=== PATIENT | male | born 1955 | race Two or more races ===

== ENCOUNTER → 2017-12-18 | Outpatient (CLI) | payer OTHER ==
[2017-12-18 10:04] LABS: ALT 60 U/L (21-72); AST 43 U/L (17-59); Cholesterol 146 mg/dL (<200); HDL Cholesterol 72 mg/dL (40-60); LDL Cholesterol,Calculated 56 mg/dL (0-99); Triglycerides 88 mg/dL (<150)
== END | disposition home or self-care (01) ==
LOC: LABWHC1 09:17
PROVIDERS: ATTEND Internal Medicine Cardiovascular Disease
DX: E78.2 Mixed hyperlipidemia (principal)
CPT/HCPCS: 36415; 80061; 84450; 84460

== ENCOUNTER 2019-03-31 15:01 | Inpatient (IN) | payer OTHER ==
[2019-03-31] MEDS ORDERED: SODIUM CHLORIDE 0.9% 500 ML 500 ML IV STA (15:29)
[2019-03-31 16:02] LABS: Basophils # (A) 0.1 k/uL (0-0.2); Basophils % (A) 1 %; Eosinophils # (A) 0.4 k/uL (0-0.7); Eosinophils % (A) 7 %; HCT 44.5 % (39.0-53.0); HGB 14.8 gm/dL (13.0-17.5); Lymphocytes # (A) 1.4 k/uL (1.0-4.8); Lymphocytes % (A) 26 %; MCH 29.1 pg (25.0-35.0); MCHC 33.2 g/dL (31.0-37.0); MCV 87.6 fL (80.0-100.0); Mean Platelet Volume 8.7; Monocytes # (A) 0.6 k/uL (0-1.0); Monocytes % (A) 11 %; Neutrophils # (A) 2.8 k/uL (1.3-7.7); Neutrophils % (A) 51 %; Platelet Count 153 k/uL (150-450); RBC 5.08 m/uL (4.30-5.90); RDW 13.7 % (11.5-15.5); WBC 5.4 k/uL (3.8-10.6)
[2019-03-31 16:09] LABS: ALT 319 U/L (21-72); AST 257 U/L (17-59); African American GFR (CKD) >90 (>60 ml/min/1.73 sqM); Albumin 4.4 g/dL (3.5-5.0); Alkaline Phosphatase 444 U/L (38-126); Anion Gap 12 mmol/L; Blood Urea Nitrogen 10 mg/dL (9-20); Calcium 9.4 mg/dL (8.4-10.2); Carbon Dioxide 22 mmol/L (22-30); Chloride 104 mmol/L (98-107); Glucose 148 mg/dL (74-99); Non-African American GFR(CKD) >90 (>60 ml/min/1.73 sqM); Sodium 138 mmol/L (137-145); Total Bilirubin 6.1 mg/dL (0.2-1.3); Total Protein 7.9 g/dL (6.3-8.2)
[2019-03-31] MEDS ORDERED: PANTOPRAZOLE 40 MG/10 ML VIAL IVP STA (16:49)
[2019-03-31 17:06] LABS: INR 1.3 (<1.2); Partial Thromboplastin Time 31.5 sec (22.0-30.0); Prothrombin Time 13.4 sec (9.0-12.0)
[2019-03-31 17:07] LABS: Appearance,Urine Clear (Clear); Bilirubin,Urine 2+ (Negative); Blood,Urine Negative (Negative); Color,Urine Dark Yellow; Glucose,Urine (UA) Negative (Negative); Ketones,Urine Negative (Negative); Leukocyte Esterase,Urine Negative (Negative); Nitrite,Urine Negative (Negative); PH, Urine 5.5 (5.0-8.0); Protein,Urine Negative (Negative); Specific Gravity,Urine 1.012 (1.001-1.035); Urobilinogen,Urine <2.0 mg/dL (<2.0)
--- NOTE | 2019-03-31 17:10 | ED ---
General Adult HPI - General Chief complaint: Recheck/Abnormal Lab/Rx Stated complaint: White Stool Time Seen by Provider: 03/31/19 15:14 Source: patient, family, RN notes reviewed, old records reviewed Mode of arrival: ambulatory Limitations: no limitations - History of Present Illness Initial comments: 63-year-old male patient with past history of alcohol abuse presents to ED for chief complaint of pale stool, abnormal labs. Patient reports that for ap proximately 2 weeks she has had pale white stool. Patient with his primary care provider yesterday when they verito labs. He was called by his primary care provider today to present to the emergency department. Denies any pain at this time. Denies any other complaints. Systemic: Pt denies fatigue, fever/chills, rash. Pt denies weakness, night sweats, weight loss. Neuro: Pt denies headache, visual disturbances, syncope or pre-syncope. HEENT: Pt denies ocular discharge or irritation, otalgia, rhinorrhea, pharyngitis or notable lymphadenopathy. Cardiopulmonary: Pt denies chest pain, SOB, heart palpitations, dyspnea on exertion. Abdominal/GI: Pt denies abdominal pain, n/v/d. : Pt denies dysuria, burning w/ urination, frequency/urgency. Denies new onset urinary or bowel incontinence. MSK: Pt denies myalgia, loss of strength or function in extremities. Neuro: Pt denies new onset weakness, paresthesias. - Related Data Allergies Allergy/AdvReac Type Severity Reaction Status Date / Time No Known Allergies Allergy Verified 03/31/19 15:10 Review of Systems ROS Statement: Those systems with pertinent positive or pertinent negative responses have been documented in the HPI. ROS Other: All systems not noted in ROS Statement are negative. Past Medical History Past Medical History: Coronary Artery Disease (CAD) History of Any Multi-Drug Resistant Organisms: None Reported Past Surgical History: Heart Catheterization With Stent Past Psychological History: No Psychological Hx Reported Smoking Status: Former smoker Past Alcohol Use History: Daily Past Drug Use History: None Reported General Exam - General Exam Comments Initial Comments: Constitutional: NAD, AOX3, Pt has pleasant affect. HEENT: NC/AT, trachea midline, neck supple, no lymphadenopathy. Posterior pharynx non erythematous, without exudates. External ears appear normal, without discharge. Mucous membranes moist. Eyes PERRLA, EOM intact. Jaundice noted.. No pallor noted. Cardiopulmonary: RRR, no murmurs, rubs or gallops, no JVD noted. Lungs CTAB in anterior and posterior hylton. No peripheral edema. Abdominal exam: Abdomen soft and mildly-distended. Abdomen non-tender to palpation in all 4 quadrants. Bowel sounds active in LLQ. No hepatosplenomegaly. No ecchymosis Neuro: CN II-XII grossly intact. No nuchal rigidity. No raccon eyes, no oliver sign, no hemotympanum. No cervical spinal tenderness. MSK: No posterior calf tenderness bilaterally, homans sign negative bilaterally. Posterior tibialis and radial pulse +2 bilaterally. Sensation intact in upper and lower extremities. Full active ROM in upper and lower extremities, 5/5 stregnth. Limitations: no limitations Course Vital Signs 03/31/19 03/31/19 03/31/19 15:08 15:50 16:00 Temperature 98.5 F Pulse Rate 75 71 70 Respiratory 20 18 18 Rate Blood Pressure 117/81 133/79 133/79 O2 Sat by Pulse 99 98 97 Oximetry 03/31/19 03/31/19 16:30 17:00 Temperature Pulse Rate 70 69 Respiratory 18 16 Rate Blood Pressure 153/80 125/88 O2 Sat by Pulse 98 99 Oximetry Medical Decision Making - Medical Decision Making 63-year-old male patient with past history of alcohol abuse presents to ED for chief complaint of pale stool, abnormal labs. Patient reports that for approximately 2 weeks she has had pale white stool. Patient with his primary care provider yesterday when they verito labs. He was called by his primary care provider today to present to the emergency department. Denies any pain at this time. Denies any other complaints. Patient vital signs stable, afebrile. Physical exam displayed: Jaundice. Abdomen soft and mildly-distended. Abdomen non-tender to palpation in all 4 quadrants. Bowel sounds active in LLQ. No hepatosplenomegaly. No ecchymosis. CBC, CMP unremarkable. Cognition studies mildly elevated. Transaminitis noted. Bilirubin 6.1. Lipase 613. +2 bilirubin urine. Occult blood positive. CT and pelvis displays pancreatic head mass with mild to moderate biliary and pancreatic ductal dilation. Neoplasm suspected. Patient will be admitted for further evaluation. Patient administered Protonix. EKG nonischemic. Case discussed with Dr. Swan. - Lab Data Result diagrams: 03/31/19 15:52 03/31/19 15:52 Lab Results 03/31/19 03/31/19 03/31/19 Range/Units 15:40 15:52 15:52 WBC 5.4 (3.8-10.6) k/uL RBC 5.08 (4.30-5.90) m/uL Hgb 14.8 (13.0-17.5) gm/dL Hct 44.5 (39.0-53.0) % MCV 87.6 (80.0-100.0) fL MCH 29.1 (25.0-35.0) pg MCHC 33.2 (31.0-37.0) g/dL RDW 13.7 (11.5-15.5) % Plt Count 153 (150-450) k/uL Neutrophils % 51 % Lymphocytes % 26 % Monocytes % 11 % Eosinophils % 7 % Basophils % 1 % Neutrophils # 2.8 (1.3-7.7) k/uL Lymphocytes # 1.4 (1.0-4.8) k/uL Monocytes # 0.6 (0-1.0) k/uL Eosinophils # 0.4 (0-0.7) k/uL Basophils # 0.1 (0-0.2) k/uL PT 13.4 H (9.0-12.0) sec INR 1.3 H (<1.2) APTT 31.5 H (22.0-30.0) sec Sodium 138 (137-145) mmol/L Potassium 4.0 (3.5-5.1) mmol/L Chloride 104 (98-107) mmol/L Carbon Dioxide 22 (22-30) mmol/L Anion Gap 12 mmol/L BUN 10 (9-20) mg/dL Creatinine 0.67 (0.66-1.25) mg/dL Est GFR (CKD-EPI)AfAm >90 (>60 ml/min/1.73 sqM) Est GFR (CKD-EPI)NonAf >90 (>60 ml/min/1.73 sqM) Glucose 148 H (74-99) mg/dL Plasma Lactic Acid Jhonny (0.7-2.0) mmol/L Calcium 9.4 (8.4-10.2) mg/dL Total Bilirubin 6.1 H (0.2-1.3) mg/dL AST 257 H (17-59) U/L ALT 319 H (21-72) U/L Alkaline Phosphatase 444 H (38-126) U/L Total Protein 7.9 (6.3-8.2) g/dL Albumin 4.4 (3.5-5.0) g/dL Lipase 613 H (23-300) U/L Urine Color Urine Appearance (Clear) Urine pH (5.0-8.0) Ur Specific Deford (1.001-1.035) Urine Protein (Negative) Urine Glucose (UA) (Negative) Urine Ketones (Negative) Urine Blood (Negative) Urine Nitrite (Negative) Urine Bilirubin (Negative) Urine Urobilinogen (<2.0) mg/dL Ur Leukocyte Esterase (Negative) Stool Occult Blood (Negative) 03/31/19 03/31/19 03/31/19 Range/Units 15:52 15:52 16:51 WBC (3.8-10.6) k/uL RBC (4.30-5.90) m/uL Hgb (13.0-17.5) gm/dL Hct (39.0-53.0) % MCV (80.0-100.0) fL MCH (25.0-35.0) pg MCHC (31.0-37.0) g/dL RDW (11.5-15.5) % Plt Count (150-450) k/uL Neutrophils % % Lymphocytes % % Monocytes % % Eosinophils % % Basophils % % Neutrophils # (1.3-7.7) k/uL Lymphocytes # (1.0-4.8) k/uL Monocytes # (0-1.0) k/uL Eosinophils # (0-0.7) k/uL Basophils # (0-0.2) k/uL PT (9.0-12.0) sec INR (<1.2) APTT (22.0-30.0) sec Sodium (137-145) mmol/L Potassium (3.5-5.1) mmol/L Chloride (98-107) mmol/L Carbon Dioxide (22-30) mmol/L Anion Gap mmol/L BUN (9-20) mg/dL Creatinine (0.66-1.25) mg/dL Est GFR (CKD-EPI)AfAm (>60 ml/min/1.73 sqM) Est GFR (CKD-EPI)NonAf (>60 ml/min/1.73 sqM) Glucose (74-99) mg/dL Plasma Lactic Acid Jhonny 1.1 (0.7-2.0) mmol/L Calcium (8.4-10.2) mg/dL Total Bilirubin (0.2-1.3) mg/dL AST (17-59) U/L ALT (21-72) U/L Alkaline Phosphatase (38-126) U/L Total Protein (6.3-8.2) g/dL Albumin (3.5-5.0) g/dL Lipase (23-300) U/L Urine Color Dark Yellow Urine Appearance Clear (Clear) Urine pH 5.5 (5.0-8.0) Ur Specific Deford 1.012 (1.001-1.035) Urine Protein Negative (Negative) Urine Glucose (UA) Negative (Negative) Urine Ketones Negative (Negative) Urine Blood Negative (Negative) Urine Nitrite Negative (Negative) Urine Bilirubin 2+ H (Negative) Urine Urobilinogen <2.0 (<2.0) mg/dL Ur Leukocyte Esterase Negative (Negative) Stool Occult Blood Positive (Negative) - EKG Data -: EKG Interpreted by Me EKG Comments: Ventricular rate 72, WY interval 162, QRS 92, QT/QTc 48/446. NSR, normal EKG, no concern for acute ischemia. Disposition Clinical Impression: Pancreatic mass, GI bleed Disposition: ADMITTED IP TO THIS [facility] Condition: Serious Is patient prescribed a controlled substance at d/c from ED?: No Referrals: Evens Hayes MD [Primary Care Provider] - 1-2 days
--- NOTE | 2019-03-31 17:30 | CT ---
EXAMINATION TYPE: CT abdomen pelvis w con DATE OF EXAM: 03/31/2019 COMPARISON: None. HISTORY: Discolored stool and jaundice. Elevated liver enzymes. CT DLP: 1240.5 mGycm, Automated Exposure Control for Dose Reduction was Utilized. CONTRAST: CT scan of the abdomen and pelvis is performed without oral but with with IV Contrast, patient inject ed with 100 mL of Isovue 300. FINDINGS: LUNG BASES: Partial visualization of right coronary stent. LIVER/GB: Liver somewhat small in size and single 6 mm calcification axial image 21. Gallbladder has distended margins. No CT dense intraluminal gallstones or surrounding inflammatory change. No abnorma l gallbladder wall thickening. Mild extra hepatic biliary dilatation up to 10 mm towards luis hepati s with gradual tapering towards duodenal ampulla. Mild central intrahepatic biliary dilatation. PANCREAS: Visualization pancreatic duct which is dilated towards the head up to 7 mm. There is abrupt cut off at this level of both distal common bile duct and pancreatic duct due to poorly defined hete rogeneous possible solid and cystic mass coronal image 53 and axial image 34 where it measures roughl y 4.6 cm transversely by 1.9 cm craniocaudal dimension. There is indistinct fat plane from adjacent d uodenum. SPLEEN: Few scattered calcifications throughout the spleen. Liver and spleen findings consistent with product of old granulomatous disease. ADRENALS: No significant abnormality is seen. KIDNEYS: No significant abnormality is seen. BOWEL: Redundancy of sigmoid colon. No suspicious small or large bowel dilatation. Normal-appearing a ppendix from posterior aspect of cecum. Stomach poorly distended and thus suboptimally evaluated. PROSTATE/SEMINAL VESICLES: No gross abnormality seen. LYMPH NODES: No greater than 1cm abdominal or pelvic lymph nodes are appreciated. OSSEOUS STRUCTURES: No significant abnormality is seen. OTHER: No significant additional abnormality is seen. IMPRESSION: Heterogeneous pancreatic head mass causing double duct sign with mild to moderate biliary and pancreatic ductal dilatation. Neoplasm (likely of pancreatic origin) is suspected. Endoscopic ul trasound for sampling can BE performed to confirm.
[2019-03-31] MEDS ORDERED: NALOXONE 0.4 MG/ML 1 ML VIAL IV PRN (18:04)
[2019-03-31 18:48] LABS: Hepatitis A Antibody IgM NEGATIVE
[2019-03-31] MEDS: SODIUM CHLORIDE 0.9% 1,000 ML IV SCH (23:10)
[2019-03-31] MEDS: HEPARIN SODIUM,PORCINE 5,000 UNIT/ML 1 ML VIAL SQ SCH (23:11)
[2019-04-01 08:38] LABS: Basophils % (A) 1 %; Eosinophils # (A) 0.3 k/uL (0-0.7); Eosinophils % (A) 5 %; HCT 41.8 % (39.0-53.0); HGB 14.4 gm/dL (13.0-17.5); Lymphocytes # (A) 1.2 k/uL (1.0-4.8); Lymphocytes % (A) 20 %; MCH 30.3 pg (25.0-35.0); MCHC 34.3 g/dL (31.0-37.0); MCV 88.4 fL (80.0-100.0); Mean Platelet Volume 8.1; Monocytes # (A) 0.5 k/uL (0-1.0); Monocytes % (A) 9 %; Neutrophils # (A) 3.7 k/uL (1.3-7.7); Neutrophils % (A) 63 %; Platelet Count 150 k/uL (150-450); RBC 4.74 m/uL (4.30-5.90); RDW 13.9 % (11.5-15.5); WBC 5.8 k/uL (3.8-10.6)
[2019-04-01 08:49] LABS: ALT 313 U/L (21-72); AST 280 U/L (17-59); African American GFR (CKD) >90 (>60 ml/min/1.73 sqM); Alkaline Phosphatase 407 U/L (38-126); Anion Gap 13 mmol/L; Blood Urea Nitrogen 10 mg/dL (9-20); Calcium 9.1 mg/dL (8.4-10.2); Carbon Dioxide 23 mmol/L (22-30); Chloride 105 mmol/L (98-107); Glucose 112 mg/dL (74-99); Non-African American GFR(CKD) >90 (>60 ml/min/1.73 sqM); Potassium 3.8 mmol/L (3.5-5.1); Sodium 141 mmol/L (137-145); Total Bilirubin 6.8 mg/dL (0.2-1.3); Total Protein 7.4 g/dL (6.3-8.2)
[2019-04-01] MEDS: SERTRALINE 100 MG TAB PO SCH (08:52)
[2019-04-01] MEDS: METOPROLOL SUCCINATE (ER) 50 MG TAB.ER.24H PO SCH (08:52)
[2019-04-01] MEDS: LISINOPRIL 10 MG TAB PO SCH (08:52)
[2019-04-01] MEDS: FAMOTIDINE 20 MG TAB PO SCH (08:52)
[2019-04-01] MEDS: HEPARIN SODIUM,PORCINE 5,000 UNIT/ML 1 ML VIAL SQ SCH ×2 (08:57→16:34)
--- NOTE | 2019-04-01 14:00 | P.HPIM ---
History of Present Illness H&P Date: 03/31/19 Chief Complaint: Pancreatic cancer, Obstructive jaundice, history of CAD with PCI 63-year-old male one of Dr. higuera's patient with past medical history of CAD, hypertension, hyperlipidemia and depression who apparently has not been feeling well for the last 2 weeks had very light color stool and significant for a testing itching was seen Dr. Andino order lab and blood work found to have significantly elevated liver function tests and bilirubin. Patient was called and sent to the emergency department at [facility] where was seen and evaluated ended up going for further lab and CAT scan of the abdomen and pelvis his CAT scan was consistent with heterogeneous pancreatic head mass causing double duct sign with mild to moderate biliary and pancreatic duct amputation neoplasm likely of pancreatic origin is suspected. His lab shows slightly elevated INR with significantly elevated liver function test with alk phos and lipase total bilirubin was 6.1 no tumor marker were done at the time fecal occult blood was positive. Patient will be hospitalized and consult GI for possible stent of the biliary tree to open up the obstruction and also we'll con sult oncology for further management. Review of Systems CONSTITUTIONAL: Well-developed no acute respiratory distress. Looks more chronically sick and very pale. EYES: No icterus sclerae, no conjunctivitis. EARS, NOSE, MOUTH, THROAT, and FACE: No sore throat, lymphadenopathy, carotid bruits or deformity. RESPIRATORY: No SOB cough or wheezes. CARDIOVASCULAR: No CP, Palpitation, PND, Orthopnea, or angina. GASTROINTESTINAL: Abdominal distention with mild diarrhea and nausea no vomiting positive obstructive jaundice with slight change in bowel habits in color. GENITOURINARY: Negative for Hematuria or UTI, no kidney stones. INTEGUMENT/BREAST: Negative for any muscular injury with mild osteoarthritis.. HEMATOLOGIC/LYMPHATIC: Negative for bleed or purpura. MUSCULOSKELTAL: Negative for Myalgia or arthralgia. NEURLOGICAL: No LOC, Sz or syncope, blurred vision dizziness or abnormality.. BEHAVIORAL/PSYCH: Negative. ENDOCRINE: Negative. Past Medical History Past Medical History: Coronary Artery Disease (CAD) History of Any Multi-Drug Resistant Organisms: None Reported Past Surgical History: Heart Catheterization With Stent Past Psychological History: No Psychological Hx Reported Smoking Status: Former smoker Past Alcohol Use History: Daily Past Drug Use History: None Reported Medications and Allergies Home Medications Medication Instructions Recorded Confirmed Type Atorvastatin [Lipitor] 80 mg PO DAILY 12/04/19 12/04/19 History Lisinopril [Zestril] 10 mg PO DAILY 03/31/19 03/31/19 History Metoprolol Succinate (ER) [Toprol 50 mg PO DAILY 03/31/19 03/31/19 History Xl] Sertraline [Zoloft] 100 mg PO DAILY 03/31/19 03/31/19 History Allergies Allergy/AdvReac Type Severity Reaction Status Date / Time No Known Allergies Allergy Verified 03/31/19 18:45 Physical Exam Vitals: Vital Signs Temp Pulse Pulse Resp BP BP Pulse Ox 03/31/19 19:59 97.5 F L 72 15 150/78 92 L 03/31/19 19:30 74 20 135/86 98 03/31/19 19:00 72 20 136/83 96 03/31/19 18:30 73 20 130/84 03/31/19 18:00 75 24 132/76 03/31/19 17:30 73 20 117/81 97 03/31/19 17:00 69 16 125/88 99 03/31/19 16:30 70 18 153/80 98 03/31/19 16:00 70 18 133/79 97 03/31/19 15:50 71 18 133/79 98 03/31/19 15:08 98.5 F 75 20 117/81 99 Intake and Output 03/31/19 03/31/19 03/31/19 06:59 14:59 22:59 Other: Weight 86.636 kg General Appearance: Alert, cooperative, no distress, appears stated age. Again very pale color with mildly jaundice. Neck HEENT: Supple, no lymphadenopathy, no thyroid enlargement, no carotid bruits. Lungs: Clear to auscultation without crackles or wheezes no rhonchi, no deformity. Chest Wall: Chest wall normal expansion with deep inspiration no tenderness and no deformity was found on exam, no costochondral pain or discomfort. Heart: Regular rate and rhythm, S1, S2 normal, no murmur, rub or gallop. Back: Symmetric, no curvature, ROM normal, no CVA tenderness. Abdomen: Slightly distended with mild right upper quadrant discomfort and mid epigastric discomfort with slight hepatomegaly. Extremities: Extremities normal, atraumatic, no cyanosis or edema. Pulses: 2+ and symmetric. Skin: Skin color, texture, tugor normal, no rashes or lesions. Neurologic: Alert oriented x3 cranial nerves II through XII intact, no motor deficit, no abnormal balance or gait. Results CBC & Chem 7: 03/31/19 15:52 03/31/19 15:52 Labs: Abnormal Lab Results - Last 24 Hours (Table) 03/31/19 03/31/19 03/31/19 Range/Units 15:40 15:52 16:51 PT 13.4 H (9.0-12.0) sec INR 1.3 H (<1.2) APTT 31.5 H (22.0-30.0) sec Glucose 148 H (74-99) mg/dL Total Bilirubin 6.1 H (0.2-1.3) mg/dL AST 257 H (17-59) U/L ALT 319 H (21-72) U/L Alkaline Phosphatase 444 H (38-126) U/L Lipase 613 H (23-300) U/L Urine Bilirubin 2+ H (Negative) Thrombosis Risk Factor Assmnt - DVT/VTE Prophylaxis DVT/VTE Prophylaxis: Pharmacologic Prophylaxis ordered, Mechanical Prophylaxis ordered Assessment and Plan Plan: 1 pancreatic mass: Most likely pancreatic neoplasm, patient be seen hematology oncology and GI might need to go for an ERCP and stent of the common duct and possible biopsy will be highly recommended the point. 2 obstructive biliary tree might need ERCP and stent placement. 3 significant weight loss and jaundice mostly from cancer and mild pancreatitis. 4 CAD post PCI and stent placement has been on roque and beta sarai. 5 hyperlipidemia: Was on statin which will be held for now. 6 hyperglycemia: Accu-Chek with sliding scales coverage and be done for now. 7 depression: Patient will continue on Zoloft 100 mg daily. 8 GI prophylaxis: Patient be on Pepcid 20 mg daily. 9 DVT prophylaxis: Patient be on heparin 5000 units daily his twice a day. CODE STATUS: Full code. Admit patient to inpatient status for or than 2 nights.
--- NOTE | 2019-04-01 16:51 | P.CONS ---
History of Present Illness - Reason for Consult Consult date: 04/01/19 pancreatic mass Requesting physician: James Bond - Chief Complaint acholic stool - History of Present Illness Mr Espino is a very pleasant 63-year-old male patient of PCP Dr. Bond who we've been asked to see because of a mass found on the head of the pancreas. CT abd performed when as presented to the hospital with concerns about having "white stool", going on for a few weeks, this progressed to include left-sided abd pain for the last few days. Patient denies any puritis, fevers, difficulty swallowing, unintentional weight loss, night sweats, indigestion, heartburn, abdominal distention, bloating, change in caliber or consistency of stool, dysuria, hematuria, swelling in the legs, unusual bleeding or bruising. Patient's appetite is decent, he denies any unusual fatigue. States that a year ago he had a colonoscopy, precancerous polyps removed he was to follow-up in one year. He had an EGD along time ago. He has his prostate examined by his primary care annually. No personal history of cancer, family history of cancer, he has had cardiac stenting but, is otherwise in good health. Patient states he smoked for about 44 years, 1-2 packs per day quitting about 2-1/2 years ago. Has COPD but denies any current KRISTINE or changes in breathing. Review of Systems 14 point review of systems is negative except as stated in HPI Past Medical History Past Medical History: Coronary Artery Disease (CAD) Last Myocardial Infarction Date:: 2016 History of Any Multi-Drug Resistant Organisms: None Reported Past Surgical History: Heart Catheterization With Stent Additional Past Surgical History / Comment(s): two stents placed in the RCA in August of 2016 Past Anesthesia/Blood Transfusion Reactions: No Reported Reaction Date of Last Stent Placement:: 2016 Past Psychological History: No Psychological Hx Reported Smoking Status: Former smoker (88 year Hx) Past Alcohol Use History: Daily Past Drug Use History: None Reported - Past Family History Father Family Medical History: Coronary Artery Disease (CAD), CVA/TIA, Myocardial Infarction ([place]) Mother Family Medical History: Coronary Artery Disease (CAD), Diabetes Mellitus, Hypertension Medications and Allergies Home Medications Medication Instructions Recorded Confirmed Type Atorvastatin [Lipitor] 80 mg PO DAILY 03/31/19 03/31/19 History Lisinopril [Zestril] 10 mg PO DAILY 03/31/19 03/31/19 History Metoprolol Succinate (ER) [Toprol 50 mg PO DAILY 03/31/19 03/31/19 History Xl] Sertraline [Zoloft] 100 mg PO DAILY 03/31/19 03/31/19 History Aspirin 325 mg PO DAILY 04/01/19 04/01/19 History Allergies Allergy/AdvReac Type Severity Reaction Status Date / Time No Known Allergies Allergy Verified 03/31/19 18:45 Physical Exam Vitals: Vital Signs Temp Pulse Pulse Resp BP BP Pulse Ox 04/01/19 15:00 97.6 F 67 12 152/80 95 04/01/19 07:00 97.6 F 70 12 131/75 94 L 04/01/19 04:00 14 04/01/19 01:00 97.7 F 72 14 122/74 96 03/31/19 23:15 14 03/31/19 20:00 15 03/31/19 19:59 97.5 F L 72 15 150/78 92 L 03/31/19 19:30 74 20 135/86 98 03/31/19 19:00 72 20 136/83 96 03/31/19 18:30 73 20 130/84 03/31/19 18:00 75 24 132/76 03/31/19 17:30 73 20 117/81 97 03/31/19 17:00 69 16 125/88 99 Intake and Output 04/01/19 04/01/19 04/01/19 06:59 14:59 22:59 Other: Voiding Method Toilet - Constitutional General appearance: cooperative, no acute distress, obese - EENT Eyes: EOMI, scleral icterus (mild) ENT: hearing grossly normal, normal oropharynx - Neck Neck: no lymphadenopathy - Respiratory Respiratory: bilateral: CTA, diminished - Cardiovascular Rhythm: regular Heart sounds: normal: S1, S2 Abnormal Heart Sounds: no systolic murmur, no diastolic murmur, no rub, no S3 Gallop, no S4 Gallop, no click, no other leg Peripheral Edema: bilateral: None - Gastrointestinal General gastrointestinal: no absent bowel sounds, no decreased bowel sounds, no distended, no hepatomegaly, no hyperactive bowel sounds, normal bowel sounds, no organomegaly, no rigid, no scaphoid, soft, no splenomegaly, no tenderness, no umbilical hernia, no ventral hernia - Integumentary Integumentary: normal - Neurologic Neurologic: CNII-XII intact - Musculoskeletal Musculoskeletal: strength equal bilaterally - Psychiatric Psychiatric: A&O x's 3, appropriate affect, intact judgment & insight Results CBC & Chem 7: 04/01/19 07:47 04/01/19 07:47 Labs: Abnormal Lab Results - Last 24 Hours (Table) 03/31/19 03/31/19 04/01/19 Range/Units 15:40 16:51 07:47 PT 13.4 H (9.0-12.0) sec INR 1.3 H (<1.2) APTT 31.5 H (22.0-30.0) sec Glucose 112 H (74-99) mg/dL Total Bilirubin 6.8 H (0.2-1.3) mg/dL AST 280 H (17-59) U/L ALT 313 H (21-72) U/L Alkaline Phosphatase 407 H (38-126) U/L Urine Bilirubin 2+ H (Negative) CT scan - abdomen: report reviewed CT scan - pelvis: report reviewed Assessment and Plan (1) Pancreatic mass Current Visit: Yes Status: Acute Priority: High Code(s): K86.89 - OTHER SPECIFIED DISEASES OF PANCREAS SNOMED Code(s): 369077101 (2) Hyperbilirubinemia Current Visit: Yes Status: Acute Priority: High Code(s): E80.6 - OTHER DISORDERS OF BILIRUBIN METABOLISM SNOMED Code(s): 35595614 Plan: Case was discussed with Attending Physician. From Oncology standpoint agree with Gastroenterology to perform procedures to treat obstruction and obtain a biopsy. CT of the abdomen and pelvis is showing obstruction at the level of the pancreas, no metastatic disease appreciated. Patient will be referred to tertiary care center for surgical evaluation. Discussed with the patient that he needed relief of the obstruction and a biopsy. He did verbalize understanding and was agreeable to move forward. He denied having any family other than a Cousin to communicate with.
[2019-04-01 18:45] LABS: Hepatitis B Core IgM Non-Reactive (Non-Reactive); Hepatitis B Surface Antigen Non-Reactive (Non-Reactive); Hepatitis C IgG Antibody Non-Reactive (Non-Reactive)
[2019-04-01] MEDS: SODIUM CHLORIDE 0.9% 1,000 ML IV SCH ×2 (20:50→21:34)
--- NOTE | 2019-04-01 23:04 | CONS ---
CONSULTATION DATE OF DICTATION: 04/01/2019 REASON FOR CONSULTATION: Obstructive jaundice and pancreatic mass. HISTORY OF PRESENT ILLNESS: The patient is a 63-year-old pleasant white male who was admitted to the hospital yesterday when he presented with intermittent episodes of left upper quadrant abdominal pain for the last 2 weeks' duration. About 2 weeks ago he noted pale-colored stools and his family also noted that he had some yellowish discoloration of his skin. He went to see Dr. Hayes and he had some labs done. He was noted to have jaundice with elevated LFTs and was advised to go to the emergency room. In the ER, he had a CT of the abdomen and pelvis done that showed a heterogeneous pancreatic head mass with a double duct sign causing mild to moderate biliary ductal dilation as well as pancreatic ductal dilation suspicious for pancreatic neoplasm. Hence we are consulted in regard to this issue. His bilirubin was 6.1, ALT and AST in the range of 200s. The patient never had these problems in the past. No history of weight loss. No nausea, vomiting. No rectal bleeding or melena. PAST MEDICAL HISTORY: Past medical history is significant for coronary artery disease, hypertension, hyperlipidemia and anxiety, depression. MEDICATIONS AT HOME: 1. Zoloft. 2. Lipitor. 3. Zestril. 4. Toprol. ALLERGIES: NONE. SOCIAL HISTORY: Former smoker. Alcohol consumption daily. REVIEW OF SYSTEMS: CARDIOPULMONARY: No chest pain or shortness of breath. GENITOURINARY: No dysuria or hematuria. MUSCULOSKELETAL: Unremarkable. SKIN: Unremarkable. ENDOCRINE: Unremarkable. PSYCHIATRIC: Unremarkable. NEUROLOGY: Unremarkable. ENT/VISION: Unremarkable. CONSTITUTIONAL: No recent weight loss. No fever, chills, night sweats. PHYSICAL EXAMINATION: He appears comfortable. No apparent distress. VITAL SIGNS: Stable. Blood pressure is 152/80, pulse rate 67, temperature 97.6. HEENT examination unremarkable. Conjunctivae pink. Sclerae deeply icteric. Oral cavity no lesions. NECK: No JVD or lymph node enlargement. CHEST: Clear to auscultation. HEART: Regular rate and rhythm. ABDOMEN: Soft. It was non-tender, non-distended. Liver and spleen are palpable. Bowel sounds are positive. No organomegaly. EXTREMITIES: No pedal edema. SKIN: No rashes. Yellowish discoloration noted. NEUROLOGIC: Alert and oriented x3. No focal deficits. LABS: WBC 5.4, hemoglobin 14.8. Platelets are normal. Basic metabolic panel showed a bilirubin of 6.1, AST 257, ALT 319, alkaline phosphatase 444. Lipase is 3613. Today bilirubin is 6.8. Stool occult blood was positive. Hemoglobin 14.4, WBC 5.8, and platelets are 150. IMPRESSION: 1. Obstructive jaundice secondary to pancreatic head mass causing extra- and intrahepatic biliary ductal dilation as well as pancreatic duct dilation, all suspicious for pancreatic neoplasm. 2. History of coronary artery disease. 3. Hypertension. 4. Hyperlipidemia. RECOMMENDATIONS: I had a lengthy discussion with the patient as well as family at the bedside. At this time we recommend endoscopic ultrasound of the pancreas for tissue diagnosis as well as ERCP for biliary drainage. Recommended transfer to [facility], where all these procedures can be performed. The patient and family are agreeable with this plan. Will notify Dr. Bond about the recommendations. Thank you for this consultation. MMODL / IJN: [id number] /
[2019-04-02] MEDS: HEPARIN SODIUM,PORCINE 5,000 UNIT/ML 1 ML VIAL SQ SCH ×2 (01:04→08:45)
[2019-04-02] MEDS: SODIUM CHLORIDE 0.9% 1,000 ML IV SCH (04:42)
[2019-04-02 07:46] VITALS: BP 154/74; PULSE 74; RESP 16; TEMP 98.1
[2019-04-02] MEDS: SERTRALINE 100 MG TAB PO SCH (08:45)
[2019-04-02] MEDS: FAMOTIDINE 20 MG TAB PO SCH (08:45)
[2019-04-02] MEDS: LISINOPRIL 10 MG TAB PO SCH (08:45)
[2019-04-02] MEDS: METOPROLOL SUCCINATE (ER) 50 MG TAB.ER.24H PO SCH (08:45)
--- NOTE | 2019-04-02 15:06 | P.DS ---
Providers Date of admission: 03/31/19 18:21 Attending physician: James Bond Consults: 03/31/19 18:04 Consult Physician Stat Consulting Provider: Carl Brock Consult Reason/Comments: pancreatic mass, gi bleed Do you want consulting provider notified?: Yes, Notify in am Consult Physician Stat Consulting Provider: Hvaen Lamb Consult Reason/Comments: pancreatic mass, GI bleed Do you want consulting provider notified?: Yes, Notify in am Primary care physician: [facility] Course: Principal diagnosis: Pancreatic cancer, Obstructive jaundice, history of CAD with PCI 63-year-old male one of Dr. higuera's patient with past medical history of CAD, hypertension, hyperlipidemia and depression who apparently has not been feeling well for the last 2 weeks had very light color stool and significant for a testing itching was seen Dr. Andino order lab and blood work found to have significantly elevated liver function tests and bilirubin. Patient was called and sent to the emergency department at [facility] where was seen and evaluated ended up going for further lab and CAT scan of the abdomen and pelvis his CAT scan was consistent with heterogeneous pancreatic head mass causing double duct sign with mild to moderate biliary and pancreatic duct amputation neoplasm likely of pancreatic origin is suspected. His lab shows slightly elevated INR with significantly elevated liver function test with alk phos and lipase total bilirubin was 6.1 no tumor marker were done at the time fecal occult blood was positive. Patient will be hospitalized and consult GI for possible stent of the biliary tree to open up the obstruction and also we'll consult oncology for further management. Review of Systems CONSTITUTIONAL: Well-developed no acute respiratory distress. Looks more chronically sick and very pale. EYES: No icterus sclerae, no conjunctivitis. EARS, NOSE, MOUTH, THROAT, and FACE: No sore throat, lymphadenopathy, carotid bruits or deformity. RESPIRATORY: No SOB cough or wheezes. CARDIOVASCULAR: No CP, Palpitation, PND, Orthopnea, or angina. GASTROINTESTINAL: Abdominal distention with mild diarrhea and nausea no vomiting positive obstructive jaundice with slight change in bowel habits in color. GENITOURINARY: Negative for Hematuria or UTI, no kidney stones. INTEGUMENT/BREAST: Negative for any muscular injury with mild osteoarthritis.. HEMATOLOGIC/LYMPHATIC: Negative for bleed or purpura. MUSCULOSKELTAL: Negative for Myalgia or arthralgia. NEURLOGICAL: No LOC, Sz or syncope, blurred vision dizziness or abnormality.. BEHAVIORAL/PSYCH: Negative. ENDOCRINE: Negative. Physical Exam General Appearance: Alert, cooperative, no distress, appears stated age. Again very pale color with mildly jaundice. Neck HEENT: Supple, no lymphadenopathy, no thyroid enlargement, no carotid bruits. Lungs: Clear to auscultation without crackles or wheezes no rhonchi, no deformity. Chest Wall: Chest wall normal expansion with deep inspiration no tenderness and no deformity was found on exam, no costochondral pain or discomfort. Heart: Regular rate and rhythm, S1, S2 normal, no murmur, rub or gallop. Back: Symmetric, no curvature, ROM normal, no CVA tenderness. Abdomen: Slightly distended with mild right upper quadrant discomfort and mid epigastric discomfort with slight hepatomegaly. Extremities: Extremities normal, atraumatic, no cyanosis or edema. Pulses: 2+ and symmetric. Skin: Skin color, texture, tugor normal, no rashes or lesions. Neurologic: Alert oriented x3 cranial nerves II through XII intact, no motor deficit, no abnormal balance or gait. Assessment and Plan Plan: 1 pancreatic mass: Most likely pancreatic neoplasm, patient be seen hematology oncology and GI might need to go for an ERCP and stent of the common duct and possible biopsy will be highly recommended the point. 2 obstructive biliary tree might need ERCP and stent placement. 3 significant weight loss and jaundice mostly from cancer and mild pancreatitis. 4 CAD post PCI and stent placement has been on roque and beta sarai. 5 hyperlipidemia: Was on statin which will be held for now. 6 hyperglycemia: Accu-Chek with sliding scales coverage and be done for now. 7 depression: Patient will continue on Zoloft 100 mg daily. Patient be transferred to [facility] to be seen by gastroenterology for possible ERCP and stent placement in the common duct via ERCP with ultrasound probe also might require to have a biopsy and possibly refer for colorectal surgery service for potential [facility] if patient is a candidate. Transfer to [facility] report was giving awaiting for bed to become available. Patient Condition at Discharge: Serious Plan - Discharge Summary Discharge Rx Participant: No New Discharge Prescriptions: No Action Metoprolol Succinate (ER) [Toprol Xl] 50 mg PO DAILY Sertraline [Zoloft] 100 mg PO DAILY Lisinopril [Zestril] 10 mg PO DAILY Atorvastatin [Lipitor] 80 mg PO DAILY Aspirin 325 mg PO DAILY Discharge Medication List Atorvastatin [Lipitor] 80 mg PO DAILY 03/31/19 [History] Lisinopril [Zestril] 10 mg PO DAILY 03/31/19 [History] Metoprolol Succinate (ER) [Toprol Xl] 50 mg PO DAILY 03/31/19 [History] Sertraline [Zoloft] 100 mg PO DAILY 03/31/19 [History] Aspirin 325 mg PO DAILY 04/01/19 [History] Follow up Appointment(s)/Referral(s): Evens Hayes MD [Primary Care Provider] - 1-2 days Discharge Disposition: TRANSFER TO SHORT TERM HOSP
== END 2019-04-02 14:23 | disposition short-term general hospital (02) | DRG 435 ==
LOC: EC 15:01 → 4SSUR 18:21
PROVIDERS: ADMIT Internal Medicine Geriatric Medicine; ATTEND Internal Medicine Geriatric Medicine
DX: C25.9 Malignant neoplasm of pancreas, unspecified (principal); K83.1 Obstruction of bile duct; K85.90 Acute pancreatitis without necrosis or infection, unspecified; K92.2 Gastrointestinal hemorrhage, unspecified; E78.5 Hyperlipidemia, unspecified; F32.9 Major depressive disorder, single episode, unspecified; I10 Essential (primary) hypertension; I25.10 Atherosclerotic heart disease of native coronary artery without angina pectoris; I25.2 Old myocardial infarction; J44.9 Chronic obstructive pulmonary disease, unspecified; R79.1 Abnormal coagulation profile; F10.10 Alcohol abuse, uncomplicated; F41.9 Anxiety disorder, unspecified; R73.9 Hyperglycemia, unspecified; R63.4 Abnormal weight loss; E66.9 Obesity, unspecified; Z68.29 Body mass index [BMI] 29.0-29.9, adult; Z79.82 Long term (current) use of aspirin; Z79.899 Other long term (current) drug therapy; Z87.891 Personal history of nicotine dependence; Z95.5 Presence of coronary angioplasty implant and graft; Z82.49 Family history of ischemic heart disease and other diseases of the circulatory system; Z83.3 Family history of diabetes mellitus; Z82.3 Family history of stroke
CPT/HCPCS: 36415; 74177; 80053; 80074; 81003; 82272; 83605; 83690; 85025; 85610; 85730; 93005; 96361; 96374; 99285

== ENCOUNTER 2019-10-05 16:05 | Inpatient (IN) | payer OTHER ==
[2019-10-05] MEDS ORDERED: MORPHINE SULFATE 4 MG/ML SYRINGE IV STA (17:05)
[2019-10-05] MEDS ORDERED: SODIUM CHLORIDE 0.9% 1,000 ML IV STA (17:05)
[2019-10-05] MEDS ORDERED: ONDANSETRON 4 MG/2 ML VIAL IVP STA (17:05)
[2019-10-05 17:24] LABS: Basophils # (A) 0.1 k/uL (0-0.2); Basophils % (A) 1 %; Eosinophils # (A) 0.4 k/uL (0-0.7); Eosinophils % (A) 8 %; HCT 35.6 % (39.0-53.0); Lymphocytes # (A) 1.2 k/uL (1.0-4.8); Lymphocytes % (A) 28 %; MCHC 33.8 g/dL (31.0-37.0); MCV 91.9 fL (80.0-100.0); Mean Platelet Volume 8.4; Monocytes # (A) 0.6 k/uL (0-1.0); Monocytes % (A) 13 %; Neutrophils % (A) 46 %; Platelet Count 489 k/uL (150-450); Poikilocytosis Slight; RBC 3.88 m/uL (4.30-5.90); RDW 14.7 % (11.5-15.5); WBC 4.4 k/uL (3.8-10.6)
[2019-10-05 17:28] LABS: INR 1.1 (<1.2); Partial Thromboplastin Time 24.2 sec (22.0-30.0); Prothrombin Time 11.1 sec (9.0-12.0)
[2019-10-05 17:29] LABS: ALT 57 U/L (4-49); AST 26 U/L (17-59); African American GFR (CKD) >90 (>60 ml/min/1.73 sqM); Albumin 3.6 g/dL (3.5-5.0); Alkaline Phosphatase 197 U/L (38-126); Anion Gap 11 mmol/L; Blood Urea Nitrogen 10 mg/dL (9-20); Calcium 8.8 mg/dL (8.4-10.2); Carbon Dioxide 23 mmol/L (22-30); Chloride 89 mmol/L (98-107); Magnesium 1.7 mg/dL (1.6-2.3); Non-African American GFR(CKD) >90 (>60 ml/min/1.73 sqM); Potassium 3.8 mmol/L (3.5-5.1); Sodium 123 mmol/L (137-145); Total Bilirubin 0.6 mg/dL (0.2-1.3); Total Protein 6.2 g/dL (6.3-8.2)
--- NOTE | 2019-10-05 17:38 | ED ---
General Adult HPI <MarioDavid - Last Filed: 10/05/19 18:51> - General Source: patient Mode of arrival: ambulatory Limitations: no limitations <Miryam Sidhu - Last Filed: 10/05/19 19:24> - General Chief complaint: Chest Pain Stated complaint: left abd pain Time Seen by Provider: 10/05/19 16:55 - History of Present Illness Initial comments: 64-year-old male patient with recent diagnosis of pancreatic cancer presents to the emergency department today for evaluation of left-sided abdominal pain occasionally radiating into his chest. Patient states the pain started at 2-3 days ago and has been worsening. States it is now constant and severe. Patient did have his last chemotherapy treatment 2 weeks ago. States he has had intermittent nausea and vomiting. He is reporting occasional diarrhea believes this is related to the chemotherapy. Denies any fever or chills. Denies any previous abdominal surgery. Patient denies any recent rash, cough, shortness of breath, numbness, tingling, dizziness, weakness, hematuria, dysuria, urinary urgency, urinary frequency, headache, visual changes, or any other complaints. (Miryam Sidhu) - Related Data Home Medications Medication Instructions Recorded Confirmed Atorvastatin [Lipitor] 80 mg PO DAILY 03/31/19 03/31/19 Lisinopril [Zestril] 10 mg PO DAILY 03/31/19 03/31/19 Metoprolol Succinate (ER) [Toprol 50 mg PO DAILY 03/31/19 03/31/19 Xl] Sertraline [Zoloft] 100 mg PO DAILY 03/31/19 03/31/19 Aspirin 325 mg PO DAILY 04/01/19 04/01/19 Allergies Allergy/AdvReac Type Severity Reaction Status Date / Time No Known Allergies Allergy Verified 10/05/19 16:39 Review of Systems ROS Other: All systems not noted in ROS Statement are negative. <David Martin - Last Filed: 10/05/19 18:51> ROS Other: All systems not noted in ROS Statement are negative. <Miryam Sidhu - Last Filed: 10/05/19 19:24> ROS Statement: Those systems with pertinent positive or pertinent negative responses have been documented in the HPI. Past Medical History Past Medical History: Coronary Artery Disease (CAD) Additional Past Medical History / Comment(s): pancreatic cancer, Last Myocardial Infarction Date:: 2016 History of Any Multi-Drug Resistant Organisms: None Reported Past Surgical History: Heart Catheterization With Stent Additional Past Surgical History / Comment(s): two stents placed in the RCA in August of 2016, Past Anesthesia/Blood Transfusion Reactions: No Reported Reaction Date of Last Stent Placement:: 2016 Past Psychological History: No Psychological Hx Reported Smoking Status: Former smoker Past Alcohol Use History: Daily Past Drug Use History: None Reported - Past Family History Father Family Medical History: Coronary Artery Disease (CAD), CVA/TIA, Myocardial Infarction ([place]) Mother Family Medical History: Coronary Artery Disease (CAD), Diabetes Mellitus, Hypertension <Miryam Sidhu - Last Filed: 10/05/19 19:24> General Exam Limitations: no limitations General appearance: alert, in no apparent distress, other (Physical well- developed, well-nourished adult male patient in no acute distress. Vital signs upon presentation are temperature 98.1F, pulse 102, respirations 16, blood pressure 85/58, pulse ox 96% on room air) Respiratory exam: Present: normal lung sounds bilaterally. Absent: respiratory distress, wheezes, rales, rhonchi, stridor Cardiovascular Exam: Present: regular rate, normal rhythm, normal heart sounds. Absent: systolic murmur, diastolic murmur, rubs, gallop, clicks GI/Abdominal exam: Present: soft, tenderness (Left sided abdominal tenderness), normal bowel sounds. Absent: distended, guarding, rebound, rigid Neurological exam: Present: alert, oriented X3, CN II-XII intact Psychiatric exam: Present: normal affect, normal mood Skin exam: Present: warm, dry, intact, normal color. Absent: rash <Miryam Sidhu - Last Filed: 10/05/19 19:24> Course <David Martin - Last Filed: 10/05/19 18:51> Vital Signs 10/05/19 10/05/19 10/05/19 16:33 17:09 17:20 Temperature 98.1 F Pulse Rate 102 H 87 81 Respiratory 16 18 16 Rate Blood Pressure 85/58 111/68 118/71 O2 Sat by Pulse 96 94 L 95 Oximetry 10/05/19 10/05/19 18:00 18:30 Temperature Pulse Rate 84 81 Respiratory 18 16 Rate Blood Pressure 125/67 121/81 O2 Sat by Pulse 95 95 Oximetry - Reevaluation(s) Reevaluation #1: 10/05/19 18:51 RUN LEAD supervision: Patient did present the hospital today with flank pain abdominal pain. He does have a history of pancreatic cancer. He was found have a m arkedly elevated pancreatic enzymes. 10/05/19 18:52 This in addition to the elevated glucose. Patient be admitted case was discussed with Dr. Bond. (David Martin) EKG Findings - EKG Comments: EKG Findings:: EKG obtained at 1658 shows normal sinus rhythm with a ventricular rate of 88, DE interval 154, QRS duration 84, QT 362, QTc 438. No evidence of ST elevation or depression. <Miryam Sidhu - Last Filed: 10/05/19 19:24> Medical Decision Making - Lab Data Result diagrams: 10/05/19 17:04 10/05/19 17:04 <David Martin - Last Filed: 10/05/19 18:51> - Lab Data Result diagrams: 10/05/19 17:04 10/05/19 17:04 <Miryam Sidhu - Last Filed: 10/05/19 19:24> - Lab Data Lab Results 10/05/19 10/05/19 10/05/19 Range/Units 17:04 17:04 17:04 WBC 4.4 (3.8-10.6) k/uL RBC 3.88 L (4.30-5.90) m/uL Hgb 12.0 L (13.0-17.5) gm/dL Hct 35.6 L (39.0-53.0) % MCV 91.9 (80.0-100.0) fL MCH 31.0 (25.0-35.0) pg MCHC 33.8 (31.0-37.0) g/dL RDW 14.7 (11.5-15.5) % Plt Count 489 H (150-450) k/uL Neutrophils % 46 % Lymphocytes % 28 % Monocytes % 13 % Eosinophils % 8 % Basophils % 1 % Neutrophils # 2.0 (1.3-7.7) k/uL Lymphocytes # 1.2 (1.0-4.8) k/uL Monocytes # 0.6 (0-1.0) k/uL Eosinophils # 0.4 (0-0.7) k/uL Basophils # 0.1 (0-0.2) k/uL Poikilocytosis Slight PT 11.1 (9.0-12.0) sec INR 1.1 (<1.2) APTT 24.2 (22.0-30.0) sec Sodium 123 L (137-145) mmol/L Potassium 3.8 (3.5-5.1) mmol/L Chloride 89 L (98-107) mmol/L Carbon Dioxide 23 (22-30) mmol/L Anion Gap 11 mmol/L BUN 10 (9-20) mg/dL Creatinine 0.49 L (0.66-1.25) mg/dL Est GFR (CKD-EPI)AfAm >90 (>60 ml/min/1.73 sqM) Est GFR (CKD-EPI)NonAf >90 (>60 ml/min/1.73 sqM) Glucose 802 H* (74-99) mg/dL POC Glucose (mg/dL) (75-99) mg/dL POC Glu Package Liner ID Calcium 8.8 (8.4-10.2) mg/dL Magnesium 1.7 (1.6-2.3) mg/dL Total Bilirubin 0.6 (0.2-1.3) mg/dL AST 26 (17-59) U/L ALT 57 H (4-49) U/L Alkaline Phosphatase 197 H (38-126) U/L Troponin I (0.000-0.034) ng/mL Total Protein 6.2 L (6.3-8.2) g/dL Albumin 3.6 (3.5-5.0) g/dL Lipase 2941 H (23-300) U/L Urine Color Urine Appearance (Clear) Urine pH (5.0-8.0) Ur Specific [place] (1.001-1.035) Urine Protein (Negative) Urine Glucose (UA) (Negative) Urine Ketones (Negative) Urine Blood (Negative) Urine Nitrite (Negative) Urine Bilirubin (Negative) Urine Urobilinogen (<2.0) mg/dL Ur Leukocyte Esterase (Negative) Acetone, Qual (Negative) 10/05/19 10/05/19 10/05/19 Range/Units 17:04 17:04 17:45 WBC (3.8-10.6) k/uL RBC (4.30-5.90) m/uL Hgb (13.0-17.5) gm/dL Hct (39.0-53.0) % MCV (80.0-100.0) fL MCH (25.0-35.0) pg MCHC (31.0-37.0) g/dL RDW (11.5-15.5) % Plt Count (150-450) k/uL Neutrophils % % Lymphocytes % % Monocytes % % Eosinophils % % Basophils % % Neutrophils # (1.3-7.7) k/uL Lymphocytes # (1.0-4.8) k/uL Monocytes # (0-1.0) k/uL Eosinophils # (0-0.7) k/uL Basophils # (0-0.2) k/uL Poikilocytosis PT (9.0-12.0) sec INR (<1.2) APTT (22.0-30.0) sec Sodium (137-145) mmol/L Potassium (3.5-5.1) mmol/L Chloride (98-107) mmol/L Carbon Dioxide (22-30) mmol/L Anion Gap mmol/L BUN (9-20) mg/dL Creatinine (0.66-1.25) mg/dL Est GFR (CKD-EPI)AfAm (>60 ml/min/1.73 sqM) Est GFR (CKD-EPI)NonAf (>60 ml/min/1.73 sqM) Glucose (74-99) mg/dL POC Glucose (mg/dL) >600 H (75-99) mg/dL POC Glu Package Liner ID Emily Morel Calcium (8.4-10.2) mg/dL Magnesium (1.6-2.3) mg/dL Total Bilirubin (0.2-1.3) mg/dL AST (17-59) U/L ALT (4-49) U/L Alkaline Phosphatase (38-126) U/L Troponin I <0.012 (0.000-0.034) ng/mL Total Protein (6.3-8.2) g/dL Albumin (3.5-5.0) g/dL Lipase (23-300) U/L Urine Color Urine Appearance (Clear) Urine pH (5.0-8.0) Ur Specific [place] (1.001-1.035) Urine Protein (Negative) Urine Glucose (UA) (Negative) Urine Ketones (Negative) Urine Blood (Negative) Urine Nitrite (Negative) Urine Bilirubin (Negative) Urine Urobilinogen (<2.0) mg/dL Ur Leukocyte Esterase (Negative) Acetone, Qual Negative (Negative) 10/05/19 Range/Units 18:47 WBC (3.8-10.6) k/uL RBC (4.30-5.90) m/uL Hgb (13.0-17.5) gm/dL Hct (39.0-53.0) % MCV (80.0-100.0) fL MCH (25.0-35.0) pg MCHC (31.0-37.0) g/dL RDW (11.5-15.5) % Plt Count (150-450) k/uL Neutrophils % % Lymphocytes % % Monocytes % % Eosinophils % % Basophils % % Neutrophils # (1.3-7.7) k/uL Lymphocytes # (1.0-4.8) k/uL Monocytes # (0-1.0) k/uL Eosinophils # (0-0.7) k/uL Basophils # (0-0.2) k/uL Poikilocytosis PT (9.0-12.0) sec INR (<1.2) APTT (22.0-30.0) sec Sodium (137-145) mmol/L Potassium (3.5-5.1) mmol/L Chloride (98-107) mmol/L Carbon Dioxide (22-30) mmol/L Anion Gap mmol/L BUN (9-20) mg/dL Creatinine (0.66-1.25) mg/dL Est GFR (CKD-EPI)AfAm (>60 ml/min/1.73 sqM) Est GFR (CKD-EPI)NonAf (>60 ml/min/1.73 sqM) Glucose (74-99) mg/dL POC Glucose (mg/dL) (75-99) mg/dL POC Glu Package Liner ID Calcium (8.4-10.2) mg/dL Magnesium (1.6-2.3) mg/dL Total Bilirubin (0.2-1.3) mg/dL AST (17-59) U/L ALT (4-49) U/L Alkaline Phosphatase (38-126) U/L Troponin I (0.000-0.034) ng/mL Total Protein (6.3-8.2) g/dL Albumin (3.5-5.0) g/dL Lipase (23-300) U/L Urine Color Colorless Urine Appearance Clear (Clear) Urine pH 6.0 (5.0-8.0) Ur Specific [place] 1.032 (1.001-1.035) Urine Protein Negative (Negative) Urine Glucose (UA) 4+ H (Negative) Urine Ketones Trace H (Negative) Urine Blood Negative (Negative) Urine Nitrite Negative (Negative) Urine Bilirubin Negative (Negative) Urine Urobilinogen <2.0 (<2.0) mg/dL Ur Leukocyte Esterase Negative (Negative) Acetone, Qual (Negative) Disposition <David Martin - Last Filed: 10/05/19 18:51> Decision to Admit Reason: Admit from [facility] Decision Date: 10/05/19 Decision Time: 19:24 <Miryam Sidhu - Last Filed: 10/05/19 19:24> Clinical Impression: Abdominal pain, Hyperglycemia Disposition: ADMITTED IP TO THIS [facility] Condition: Serious Referrals: Evens Hayes MD [Primary Care Provider] - 1-2 days
[2019-10-05 17:41] LABS: Glucose 802 mg/dL (74-99)
[2019-10-05 17:47] LABS: Glucose,Whole Blood >600 mg/dL (75-99)
[2019-10-05] MEDS ORDERED: INSULIN REGULAR 100 UNIT in SODIUM CHLORIDE 0.9% 100 ML IV SCH ×2 (18:00→18:58)
[2019-10-05] MEDS ORDERED: SODIUM CHLORIDE 0.9% 500 ML 500 ML IV ONE (18:01)
--- NOTE | 2019-10-05 18:10 | XR ---
EXAMINATION TYPE: XR chest 2V DATE OF EXAM: 10/05/2019 COMPARISON: NONE HISTORY: Pancreatic cancer Left side abdominal pain TECHNIQUE: 2 views FINDINGS: Heart and mediastinum are normal. The lungs are clear of infiltrate. There is no pleural ef fusion. There are no hilar masses. There is right side central venous catheter with the tip probably in the jugular vein. IMPRESSION: Right central venous catheter appears malpositioned in the right jugular vein. No active cardiopulmonary disease.
--- NOTE | 2019-10-05 18:44 | CT ---
EXAMINATION TYPE: CT abdomen pelvis w con DATE OF EXAM: 10/05/2019 COMPARISON: 03/31/2019 HISTORY: abdominal pain. hx of pancreatic ca. CT DLP: 867.5 mGycm Automated exposure control for dose reduction was used. CONTRAST: Performed with IV Contrast, patient injected with 100 mL of Isovue 300. Images obtained from the diaphragm to the floor the pelvis with IV contrast. Lung bases are clear of consolidation. There is minimal pleural thickening right posterior lung base. There is no pleural effusion. Heart size is normal. There is no pericardial effusion. There is stent in the common bile duct. There is air in the anterior biliary tree. There is 5 mm calc ified granuloma in the right lobe of the liver. The bile ducts are not dilated. There is small calcif ied splenic granulomata. There is mild enlargement of the pancreatic duct. There is some cystic enlar gement of the pancreatic head that measures 3.6 cm. The stomach is intact. There is no adrenal mass. Kidneys show satisfactory contrast opacification. There is no hydronephrosi s. Ureters are not dilated. There is no retroperitoneal adenopathy. Bladder distends smoothly. There is no inguinal hernia. There is no mesenteric edema. There is no ascites or free air. There is no sign of a bowel obstructio n. Appendix is not seen. There is no sign of thickened appendix. There is normal contrast opacification of the portal venous system. Lumbar spine is intact. Bony pelvis appears intact. IMPRESSION: Biliary stent in good position. No dilated bile ducts. The pancreatic duct is dilated measuring 8 mm. Irregular enlargement of the pancreatic head consistent with tumor that appears very slightly increa sed compared to old CT scan.
[2019-10-05 19:05] LABS: Appearance,Urine Clear (Clear); Bilirubin,Urine Negative (Negative); Blood,Urine Negative (Negative); Color,Urine Colorless; Glucose,Urine (UA) 4+ (Negative); Ketones,Urine Trace (Negative); Leukocyte Esterase,Urine Negative (Negative); Nitrite,Urine Negative (Negative); Protein,Urine Negative (Negative); Specific Gravity,Urine 1.032 (1.001-1.035); Urobilinogen,Urine <2.0 mg/dL (<2.0)
[2019-10-05] MEDS ORDERED: ONDANSETRON 4 MG/2 ML VIAL IVP PRN (19:19)
[2019-10-05] MEDS ORDERED: NALOXONE 0.4 MG/ML 1 ML VIAL IV PRN (19:19)
[2019-10-05 20:06] LABS: Glucose,Whole Blood 579 mg/dL (75-99)
[2019-10-05] MEDS: SODIUM CHLORIDE 0.9% 1,000 ML IV SCH (20:39)
[2019-10-05 21:17] LABS: Glucose,Whole Blood 466 mg/dL (75-99)
[2019-10-05 22:49] LABS: Glucose,Whole Blood 310 mg/dL (75-99)
--- NOTE | 2019-10-05 23:25 | P.HPIM ---
History of Present Illness H&P Date: 10/05/19 Chief Complaint: Abdominal pain, severe acute nonketotic hyperglycemia, acute pancreatitis, 64-year-old male one of Dr. Sheridan's patient who was diagnosed with pancreatic cancer in 03/31/2019 with obstructive jaundice at the time who ended up going for common duct stent patient ended up seen at [facility] was sent for chemotherapy which patient currently is doing and prepare for going for possible Whipple surgery if he still a good candidate in the next few months. [place] patient presented to the emergency department at [facility] with left upper quadrant pain and discomfort with slight shortness of breath found to have severe nonketotic hyperglycemia with blood sugar of 800 was started on insulin drip, also found to have significant pancreatitis with lipase in the 3000 level. Patient was started on IV hydration pain management and IV antibiotics and IV insulin will be admitted to the hospital will be seen oncology at this point stabilize his blood sugar before going home. Review of Systems CONSTITUTIONAL: Well-developed no acute respiratory distress. EYES: No icterus sclerae, no conjunctivitis. EARS, NOSE, MOUTH, THROAT, and FACE: No sore throat, lymphadenopathy, carotid bruits or deformity. RESPIRATORY: Positive shortness of breath cough wheezes. CARDIOVASCULAR: Mild chest pain with slight PND orthopnea palpitation. GASTROINTESTINAL: Positive abdominal pain and discomfort in the midepigastric and left upper quadrant. GENITOURINARY: Negative for Hematuria or UTI, no kidney stones. INTEGUMENT/BREAST: Negative for any muscular injury with mild osteoarthritis.. HEMATOLOGIC/LYMPHATIC: Negative for bleed or purpura. MUSCULOSKELTAL: Negative for Myalgia or arthralgia. NEURLOGICAL: No LOC, Sz or syncope, blurred vision dizziness or abnormality.. BEHAVIORAL/PSYCH: Negative. ENDOCRINE: Negative. Past Medical History Past Medical History: Coronary Artery Disease (CAD) Additional Past Medical History / Comment(s): pancreatic cancer, Last Myocardial Infarction Date:: 2016 History of Any Multi-Drug Resistant Organisms: None Reported Past Surgical History: Heart Catheterization With Stent Additional Past Surgical History / Comment(s): two stents placed in the RCA in August of 2016, Past Anesthesia/Blood Transfusion Reactions: No Reported Reaction Date of Last Stent Placement:: 2016 Past Psychological History: No Psychological Hx Reported Smoking Status: Former smoker Past Alcohol Use History: Daily Past Drug Use History: None Reported - Past Family History Father Family Medical History: Coronary Artery Disease (CAD), CVA/TIA, Myocardial Infarction (CO) Mother Family Medical History: Coronary Artery Disease (CAD), Diabetes Mellitus, Hypertension Medications and Allergies Home Medications Medication Instructions Recorded Confirmed Type Atorvastatin [Lipitor] 80 mg PO DAILY 03/31/19 10/05/19 History Sertraline [Zoloft] 100 mg PO DAILY 03/31/19 10/05/19 History Aspirin 325 mg PO DAILY 04/01/19 10/05/19 History Lisinopril [Prinivil] 5 mg PO DAILY 10/05/19 10/05/19 History Metoprolol Succinate (ER) [Toprol 25 mg PO DAILY 10/05/19 10/05/19 History XL] Pantoprazole [Protonix] 40 mg PO DAILY 10/05/19 10/05/19 History Allergies Allergy/AdvReac Type Severity Reaction Status Date / Time No Known Allergies Allergy Verified 10/05/19 16:39 Physical Exam Vitals: Vital Signs Temp Pulse Resp BP Pulse Ox 10/05/19 21:54 96.2 F L 81 17 120/77 96 10/05/19 18:30 81 16 121/81 95 10/05/19 18:00 84 18 125/67 95 10/05/19 17:20 81 16 118/71 95 10/05/19 17:09 87 18 111/68 94 L 10/05/19 16:33 98.1 F 102 H 16 85/58 96 Intake and Output 10/05/19 10/05/19 10/05/19 06:59 14:59 22:59 Other: Weight 73.482 kg General Appearance: Alert, cooperative, no distress, appears stated age. Neck HEENT: Supple, no lymphadenopathy, no thyroid enlargement, no carotid bruits. Lungs: Decreased breath sounds with auscultation without crackles or wheezes no rhonchi, no deformity. Chest Wall: Chest wall normal expansion with deep inspiration no tenderness and no deformity was found on exam, no costochondral pain or discomfort. Heart: Regular rate and rhythm, S1, S2 normal, positive S3 positive JVD. Back: Symmetric, no curvature, ROM normal, no CVA tenderness. Abdomen: Significant discomfort and tenderness in the midepigastric and left upper quadrant area no rebound or rigidity no masses. Extremities: Extremities normal, atraumatic, no cyanosis or edema. Pulses: 2+ and symmetric. Skin: Skin color, texture, tugor normal, no rashes or lesions. Neurologic: Alert oriented x3 cranial nerves II through XII intact, no motor deficit, no abnormal balance or gait. Results CBC & Chem 7: 10/05/19 17:04 10/05/19 17:04 Labs: Abnormal Lab Results - Last 24 Hours (Table) 10/05/19 10/05/19 10/05/19 Range/Units 17:04 17:04 17:45 RBC 3.88 L (4.30-5.90) m/uL Hgb 12.0 L (13.0-17.5) gm/dL Hct 35.6 L (39.0-53.0) % Plt Count 489 H (150-450) k/uL Sodium 123 L (137-145) mmol/L Chloride 89 L (98-107) mmol/L Creatinine 0.49 L (0.66-1.25) mg/dL Glucose 802 H* (74-99) mg/dL POC Glucose (mg/dL) >600 H (75-99) mg/dL ALT 57 H (4-49) U/L Alkaline Phosphatase 197 H (38-126) U/L Total Protein 6.2 L (6.3-8.2) g/dL Lipase 2941 H (23-300) U/L Urine Glucose (UA) (Negative) Urine Ketones (Negative) 10/05/19 10/05/19 10/05/19 Range/Units 18:47 20:04 21:16 RBC (4.30-5.90) m/uL Hgb (13.0-17.5) gm/dL Hct (39.0-53.0) % Plt Count (150-450) k/uL Sodium (137-145) mmol/L Chloride (98-107) mmol/L Creatinine (0.66-1.25) mg/dL Glucose (74-99) mg/dL POC Glucose (mg/dL) 579 H 466 H (75-99) mg/dL ALT (4-49) U/L Alkaline Phosphatase (38-126) U/L Total Protein (6.3-8.2) g/dL Lipase (23-300) U/L Urine Glucose (UA) 4+ H (Negative) Urine Ketones Trace H (Negative) Thrombosis Risk Factor Assmnt - DVT/VTE Prophylaxis DVT/VTE Prophylaxis: Pharmacologic Prophylaxis ordered, Mechanical Prophylaxis ordered Assessment and Plan Assessment: 1 abdominal pain: Not a clear etiology most likely from his pancreatic cancer and the pressure from the tumor on the growth. Patient will be admitted to the hospital continue hydration and continue pain management will consult gastroenterology and oncology. 2 recent history of diagnosis of large pancreatic cancer post common duct cyst stent placement patient apparently doing chemotherapy and prepare for going back for reevaluation and see if she can benefit from Whipple. 3 severe nonketotic hyperglycemia: With blood sugar running in the 800 continue patient on insulin drip for now will convert to short and long-acting insulin on the long run. 4 CAD post PCI and stent placement, remain on beta sarai. 5 hyperlipidemia: Patient is off statin at this point. 6 depression: Patient to continue Zoloft. 7 acute pancreatitis: With significantly elevated lipase we will repeat lipase and amylase after hydration lipase might still be elevated because of pancreatic tumor might not go back to its baseline. 8 GI prophylaxis: Patient be on pantoprazole. 9 DVT prophylaxis: Patient will be on heparin 5000 units subcutaneous twice a day. CODE STATUS: Full code. Admit patient to inpatient service for more than 2 nights.
[2019-10-06 00:52] LABS: Glucose,Whole Blood 227 mg/dL (75-99)
[2019-10-06] MEDS: MORPHINE SULFATE 4 MG/ML SYRINGE IV PRN ×2 (00:53→06:47)
[2019-10-06 01:33] LABS: Glucose,Whole Blood 211 mg/dL (75-99)
[2019-10-06 03:17] LABS: Glucose,Whole Blood 77 mg/dL (75-99)
[2019-10-06 04:16] LABS: Glucose,Whole Blood 99 mg/dL (75-99)
[2019-10-06 06:49] LABS: ALT 48 U/L (4-49); AST 23 U/L (17-59); African American GFR (CKD) >90 (>60 ml/min/1.73 sqM); Albumin 2.8 g/dL (3.5-5.0); Alkaline Phosphatase 124 U/L (38-126); Amylase 177 U/L (30-110); Anion Gap 8 mmol/L; Blood Urea Nitrogen 8 mg/dL (9-20); Calcium 8.2 mg/dL (8.4-10.2); Carbon Dioxide 24 mmol/L (22-30); Chloride 103 mmol/L (98-107); Glucose 131 mg/dL (74-99); Magnesium 1.8 mg/dL (1.6-2.3); Non-African American GFR(CKD) >90 (>60 ml/min/1.73 sqM); Potassium 3.1 mmol/L (3.5-5.1); Sodium 135 mmol/L (137-145); Total Bilirubin 0.3 mg/dL (0.2-1.3); Total Protein 5.4 g/dL (6.3-8.2)
[2019-10-06 06:50] LABS: Glucose,Whole Blood 178 mg/dL (75-99)
[2019-10-06 06:59] LABS: Basophils % (A) 1 %; Eosinophils # (A) 0.3 k/uL (0-0.7); Eosinophils % (A) 7 %; HCT 30.7 % (39.0-53.0); HGB 10.5 gm/dL (13.0-17.5); Lymphocytes # (A) 1.2 k/uL (1.0-4.8); Lymphocytes % (A) 30 %; MCH 30.7 pg (25.0-35.0); MCHC 34.4 g/dL (31.0-37.0); MCV 89.4 fL (80.0-100.0); Mean Platelet Volume 8.9; Monocytes # (A) 0.6 k/uL (0-1.0); Monocytes % (A) 15 %; Neutrophils # (A) 1.8 k/uL (1.3-7.7); Neutrophils % (A) 46 %; Platelet Count 380 k/uL (150-450); Poikilocytosis Slight; RBC 3.43 m/uL (4.30-5.90); RDW 14.9 % (11.5-15.5); WBC 3.8 k/uL (3.8-10.6)
[2019-10-06] MEDS ORDERED: INSULIN ASPART (NovoLOG) 100 UNIT/ML VIAL SQ SCH (07:30)
[2019-10-06 08:50] LABS: Glucose,Whole Blood 181 mg/dL (75-99)
[2019-10-06] MEDS: FAMOTIDINE 20 MG TAB PO SCH (09:07)
[2019-10-06] MEDS: PANTOPRAZOLE 40 MG TABLET PO SCH (09:07)
[2019-10-06] MEDS: METOPROLOL SUCCINATE (ER) 25 MG TAB.ER.24H PO SCH (09:07)
[2019-10-06] MEDS: LISINOPRIL 5 MG TAB PO SCH (09:07)
[2019-10-06] MEDS: SERTRALINE 100 MG TAB PO SCH (09:07)
[2019-10-06] MEDS: ATORVASTATIN 80 MG TAB PO SCH (09:07)
[2019-10-06] MEDS: HEPARIN SODIUM,PORCINE 5,000 UNIT/ML 1 ML VIAL SQ SCH ×2 (09:08→20:33)
[2019-10-06] MEDS: INSULIN ASPART (NovoLOG) 100 UNIT/ML VIAL SQ SCH ×6 (09:08→20:33)
[2019-10-06] MEDS: POTASSIUM CHLORIDE ER 20 MEQ TAB.ER PO SCH ×2 (09:08→11:56)
[2019-10-06] MEDS: SODIUM CHLORIDE 0.9% 1,000 ML IV SCH ×2 (09:09→12:58)
[2019-10-06 12:02] LABS: Glucose,Whole Blood 346 mg/dL (75-99)
--- NOTE | 2019-10-06 12:41 | P.PN ---
Subjective Progress Note Date: 10/06/19 64-year-old male one of Dr. Sheridan's patient who was diagnosed with pancreatic cancer in 03/31/2019 with obstructive jaundice at the time who ended up going for common duct stent patient ended up seen at [facility] was sent for chemotherapy which patient currently is doing and prepare for going for possible Whipple surgery if he still a good candidate in the next few months. [place] patient presented to the emergency department at [facility] with left upper quadrant pain and discomfort with slight shortness of breath found to have severe nonketotic hyperglycemia with blood sugar of 800 was started on insulin drip, also found to have significant pancreatitis with lipase in the 3000 level. Patient was started on IV hydration pain management and IV antibiotics and IV insulin will be admitted to the hospital will be seen oncology at this point stabilize his blood sugar before going home. 10/05: Patient's blood sugars are improved running in the high 100s. Patient will be transitioned to Levemir 15 units daily and scheduled NovoLog 5 units 3 times daily and NovoLog scale every 4 hours for now. Consult is in place with Dr. Brock as patient has known pancreatic cancer and was to see start chemotherapy today. Potassium is 3.1 and will be replaced. Hemoglobin is 10.5. BUN 18 creatinine 0.36. Sodium is 135. A repeat amylase 177 and lipase 1445 which is improved from yesterday. Repeat lab work will be ordered for tomorrow. Patient is continued on IV fluids and also started on a consistent carb diet. Review of Systems CONSTITUTIONAL: Well-developed no acute respiratory distress. Denies fevers, denies chills EYES: No icterus sclerae, no conjunctivitis. EARS, NOSE, MOUTH, THROAT, and FACE: No sore throat, lymphadenopathy, carotid bruits or deformity. RESPIRATORY: Positive shortness of breath cough wheezes. CARDIOVASCULAR: Mild chest pain with slight PND orthopnea palpitation. GASTROINTESTINAL: Positive abdominal pain and discomfort in the midepigastric and left upper quadrant. GENITOURINARY: Negative for Hematuria or UTI, no kidney stones. INTEGUMENT/BREAST: Negative for any muscular injury with mild osteoarthritis.. HEMATOLOGIC/LYMPHATIC: Negative for bleed or purpura. MUSCULOSKELTAL: Negative for Myalgia or arthralgia. NEURLOGICAL: No LOC, Sz or syncope, blurred vision dizziness or abnormality.. BEHAVIORAL/PSYCH: Negative. ENDOCRINE: Reports abnormal blood sugars. Physical examination General Appearance: Alert, cooperative, no distress, appears stated age. Neck HEENT: Supple, no lymphadenopathy, no thyroid enlargement, no carotid bruits. Lungs: Decreased breath sounds with auscultation without crackles or wheezes no rhonchi, no deformity. Chest Wall: Chest wall normal expansion with deep inspiration no tenderness and no deformity was found on exam, no costochondral pain or discomfort. Heart: Regular rate and rhythm, S1, S2 normal, positive S3 positive JVD. Back: Symmetric, no curvature, ROM normal, no CVA tenderness. Abdomen: tenderness in the midepigastric and left upper quadrant area no rebound or rigidity no masses. Extremities: Extremities normal, atraumatic, no cyanosis or edema. Pulses: 2+ and symmetric. Skin: Skin color, texture, tugor normal, no rashes or lesions. Neurologic: Alert oriented x3 cranial nerves II through XII intact, no motor deficit, no abnormal balance or gait. Assessment and plan 1 abdominal pain secondary to pancreatic cancer and the pressure from the tumor on the growth, pancreatitis secondary to pancreatic cancer. Continue hydration and decrease IV fluids to 75 mL per hour and continue pain management will consult oncology. Patient started on a consistent carb diet. 2 recent history of diagnosis of large pancreatic cancer post common duct cyst stent placement. Patient is scheduled for chemotherapy to start today. Consult with Dr. Brock. Patient is to scheduled for follow-up with [facility] for possible Whipple procedure. 3 severe nonketotic hyperglycemia. Insulin drip will be discontinued. Patient will be started on long-acting insulin 15 units daily and NovoLog 5 units sched uled 3 times daily along with NovoLog scale every 4 hours for now. 4 CAD post PCI and stent placement, remain on beta sarai. 5 hyperlipidemia: Patient is off statin at this point. 6 recurrent depression: Patient to continue Zoloft. 7 acute pancreatitis. Recheck lipase in the morning. 8 GI prophylaxis: Patient be on pantoprazole. 9 DVT prophylaxis: Patient will be on heparin 5000 units subcutaneous twice a day. CODE STATUS: Full code COVID-19 testing in process. Discharge plan: Home Impression and plan of care have been directed as dictated by the signing physician. Ramila Zapien nurse practitioner acting as scribe for signing physician. Objective - Vital Signs Vital signs: Vital Signs Temp 96.5 F L 10/06/19 06:55 Pulse 72 10/06/19 06:55 Resp 16 10/06/19 06:55 BP 103/62 10/06/19 06:55 Pulse Ox 96 10/06/19 06:55 Intake & Output 10/05/19 10/06/19 10/06/19 18:59 06:59 18:59 Weight 73.482 kg - Labs CBC & Chem 7: 10/06/19 06:07 10/06/19 06:03 Labs: Abnormal Lab Results - Last 24 Hours (Table) 10/05/19 10/05/19 10/05/19 Range/Units 17:04 17:04 17:45 RBC 3.88 L (4.30-5.90) m/uL Hgb 12.0 L (13.0-17.5) gm/dL Hct 35.6 L (39.0-53.0) % Plt Count 489 H (150-450) k/uL Sodium 123 L (137-145) mmol/L Potassium (3.5-5.1) mmol/L Chloride 89 L (98-107) mmol/L BUN (9-20) mg/dL Creatinine 0.49 L (0.66-1.25) mg/dL Glucose 802 H* (74-99) mg/dL POC Glucose (mg/dL) >600 H (75-99) mg/dL Calcium (8.4-10.2) mg/dL ALT 57 H (4-49) U/L Alkaline Phosphatase 197 H (38-126) U/L Total Protein 6.2 L (6.3-8.2) g/dL Albumin (3.5-5.0) g/dL Amylase (30-110) U/L Lipase 2941 H (23-300) U/L Urine Glucose (UA) (Negative) Urine Ketones (Negative) 10/05/19 10/05/19 10/05/19 Range/Units 18:47 20:04 21:16 RBC (4.30-5.90) m/uL Hgb (13.0-17.5) gm/dL Hct (39.0-53.0) % Plt Count (150-450) k/uL Sodium (137-145) mmol/L Potassium (3.5-5.1) mmol/L Chloride (98-107) mmol/L BUN (9-20) mg/dL Creatinine (0.66-1.25) mg/dL Glucose (74-99) mg/dL POC Glucose (mg/dL) 579 H 466 H (75-99) mg/dL Calcium (8.4-10.2) mg/dL ALT (4-49) U/L Alkaline Phosphatase (38-126) U/L Total Protein (6.3-8.2) g/dL Albumin (3.5-5.0) g/dL Amylase (30-110) U/L Lipase (23-300) U/L Urine Glucose (UA) 4+ H (Negative) Urine Ketones Trace H (Negative) 10/05/19 10/06/19 10/06/19 Range/Units 22:47 00:39 01:30 RBC (4.30-5.90) m/uL Hgb (13.0-17.5) gm/dL Hct (39.0-53.0) % Plt Count (150-450) k/uL Sodium (137-145) mmol/L Potassium (3.5-5.1) mmol/L Chloride (98-107) mmol/L BUN (9-20) mg/dL Creatinine (0.66-1.25) mg/dL Glucose (74-99) mg/dL POC Glucose (mg/dL) 310 H 227 H 211 H (75-99) mg/dL Calcium (8.4-10.2) mg/dL ALT (4-49) U/L Alkaline Phosphatase (38-126) U/L Total Protein (6.3-8.2) g/dL Albumin (3.5-5.0) g/dL Amylase (30-110) U/L Lipase (23-300) U/L Urine Glucose (UA) (Negative) Urine Ketones (Negative) 10/06/19 10/06/19 10/06/19 Range/Units 06:03 06:07 06:49 RBC 3.43 L (4.30-5.90) m/uL Hgb 10.5 L (13.0-17.5) gm/dL Hct 30.7 L (39.0-53.0) % Plt Count (150-450) k/uL Sodium 135 L (137-145) mmol/L Potassium 3.1 L (3.5-5.1) mmol/L Chloride (98-107) mmol/L BUN 8 L (9-20) mg/dL Creatinine 0.36 L (0.66-1.25) mg/dL Glucose 131 H (74-99) mg/dL POC Glucose (mg/dL) 178 H (75-99) mg/dL Calcium 8.2 L (8.4-10.2) mg/dL ALT (4-49) U/L Alkaline Phosphatase (38-126) U/L Total Protein 5.4 L (6.3-8.2) g/dL Albumin 2.8 L (3.5-5.0) g/dL Amylase 177 H (30-110) U/L Lipase 1445 H (23-300) U/L Urine Glucose (UA) (Negative) Urine Ketones (Negative)
[2019-10-06 15:40] VITALS: BMI 25.3
[2019-10-06] MEDS ORDERED: ACETAMINOPHEN TAB 500 MG TAB PO PRN (16:07)
--- NOTE | 2019-10-06 18:14 | P.CONS ---
History of Present Illness - Reason for Consult Consult date: 10/06/19 abdominal pain and hyperglycemia, pancreatic cancer on chemotherapy - History of Present Illness Mr Espino is a pleasant white male, initially seen in consult at [facility] on 04/01/19. The patient had presented to the hospital with complains of white stool ongoing for about a few weeks. Over the past few days he had also developed left-sided abdominal pain. On admission labs revealed evidence of biliary obstruction with high liver enzymes and total bilirubin of 6.8. He had a CT of the abdomen and pelvis which showed palpitation of the pancreatic duct with cut off of the pancreatic duct and distal common bile duct at the level of the pancreatic head. There appeared to be a poorly defined het erogenous solid and cystic mass roughly measuring 4.6 cm x 1.9 cm. There is no evidence of metastatic disease. The patient was seen by GI and had an attempted ERCP that was unsuccessful. He was therefore referred [facility] hospital where he had ERCP as well as endoscopic ultrasound of the pancreas. He was able to have stenting on 04/05/19. CT of the chest abdomen and pelvis was repeated on 04/07/19, showing a 1.8 cm mass in the pancreatic head, with no evidence of abutment or encasement of major arteries and veins. No evidence of extra pancreatic extension, vascular involvement or metastatic disease was seen. EUS 04/05/19 reported a 2.4 x 1.9 cm mass staged as T2 N0. FNA was positive for adenocarcinoma. The patient's case was reviewed in the multidisciplinary tumor board, it is felt that some of the lymph nodes in the luis hepatis were somewhat prominent and therefore potentially suspicious. Therefore neoadjuvant chemotherapy was recommended and the patient was referred back here for the same. He was started on mFOLFIRINOX on 05/26/19 and is s/p 6 cycles, completing those on 08/05/19. The patient was referred back to [facility] for evaluation of surgery. Due to the coronavirus epidemic, it was felt that at this time should continue systemic chemotherapy and delay his surgery for later. On presentation of his case at the [facility] it was felt that there may be some progression. Therefore it was recommended that he be changed over to Gemzar and Abraxane. he started treatment on 09/07/19 and is status post 1 cycle The patient was supposed to proceed to cycle #2 today. However over the past 3-4 days she started having increased pain in the mid and left upper abdomen. Associated symptoms included nausea and decreased appetite. In retrospect he feels that he was also drinking more fluid than usual and having increased urinary frequency. He came to the emergency room where he was found to have blood glucose in the 800 range. Amylase and lipase were both elevated with lipase 1445. He was therefore admitted for the management. CT of the abdomen and pelvis did not show any new pathology. Consult was placed for further evaluation and recommendations Review of Systems Constitutional: Reports fatigue, Reports poor appetite Eyes: denies blurred vision, denies pain Ears: deny: decreased hearing, ear discharge, earache, tinnitus Ears, nose, mouth and throat: Denies headache, Denies sore throat Cardiovascular: Denies chest pain, Denies shortness of breath Respiratory: Denies cough Gastrointestinal: Reports abdominal pain, Reports nausea, Reports vomiting Genitourinary: Reports as per HPI Musculoskeletal: Reports muscle weakness Integumentary: Denies pruritus, Denies rash Neurological: Reports weakness, Denies numbness Psychiatric: Denies anxiety, Denies depression Endocrine: Reports high blood sugars Hematologic/Lymphatic: Reports as per HPI Past Medical History Past Medical History: Coronary Artery Disease (CAD), Cancer, COPD, CVA/TIA, GERD/Reflux, GI Bleed, Hyperlipidemia, Hypertension, Myocardial Infarction (HI), Pneumonia Additional Past Medical History / Comment(s): 03/2019 diagnosed with pancreatic cancer/last chemo 2 weeks ago, HI-age undetermined, CVA with R sided facial roslyn op, lower GI bleed, elevated blood sugar but pt states it has not been determined if he is diabetic. Last Myocardial Infarction Date:: unkn History of Any Multi-Drug Resistant Organisms: None Reported Past Surgical History: Heart Catheterization With Stent Additional Past Surgical History / Comment(s): two stents placed in the RCA in August of 2016, ERCP with stent to CBD, colonoscopy with benign polypectomies. Past Anesthesia/Blood Transfusion Reactions: No Reported Reaction Date of Last Stent Placement:: 2016 Smoking Status: Former smoker - Past Family History Father Family Medical History: Coronary Artery Disease (CAD), CVA/TIA, Myocardial Infarction (HI) Mother Family Medical History: Coronary Artery Disease (CAD), Diabetes Mellitus, Hypertension Medications and Allergies Home Medications Medication Instructions Recorded Confirmed Type Atorvastatin [Lipitor] 80 mg PO DAILY 03/31/19 10/05/19 History Sertraline [Zoloft] 100 mg PO DAILY 03/31/19 10/05/19 History Aspirin 325 mg PO DAILY 04/01/19 10/05/19 History Lisinopril [Prinivil] 5 mg PO DAILY 10/05/19 10/05/19 History Metoprolol Succinate (ER) [Toprol 25 mg PO DAILY 10/05/19 10/05/19 History XL] Pantoprazole [Protonix] 40 mg PO DAILY 10/05/19 10/05/19 History Allergies Allergy/AdvReac Type Severity Reaction Status Date / Time No Known Allergies Allergy Verified 10/05/19 16:39 Physical Exam Vitals: Vital Signs Temp Pulse Pulse Resp BP BP BP 10/06/19 11:27 98.6 F 81 16 106/69 10/06/19 09:02 97.6 F 86 16 93/66 10/06/19 06:55 96.5 F L 72 16 103/62 10/05/19 21:54 96.2 F L 81 17 120/77 10/05/19 18:30 81 16 121/81 10/05/19 18:00 84 18 125/67 10/05/19 17:20 81 16 118/71 10/05/19 17:09 87 18 111/68 10/05/19 16:33 98.1 F 102 H 16 85/58 Pulse Ox 10/06/19 11:27 94 L 10/06/19 09:02 94 L 10/06/19 06:55 96 10/05/19 21:54 96 10/05/19 18:30 95 10/05/19 18:00 95 10/05/19 17:20 95 10/05/19 17:09 94 L 10/05/19 16:33 96 Intake and Output 10/05/19 10/06/19 10/06/19 22:59 06:59 14:59 Intake Total 1180 Output Total 1400 Balance -220 Intake: IV 20 Invasive Line 1 20 Oral 1160 Output: Urine 1400 Other: Weight 73.482 kg 73.482 kg - Constitutional General appearance: no acute distress - EENT Eyes: EOMI, PERRLA ENT: hearing grossly normal, normal oropharynx - Neck Neck: no lymphadenopathy Thyroid: bilateral: normal size - Respiratory Respiratory: bilateral: CTA - Cardiovascular Rhythm: regular Heart sounds: normal: S1, S2 - Gastrointestinal General gastrointestinal: normal bowel sounds, soft - Integumentary Integumentary: normal - Neurologic Neurologic: CNII-XII intact - Musculoskeletal Musculoskeletal: generalized weakness, strength equal bilaterally - Psychiatric Psychiatric: A&O x's 3, appropriate affect Results CBC & Chem 7: 10/06/19 06:07 10/06/19 06:03 Labs: Abnormal Lab Results - Last 24 Hours (Table) 10/05/19 10/05/19 10/05/19 Range/Units 17:04 17:04 17:45 RBC 3.88 L (4.30-5.90) m/uL Hgb 12.0 L (13.0-17.5) gm/dL Hct 35.6 L (39.0-53.0) % Plt Count 489 H (150-450) k/uL Sodium 123 L (137-145) mmol/L Potassium (3.5-5.1) mmol/L Chloride 89 L (98-107) mmol/L BUN (9-20) mg/dL Creatinine 0.49 L (0.66-1.25) mg/dL Glucose 802 H* (74-99) mg/dL POC Glucose (mg/dL) >600 H (75-99) mg/dL Calcium (8.4-10.2) mg/dL ALT 57 H (4-49) U/L Alkaline Phosphatase 197 H (38-126) U/L Total Protein 6.2 L (6.3-8.2) g/dL Albumin (3.5-5.0) g/dL Amylase (30-110) U/L Lipase 2941 H (23-300) U/L Urine Glucose (UA) (Negative) Urine Ketones (Negative) 10/05/19 10/05/19 10/05/19 Range/Units 18:47 20:04 21:16 RBC (4.30-5.90) m/uL Hgb (13.0-17.5) gm/dL Hct (39.0-53.0) % Plt Count (150-450) k/uL Sodium (137-145) mmol/L Potassium (3.5-5.1) mmol/L Chloride (98-107) mmol/L BUN (9-20) mg/dL Creatinine (0.66-1.25) mg/dL Glucose (74-99) mg/dL POC Glucose (mg/dL) 579 H 466 H (75-99) mg/dL Calcium (8.4-10.2) mg/dL ALT (4-49) U/L Alkaline Phosphatase (38-126) U/L Total Protein (6.3-8.2) g/dL Albumin (3.5-5.0) g/dL Amylase (30-110) U/L Lipase (23-300) U/L Urine Glucose (UA) 4+ H (Negative) Urine Ketones Trace H (Negative) 10/05/19 10/06/19 10/06/19 Range/Units 22:47 00:39 01:30 RBC (4.30-5.90) m/uL Hgb (13.0-17.5) gm/dL Hct (39.0-53.0) % Plt Count (150-450) k/uL Sodium (137-145) mmol/L Potassium (3.5-5.1) mmol/L Chloride (98-107) mmol/L BUN (9-20) mg/dL Creatinine (0.66-1.25) mg/dL Glucose (74-99) mg/dL POC Glucose (mg/dL) 310 H 227 H 211 H (75-99) mg/dL Calcium (8.4-10.2) mg/dL ALT (4-49) U/L Alkaline Phosphatase (38-126) U/L Total Protein (6.3-8.2) g/dL Albumin (3.5-5.0) g/dL Amylase (30-110) U/L Lipase (23-300) U/L Urine Glucose (UA) (Negative) Urine Ketones (Negative) 10/06/19 10/06/19 10/06/19 Range/Units 06:03 06:07 06:49 RBC 3.43 L (4.30-5.90) m/uL Hgb 10.5 L (13.0-17.5) gm/dL Hct 30.7 L (39.0-53.0) % Plt Count (150-450) k/uL Sodium 135 L (137-145) mmol/L Potassium 3.1 L (3.5-5.1) mmol/L Chloride (98-107) mmol/L BUN 8 L (9-20) mg/dL Creatinine 0.36 L (0.66-1.25) mg/dL Glucose 131 H (74-99) mg/dL POC Glucose (mg/dL) 178 H (75-99) mg/dL Calcium 8.2 L (8.4-10.2) mg/dL ALT (4-49) U/L Alkaline Phosphatase (38-126) U/L Total Protein 5.4 L (6.3-8.2) g/dL Albumin 2.8 L (3.5-5.0) g/dL Amylase 177 H (30-110) U/L Lipase 1445 H (23-300) U/L Urine Glucose (UA) (Negative) Urine Ketones (Negative) 10/06/19 10/06/19 Range/Units 08:48 11:58 RBC (4.30-5.90) m/uL Hgb (13.0-17.5) gm/dL Hct (39.0-53.0) % Plt Count (150-450) k/uL Sodium (137-145) mmol/L Potassium (3.5-5.1) mmol/L Chloride (98-107) mmol/L BUN (9-20) mg/dL Creatinine (0.66-1.25) mg/dL Glucose (74-99) mg/dL POC Glucose (mg/dL) 181 H 346 H (75-99) mg/dL Calcium (8.4-10.2) mg/dL ALT (4-49) U/L Alkaline Phosphatase (38-126) U/L Total Protein (6.3-8.2) g/dL Albumin (3.5-5.0) g/dL Amylase (30-110) U/L Lipase (23-300) U/L Urine Glucose (UA) (Negative) Urine Ketones (Negative) Assessment and Plan (1) Abdominal pain Narrative/Plan: This is most likely due to acute pancreatitis. This is unlikely to be related directly to the patient's known pancreatic cancer. Tumor size was noted to be slightly larger, but this was compared to the previous CT scan done in 04/15. The slight increase had already been noted at more recent CT scan done at [facility] in 09/14. The patient had been having no increase in pain and has since been started on a different chemotherapy. CT scan does not show any evidence of new obstruction at this time. Liver enzymes are fairly normal. The stent appears to be in good position. Therefore the patient will be treated symptomatically for pancreatitis with diet changes, hydration and pain medication Defer to admitting service for the same Current Visit: Yes Status: Acute Code(s): R10.9 - UNSPECIFIED ABDOMINAL PAIN SNOMED Code(s): 85831751 (2) Pancreatitis Narrative/Plan: As above Current Visit: Yes Status: Acute Code(s): K85.90 - ACUTE PANCREATITIS WITHOUT NECROSIS OR INFECTION, UNSP SNOMED Code(s): 30508125 (3) Hyperglycemia Narrative/Plan: This is of new onset. The patient had no prior history of diabetes. This coul d possibly be transient, due to acute pancreatitis, or a more persistent phenomenon related to pancreatic atrophy from cancer and cancer treatment. Defer to the admitting service for further management. Blood glucose level is improved with ongoing treatment. Patient will likely need endocrinology follow-up Current Visit: Yes Status: Acute Code(s): R73.9 - HYPERGLYCEMIA, UNSPECIFIED SNOMED Code(s): 90906181 (4) Cancer of pancreas Narrative/Plan: Diagnostic and therapeutic circumstances as noted above. Patient's treatment will be on hold until acute condition results. This will be resumed post discharge. Counts are currently in a safe range. Continue to monitor Current Visit: Yes Status: Acute Code(s): C25.9 - MALIGNANT NEOPLASM OF PANCREAS, UNSPECIFIED SNOMED Code(s): 521655918
[2019-10-06 19:37] LABS: Glucose,Whole Blood 230 mg/dL (75-99)
[2019-10-06 20:09] LABS: Glucose,Whole Blood 172 mg/dL (75-99)
[2019-10-07] MEDS ORDERED: INSULIN ASPART (NovoLOG) 100 UNIT/ML VIAL SQ ONE (00:48)
[2019-10-07] MEDS ORDERED: MORPHINE SULFATE 4 MG/ML SYRINGE ONE (00:48)
[2019-10-07 03:45] LABS: Glucose,Whole Blood 276 mg/dL (75-99)
[2019-10-07 04:11] LABS: Glucose,Whole Blood 173 mg/dL (75-99)
[2019-10-07] MEDS: SODIUM CHLORIDE 0.9% 1,000 ML IV SCH (04:37)
[2019-10-07] MEDS: INSULIN ASPART (NovoLOG) 100 UNIT/ML VIAL SQ SCH ×6 (04:38→12:21)
[2019-10-07] MEDS: PANTOPRAZOLE 40 MG TABLET PO SCH (06:41)
[2019-10-07 06:43] LABS: HCT 29.8 % (39.0-53.0); HGB 10.1 gm/dL (13.0-17.5); Hypochromasia Slight; MCH 30.8 pg (25.0-35.0); MCHC 33.9 g/dL (31.0-37.0); MCV 90.8 fL (80.0-100.0); Mean Platelet Volume 8.2; Platelet Count 423 k/uL (150-450); Poikilocytosis Slight; RBC 3.28 m/uL (4.30-5.90); RDW 14.8 % (11.5-15.5); WBC 3.3 k/uL (3.8-10.6)
[2019-10-07 06:51] LABS: ALT 38 U/L (4-49); AST 26 U/L (17-59); African American GFR (CKD) >90 (>60 ml/min/1.73 sqM); Albumin 2.6 g/dL (3.5-5.0); Alkaline Phosphatase 118 U/L (38-126); Anion Gap 2 mmol/L; Blood Urea Nitrogen 4 mg/dL (9-20); Carbon Dioxide 25 mmol/L (22-30); Chloride 107 mmol/L (98-107); Glucose 126 mg/dL (74-99); Non-African American GFR(CKD) >90 (>60 ml/min/1.73 sqM); Potassium 3.4 mmol/L (3.5-5.1); Sodium 134 mmol/L (137-145); Total Bilirubin 0.2 mg/dL (0.2-1.3); Total Protein 5.1 g/dL (6.3-8.2)
[2019-10-07 06:55] LABS: Glucose,Whole Blood 134 mg/dL (75-99)
[2019-10-07] MEDS ORDERED: INSULIN DETEMIR (LEVEMIR) 100 UNIT/ML SYR SQ SCH (07:00)
[2019-10-07 07:18] LABS: Band Neutrophils % 3 %; Eosinophils # (M) 0.33 k/uL (0-0.7); Lymphocytes # (M) 1.49 k/uL (1.0-4.8); Metamyelocytes # (M) 0.07 k/uL (0); Metamyelocytes % 2 %; Monocytes # (M) 0.63 k/uL (0-1.0); Neutrophils % (M) 21 %; Nucleated Red Blood Cells 0 /100 WBC (0-0); Total Cells Counted 200
[2019-10-07] MEDS ORDERED: POTASSIUM CHLORIDE ER 20 MEQ TAB.ER PO STA (07:57)
[2019-10-07 08:29] VITALS: RESP 20; TEMP 97.7
[2019-10-07] MEDS: HEPARIN SODIUM,PORCINE 5,000 UNIT/ML 1 ML VIAL SQ SCH (08:49)
[2019-10-07] MEDS: SERTRALINE 100 MG TAB PO SCH (08:49)
[2019-10-07] MEDS: FAMOTIDINE 20 MG TAB PO SCH (08:50)
[2019-10-07] MEDS: METOPROLOL SUCCINATE (ER) 25 MG TAB.ER.24H PO SCH (08:50)
[2019-10-07] MEDS: ATORVASTATIN 80 MG TAB PO SCH (08:50)
--- NOTE | 2019-10-07 09:54 | P.DS ---
Providers Date of admission: 10/05/19 18:50 Expected date of discharge: 10/07/19 Attending physician: James Bond Consults: 10/06/19 08:19 Consult Physician Routine Consulting Provider: Carl Brock Consult Reason/Comments: pancreatic ca, due to start chemo today Do you want consulting provider notified?: Yes Primary care physician: [facility] Course: 64-year-old male one of Dr. Sheridan's patient who was diagnosed with pancreatic cancer in 03/31/2019 with obstructive jaundice at the time who ended up going for common duct stent patient ended up seen at [facility] was sent for chemotherapy which patient currently is doing and prepare for going for possible Whipple surgery if he still a good candidate in the next few months. [place] patient presented to the emergency department at [facility] with left upper quadrant pain and discomfort with slight shortness of breath found to have severe nonketotic hyperglycemia with blood sugar of 800 was started on insulin drip, also found to have significant pancreatitis with lipase in the 3000 level. Patient was started on IV hydration pain management and IV antibiotics and IV insulin will be admitted to the hospital will be seen oncology at this point stabilize his blood sugar before going home. 10/05: Patient's blood sugars are improved running in the high 100s. Patient will be transitioned to Levemir 15 units daily and scheduled NovoLog 5 units 3 times daily and NovoLog scale every 4 hours for now. Consult is in place with Dr. Brock as patient has known pancreatic cancer and was to see start chemotherapy today. Potassium is 3.1 and will be replaced. Hemoglobin is 10.5. BUN 18 creatinine 0.36. Sodium is 135. A repeat amylase 177 and lipase 1445 which is improved from yesterday. Repeat lab work will be ordered for tomorrow. Patient is continued on IV fluids and also started on a consistent carb diet. 10/06: Patient has been seen by Dr. Brock and cancer treatment is currently on hold until acute condition resolves. Repeat blood work reveals WBC 3.3, hemoglobin 10.1, platelet count 423. Sodium 134, potassium 3.4 and will be replaced, chloride 107, CO2 25, BUN 4 and creatinine 0.35. Lipase 1144. Blood sugars have been running between 126 and 276. Patient has met with the cosmetology educator, glucometer will be ordered by family preservation caseworker. Insulins have been sent to his pharmacy. Patient is requesting pain medication and Winona prescription will be sent to his pharmacy. Patient will be discharged home today in stable condition. Review of Systems CONSTITUTIONAL: Well-developed no acute respiratory distress. Denies fevers, denies chills EYES: No icterus sclerae, no conjunctivitis. EARS, NOSE, MOUTH, THROAT, and FACE: No sore throat, lymphadenopathy, carotid bruits or deformity. RESPIRATORY: Positive shortness of breath cough wheezes. CARDIOVASCULAR: Mild chest pain with slight PND orthopnea palpitation. GASTROINTESTINAL: Mild discomfort in the midepigastric and left upper quadrant. GENITOURINARY: Negative for Hematuria or UTI, no kidney stones. INTEGUMENT/BREAST: Negative for any muscular injury with mild osteoarthritis. HEMATOLOGIC/LYMPHATIC: Negative for bleed or purpura. MUSCULOSKELTAL: Negative for Myalgia or arthralgia. NEURLOGICAL: No LOC, Sz or syncope, blurred vision dizziness or abnormality. BEHAVIORAL/PSYCH: Negative. ENDOCRINE: Reports abnormal blood sugars-improving. Physical examination General Appearance: Alert, cooperative, no distress, appears stated age. Neck HEENT: Supple, no lymphadenopathy, no thyroid enlargement, no carotid bruits. Lungs: Decreased breath sounds with auscultation without crackles or wheezes no rhonchi, no deformity. Chest Wall: Chest wall normal expansion with deep inspiration no tenderness and no deformity was found on exam, no costochondral pain or discomfort. Heart: Regular rate and rhythm, S1, S2 normal, positive S3 positive JVD. Back: Symmetric, no curvature, ROM normal, no CVA tenderness. Abdomen: Mild tenderness in the midepigastric and left upper quadrant area no rebound or rigidity no masses. Extremities: Extremities normal, atraumatic, no cyanosis or edema. Pulses: 2+ and symmetric. Skin: Skin color, texture, tugor normal, no rashes or lesions. Neurologic: Alert oriented x3 cranial nerves II through XII intact, no motor de ficit, no abnormal balance or gait. Assessment and plan 1 abdominal pain secondary to pancreatic cancer and the pressure from the tumor on the growth, pancreatitis secondary to pancreatic cancer. 2 recent history of diagnosis of large pancreatic cancer post common duct cyst stent placement. 3 severe nonketotic hyperglycemia. 4 CAD post PCI and stent placement. 5 hyperlipidemia. 6 recurrent depression. 7 acute pancreatitis. 8 New diagnosis of diabetes mellitus type 2, insulin requiring secondary to pancreatic cancer. 9 COVID-19 not present. Discharge plan: Home Impression and plan of care have been directed as dictated by the signing physician. Ramila Zapien nurse practitioner acting as scribe for signing physician. Patient Condition at Discharge: Good Plan - Discharge Summary Discharge Rx Participant: No New Discharge Prescriptions: New HYDROcodone/APAP 7.5-325MG [[place] 7.5-325] 1 tab PO Q4H PRN 3 Days #18 tab PRN Reason: Pain Insulin Lispro [Admelog Solostar] 7 units SQ AC-TID #3 pen Insulin Glargine,Hum.rec.anlog [Basaglar Kwikpen U-100] 15 unit SQ DAILY #3 pen Continue Sertraline [Zoloft] 100 mg PO DAILY Atorvastatin [Lipitor] 80 mg PO DAILY Aspirin 325 mg PO DAILY Pantoprazole [Protonix] 40 mg PO DAILY Metoprolol Succinate (ER) [Toprol XL] 25 mg PO DAILY Lisinopril [Prinivil] 5 mg PO DAILY Discharge Medication List Atorvastatin [Lipitor] 80 mg PO DAILY 03/31/19 [History] Sertraline [Zoloft] 100 mg PO DAILY 03/31/19 [History] Aspirin 325 mg PO DAILY 04/01/19 [History] Lisinopril [Prinivil] 5 mg PO DAILY 10/05/19 [History] Metoprolol Succinate (ER) [Toprol XL] 25 mg PO DAILY 10/05/19 [History] Pantoprazole [Protonix] 40 mg PO DAILY 10/05/19 [History] HYDROcodone/APAP 7.5-325MG [[place] 7.5-325] 1 tab PO Q4H PRN 3 Days #18 tab 10/07/19 [Rx] Insulin Glargine,Hum.rec.anlog [Basaglar Kwikpen U-100] 15 unit SQ DAILY #3 pen 10/07/19 [Rx] Insulin Lispro [Admelog Solostar] 7 units SQ AC-TID #3 pen 10/07/19 [Rx] Follow up Appointment(s)/Referral(s): Carl Brock MD [STAFF PHYSICIAN] - 1 Week Evens Hayes MD [Primary Care Provider] - 1 Week Patient Instructions/Handouts: Pancreatic Cancer (DC) Discharge Disposition: HOME SELF-CARE
[2019-10-07 11:37] LABS: Glucose,Whole Blood 159 mg/dL (75-99)
[2019-10-07] MEDS: LISINOPRIL 5 MG TAB PO SCH (12:21)
--- NOTE | 2019-10-07 14:11 | P.PN ---
Subjective Progress Note Date: 10/07/19 Principal diagnosis: pancreatitis In f/u today pt is tolerating a regular diet, mild stomach discomfort, no fever, vomiting. Objective - Vital Signs Vital signs: Vital Signs Temp 97.7 F 10/07/19 08:00 Pulse 86 10/07/19 08:00 Resp 20 10/07/19 08:00 BP 126/75 10/07/19 08:00 Pulse Ox 95 10/07/19 08:00 Intake & Output 10/06/19 10/07/19 10/07/19 18:59 06:59 18:59 Intake Total 5005 025 9837 Output Total 1400 Balance 432 102 7068 Weight 73.482 kg 75.9 kg Intake: IV 20 Invasive Line 1 20 Oral 1991 364 1210 Output: Urine 1400 Other: Voiding Method Toilet Toilet Urinal Urinal # Voids 2 - Constitutional General appearance: Present: average body habitus, cooperative, no acute distress - EENT Eyes: Present: anicteric sclerae, EOMI ENT: Present: hearing grossly normal - Respiratory Respiratory: bilateral: CTA - Cardiovascular Heart sounds: normal: S1, S2 - Peripheral edema leg Peripheral Edema: bilateral: None - Gastrointestinal General gastrointestinal: Present: normal bowel sounds, soft, tenderness (mild epigastric). Absent: absent bowel sounds, decreased bowel sounds, distended, hepatomegaly, hyperactive bowel sounds, organomegaly, rigid, scaphoid, splenomegaly, umbilical hernia, ventral hernia - Neurologic Neurologic: Present: CNII-XII intact - Musculoskeletal Musculoskeletal: Present: strength equal bilaterally - Psychiatric Psychiatric: Present: A&O x's 3, appropriate affect, intact judgment & insight - Labs CBC & Chem 7: 10/07/19 05:33 10/07/19 05:33 Labs: Abnormal Lab Results - Last 24 Hours (Table) 10/06/19 10/06/19 10/07/19 Range/Units 16:28 20:01 00:00 WBC (3.8-10.6) k/uL RBC (4.30-5.90) m/uL Hgb (13.0-17.5) gm/dL Hct (39.0-53.0) % Neutrophils # (Manual) (1.3-7.7) k/uL Metamyelocytes # (Man) (0) k/uL Sodium (137-145) mmol/L Potassium (3.5-5.1) mmol/L BUN (9-20) mg/dL Creatinine (0.66-1.25) mg/dL Glucose (74-99) mg/dL POC Glucose (mg/dL) 230 H 172 H 276 H (75-99) mg/dL Calcium (8.4-10.2) mg/dL Total Protein (6.3-8.2) g/dL Albumin (3.5-5.0) g/dL Lipase (23-300) U/L 10/07/19 10/07/19 10/07/19 Range/Units 04:10 05:33 05:33 WBC 3.3 L (3.8-10.6) k/uL RBC 3.28 L (4.30-5.90) m/uL Hgb 10.1 L (13.0-17.5) gm/dL Hct 29.8 L (39.0-53.0) % Neutrophils # (Manual) 0.70 L (1.3-7.7) k/uL Metamyelocytes # (Man) 0.07 H (0) k/uL Sodium 134 L (137-145) mmol/L Potassium 3.4 L (3.5-5.1) mmol/L BUN 4 L (9-20) mg/dL Creatinine 0.35 L (0.66-1.25) mg/dL Glucose 126 H (74-99) mg/dL POC Glucose (mg/dL) 173 H (75-99) mg/dL Calcium 8.0 L (8.4-10.2) mg/dL Total Protein 5.1 L (6.3-8.2) g/dL Albumin 2.6 L (3.5-5.0) g/dL Lipase 1144 H (23-300) U/L 10/07/19 10/07/19 Range/Units 06:54 11:24 WBC (3.8-10.6) k/uL RBC (4.30-5.90) m/uL Hgb (13.0-17.5) gm/dL Hct (39.0-53.0) % Neutrophils # (Manual) (1.3-7.7) k/uL Metamyelocytes # (Man) (0) k/uL Sodium (137-145) mmol/L Potassium (3.5-5.1) mmol/L BUN (9-20) mg/dL Creatinine (0.66-1.25) mg/dL Glucose (74-99) mg/dL POC Glucose (mg/dL) 134 H 159 H (75-99) mg/dL Calcium (8.4-10.2) mg/dL Total Protein (6.3-8.2) g/dL Albumin (3.5-5.0) g/dL Lipase (23-300) U/L Assessment and Plan (1) Pancreatitis Narrative/Plan: Pancreatic enzymes decreasing, pt tolerating diet, pain much better. Current Visit: Yes Status: Acute Priority: High Code(s): K85.90 - ACUTE PANCREATITIS WITHOUT NECROSIS OR INFECTION, UNSP SNOMED Code(s): 57878916 (2) Cancer of pancreas Narrative/Plan: Going to delay next cycle of treatment. Appt date and time communicated to RN who will let pt know. Current Visit: No Status: Chronic Priority: Medium Code(s): C25.9 - MALIGNANT NEOPLASM OF PANCREAS, UNSPECIFIED SNOMED Code(s): 265185957
[2019-10-07 14:27] VITALS: BP 143/75; PULSE 85
== END 2019-10-07 14:36 | disposition home or self-care (01) | DRG 439 ==
LOC: EC 16:05 → 3SCARD 18:50
PROVIDERS: ADMIT Internal Medicine Geriatric Medicine; ATTEND Internal Medicine Geriatric Medicine
DX: K85.90 Acute pancreatitis without necrosis or infection, unspecified (principal); C25.0 Malignant neoplasm of head of pancreas; F33.9 Major depressive disorder, recurrent, unspecified; K52.1 Toxic gastroenteritis and colitis; I25.2 Old myocardial infarction; E11.65 Type 2 diabetes mellitus with hyperglycemia; E78.5 Hyperlipidemia, unspecified; I10 Essential (primary) hypertension; I25.10 Atherosclerotic heart disease of native coronary artery without angina pectoris; J44.9 Chronic obstructive pulmonary disease, unspecified; T45.1X5A Adverse effect of antineoplastic and immunosuppressive drugs, initial encounter; Z79.82 Long term (current) use of aspirin; Z79.899 Other long term (current) drug therapy; Z82.49 Family history of ischemic heart disease and other diseases of the circulatory system; Z83.3 Family history of diabetes mellitus; I69.392 Facial weakness following cerebral infarction; Z87.891 Personal history of nicotine dependence; Z95.5 Presence of coronary angioplasty implant and graft; Z87.01 Personal history of pneumonia (recurrent); Z86.010 Personal history of colon polyps; Z11.59 Encounter for screening for other viral diseases
CPT/HCPCS: 36415; 71046; 74177; 80053; 81003; 82009; 82150; 83690; 83735; 84132; 84484; 85025; 85610; 85730; 93005; 96361; 96372; 96374; 96375; 96376; 99285

== ENCOUNTER 2019-12-06 14:48 | Inpatient (IN) | payer OTHER ==
[2019-12-06] MEDS ORDERED: SODIUM CHLORIDE 0.9% 1,000 ML IV STA ×2 (15:49→16:36)
--- NOTE | 2019-12-06 15:53 | ED ---
General Adult HPI - General Chief complaint: Weakness Stated complaint: weakness Time Seen by Provider: 12/06/19 14:50 Source: EMS Mode of arrival: EMS - History of Present Illness Initial comments: Dictation was produced using [employer] dictation software. please excuse any gr ammatical, word or spelling errors. This patient was cared for during a federal and state declared state of emergency secondary to Covid 19 Chief Complaint: 64-year-old male with past medical history prostatic cancer undergoing active chemotherapy presents with worsening weakness or loss of weeks. History of Present Illness: 64-year-old male has multiple comorbidities. Patient states over the last several weeks she's been having increasing weakness. Patient states that he lives alone at home. Over the last couple weeks patient has had multiple falls. He states that he did strike his head on several occasions. He has no pain complaints at this time. He had chemotherapy last week. Patient states that he's been having diarrhea that is nonbilious not bloody. He does feel nauseated however no vomiting. States he has significant difficulty standing because his weakness is so severe. The ROS documented in this emergency department record has been reviewed and confirmed by me. Those systems with pertinent positive or negative responses have been documented in the HPI. All other systems are other negative and/or noncontributory. PHYSICAL EXAM: General Impression: Alert and oriented x3, not in acute distress HEENT: Abrasion to the left frontal forehead, extra-ocular movements intact, pupils equal and reactive to light bilaterally, dry mucous membranes Cardiovascular: Heart regular rate and rhythm Chest: Able to complete full sentences, no retractions, no tachypnea, bilateral breath sounds Abdomen: abdomen soft, non-tender, non-distended, no organomegaly Musculoskeletal: Pulses present and equal in all extremities, no peripheral edema Motor: no focal deficits noted Neurological: CN II-XII grossly intact, no focal motor or sensory deficits noted Skin: Intact with no visualized rashes Psych: Normal affect and mood ED course: 64-year-old male with past medical history pancreatic cancer presents today with generalized weakness and multiple falls over the last several days. Vital signs upon arrival shows 92% on room air, blood pressure 9755, rest of vital signs within acceptable limits. EKG shows prolonged QT. Patient's medications were reviewed. Patient is a beta sarai and is insulin-dependent diabetic. Laboratory evaluation obtained showing white count 22.2, hemoglobin of 8.2, coag panel unremarkable. Metabolic panel shows potassium 2.8. Lactic acidosis of 4.9. Phosphorus level I.8. Rest of metabolic panel is unremarkable. Urin alysis shows 40 white blood cells. Computed tomography scan of the brain is nonacute per chest x-ray shows reticular nodular prominence concerning for interstitial edema versus atypical acute infectious process. Consider patient has elevated white count and lactic acidosis, hypotension upon initial evaluation there is concern for sepsis. Patient given fluids per sepsis protocol. Patient with antibiotics. Pending blood cultures and urine cultures. Patient reevaluated after intravenous fluids with improvement of blood pressure. EKG interpretation: Ventricular rate 87, normal sinus rhythm,. Interval 136, QRS 84, QTC 531. No [place] prolongation, no QTC prolongation, no ST or T-wave changes noted. Overall, this EKG is unremarkable - Related Data Home Medications Medication Instructions Recorded Confirmed Atorvastatin [Lipitor] 80 mg PO DAILY 03/31/19 10/05/19 Sertraline [Zoloft] 100 mg PO DAILY 03/31/19 10/05/19 Aspirin 325 mg PO DAILY 04/01/19 10/05/19 Metoprolol Succinate (ER) [Toprol 25 mg PO DAILY 10/05/19 10/05/19 XL] Pantoprazole [Protonix] 40 mg PO DAILY 10/05/19 10/05/19 lisinopriL [Prinivil] 5 mg PO DAILY 10/05/19 10/05/19 Previous Rx's Medication Instructions Recorded HYDROcodone/APAP 7.5-325MG [[place] 1 tab PO Q4H PRN 3 Days #18 tab 10/07/19 7.5-325] Insulin Glargine,Hum.rec.anlog 15 unit SQ DAILY #3 pen 10/07/19 [Basaglar Kwikpen U-100] Insulin Lispro [Admelog] 7 units SQ AC-TID #1 vial 10/07/19 Allergies Allergy/AdvReac Type Severity Reaction Status Date / Time No Known Allergies Allergy Verified 12/06/19 17:18 Review of Systems ROS Statement: Those systems with pertinent positive or pertinent negative responses have been documented in the HPI. ROS Other: All systems not noted in ROS Statement are negative. Past Medical History Past Medical History: Coronary Artery Disease (CAD), Cancer, COPD, CVA/TIA, GERD/Reflux, GI Bleed, Hyperlipidemia, Hypertension, Myocardial Infarction ([place]), Pneumonia Additional Past Medical History / Comment(s): 03/2019 diagnosed with pancreatic cancer/last chemo 2 weeks ago, [place]-age undetermined, CVA with R sided facial droop, lower GI bleed, elevated blood sugar but pt states it has not been determined if he is diabetic. Last Myocardial Infarction Date:: unkn History of Any Multi-Drug Resistant Organisms: None Reported Past Surgical History: Heart Catheterization With Stent Additional Past Surgical History / Comment(s): two stents placed in the RCA in August of 2016, ERCP with stent to CBD, colonoscopy with benign polypectomies. Past Anesthesia/Blood Transfusion Reactions: No Reported Reaction Date of Last Stent Placement:: 2016 Past Psychological History: Anxiety, Depression Smoking Status: Never smoker Past Alcohol Use History: Daily Past Drug Use History: None Reported - Past Family History Father Family Medical History: Coronary Artery Disease (CAD), CVA/TIA, Myocardial Infarction ([place]) Mother Family Medical History: Coronary Artery Disease (CAD), Diabetes Mellitus, Hypertension Course Vital Signs 12/06/19 12/06/19 12/06/19 14:58 15:38 16:05 Temperature 98.4 F Pulse Rate 90 90 Respiratory 19 18 Rate Blood Pressure 97/55 113/71 O2 Sat by Pulse 92 L 95 96 Oximetry Medical Decision Making - Lab Data Result diagrams: 12/06/19 15:49 12/06/19 15:49 Lab Results 12/06/19 12/06/19 12/06/19 Range/Units 15:49 15:49 15:49 WBC 23.2 H (3.8-10.6) k/uL RBC 2.81 L (4.30-5.90) m/uL Hgb 8.2 L D (13.0-17.5) gm/dL Hct 24.0 L (39.0-53.0) % MCV 85.6 D (80.0-100.0) fL MCH 29.0 (25.0-35.0) pg MCHC 33.9 (31.0-37.0) g/dL RDW 17.3 H (11.5-15.5) % Plt Count 178 D (150-450) k/uL Poikilocytosis Slight Anisocytosis Slight PT 13.9 H (9.0-12.0) sec INR 1.4 H (<1.2) APTT 27.7 (22.0-30.0) sec Sodium 134 L (137-145) mmol/L Potassium 2.8 L (3.5-5.1) mmol/L Chloride 96 L (98-107) mmol/L Carbon Dioxide 28 (22-30) mmol/L Anion Gap 10 mmol/L BUN 8 L (9-20) mg/dL Creatinine 0.59 L (0.66-1.25) mg/dL Est GFR (CKD-EPI)AfAm >90 (>60 ml/min/1.73 sqM) Est GFR (CKD-EPI)NonAf >90 (>60 ml/min/1.73 sqM) Glucose 202 H (74-99) mg/dL Plasma Lactic Acid Jhonny (0.7-2.0) mmol/L Calcium 8.0 L (8.4-10.2) mg/dL Ionized Calcium Belinda 4.6 (4.5-5.3) mg/dL Phosphorus 1.8 L (2.5-4.5) mg/dL Magnesium 1.6 (1.6-2.3) mg/dL Total Bilirubin 0.8 (0.2-1.3) mg/dL AST 39 (17-59) U/L ALT 28 (4-49) U/L Alkaline Phosphatase 207 H (38-126) U/L Troponin I (0.000-0.034) ng/mL Total Protein 5.1 L (6.3-8.2) g/dL Albumin 2.7 L (3.5-5.0) g/dL Lipase 200 (23-300) U/L Urine Color Urine Appearance (Clear) Urine pH (5.0-8.0) Ur Specific [place] (1.001-1.035) Urine Protein (Negative) Urine Glucose (UA) (Negative) Urine Ketones (Negative) Urine Blood (Negative) Urine Nitrite (Negative) Urine Bilirubin (Negative) Urine Urobilinogen (<2.0) mg/dL Ur Leukocyte Esterase (Negative) Urine RBC (0-5) /hpf Urine WBC (0-5) /hpf Ur Squamous Epith Cells (0-4) /hpf Urine Bacteria (None) /hpf Hyaline Casts (0-2) /lpf Urine Mucus (None) /hpf 08/10/20 08/10/20 08/10/20 Range/Units 15:49 15:49 16:01 WBC (3.8-10.6) k/uL RBC (4.30-5.90) m/uL Hgb (13.0-17.5) gm/dL Hct (39.0-53.0) % MCV (80.0-100.0) fL MCH (25.0-35.0) pg MCHC (31.0-37.0) g/dL RDW (11.5-15.5) % Plt Count (150-450) k/uL Poikilocytosis Anisocytosis PT (9.0-12.0) sec INR (<1.2) APTT (22.0-30.0) sec Sodium (137-145) mmol/L Potassium (3.5-5.1) mmol/L Chloride (98-107) mmol/L Carbon Dioxide (22-30) mmol/L Anion Gap mmol/L BUN (9-20) mg/dL Creatinine (0.66-1.25) mg/dL Est GFR (CKD-EPI)AfAm (>60 ml/min/1.73 sqM) Est GFR (CKD-EPI)NonAf (>60 ml/min/1.73 sqM) Glucose (74-99) mg/dL Plasma Lactic Acid Jhonny 4.9 H* (0.7-2.0) mmol/L Calcium (8.4-10.2) mg/dL Ionized Calcium Belinda (4.5-5.3) mg/dL Phosphorus (2.5-4.5) mg/dL Magnesium (1.6-2.3) mg/dL Total Bilirubin (0.2-1.3) mg/dL AST (17-59) U/L ALT (4-49) U/L Alkaline Phosphatase (38-126) U/L Troponin I 0.015 (0.000-0.034) ng/mL Total Protein (6.3-8.2) g/dL Albumin (3.5-5.0) g/dL Lipase (23-300) U/L Urine Color Yellow Urine Appearance Clear (Clear) Urine pH 6.0 (5.0-8.0) Ur Specific [place] 1.015 (1.001-1.035) Urine Protein 1+ H (Negative) Urine Glucose (UA) Negative (Negative) Urine Ketones Negative (Negative) Urine Blood Negative (Negative) Urine Nitrite Negative (Negative) Urine Bilirubin Negative (Negative) Urine Urobilinogen <2.0 (<2.0) mg/dL Ur Leukocyte Esterase Negative (Negative) Urine RBC 1 (0-5) /hpf Urine WBC 14 H (0-5) /hpf Ur Squamous Epith Cells <1 (0-4) /hpf Urine Bacteria Rare H (None) /hpf Hyaline Casts 48 H (0-2) /lpf Urine Mucus Moderate H (None) /hpf Critical Care Time Critical Care Time: Yes Total Critical Care Time: 33 Disposition Clinical Impression: Fatigue, Sepsis Disposition: ADMITTED IP TO THIS HOSP Condition: Critical Referrals: Evens Hayes MD [Primary Care Provider] - 1-2 days Decision Time: 17:21
[2019-12-06 16:14] LABS: Ionized Calcium 4.6 mg/dL (4.5-5.3)
[2019-12-06 16:15] LABS: INR 1.4 (<1.2); Partial Thromboplastin Time 27.7 sec (22.0-30.0); Prothrombin Time 13.9 sec (9.0-12.0)
[2019-12-06 16:20] LABS: Anisocytosis Slight; MCHC 33.9 g/dL (31.0-37.0); Mean Platelet Volume 9.6; Poikilocytosis Slight; RBC 2.81 m/uL (4.30-5.90); RDW 17.3 % (11.5-15.5); WBC 23.2 k/uL (3.8-10.6)
[2019-12-06 16:27] LABS: AST 39 U/L (17-59); African American GFR (CKD) >90 (>60 ml/min/1.73 sqM); Albumin 2.7 g/dL (3.5-5.0); Blood Urea Nitrogen 8 mg/dL (9-20); Carbon Dioxide 28 mmol/L (22-30); Magnesium 1.6 mg/dL (1.6-2.3); Non-African American GFR(CKD) >90 (>60 ml/min/1.73 sqM); Phosphorus 1.8 mg/dL (2.5-4.5); Total Bilirubin 0.8 mg/dL (0.2-1.3); Total Protein 5.1 g/dL (6.3-8.2)
[2019-12-06 16:28] LABS: HGB 8.2 gm/dL (13.0-17.5)
[2019-12-06 16:29] LABS: MCV 85.6 fL (80.0-100.0); Platelet Count 178 k/uL (150-450)
[2019-12-06] MEDS ORDERED: PANTOPRAZOLE 40 MG/10 ML VIAL IVP ONE (16:38)
[2019-12-06 16:39] LABS: Appearance,Urine Clear (Clear); Bacteria,Urine Rare /hpf; Bilirubin,Urine Negative (Negative); Blood,Urine Negative (Negative); Color,Urine Yellow; Glucose,Urine (UA) Negative (Negative); Hyaline Casts,Urine 48 /lpf (0-2); Ketones,Urine Negative (Negative); Leukocyte Esterase,Urine Negative (Negative); Mucus,Urine Moderate /hpf; Nitrite,Urine Negative (Negative); Protein,Urine 1+ (Negative); RBC,Urine 1 /hpf (0-5); Specific Gravity,Urine 1.015 (1.001-1.035); Squamous Epithelial Cell,Urine <1 /hpf (0-4); Urobilinogen,Urine <2.0 mg/dL (<2.0); WBC,Urine 14 /hpf (0-5)
[2019-12-06] MEDS ORDERED: PIPERACILLIN-TAZOBACTAM 3.375 GM in SODIUM CHLORIDE 0.9% 100 ML IVPB STA (16:40)
[2019-12-06 16:50] LABS: Alkaline Phosphatase 207 U/L (38-126); Anion Gap 10 mmol/L; Chloride 96 mmol/L (98-107); Glucose 202 mg/dL (74-99); Lipase 200 U/L (23-300); Potassium 2.8 mmol/L (3.5-5.1); Sodium 134 mmol/L (137-145)
--- NOTE | 2019-12-06 16:55 | XR ---
EXAMINATION TYPE: XR chest 2V DATE OF EXAM: 12/06/2019 COMPARISON: Chest x-ray October 05, 2019. HISTORY: Weakness after fall injury. History of pancreatic cancer. TECHNIQUE: Frontal and lateral views of the chest are obtained. FINDINGS: There is stable right subclavian Mediport catheter with catheter tip terminating outside th e field of view extending cranially. Worsening reticulonodular interstitial prominence is present. Th ere is no suspicious new focal air space opacity, pleural effusion, or pneumothorax seen. The cardia c silhouette size is stable and upper limits of normal. The osseous structures are intact. IMPRESSION: Increasing reticulonodular prominence could reflect developing interstitial edema and/or atypical acute infectious process. Lymphangitic carcinomatosis is not excluded. Poorly clinically.
[2019-12-06 16:56] LABS: ALT 28 U/L (4-49)
--- NOTE | 2019-12-06 17:00 | CT ---
EXAMINATION TYPE: CT brain princess freitas DATE OF EXAM: 12/06/2019 COMPARISON: NONE HISTORY: Fall injury with altered mental status and neck pain.. CT DLP: 1410 mGycm. Automated Exposure Control for Dose Reduction was Utilized. TECHNIQUE: CT scan of the head and cervical spine are performed without contrast. FINDINGS: There is no acute intracranial hemorrhage or midline shift identified. Ventricular and franz lcal prominence. Low-attenuation in the deep and periventricular white matter. Old infarcts bilateral basal ganglia with involvement of the left internal capsule also noted. The calvarium is intact. The globes are intact and the visualized sinuses are clear. Cervical spine is visualized in its entirety from C1 through upper thoracic levels and demonstrates s traightened alignment without evidence of acute fracture or dislocation. Prevertebral soft tissue ap pears within normal limits. The C1-C2 articulation is within normal limits on the coronal images. V ertebral body heights are maintained. Disc space heights fairly well preserved. Axial images show mul tilevel uncovertebral facet degenerative changes contribute to multilevel [id number] neural for aminal narrowing. There is partial visualization of right-sided Mediport subclavian catheter terminat ing in the internal jugular vein at roughly C3 level. Background chronic emphysematous change along w ith peripheral reticulonodular opacities could reflect atypical infection and/or scarring, correlate clinically. Lymphangitic spread of carcinomatosis is in differential. IMPRESSION: 1. There is no acute fracture or dislocation evident in the cervical spine. 2. No acute intracranial hemorrhage or midline shift is seen. Mild diffuse cerebral atrophy along wit h mild/moderate chronic small vessel ischemic change and old bilateral infarcts all noted.
[2019-12-06] MEDS ORDERED: NALOXONE 0.4 MG/ML 1 ML VIAL IV PRN (17:21)
[2019-12-06] MEDS ORDERED: ACETAMINOPHEN TAB 325 MG TAB PO PRN (17:21)
[2019-12-06 17:29] LABS: Lymphocytes # (M) 1.16 k/uL (1.0-4.8); Metamyelocytes # (M) 0.46 k/uL (0); Metamyelocytes % 2 %; Monocytes # (M) 1.16 k/uL (0-1.0); Neutrophils # (M) 20.65 k/uL (1.3-7.7); Neutrophils % (M) 89 %; Nucleated Red Blood Cells 0 /100 WBC (0-0); Total Cells Counted 200
[2019-12-06] MEDS ORDERED: CALCIUM GLUCONATE 1 GM in SODIUM CHLORIDE 0.9% 100 ML IVPB ONE (17:30)
[2019-12-06] MEDS: POTASSIUM CHLORIDE 20 MEQ in WATER FOR INJECTION 1 100ML.BAG IVPB SCH ×2 (18:19→21:06)
--- NOTE | 2019-12-06 23:50 | P.HPIM ---
History of Present Illness H&P Date: 12/06/19 Chief Complaint: Weakness with fall and closed head trauma, sepsis, pancreatic cancer, multi 64-year-old was diagnosed with pancreatic cancer back in September [address] maria and has been on chemotherapy. Patient has been getting weaker every day had falling multiple time. Today patient had fall with closed head trauma and injury and had significant confusion with generalized weakness. His white blood cell was over 23,000, patient had significant anemia, lactic acid was significantly elevated. Patient was started on Zosyn, hydration and fluid resuscitation, but kept in bedrest O2 and admit patient to the hospital. Apparently patient has not been doing well since his diagnoses with pink at the cancer despite the chemotherapy patient is getting weaker and much worse day by day. Chest x-ray had? Off atypical acute infectious process with Lymphangitic carcinomatosis is not excluded with? Off fluid overload and infiltrate in the bases. 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 Review of Systems CONSTITUTIONAL: Well-developed no acute respiratory distress. Look older than his age. EYES: No icterus sclerae, no conjunctivitis. EARS, NOSE, MOUTH, THROAT, and FACE: No sore throat, lymphadenopathy, carotid bruits or deformity. Mild for head trauma specially on the left side with mild bruises. RESPIRATORY: Mild shortness of breath wheezes. CARDIOVASCULAR: Positive PND orthopnea and palpitation no angina. GASTROINTESTINAL: Positive nausea abdominal discomfort and distention no vomiting no bleeding. GENITOURINARY: Negative for Hematuria or UTI, no kidney stones. INTEGUMENT/BREAST: Negative for any muscular injury with mild osteoarthritis.. HEMATOLOGIC/LYMPHATIC: Negative for bleed or purpura. MUSCULOSKELTAL: Negative for Myalgia or arthralgia. NEURLOGICAL: No LOC, Sz or syncope, blurred vision dizziness or abnormality.. BEHAVIORAL/PSYCH: Negative. ENDOCRINE: Negative. Past Medical History Past Medical History: Coronary Artery Disease (CAD), Cancer, COPD, CVA/TIA, GERD/Reflux, GI Bleed, Hyperlipidemia, Hypertension, Myocardial Infarction ([place]), Pneumonia Additional Past Medical History / Comment(s): 03/2019 diagnosed with pancreatic cancer/last chemo 2 weeks ago, [place]-age undetermined, CVA with R sided facial dr zena, lower GI bleed, elevated blood sugar but pt states it has not been determined if he is diabetic. Last Myocardial Infarction Date:: unkn History of Any Multi-Drug Resistant Organisms: None Reported Past Surgical History: Heart Catheterization With Stent Additional Past Surgical History / Comment(s): two stents placed in the RCA in August of 2016, ERCP with stent to CBD, colonoscopy with benign polypectomies. Past Anesthesia/Blood Transfusion Reactions: No Reported Reaction Date of Last Stent Placement:: 2016 Past Psychological History: Anxiety, Depression Smoking Status: Never smoker Past Alcohol Use History: Daily Past Drug Use History: None Reported - Past Family History Father Family Medical History: Coronary Artery Disease (CAD), CVA/TIA, Myocardial Infarction ([place]) Mother Family Medical History: Coronary Artery Disease (CAD), Diabetes Mellitus, H ypertension Medications and Allergies Home Medications Medication Instructions Recorded Confirmed Type Atorvastatin [Lipitor] 80 mg PO DAILY 03/31/19 12/06/19 History Sertraline [Zoloft] 100 mg PO DAILY 03/31/19 12/06/19 History Aspirin 325 mg PO DAILY 04/01/19 12/06/19 History Metoprolol Succinate (ER) [Toprol 25 mg PO DAILY 10/05/19 12/06/19 History XL] lisinopriL [Prinivil] 5 mg PO DAILY 10/05/19 12/06/19 History Insulin Glargine,Hum.rec.anlog 15 unit SQ DAILY #3 pen 10/07/19 12/06/19 Rx [Basaglar Kwikpen U-100] Gabapentin [Neurontin] 200 mg PO BID 12/06/19 12/06/19 History HYDROcodone/APAP 5-325MG [[place] 1 tab PO QID PRN 12/06/19 12/06/19 History 5-325] Insulin Lispro [Admelog] See Protocol SQ AC-TID 12/06/19 12/06/19 History Pantoprazole Sodium [Protonix] 20 mg PO DAILY 12/06/19 12/06/19 History Allergies Allergy/AdvReac Type Severity Reaction Status Date / Time No Known Allergies Allergy Verified 12/06/19 17:18 Physical Exam Vitals: Vital Signs Temp Pulse Resp BP Pulse Ox 12/06/19 21:00 96/76 12/06/19 20:30 96 102/66 91 L 12/06/19 18:17 86 18 110/82 95 12/06/19 16:05 90 18 113/71 96 12/06/19 15:38 95 12/06/19 14:58 98.4 F 90 19 97/55 92 L Intake and Output 12/06/19 12/06/19 12/06/19 06:59 14:59 22:59 Other: Weight 69.763 kg General Appearance: Alert, cooperative,, mild distress, mild bruise in the forehead area. Neck HEENT: Supple, no lymphadenopathy, no thyroid enlargement, no carotid b ruits. Slight neck stiffness. Lungs: Decreased breath some bilateral Rhonchi Positive Mild Expected Wheezes. Chest Wall: Decrease expansion with deep inspiration no tenderness and no deformity was found on exam, no costochondral pain or discomfort. Heart: Regular rate and rhythm, S1, S2 normal, no murmur, rub or gallop. Back: Symmetric, no curvature, ROM normal, no CVA tenderness. Abdomen: Soft distended significant discomfort and epigastric area and right upper quadrant area no rebound or rigidity. Extremities: Extremities normal, atraumatic, no cyanosis positive edema. Pulses: 2+ and symmetric. Skin: Skin color, texture, tugor normal, no rashes or lesions. Neurologic: Alert oriented with slight confusion, cranial nerves II through XII intact, no motor deficit, positive normal balance and gait Results CBC & Chem 7: 12/06/19 15:49 12/06/19 15:49 Labs: Abnormal Lab Results - Last 24 Hours (Table) 12/06/19 12/06/19 12/06/19 Range/Units 15:49 15:49 15:49 WBC 23.2 H (3.8-10.6) k/uL RBC 2.81 L (4.30-5.90) m/uL Hgb 8.2 L D (13.0-17.5) gm/dL Hct 24.0 L (39.0-53.0) % RDW 17.3 H (11.5-15.5) % Neutrophils # (Manual) 20.65 H (1.3-7.7) k/uL Monocytes # (Manual) 1.16 H (0-1.0) k/uL Metamyelocytes # (Man) 0.46 H (0) k/uL PT 13.9 H (9.0-12.0) sec INR 1.4 H (<1.2) Sodium 134 L (137-145) mmol/L Potassium 2.8 L (3.5-5.1) mmol/L Chloride 96 L (98-107) mmol/L BUN 8 L (9-20) mg/dL Creatinine 0.59 L (0.66-1.25) mg/dL Glucose 202 H (74-99) mg/dL Plasma Lactic Acid Jhonny (0.7-2.0) mmol/L Calcium 8.0 L (8.4-10.2) mg/dL Phosphorus 1.8 L (2.5-4.5) mg/dL Alkaline Phosphatase 207 H (38-126) U/L Total Protein 5.1 L (6.3-8.2) g/dL Albumin 2.7 L (3.5-5.0) g/dL Urine Protein (Negative) Urine WBC (0-5) /hpf Urine Bacteria (None) /hpf Hyaline Casts (0-2) /lpf Urine Mucus (None) /hpf 12/06/19 12/06/19 12/06/19 Range/Units 15:49 16:01 19:03 WBC (3.8-10.6) k/uL RBC (4.30-5.90) m/uL Hgb (13.0-17.5) gm/dL Hct (39.0-53.0) % RDW (11.5-15.5) % Neutrophils # (Manual) (1.3-7.7) k/uL Monocytes # (Manual) (0-1.0) k/uL Metamyelocytes # (Man) (0) k/uL PT (9.0-12.0) sec INR (<1.2) Sodium (137-145) mmol/L Potassium (3.5-5.1) mmol/L Chloride (98-107) mmol/L BUN (9-20) mg/dL Creatinine (0.66-1.25) mg/dL Glucose (74-99) mg/dL Plasma Lactic Acid Jhonny 4.9 H* 3.0 H* (0.7-2.0) mmol/L Calcium (8.4-10.2) mg/dL Phosphorus (2.5-4.5) mg/dL Alkaline Phosphatase (38-126) U/L Total Protein (6.3-8.2) g/dL Albumin (3.5-5.0) g/dL Urine Protein 1+ H (Negative) Urine WBC 14 H (0-5) /hpf Urine Bacteria Rare H (None) /hpf Hyaline Casts 48 H (0-2) /lpf Urine Mucus Moderate H (None) /hpf 12/06/19 Range/Units 21:32 WBC (3.8-10.6) k/uL RBC (4.30-5.90) m/uL Hgb (13.0-17.5) gm/dL Hct (39.0-53.0) % RDW (11.5-15.5) % Neutrophils # (Manual) (1.3-7.7) k/uL Monocytes # (Manual) (0-1.0) k/uL Metamyelocytes # (Man) (0) k/uL PT (9.0-12.0) sec INR (<1.2) Sodium (137-145) mmol/L Potassium (3.5-5.1) mmol/L Chloride (98-107) mmol/L BUN (9-20) mg/dL Creatinine (0.66-1.25) mg/dL Glucose (74-99) mg/dL Plasma Lactic Acid Jhonny 4.1 H* (0.7-2.0) mmol/L Calcium (8.4-10.2) mg/dL Phosphorus (2.5-4.5) mg/dL Alkaline Phosphatase (38-126) U/L Total Protein (6.3-8.2) g/dL Albumin (3.5-5.0) g/dL Urine Protein (Negative) Urine WBC (0-5) /hpf Urine Bacteria (None) /hpf Hyaline Casts (0-2) /lpf Urine Mucus (None) /hpf Thrombosis Risk Factor Assmnt - DVT/VTE Prophylaxis DVT/VTE Prophylaxis: Mechanical Prophylaxis ordered Assessment and Plan Assessment: 1 sepsis: Not clear etiology so far, most likely the lung, with current white blood cell and x-ray of the lung, patient was started on Zosyn for better gram- negative coverage at this point, cultures pending at this point. 2 multiple fall and trauma: No intracranial hemorrhage at this point CAT scan is be negative no cervical spine injury, we will advance activity with physical therapy gradually. 3 pancreatic cancer: Has been on chemotherapy seen oncology on regular basis continue current management we'll hold off on chemotherapy for now we will c onsult oncology. Significant electrolyte imbalance: With severe hypokalemia: Continue replacement therapy along with correcting hypomagnesemia. 5 nonketotic hyperglycemia: Continue patient on insulin continue Accu-Chek with sliding scales coverage. 6 severe anemia with hemoglobin is down to 8.2, no need for transfusion continue iron and multivitamins. 7 UTI: UA is not very clear this point but it's not negative continue current antibiotics awaiting for urine culture as well. 8 history of coronary disease: Has been stable with no recurrent chest pain or angina continue patient on metoprolol Lipitor and Prinivil. 9 type 2 diabetes: Has been on basically a 15 units subcutaneous daily along with Accu-Chek sliding scale coverage. 10 chronic neuropathy: Has been on gabapentin 200 mg twice a day. 11 hyperlipidemia: Remain on atorvastatin 80 mg daily. 11 chronic pain management: Has been on hydrocodone every 6 hours as needed. 13 chronic depression: On Zoloft 100 mg daily. 14 GI prophylaxis: Patient be on pantoprazole. 15 DVT prophylaxis: Heparin subcutaneous can be use. CODE STATUS: Full code. Admit patient to inpatient status for more than 2 night stay.
[2019-12-07] MEDS: HYDROcodone/APAP 5-325MG 1 EACH TAB PO PRN (03:45)
[2019-12-07 04:48] LABS: Anisocytosis Slight; HCT 21.3 % (39.0-53.0); HGB 7.1 gm/dL (13.0-17.5); MCH 28.6 pg (25.0-35.0); MCHC 33.2 g/dL (31.0-37.0); MCV 86.2 fL (80.0-100.0); Mean Platelet Volume 10.4; Platelet Count 169 k/uL (150-450); Poikilocytosis Slight; RBC 2.47 m/uL (4.30-5.90); RDW 16.8 % (11.5-15.5)
[2019-12-07 05:01] LABS: ALT 21 U/L (4-49); AST 38 U/L (17-59); African American GFR (CKD) >90 (>60 ml/min/1.73 sqM); Albumin 2.2 g/dL (3.5-5.0); Alkaline Phosphatase 164 U/L (38-126); Anion Gap 5 mmol/L; Blood Urea Nitrogen 6 mg/dL (9-20); Calcium 7.4 mg/dL (8.4-10.2); Carbon Dioxide 27 mmol/L (22-30); Chloride 100 mmol/L (98-107); Glucose 153 mg/dL (74-99); Non-African American GFR(CKD) >90 (>60 ml/min/1.73 sqM); Sodium 132 mmol/L (137-145); Total Bilirubin 0.7 mg/dL (0.2-1.3); Total Protein 4.4 g/dL (6.3-8.2)
[2019-12-07 05:14] LABS: Potassium 2.2 mmol/L (3.5-5.1)
[2019-12-07 05:26] LABS: Band Neutrophils % 11 %; Metamyelocytes % 1 %; Neutrophils % (M) 71 %; Nucleated Red Blood Cells 1 /100 WBC (0-0); Total Cells Counted 200
[2019-12-07 05:27] LABS: Lymphocytes # (M) 2.23 k/uL (1.0-4.8); Metamyelocytes # (M) 0.22 k/uL (0); Monocytes # (M) 1.78 k/uL (0-1.0); WBC 22.3 k/uL (3.8-10.6)
[2019-12-07 05:28] LABS: Anisocytosis (M) Present; Poikilocytosis (M) Present; Polychromasia Present
[2019-12-07] MEDS ORDERED: Potassium Replacement Protocol 1 EACH MISC MISCELLANE PRN ×2 (06:00→13:01)
[2019-12-07] MEDS: POTASSIUM CHLORIDE ER 20 MEQ TAB.ER PO SCH ×3 (06:32→09:27)
[2019-12-07] MEDS: PANTOPRAZOLE 40 MG TABLET PO SCH (06:32)
[2019-12-07 06:36] LABS: Glucose,Whole Blood 159 mg/dL (75-99)
[2019-12-07] MEDS ORDERED: INSULIN ASPART (NovoLOG) 100 UNIT/ML VIAL SQ SCH ×2 (07:30)
[2019-12-07] MEDS ORDERED: INSULIN LISPRO (For Pump) 100 UNIT/ML VIAL SQ-PUMP SCH (07:30)
[2019-12-07] MEDS: ATORVASTATIN 80 MG TAB PO SCH (08:36)
[2019-12-07] MEDS: SERTRALINE 100 MG TAB PO SCH (08:37)
[2019-12-07] MEDS: lisinopriL 5 MG TAB PO SCH (08:37)
[2019-12-07] MEDS: METOPROLOL SUCCINATE (ER) 25 MG TAB.ER.24H PO SCH (08:37)
[2019-12-07] MEDS ORDERED: INSULIN DETEMIR (LEVEMIR) 100 UNIT/ML SYR SQ SCH (09:00)
[2019-12-07] MEDS: GABAPENTIN 100 MG CAP PO SCH ×2 (10:31→19:56)
[2019-12-07 11:16] LABS: Magnesium 1.4 mg/dL (1.6-2.3); Phosphorus 1.2 mg/dL (2.5-4.5)
[2019-12-07 12:11] LABS: Glucose,Whole Blood 145 mg/dL (75-99)
[2019-12-07] MEDS: INSULIN ASPART (NovoLOG) 100 UNIT/ML VIAL SQ SCH ×3 (12:15→21:51)
[2019-12-07] MEDS: POTASSIUM CHLORIDE 20 MEQ in WATER FOR INJECTION 1 100ML.BAG IVPB SCH ×4 (13:26→22:06)
[2019-12-07 17:49] LABS: Glucose,Whole Blood 78 mg/dL (75-99)
--- NOTE | 2019-12-07 18:12 | P.CONS ---
History of Present Illness - Reason for Consult Consult date: 12/07/19 Pancreatic Cancer Requesting physician: James Bond - Chief Complaint Fever, SOB - History of Present Illness Mr Espino is a pleasant white male, initially seen in consult at [facility] on 04/01/19. The patient had presented to the hospital with complains of white stool ongoing for about a few weeks. Over the past few days he had also developed left-sided abdominal pain. On admission labs revealed evidence of biliary obstruction with high liver enzymes and total bilirubin of 6.8. He had a CT of the abdomen and pelvis which showed palpitation of the pancreatic duct with cut off of the pancreatic duct and distal common bile duct at the level of the pancreatic head. There appeared to be a poorly defined heterogenous solid and cystic mass roughly measuring 4.6 cm x 1.9 cm. There is no evidence of metastatic disease. The patient was seen by GI and had an attempted ERCP that was unsuccessful. He was therefore referred [facility] hospital where he had ERCP as well as endoscopic ultrasound of the pancreas. He was able to have stenting on 04/05/19. CT of the chest abdomen and pelvis was repeated on 04/07/19, showing a 1.8 cm mass in the pancreatic head, with no evidence of abutment or encasement of major arteries and veins. No evidence of extra pancreatic extension, vascular involvement or metastatic disease was seen. EUS 04/05/19 reported a 2.4 x 1.9 cm mass staged as T2 N0. FNA was positive for adenocarcinoma. The patient's case was reviewed in the multidisciplinary tumor board, it is felt that some of the lymph nodes in the luis hepatis were somewhat prominent and therefore potentially suspicious. Therefore neoadjuvant chemotherapy was recommended and the patient was referred back here for the same. He was started on mFOLFIRINOX on 05/26/19 and is s/p 6 cycles, completing those on 08/05/19. The patient was referred back to [facility] for evaluation of surgery. Due to the coronavirus epidemic, it was felt that at this time should continue systemic chemotherapy and delay his surgery for later. On presentation of his case at the [facility] concern that there may be some progression. Therefore it was recommended that he be changed over to Gemzar and Abraxane. he started treatment on 09/07/19 and is now status post cycle 3, day 15 on 11/30/19 with neulasta following. Prior admission to [facility] after cycle one of chemotherapy with increasing abdominal pain, nausea and vomiting. Labs showed pancreatitis. There did not appear to be any evidence of new obstruction by labs or CAT scan. Patient improved with conservative management and was discharged on 10/07/19. Plan per Dr. Brock was to follow-up with [facility] again after cycle 3 for re-evaluation of surgical resection. Unfortunetly he now presents to ER with complaints of increased SOB, generalized weakness, and multiple falls. CT of Head/Neck performed. As well as imaging of chest which was concerning for atypical infectious process, interstitial pneumonia versus metastatic appearance of lymphatics spread (uncommonly seen with his cancer). Will follow-up with CT of the chest once he is stabilized. Antibiotics were started. His potassium on admission 2.2, after supplementation only increased to 2.3, magnesium, phos, and calcium also low. He admits to diarrhea, nausea and feeling "lousy". Denies bloody stools. He is on room air at baseline and now requiring 4Liters of oxygen to maintain oxygen saturation greater than 90%. Review of chest xray completed, no abdominal imaging yet this admission. Review of Systems A 14 point review of systems assess and completed and all negative except HPI. Past Medical History Past Medical History: Coronary Artery Disease (CAD), Cancer, COPD, CVA/TIA, GERD/Reflux, GI Bleed, Hyperlipidemia, Hypertension, Myocardial Infarction ([place]), Pneumonia Additional Past Medical History / Comment(s): 03/2019 diagnosed with pancreatic cancer/last chemo 2 weeks ago, [place]-age undetermined, CVA with R sided facial droop, lower GI bleed, elevated blood sugar but pt states it has not been determined if he is diabetic. Last Myocardial Infarction Date:: unkn History of Any Multi-Drug Resistant Organisms: None Reported Past Surgical History: Heart Catheterization With Stent Additional Past Surgical History / Comment(s): two stents placed in the RCA in August of 2016, ERCP with stent to CBD, colonoscopy with benign polypectomies. Past Anesthesia/Blood Transfusion Reactions: No Reported Reaction Date of Last Stent Placement:: 2016 Past Psychological History: Anxiety, Depression Smoking Status: Never smoker Past Alcohol Use History: Daily Past Drug Use History: None Reported - Past Family History Father Family Medical History: Coronary Artery Disease (CAD), CVA/TIA, Myocardial Infarction ([place]) Mother Family Medical History: Coronary Artery Disease (CAD), Diabetes Mellitus, Hypertension Medications and Allergies Home Medications Medication Instructions Recorded Confirmed Type Atorvastatin [Lipitor] 80 mg PO DAILY 03/31/19 12/06/19 History Sertraline [Zoloft] 100 mg PO DAILY 03/31/19 12/06/19 History Aspirin 325 mg PO DAILY 04/01/19 12/06/19 History Metoprolol Succinate (ER) [Toprol 25 mg PO DAILY 10/05/19 12/06/19 History XL] lisinopriL [Prinivil] 5 mg PO DAILY 10/05/19 12/06/19 History Insulin Glargine,Hum.rec.anlog 15 unit SQ DAILY #3 pen 10/07/19 12/06/19 Rx [Basaglar Kwikpen U-100] Gabapentin [Neurontin] 200 mg PO BID 12/06/19 12/06/19 History HYDROcodone/APAP 5-325MG [Valier 1 tab PO QID PRN 12/06/19 12/06/19 History 5-325] Insulin Lispro [Admelog] See Protocol SQ AC-TID 12/06/19 12/06/19 History Pantoprazole Sodium [Protonix] 20 mg PO DAILY 12/06/19 12/06/19 History Allergies Allergy/AdvReac Type Severity Reaction Status Date / Time No Known Allergies Allergy Verified 12/06/19 17:18 Physical Exam Vitals: Vital Signs Temp Pulse Pulse Pulse Resp BP BP 12/07/19 08:00 97.3 F L 93 18 109/61 12/07/19 04:00 99.9 F H 93 93 20 96/57 12/07/19 02:44 93 18 110/60 12/07/19 02:00 127/67 12/06/19 23:49 92 18 111/65 12/06/19 21:00 96/76 12/06/19 20:30 96 102/66 12/06/19 18:17 86 18 110/82 12/06/19 16:05 90 18 113/71 12/06/19 15:38 12/06/19 14:58 98.4 F 90 19 97/55 Pulse Ox 12/07/19 08:00 90 L 12/07/19 04:00 92 L 12/07/19 02:44 93 L 12/07/19 02:00 12/06/19 23:49 12/06/19 21:00 12/06/19 20:30 91 L 12/06/19 18:17 95 12/06/19 16:05 96 12/06/19 15:38 95 12/06/19 14:58 92 L Intake and Output 12/06/19 12/07/19 12/07/19 22:59 06:59 14:59 Intake Total 20 Balance 20 Intake: Oral 20 Other: # Voids 0 # Bowel Movements 0 Weight 69.763 kg - Constitutional General appearance: cooperative, mild distress - EENT Eyes: EOMI, poor dentition ENT: hard of hearing, normal oropharynx - Neck Neck: normal ROM - Respiratory Respiratory: bilateral: diminished, wheezing (expiratory) - Cardiovascular Rhythm: regular Heart sounds: normal: S1, S2 leg Peripheral Edema: bilateral: 1+ - Gastrointestinal General gastrointestinal: distended, normal bowel sounds, soft, tenderness - Integumentary Integumentary: pale - Neurologic non-focal - Musculoskeletal Musculoskeletal: generalized weakness - Psychiatric Psychiatric: A&O x's 3, appropriate affect Results CBC & Chem 7: 12/07/19 04:30 12/07/19 12:33 Labs: Abnormal Lab Results - Last 24 Hours (Table) 12/06/19 12/06/19 12/06/19 Range/Units 15:49 15:49 15:49 WBC 23.2 H (3.8-10.6) k/uL RBC 2.81 L (4.30-5.90) m/uL Hgb 8.2 L D (13.0-17.5) gm/dL Hct 24.0 L (39.0-53.0) % RDW 17.3 H (11.5-15.5) % Neutrophils # (Manual) 20.65 H (1.3-7.7) k/uL Monocytes # (Manual) 1.16 H (0-1.0) k/uL Metamyelocytes # (Man) 0.46 H (0) k/uL Nucleated RBCs (0-0) /100 WBC PT 13.9 H (9.0-12.0) sec INR 1.4 H (<1.2) Sodium 134 L (137-145) mmol/L Potassium 2.8 L (3.5-5.1) mmol/L Chloride 96 L (98-107) mmol/L BUN 8 L (9-20) mg/dL Creatinine 0.59 L (0.66-1.25) mg/dL Glucose 202 H (74-99) mg/dL POC Glucose (mg/dL) (75-99) mg/dL Plasma Lactic Acid Jhonny (0.7-2.0) mmol/L Calcium 8.0 L (8.4-10.2) mg/dL Phosphorus 1.8 L (2.5-4.5) mg/dL Alkaline Phosphatase 207 H (38-126) U/L Total Protein 5.1 L (6.3-8.2) g/dL Albumin 2.7 L (3.5-5.0) g/dL Urine Protein (Negative) Urine WBC (0-5) /hpf Urine Bacteria (None) /hpf Hyaline Casts (0-2) /lpf Urine Mucus (None) /hpf 12/06/19 12/06/19 12/06/19 Range/Units 15:49 16:01 19:03 WBC (3.8-10.6) k/uL RBC (4.30-5.90) m/uL Hgb (13.0-17.5) gm/dL Hct (39.0-53.0) % RDW (11.5-15.5) % Neutrophils # (Manual) (1.3-7.7) k/uL Monocytes # (Manual) (0-1.0) k/uL Metamyelocytes # (Man) (0) k/uL Nucleated RBCs (0-0) /100 WBC PT (9.0-12.0) sec INR (<1.2) Sodium (137-145) mmol/L Potassium (3.5-5.1) mmol/L Chloride (98-107) mmol/L BUN (9-20) mg/dL Creatinine (0.66-1.25) mg/dL Glucose (74-99) mg/dL POC Glucose (mg/dL) (75-99) mg/dL Plasma Lactic Acid Jhonny 4.9 H* 3.0 H* (0.7-2.0) mmol/L Calcium (8.4-10.2) mg/dL Phosphorus (2.5-4.5) mg/dL Alkaline Phosphatase (38-126) U/L Total Protein (6.3-8.2) g/dL Albumin (3.5-5.0) g/dL Urine Protein 1+ H (Negative) Urine WBC 14 H (0-5) /hpf Urine Bacteria Rare H (None) /hpf Hyaline Casts 48 H (0-2) /lpf Urine Mucus Moderate H (None) /hpf 12/06/19 12/07/19 12/07/19 Range/Units 21:32 02:08 04:30 WBC 22.3 H (3.8-10.6) k/uL RBC 2.47 L (4.30-5.90) m/uL Hgb 7.1 L (13.0-17.5) gm/dL Hct 21.3 L (39.0-53.0) % RDW 16.8 H (11.5-15.5) % Neutrophils # (Manual) 18.20 H (1.3-7.7) k/uL Monocytes # (Manual) 1.78 H (0-1.0) k/uL Metamyelocytes # (Man) 0.22 H (0) k/uL Nucleated RBCs 1 H (0-0) /100 WBC PT (9.0-12.0) sec INR (<1.2) Sodium (137-145) mmol/L Potassium (3.5-5.1) mmol/L Chloride (98-107) mmol/L BUN (9-20) mg/dL Creatinine (0.66-1.25) mg/dL Glucose (74-99) mg/dL POC Glucose (mg/dL) (75-99) mg/dL Plasma Lactic Acid Jhonny 4.1 H* 2.3 H* (0.7-2.0) mmol/L Calcium (8.4-10.2) mg/dL Phosphorus (2.5-4.5) mg/dL Alkaline Phosphatase (38-126) U/L Total Protein (6.3-8.2) g/dL Albumin (3.5-5.0) g/dL Urine Protein (Negative) Urine WBC (0-5) /hpf Urine Bacteria (None) /hpf Hyaline Casts (0-2) /lpf Urine Mucus (None) /hpf 12/07/19 12/07/19 Range/Units 04:30 06:35 WBC (3.8-10.6) k/uL RBC (4.30-5.90) m/uL Hgb (13.0-17.5) gm/dL Hct (39.0-53.0) % RDW (11.5-15.5) % Neutrophils # (Manual) (1.3-7.7) k/uL Monocytes # (Manual) (0-1.0) k/uL Metamyelocytes # (Man) (0) k/uL Nucleated RBCs (0-0) /100 WBC PT (9.0-12.0) sec INR (<1.2) Sodium 132 L (137-145) mmol/L Potassium 2.2 L* (3.5-5.1) mmol/L Chloride (98-107) mmol/L BUN 6 L (9-20) mg/dL Creatinine 0.49 L (0.66-1.25) mg/dL Glucose 153 H (74-99) mg/dL POC Glucose (mg/dL) 159 H (75-99) mg/dL Plasma Lactic Acid Jhonny (0.7-2.0) mmol/L Calcium 7.4 L (8.4-10.2) mg/dL Phosphorus (2.5-4.5) mg/dL Alkaline Phosphatase 164 H (38-126) U/L Total Protein 4.4 L (6.3-8.2) g/dL Albumin 2.2 L (3.5-5.0) g/dL Urine Protein (Negative) Urine WBC (0-5) /hpf Urine Bacteria (None) /hpf Hyaline Casts (0-2) /lpf Urine Mucus (None) /hpf Microbiology - Last 24 Hours (Table) 12/06/19 16:01 Urine Culture - Preliminary Urine,Voided Chest x-ray: report reviewed Assessment and Plan (1) Hypokalemia Current Visit: Yes Status: Acute Code(s): E87.6 - HYPOKALEMIA SNOMED Code(s): 77856986 (2) Cancer of pancreas Current Visit: No Status: Chronic Priority: Medium Code(s): C25.9 - MALIGNANT NEOPLASM OF PANCREAS, UNSPECIFIED SNOMED Code(s): 946966477 Plan: Assessment and Recommendations: 1. Adenocarcinoma of the Pancreas: - Status Post 6 cycles of FOLFIRINOX, question of progression and due to COVID could not undergo surgical evaluation as original date therefore patient was started on Gemsar and Abraxane and is now status post cycle 3, day 15. - Plan is to restage with CT scans and possibly undergo surgical resection HFH - Chest xray ?infectious versus underlying progression of cancer 2. Intractable Diarrhea: - Stool studies - Add questra and PRN lomotil (after obtaining stool studies) - CT abd/Pelvis along with chest restaging and further evaluate for underlying cause of presentation 3. Recurrent Falls Secondary to severe Weakness 4. Severe Hypokalemia: - Secondary to diarrhea and decreased PO intake - Supped x6 and added to IV Fluids - Recheck in am with Mag check 5. Acute Hypoxic Respiratory Failure: - Requiring 4L of oxygen to maintain oxygen saturation greater than 90% - No oxygen at baseline - Chest Xray reveals abnormalities but clear differentiation is not given, therefore CT chest ordered as with hypoxia pulm embolism should also be considered given his hypercoagulable state from underlying malignancy 6. Increased Temp/ leukocytosis/ Weakness: - Infectious Septic Work-up in progress: - Blood Cultures/Urine - On broad spectrum antibiotics - T-Max 100 - Leukocytosis could also be reactive to recent Neulasta growth factor shot but given the combination of patients presentation infectious causes need to be further investigated. - COVID testing - Stool Studies 7. Normocytic Anemia; - Likely secondary to chemotherapy and decreased PO intake - Further anemia work-up ordered 8. Chronic Illness Myopathy: - Evaluation by PT/OT and treatment to increase overall performance once pat ient is more stable Thank you for allowing us to participate in the care of your patient we will f chantelle with you
[2019-12-07 20:51] LABS: Glucose,Whole Blood 84 mg/dL (75-99)
[2019-12-07] MEDS: IOPAMIDOL CONTRAST (ORAL USE) VIAL PO PRN ×2 (22:39→23:58)
--- NOTE | 2019-12-07 23:55 | P.CONS ---
History of Present Illness - Reason for Consult Consult date: 12/07/19 Sepsis Requesting physician: James Bond - Chief Complaint Generalized weakness and multiple falls x days - History of Present Illness Patient is a 64-year-old male with a past medical history significant for pancreatic cancer currently on chemotherapy in this patient has been brought into the ER after apparently the patient complaining of generalized weakness and did have multiple falls recently patient did have a fall the day of presentation hospital hitting his head no loss of consciousness for the symptoms the patient was brought into the ER on arrival to the patient has been afebrile he did have a white count of 23,000 patient did have a chest x-ray showing concern for possible atypical pneumonia versus venous congestion or lymphatic spread, patient had been started on Zosyn with concern for sepsis infection disease was consulted for further management of antibiotic therapy, patient may still be is to be generalized weakness and no energy patient denies having any headache or URI symptoms denies having any chest pain did have occasional cough with minimal sputum denies any nausea no vomiting no abdominal pain has been complaining of diarrhea with multiple loose stool or mucus in the stools and denies having any urinary symptoms, patient has been evaluated by oncology CT of the chest abdomen pelvis has been ordered Review of Systems Positive point has been mentioned in the HPI rest of the systems are negative Past Medical History Past Medical History: Coronary Artery Disease (CAD), Cancer, COPD, CVA/TIA, GERD/Reflux, GI Bleed, Hyperlipidemia, Hypertension, Myocardial Infarction ([place]), Pneumonia Additional Past Medical History / Comment(s): 03/2019 diagnosed with pancreatic cancer/last chemo 2 weeks ago, [place]-age undetermined, CVA with R sided facial droop, lower GI bleed, elevated blood sugar but pt states it has not been determined if he is diabetic. Last Myocardial Infarction Date:: unkn History of Any Multi-Drug Resistant Organisms: None Reported Past Surgical History: Heart Catheterization With Stent Additional Past Surgical History / Comment(s): two stents placed in the RCA in August of 2016, ERCP with stent to CBD, colonoscopy with benign polypectomies. Past Anesthesia/Blood Transfusion Reactions: No Reported Reaction Date of Last Stent Placement:: 2016 Past Psychological History: Anxiety, Depression Smoking Status: Never smoker Past Alcohol Use History: Daily Past Drug Use History: None Reported - Past Family History Father Family Medical History: Coronary Artery Disease (CAD), CVA/TIA, Myocardial Infarction ([place]) Mother Family Medical History: Coronary Artery Disease (CAD), Diabetes Mellitus, Hypertension Medications and Allergies Home Medications Medication Instructions Recorded Confirmed Type Atorvastatin [Lipitor] 80 mg PO DAILY 03/31/19 12/06/19 History Sertraline [Zoloft] 100 mg PO DAILY 03/31/19 12/06/19 History Aspirin 325 mg PO DAILY 04/01/19 12/06/19 History Metoprolol Succinate (ER) [Toprol 25 mg PO DAILY 10/05/19 12/06/19 History XL] lisinopriL [Prinivil] 5 mg PO DAILY 10/05/19 12/06/19 History Insulin Glargine,Hum.rec.anlog 15 unit SQ DAILY #3 pen 10/07/19 12/06/19 Rx [Basaglar Kwikpen U-100] Gabapentin [Neurontin] 200 mg PO BID 12/06/19 12/06/19 History HYDROcodone/APAP 5-325MG [Hope 1 tab PO QID PRN 12/06/19 12/06/19 History 5-325] Insulin Lispro [Admelog] See Protocol SQ AC-TID 12/06/19 12/06/19 History Pantoprazole Sodium [Protonix] 20 mg PO DAILY 12/06/19 12/06/19 History Allergies Allergy/AdvReac Type Severity Reaction Status Date / Time No Known Allergies Allergy Verified 12/06/19 17:18 Physical Exam Vitals: Vital Signs Temp Pulse Pulse Pulse Resp BP BP 12/07/19 11:33 97.6 F 98 18 114/68 12/07/19 08:00 97.3 F L 93 18 109/61 12/07/19 04:00 99.9 F H 93 93 20 96/57 12/07/19 02:44 93 18 110/60 12/07/19 02:00 127/67 12/06/19 23:49 92 18 111/65 12/06/19 21:00 96/76 12/06/19 20:30 96 102/66 12/06/19 18:17 86 18 110/82 12/06/19 16:05 90 18 113/71 12/06/19 15:38 12/06/19 14:58 98.4 F 90 19 97/55 Pulse Ox 12/07/19 11:33 92 L 12/07/19 08:00 90 L 12/07/19 04:00 92 L 12/07/19 02:44 93 L 12/07/19 02:00 12/06/19 23:49 12/06/19 21:00 12/06/19 20:30 91 L 12/06/19 18:17 95 12/06/19 16:05 96 12/06/19 15:38 95 12/06/19 14:58 92 L Intake and Output 12/06/19 12/07/19 12/07/19 22:59 06:59 14:59 Intake Total 20 Balance 20 Intake: Oral 20 Other: # Voids 0 # Bowel Movements 0 Weight 69.763 kg GENERAL DESCRIPTION: Middle-aged male lying in bed, no distress. No tachypnea or accessory muscle of respiration use. HEENT: Shows Pallor , no scleral icterus. Oral mucous membrane is dry. No pharyngeal erythema or thrush NECK: Trachea central, no thyromegaly. LUNGS: Unlabored breathing. Decreased breath sound the base No wheeze or cr ackle. HEART: S1, S2, regular rate and rhythm. No loud murmur ABDOMEN: Soft, no tenderness , guarding or rigidity, no organomegaly EXTREMITIES: No edema of feet. SKIN: No rash, no masses palpable. NEUROLOGICAL: The patient is awake, alert, oriented x3, mood and affect normal. Results CBC & Chem 7: 12/07/19 04:30 12/07/19 12:33 Labs: Abnormal Lab Results - Last 24 Hours (Table) 12/06/19 12/06/19 12/06/19 Range/Units 15:49 15:49 15:49 WBC 23.2 H (3.8-10.6) k/uL RBC 2.81 L (4.30-5.90) m/uL Hgb 8.2 L D (13.0-17.5) gm/dL Hct 24.0 L (39.0-53.0) % RDW 17.3 H (11.5-15.5) % Neutrophils # (Manual) 20.65 H (1.3-7.7) k/uL Monocytes # (Manual) 1.16 H (0-1.0) k/uL Metamyelocytes # (Man) 0.46 H (0) k/uL Nucleated RBCs (0-0) /100 WBC PT 13.9 H (9.0-12.0) sec INR 1.4 H (<1.2) Sodium 134 L (137-145) mmol/L Potassium 2.8 L (3.5-5.1) mmol/L Chloride 96 L (98-107) mmol/L BUN 8 L (9-20) mg/dL Creatinine 0.59 L (0.66-1.25) mg/dL Glucose 202 H (74-99) mg/dL POC Glucose (mg/dL) (75-99) mg/dL Plasma Lactic Acid Jhonny (0.7-2.0) mmol/L Calcium 8.0 L (8.4-10.2) mg/dL Phosphorus 1.8 L (2.5-4.5) mg/dL Magnesium (1.6-2.3) mg/dL Alkaline Phosphatase 207 H (38-126) U/L Total Protein 5.1 L (6.3-8.2) g/dL Albumin 2.7 L (3.5-5.0) g/dL Urine Protein (Negative) Urine WBC (0-5) /hpf Urine Bacteria (None) /hpf Hyaline Casts (0-2) /lpf Urine Mucus (None) /hpf 12/06/19 12/06/19 12/06/19 Range/Units 15:49 16:01 19:03 WBC (3.8-10.6) k/uL RBC (4.30-5.90) m/uL Hgb (13.0-17.5) gm/dL Hct (39.0-53.0) % RDW (11.5-15.5) % Neutrophils # (Manual) (1.3-7.7) k/uL Monocytes # (Manual) (0-1.0) k/uL Metamyelocytes # (Man) (0) k/uL Nucleated RBCs (0-0) /100 WBC PT (9.0-12.0) sec INR (<1.2) Sodium (137-145) mmol/L Potassium (3.5-5.1) mmol/L Chloride (98-107) mmol/L BUN (9-20) mg/dL Creatinine (0.66-1.25) mg/dL Glucose (74-99) mg/dL POC Glucose (mg/dL) (75-99) mg/dL Plasma Lactic Acid Jhonny 4.9 H* 3.0 H* (0.7-2.0) mmol/L Calcium (8.4-10.2) mg/dL Phosphorus (2.5-4.5) mg/dL Magnesium (1.6-2.3) mg/dL Alkaline Phosphatase (38-126) U/L Total Protein (6.3-8.2) g/dL Albumin (3.5-5.0) g/dL Urine Protein 1+ H (Negative) Urine WBC 14 H (0-5) /hpf Urine Bacteria Rare H (None) /hpf Hyaline Casts 48 H (0-2) /lpf Urine Mucus Moderate H (None) /hpf 12/06/19 12/07/19 12/07/19 Range/Units 21:32 02:08 04:30 WBC 22.3 H (3.8-10.6) k/uL RBC 2.47 L (4.30-5.90) m/uL Hgb 7.1 L (13.0-17.5) gm/dL Hct 21.3 L (39.0-53.0) % RDW 16.8 H (11.5-15.5) % Neutrophils # (Manual) 18.20 H (1.3-7.7) k/uL Monocytes # (Manual) 1.78 H (0-1.0) k/uL Metamyelocytes # (Man) 0.22 H (0) k/uL Nucleated RBCs 1 H (0-0) /100 WBC PT (9.0-12.0) sec INR (<1.2) Sodium (137-145) mmol/L Potassium (3.5-5.1) mmol/L Chloride (98-107) mmol/L BUN (9-20) mg/dL Creatinine (0.66-1.25) mg/dL Glucose (74-99) mg/dL POC Glucose (mg/dL) (75-99) mg/dL Plasma Lactic Acid Jhonny 4.1 H* 2.3 H* (0.7-2.0) mmol/L Calcium (8.4-10.2) mg/dL Phosphorus (2.5-4.5) mg/dL Magnesium (1.6-2.3) mg/dL Alkaline Phosphatase (38-126) U/L Total Protein (6.3-8.2) g/dL Albumin (3.5-5.0) g/dL Urine Protein (Negative) Urine WBC (0-5) /hpf Urine Bacteria (None) /hpf Hyaline Casts (0-2) /lpf Urine Mucus (None) /hpf 12/07/19 12/07/19 12/07/19 Range/Units 04:30 04:30 06:35 WBC (3.8-10.6) k/uL RBC (4.30-5.90) m/uL Hgb (13.0-17.5) gm/dL Hct (39.0-53.0) % RDW (11.5-15.5) % Neutrophils # (Manual) (1.3-7.7) k/uL Monocytes # (Manual) (0-1.0) k/uL Metamyelocytes # (Man) (0) k/uL Nucleated RBCs (0-0) /100 WBC PT (9.0-12.0) sec INR (<1.2) Sodium 132 L (137-145) mmol/L Potassium 2.2 L* (3.5-5.1) mmol/L Chloride (98-107) mmol/L BUN 6 L (9-20) mg/dL Creatinine 0.49 L (0.66-1.25) mg/dL Glucose 153 H (74-99) mg/dL POC Glucose (mg/dL) 159 H (75-99) mg/dL Plasma Lactic Acid Jhonny (0.7-2.0) mmol/L Calcium 7.4 L (8.4-10.2) mg/dL Phosphorus 1.2 L (2.5-4.5) mg/dL Magnesium 1.4 L (1.6-2.3) mg/dL Alkaline Phosphatase 164 H (38-126) U/L Total Protein 4.4 L (6.3-8.2) g/dL Albumin 2.2 L (3.5-5.0) g/dL Urine Protein (Negative) Urine WBC (0-5) /hpf Urine Bacteria (None) /hpf Hyaline Casts (0-2) /lpf Urine Mucus (None) /hpf 12/07/19 Range/Units 12:10 WBC (3.8-10.6) k/uL RBC (4.30-5.90) m/uL Hgb (13.0-17.5) gm/dL Hct (39.0-53.0) % RDW (11.5-15.5) % Neutrophils # (Manual) (1.3-7.7) k/uL Monocytes # (Manual) (0-1.0) k/uL Metamyelocytes # (Man) (0) k/uL Nucleated RBCs (0-0) /100 WBC PT (9.0-12.0) sec INR (<1.2) Sodium (137-145) mmol/L Potassium (3.5-5.1) mmol/L Chloride (98-107) mmol/L BUN (9-20) mg/dL Creatinine (0.66-1.25) mg/dL Glucose (74-99) mg/dL POC Glucose (mg/dL) 145 H (75-99) mg/dL Plasma Lactic Acid Jhonny (0.7-2.0) mmol/L Calcium (8.4-10.2) mg/dL Phosphorus (2.5-4.5) mg/dL Magnesium (1.6-2.3) mg/dL Alkaline Phosphatase (38-126) U/L Total Protein (6.3-8.2) g/dL Albumin (3.5-5.0) g/dL Urine Protein (Negative) Urine WBC (0-5) /hpf Urine Bacteria (None) /hpf Hyaline Casts (0-2) /lpf Urine Mucus (None) /hpf Microbiology - Last 24 Hours (Table) 12/06/19 16:01 Urine Culture - Preliminary Urine,Voided Assessment and Plan Assessment: 1-patient presented to hospital with generalized weakness and multiple falls in this patient who did have a low-grade fever on around to the ER of 99.9 patient did have elevated white count 75402. His have abnormality on the chest x-ray with concern for possible pneumonia as currently no other obvious focus of infection abdominal soft on clinical examination evidence of any cellulitis and UA has been negative (1) Sepsis Current Visit: Yes Status: Acute Code(s): A41.9 - SEPSIS, UNSPECIFIED ORGANISM SNOMED Code(s): 99899038 Plan: 1-we will try to obtain sputum for Gram stain and culture 2- await CT of the chest being ordered by oncology 3- Zosyn 3.375 g every 8 hours 4- obtain stool studies We will follow on clinical condition and cultures to further adjust medication if needed Thank you for this consultation will follow this patient with you Time with Patient: Greater than 30
--- NOTE | 2019-12-08 01:28 | CT ---
EXAMINATION TYPE: CT ChestAbdPelvis w con DATE OF EXAM: 12/08/2019 COMPARISON: CT abdomen pelvis 10/05/2019 HISTORY: sepsis CT DLP: 944.8 mGycm Automated exposure control for dose reduction was used. CONTRAST: Performed with IV Contrast, patient injected with 100 mL of Isovue 300. Multiple axial sections were obtained from the thoracic inlet to the floor the pelvis with IV contras t. FINDINGS: There is extensive interstitial infiltrate in both lungs with diffuse honeycomb pattern that is more severe in the upper lobes. There is relative sparing of the left lower lobe. There are small bilatera l pleural effusions. Heart size is normal. There are bronchial lymph nodes on the right side that yenifer sure up to 1 cm. There is no mediastinal adenopathy. Thoracic aorta is atheromatous. There is no miroslava cardial effusion. There is some coronary artery calcification. There is biliary stent noted. There is small amount of air in the biliary tree. Bile ducts are not di lated. There are small calcified splenic granulomata. There is no evidence of splenic mass. The stom ach is intact. There is 4.3 cm low-density mass at the head of the pancreas. There is probably some dilation of the pancreatic duct. There is no adrenal mass. Kidneys show satisfactory contrast opacification. There is no hydronephrosi s. Delayed images show normal renal excretion. There is no retroperitoneal adenopathy. Bladder disten ds smoothly. There is oral contrast throughout the large and small bowel extending down to the rectum . There is no sign of a bowel obstruction. There is no inguinal hernia. There is no mesenteric edema. There is no ascites or free air. There is no bowel obstruction. Appendi x is posterior and appears normal. The thoracic and lumbar spine appear intact. There is no compression fracture. The bony pelvis appear s intact. Hip joints appear normal. The ribs appear intact. Shoulder joints are intact. IMPRESSION: Small pleural effusions appear new compared to old exam. Diffuse honeycomb pattern in the lungs consi stent with significant interstitial lung disease. This could be acute or chronic interstitial lung di sease. Interstitial basilar pulmonary infiltrates are essentially new compared to old exam. There are a few bilateral bronchial lymph nodes probably due to inflammatory disease. Biliary stent in good position. No dilated ducts. Pancreatic mass measures 4.3 cm and appears increas ed 1 cm compared to old exam. Normal appendix. No evidence of bowel obstruction.
[2019-12-08] MEDS: PANTOPRAZOLE 40 MG TABLET PO SCH (06:53)
[2019-12-08 07:33] LABS: Glucose,Whole Blood 131 mg/dL (75-99)
[2019-12-08 08:16] LABS: African American GFR (CKD) >90 (>60 ml/min/1.73 sqM); Anion Gap 5 mmol/L; Blood Urea Nitrogen 4 mg/dL (9-20); Calcium 7.1 mg/dL (8.4-10.2); Carbon Dioxide 28 mmol/L (22-30); Chloride 99 mmol/L (98-107); Glucose 112 mg/dL (74-99); Non-African American GFR(CKD) >90 (>60 ml/min/1.73 sqM); Sodium 132 mmol/L (137-145)
[2019-12-08] MEDS: lisinopriL 5 MG TAB PO SCH (08:16)
[2019-12-08] MEDS: SERTRALINE 100 MG TAB PO SCH (08:16)
[2019-12-08] MEDS: INSULIN DETEMIR (LEVEMIR) 100 UNIT/ML SYR SQ SCH (08:16)
[2019-12-08] MEDS: GABAPENTIN 100 MG CAP PO SCH ×2 (08:16→20:52)
[2019-12-08] MEDS: ATORVASTATIN 80 MG TAB PO SCH (08:16)
[2019-12-08] MEDS: METOPROLOL SUCCINATE (ER) 25 MG TAB.ER.24H PO SCH (08:16)
[2019-12-08] MEDS: HYDROcodone/APAP 5-325MG 1 EACH TAB PO PRN (08:17)
[2019-12-08] MEDS: INSULIN ASPART (NovoLOG) 100 UNIT/ML VIAL SQ SCH ×4 (08:17→20:53)
[2019-12-08 08:53] LABS: Potassium 2.6 mmol/L (3.5-5.1)
[2019-12-08] MEDS: POTASSIUM CHLORIDE ER 20 MEQ TAB.ER PO SCH ×6 (10:04→21:50)
[2019-12-08] MEDS: MAGNESIUM SULFATE-D5W PMX 1 GM in DEXTROSE/WATER 1 100ML.BAG IVPB SCH ×2 (10:04→12:41)
[2019-12-08 12:33] LABS: Glucose,Whole Blood 148 mg/dL (75-99)
--- NOTE | 2019-12-08 12:56 | CDI ---
Documentation Clarification Form Date: 12/08/2019 12:07:00 PM From: Cheryle Segovia RN, CCDS Admit Date: 12/06/2019 05:23:00 PM Patient Name: Tony Espino Visit Number: [id number] Discharge Date: ATTENTION: The Clinical Documentation Specialists (CDI) and [facility] Coding Staff appreciate your assistance in clarifying documentation. Please respond to the clarification below the line at the bottom and electronically sign. The CDI & [facility] Coding staff will review the response and follow-up if needed. Please note: Queries are made part of the Legal Health Record. If you have any questions, please contact the author of this message via ITS. Dr. James Bond Alert oriented with slight confusion was documented in the H/P on 12/06/19. Please provide further specificity of patient confusion if known. History/Risk Factors: Pancreatic cancer on chemotherapy, COPD, CVA with right- sided facial droop, Hypertension, Pneumonia Clinical Indicators: 64-year-old male present to ED with complaint of increase weakness. He has had multiple falls . He states that he did strike his head o several occasions. He has nausea, no vomiting. 12/05 ED neuro check @ 15:50: Oriented x3, felling very weak over the past week. 12/05 Labs:WBC 23.2, HGB 8.2, HCT 24.0, NA+ 134, K+ 2.8, Lactic acid 4.9 12/05 14:58 Vital Signs: 97/55 90 19 98.4 92 % 12/05 Chest x- Ray: Increasing reticulonodular prominence could reflect developing interstitial edema and/or atypical acute infectious process. Lymphangitic carcinomatosis is not excluded CT brain: No acute intracranial hemorrhage or midline shift. Mild diffuse cerebral atrophy along with mild/moderate chronic small vessel ischemic change and old bilateral infarcts all noted. 12/07 CT Chest, abdomen/pelvis: Small pleural effusion new. Diffuse honeycomb pattern in the lungs consistent with significant interstitial lung disease. This could b acute or chronic interstitial lung disease. Interstitial basilar pulmonary infiltrates, new. Pancreatic mass 4.3 cm Treatment: Telemetry Monitoring Neuro check per protocol .9NS 1,000 fluid bolus x1 then 130 lml/hr Potassium Chloride 20 meq IV q 2hrs x3 Zosyn 3.375 mg iv x1 sta 12/06 ID: Presented to hospital with generalized weakness and multiple falls in this patient who did have a low-grade fever on around to the ER of 99.9, patient did have elevated white count [id number]. He has abnormality on the chest x-ray with concern for possible pneumonia. !) Sepsis In your professional opinion, please clarify the etiology of the Altered Mental Status, if known. XX Acute Metabolic Encephalopathy (specify Type and Underlying Medical Illness) Other condition (please specify) Unable to determine (Last Revision: July 2017) MTDD
--- NOTE | 2019-12-08 15:03 | PN ---
PROGRESS NOTE DATE OF SERVICE: 12/08/2019 REASON FOR FOLLOWUP: Sepsis and question of pneumonia. INTERVAL HISTORY: Patient is currently afebrile. The patient is breathing slightly comfortably. The patient did have occasional cough with minimal sputum, no hemoptysis, no chest pain. No nausea, no vomiting. No abdominal pain or diarrhea. PHYSICAL EXAMINATION: Blood pressure 109/57 with a pulse of 93, temperature 97.9. He is 92% on 4 L nasal cannula. General description is a middle-aged male, up in the bed in no distress. RESPIRATORY SYSTEM: Unlabored breathing, decreased breath sounds at the base, no wheeze. HEART: S1, S2. Regular rate and rhythm. ABDOMEN: Soft, no tenderness. LABS: BUN of 4, creatinine 0.45, blood culture has been negative. CT of abdomen and pelvis and chest did show evidence of infiltrates in the lungs which has slightly increased. DIAGNOSTIC IMPRESSION AND PLAN: Patient admitted to the hospital with generalized weakness, no energy, with concern for possible pneumonia with chest CT mostly showing interstitial pattern, possible atypical infection to be ruled out. Will check a urine for Legionella antigen. Antibiotic adjusted to Rocephin and Levaquin and will monitor clinical course closely. Family at the bedside. Their questions were answered. MMODL / IJN: [id number] / BELKIS
--- NOTE | 2019-12-08 15:12 | P.PN ---
Subjective Progress Note Date: 12/07/19 64-year-old was diagnosed with pancreatic cancer back in September [address] maria and has been on chemotherapy. Patient has been getting weaker every day had falling multiple time. Today patient had fall with closed head trauma and injury and had significant confusion with generalized weakness. His white blood cell was over 23,000, patient had significant anemia, lactic acid was significantly elevated. Patient was started on Zosyn, hydration and fluid resuscitation, but kept in bedrest O2 and admit patient to the hospital. Apparently patient has not been doing well since his diagnoses with pink at the cancer despite the chemotherapy patient is getting weaker and much worse day by day. Chest x-ray had? Off atypical acute infectious process with Lymphangitic carcinomatosis is not excluded with? Off fluid overload and infiltrate in the bases. 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 12/06: Patient has been seen by Dr. Holt with recommendations to continue Zosyn, obtain stool studies and sputum for culture. Patient has been seen by oncology and added Questran and Lomotil for diarrhea. CAT scan of the chest was ordered by oncology. Patient has been afebrile, heart rate 101, blood pressure 101/60, pulse ox 92% on 4 L nasal cannula. WBC 22.3, hemoglobin 7.1, platelet count 169. Sodium 132, potassium 2.3 and being replaced, BUN 6 and creatinine 0.49. Coated 19 testing is negative. Blood culture and urine culture in progress. Review of systems CONSTITUTIONAL: Well-developed no acute respiratory distress. Look older than his age. EYES: No icterus sclerae, no conjunctivitis. EARS, NOSE, MOUTH, THROAT, and FACE: No sore throat, lymphadenopathy, carotid bruits or deformity. Mild for head trauma specially on the left side with mild bruises. RESPIRATORY: Mild shortness of breath wheezes. CARDIOVASCULAR: Positive PND orthopnea and palpitation no angina. GASTROINTESTINAL: Positive nausea abdominal discomfort and distention no vomiting no bleeding. GENITOURINARY: Negative for Hematuria or UTI, no kidney stones. INTEGUMENT/BREAST: Negative for any muscular injury with mild osteoarthritis.. HEMATOLOGIC/LYMPHATIC: Negative for bleed or purpura. MUSCULOSKELTAL: Negative for Myalgia or arthralgia. NEURLOGICAL: No LOC, Sz or syncope, blurred vision dizziness or abnormality.. BEHAVIORAL/PSYCH: Negative. ENDOCRINE: Negative. Physical examination General Appearance: Alert, cooperative,, mild distress, mild bruise in the forehead area. Neck HEENT: Supple, no lymphadenopathy, no thyroid enlargement, no carotid bruits. Slight neck stiffness. Lungs: Decreased breath with congestion bilaterally. Chest Wall: Decrease expansion with deep inspiration no tenderness and no deformity was found on exam, no costochondral pain or discomfort. Heart: Regular rate and rhythm, S1, S2 normal, no murmur, rub or gallop. Back: Symmetric, no curvature, ROM normal, no CVA tenderness. Abdomen: Soft distended significant discomfort and epigastric area and right up per quadrant area no rebound or rigidity. Extremities: Extremities normal, atraumatic, no cyanosis positive edema. Pulses: 2+ and symmetric. Skin: Skin color, texture, tugor normal, no rashes or lesions. Neurologic: Alert oriented with slight confusion, cranial nerves II through XII intact, no motor deficit, positive normal balance and gait Assessment and plan 1 sepsis with diarrhea, possible pneumonia. CAT scan of the chest has been ordered by oncology. Continue Zosyn per infectious disease. Cultures are pending. 2 multiple fall and trauma: No intracranial hemorrhage at this point CAT scan is be negative no cervical spine injury, we will advance activity with physical therapy gradually. 3 pancreatic cancer: Has been on chemotherapy seen oncology on regular basis continue current management we'll hold off on chemotherapy for now we will consult oncology. 4 Significant electrolyte imbalance: With severe hypokalemia: Continue replacement therapy along with correcting hypomagnesemia. 5 nonketotic hyperglycemia: Continue patient on insulin continue Accu-Chek with sliding scales coverage. 6 severe anemia with hemoglobin is down to 8.2, no need for transfusion continue iron and multivitamins. 7 UTI: UA is not very clear this point but it's not negative continue current antibiotics awaiting for urine culture as well. 8 history of coronary disease: Has been stable with no recurrent chest pain or angina continue patient on metoprolol Lipitor and Prinivil. 9 type 2 diabetes: Has been on basically a 15 units subcutaneous daily along Accu-Chek sliding scale coverage. 10 chronic neuropathy: Has been on gabapentin 200 mg twice a day. 11 hyperlipidemia: Remain on atorvastatin 80 mg daily. 11 chronic pain management: Has been on hydrocodone every 6 hours as needed. 13 chronic depression: On Zoloft 100 mg daily. 14 GI prophylaxis: Patient be on pantoprazole. 15 DVT prophylaxis: Heparin subcutaneous can be use. CODE STATUS: Full code. Discharge plan: To be determined. Impression and plan of care have been directed as dictated by the signing physician. Ramila Zapien nurse practitioner acting as scribe for signing phys nealan. Objective - Vital Signs Vital signs: Vital Signs Temp 97.3 F L 12/07/19 08:00 Pulse 93 12/07/19 08:00 Resp 18 12/07/19 08:00 BP 109/61 12/07/19 08:00 Pulse Ox 90 L 12/07/19 08:00 Intake & Output 12/06/19 12/07/19 12/07/19 18:59 06:59 18:59 Intake Total 20 Balance 20 Weight 69.763 kg 69.763 kg Intake: Oral 20 Other: # Voids 0 # Bowel Movements 0 - Labs CBC & Chem 7: 12/07/19 04:30 12/08/19 07:24 Labs: Abnormal Lab Results - Last 24 Hours (Table) 12/06/19 12/06/19 12/06/19 Range/Units 15:49 15:49 15:49 WBC 23.2 H (3.8-10.6) k/uL RBC 2.81 L (4.30-5.90) m/uL Hgb 8.2 L D (13.0-17.5) gm/dL Hct 24.0 L (39.0-53.0) % RDW 17.3 H (11.5-15.5) % Neutrophils # (Manual) 20.65 H (1.3-7.7) k/uL Monocytes # (Manual) 1.16 H (0-1.0) k/uL Metamyelocytes # (Man) 0.46 H (0) k/uL Nucleated RBCs (0-0) /100 WBC PT 13.9 H (9.0-12.0) sec INR 1.4 H (<1.2) Sodium 134 L (137-145) mmol/L Potassium 2.8 L (3.5-5.1) mmol/L Chloride 96 L (98-107) mmol/L BUN 8 L (9-20) mg/dL Creatinine 0.59 L (0.66-1.25) mg/dL Glucose 202 H (74-99) mg/dL POC Glucose (mg/dL) (75-99) mg/dL Plasma Lactic Acid Jhonny (0.7-2.0) mmol/L Calcium 8.0 L (8.4-10.2) mg/dL Phosphorus 1.8 L (2.5-4.5) mg/dL Alkaline Phosphatase 207 H (38-126) U/L Total Protein 5.1 L (6.3-8.2) g/dL Albumin 2.7 L (3.5-5.0) g/dL Urine Protein (Negative) Urine WBC (0-5) /hpf Urine Bacteria (None) /hpf Hyaline Casts (0-2) /lpf Urine Mucus (None) /hpf 12/06/19 12/06/19 12/06/19 Range/Units 15:49 16:01 19:03 WBC (3.8-10.6) k/uL RBC (4.30-5.90) m/uL Hgb (13.0-17.5) gm/dL Hct (39.0-53.0) % RDW (11.5-15.5) % Neutrophils # (Manual) (1.3-7.7) k/uL Monocytes # (Manual) (0-1.0) k/uL Metamyelocytes # (Man) (0) k/uL Nucleated RBCs (0-0) /100 WBC PT (9.0-12.0) sec INR (<1.2) Sodium (137-145) mmol/L Potassium (3.5-5.1) mmol/L Chloride (98-107) mmol/L BUN (9-20) mg/dL Creatinine (0.66-1.25) mg/dL Glucose (74-99) mg/dL POC Glucose (mg/dL) (75-99) mg/dL Plasma Lactic Acid Jhonny 4.9 H* 3.0 H* (0.7-2.0) mmol/L Calcium (8.4-10.2) mg/dL Phosphorus (2.5-4.5) mg/dL Alkaline Phosphatase (38-126) U/L Total Protein (6.3-8.2) g/dL Albumin (3.5-5.0) g/dL Urine Protein 1+ H (Negative) Urine WBC 14 H (0-5) /hpf Urine Bacteria Rare H (None) /hpf Hyaline Casts 48 H (0-2) /lpf Urine Mucus Moderate H (None) /hpf 12/06/19 12/07/19 12/07/19 Range/Units 21:32 02:08 04:30 WBC 22.3 H (3.8-10.6) k/uL RBC 2.47 L (4.30-5.90) m/uL Hgb 7.1 L (13.0-17.5) gm/dL Hct 21.3 L (39.0-53.0) % RDW 16.8 H (11.5-15.5) % Neutrophils # (Manual) 18.20 H (1.3-7.7) k/uL Monocytes # (Manual) 1.78 H (0-1.0) k/uL Metamyelocytes # (Man) 0.22 H (0) k/uL Nucleated RBCs 1 H (0-0) /100 WBC PT (9.0-12.0) sec INR (<1.2) Sodium (137-145) mmol/L Potassium (3.5-5.1) mmol/L Chloride (98-107) mmol/L BUN (9-20) mg/dL Creatinine (0.66-1.25) mg/dL Glucose (74-99) mg/dL POC Glucose (mg/dL) (75-99) mg/dL Plasma Lactic Acid Jhonny 4.1 H* 2.3 H* (0.7-2.0) mmol/L Calcium (8.4-10.2) mg/dL Phosphorus (2.5-4.5) mg/dL Alkaline Phosphatase (38-126) U/L Total Protein (6.3-8.2) g/dL Albumin (3.5-5.0) g/dL Urine Protein (Negative) Urine WBC (0-5) /hpf Urine Bacteria (None) /hpf Hyaline Casts (0-2) /lpf Urine Mucus (None) /hpf 12/07/19 12/07/19 Range/Units 04:30 06:35 WBC (3.8-10.6) k/uL RBC (4.30-5.90) m/uL Hgb (13.0-17.5) gm/dL Hct (39.0-53.0) % RDW (11.5-15.5) % Neutrophils # (Manual) (1.3-7.7) k/uL Monocytes # (Manual) (0-1.0) k/uL Metamyelocytes # (Man) (0) k/uL Nucleated RBCs (0-0) /100 WBC PT (9.0-12.0) sec INR (<1.2) Sodium 132 L (137-145) mmol/L Potassium 2.2 L* (3.5-5.1) mmol/L Chloride (98-107) mmol/L BUN 6 L (9-20) mg/dL Creatinine 0.49 L (0.66-1.25) mg/dL Glucose 153 H (74-99) mg/dL POC Glucose (mg/dL) 159 H (75-99) mg/dL Plasma Lactic Acid Jhonny (0.7-2.0) mmol/L Calcium 7.4 L (8.4-10.2) mg/dL Phosphorus (2.5-4.5) mg/dL Alkaline Phosphatase 164 H (38-126) U/L Total Protein 4.4 L (6.3-8.2) g/dL Albumin 2.2 L (3.5-5.0) g/dL Urine Protein (Negative) Urine WBC (0-5) /hpf Urine Bacteria (None) /hpf Hyaline Casts (0-2) /lpf Urine Mucus (None) /hpf Microbiology - Last 24 Hours (Table) 12/06/19 16:01 Urine Culture - Preliminary Urine,Voided
--- NOTE | 2019-12-08 15:19 | P.PN ---
Subjective Progress Note Date: 12/08/19 64-year-old was diagnosed with pancreatic cancer back in September [address] maria and has been on chemotherapy. Patient has been getting weaker every day had falling multiple time. Today patient had fall with closed head trauma and injury and had significant confusion with generalized weakness. His white blood cell was over 23,000, patient had significant anemia, lactic acid was significantly elevated. Patient was started on Zosyn, hydration and fluid resuscitation, but kept in bedrest O2 and admit patient to the hospital. Apparently patient has not been doing well since his diagnoses with pink at the cancer despite the chemotherapy patient is getting weaker and much worse day by day. Chest x-ray had? Off atypical acute infectious process with Lymphangitic carcinomatosis is not excluded with? Off fluid overload and infiltrate in the bases. 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 12/06: Patient has been seen by Dr. Holt with recommendations to continue Zosyn, obtain stool studies and sputum for culture. Patient has been seen by oncology and added Questran and Lomotil for diarrhea. CAT scan of the chest was ordered by oncology. Patient has been afebrile, heart rate 101, blood pressure 101/60, pulse ox 92% on 4 L nasal cannula. WBC 22.3, hemoglobin 7.1, platelet count 169. Sodium 132, potassium 2.3 and being replaced, BUN 6 and creatinine 0.49. Coated 19 testing is negative. Blood culture and urine culture in progress. 12/07: CAT scan of the chest abdomen and pelvis with contrast revealed small pleural effusions appear new. Diffuse honeycomb pattern in the lungs consistent with significant interstitial lung disease. This could be acute or chronic interstitial lung disease. Interstitial basilar pulmonary infiltrates are essentially new. Few bilateral bronchial lymph nodes probably due to inflammatory disease. Biliary stent in good position. No dilated ducts. Pancreatic mass measures 4.3 cm and appears increased 1 cm compared to old exam. No evidence of bowel obstruction. Normal appendix. Urine culture has been finalized with no growth. Blood culture showing no growth at 24 hours. Patient has been afebrile, heart rate 93, blood pressure 109/61, pulse ox 90% on 2 L nasal cannula. Repeat blood work reveals potassium of 2.6, sodium 132. BUN 4 and creatinine 0.54. Repeat magnesium 1.6. Patient will be replaced with 120 mEq of potassium and magnesium 2 g. Repeat blood work this evening and in the morning. Review of systems CONSTITUTIONAL: Well-developed no acute respiratory distress. Denies fever, denies chills.. EYES: No icterus sclerae, no conjunctivitis. EARS, NOSE, MOUTH, THROAT, and FACE: No sore throat, lymphadenopathy, carotid bruits or deformity. Mild for head trauma specially on the left side with mild bruises. RESPIRATORY: Mild shortness of breath wheezes. CARDIOVASCULAR: Positive PND orthopnea and palpitation no angina. GASTROINTESTINAL: Positive nausea abdominal discomfort and distention no vomiting no bleeding. GENITOURINARY: Negative for Hematuria or UTI, no kidney stones. INTEGUMENT/BREAST: Negative for any muscular injury with mild osteoarthritis.. HEMATOLOGIC/LYMPHATIC: Negative for bleed or purpura. MUSCULOSKELTAL: Negative for Myalgia or arthralgia. NEURLOGICAL: No LOC, Sz or syncope, blurred vision dizziness or abnormality.. BEHAVIORAL/PSYCH: Negative. ENDOCRINE: Negative. Physical examination General Appearance: Alert, cooperative,, mild distress, mild bruise in the forehead area. Neck HEENT: Supple, no lymphadenopathy, no thyroid enlargement, no carotid bruits. Slight neck stiffness. Lungs: Decreased breath with congestion bilaterally. Chest Wall: Decrease expansion with deep inspiration no tenderness and no deformity was found on exam, no costochondral pain or discomfort. Heart: Regular rate and rhythm, S1, S2 normal, no murmur, rub or gallop. Back: Symmetric, no curvature, ROM normal, no CVA tenderness. Abdomen: Soft distended significant discomfort and epigastric area and right upper quadrant area no rebound or rigidity. Extremities: Extremities normal, atraumatic, no cyanosis positive edema. Pulses: 2+ and symmetric. Skin: Skin color, texture, tugor normal, no rashes or lesions. Neurologic: Alert oriented with slight confusion, cranial nerves II through XII intact, no motor deficit, positive normal balance and gait Assessment and plan 1 sepsis with diarrhea, possible pneumonia, presenting with metabolic encepha lopathy. CAT scan of the chest has been ordered by oncology. Antibiotics changed to ceftriaxone per Dr. Holt. Cultures are pending. 2 multiple fall and trauma: No intracranial hemorrhage at this point CAT scan is be negative no cervical spine injury, we will advance activity with physical therapy gradually. 3 pancreatic cancer: Has been on chemotherapy seen oncology on regular basis continue current management we'll hold off on chemotherapy for now we will consult oncology. 4 Significant electrolyte imbalance: With severe hypokalemia: Continue replacement therapy along with correcting hypomagnesemia. 5 nonketotic hyperglycemia: Continue patient on insulin continue Accu-Chek with sliding scales coverage. 6 severe anemia with hemoglobin is down to 8.2, no need for transfusion continue iron and multivitamins. 7 UTI: UA is not very clear this point but it's not negative continue current antibiotics awaiting for urine culture as well. 8 history of coronary disease: Has been stable with no recurrent chest pain or angina continue patient on metoprolol Lipitor and Prinivil. 9 type 2 diabetes: Has been on basically a 15 units subcutaneous daily along with Accu-Chek sliding scale coverage. 10 chronic neuropathy: Has been on gabapentin 200 mg twice a day. 11 hyperlipidemia: Remain on atorvastatin 80 mg daily. 11 chronic pain management: Has been on hydrocodone every 6 hours as needed. 13 chronic depression: On Zoloft 100 mg daily. 14 GI prophylaxis: Patient be on pantoprazole. 15 DVT prophylaxis: Heparin subcutaneous can be use. CODE STATUS: Full code. Discharge plan: Subacute rehab at [facility] or [facility]. Impression and plan of care have been directed as dictated by the signing physician. Ramila Zapien nurse practitioner acting as scribe for signing physician. Objective - Vital Signs Vital signs: Vital Signs Temp 97.9 F 12/08/19 08:00 Pulse 93 12/08/19 08:00 Resp 20 12/08/19 08:00 BP 109/57 12/08/19 08:00 Pulse Ox 92 L 12/08/19 08:00 Intake & Output 12/07/19 12/08/19 12/08/19 18:59 06:59 18:59 Intake Total 120 Balance 120 Weight 70.1 kg Intake: Oral 120 Other: Voiding Method Bedside Commode Bedside Commode Diaper # Voids 1 1 # Bowel Movements 1 - Labs CBC & Chem 7: 12/07/19 04:30 12/08/19 07:24 Labs: Abnormal Lab Results - Last 24 Hours (Table) 0812/07/19 12/07/19 Range/Units 04:30 12:10 12:33 Sodium (137-145) mmol/L Potassium 2.3 L* (3.5-5.1) mmol/L BUN (9-20) mg/dL Creatinine (0.66-1.25) mg/dL Glucose (74-99) mg/dL POC Glucose (mg/dL) 145 H (75-99) mg/dL Calcium (8.4-10.2) mg/dL Phosphorus 1.2 L (2.5-4.5) mg/dL Magnesium 1.4 L (1.6-2.3) mg/dL 12/08/19 12/08/19 Range/Units 07:24 07:31 Sodium 132 L (137-145) mmol/L Potassium 2.6 L* (3.5-5.1) mmol/L BUN 4 L (9-20) mg/dL Creatinine 0.45 L (0.66-1.25) mg/dL Glucose 112 H (74-99) mg/dL POC Glucose (mg/dL) 131 H (75-99) mg/dL Calcium 7.1 L (8.4-10.2) mg/dL Phosphorus (2.5-4.5) mg/dL Magnesium (1.6-2.3) mg/dL Microbiology - Last 24 Hours (Table) 12/06/19 16:52 Blood Culture - Preliminary Blood No Growth after 24 hours 12/06/19 16:01 Urine Culture - Final Urine,Voided
[2019-12-08] MEDS: LEVOFLOXACIN 750 MG TAB PO SCH (15:27)
[2019-12-08 17:20] LABS: Glucose,Whole Blood 159 mg/dL (75-99)
--- NOTE | 2019-12-08 20:08 | P.PN ---
Subjective Progress Note Date: 12/08/19 Principal diagnosis: Recurrent Falls Seen and evaluated this am, Review of CT scan did not show any Pulmonary embolism or mediastinal adenopathy, this appears to be consistent with inflammatory possible infectious process. This can sometimes result (rare) adversely from treatment, if infectious etiology ruled out. Monitor for improvement on antibiotics and steroids. Pancreatic mass with possible progression, will need to compare to most recent CT scan which I believe was per formed at [facility], I have contacted our office to pull this report. He states he is still having diarrhea although the stool studies have not yet resulted. I have added questran on. He appears weak still, and we discussed increased activity with PT/OT referral. Objective - Vital Signs Vital signs: Vital Signs Temp 97.1 F L 12/08/19 15:45 Pulse 92 12/08/19 15:45 Resp 16 12/08/19 16:00 BP 110/57 12/08/19 15:45 Pulse Ox 92 L 12/08/19 15:45 Intake & Output 12/07/19 12/08/19 12/08/19 18:59 06:59 18:59 Intake Total 607 Output Total 110 Balance 497 Weight 70.1 kg Intake: Intake, IV Titration 250 Amount Magnesium Sulfate-D5w Pmx 100 1 gm In Dextrose/Water 1 100ml.bag @ 100 mls/hr IVPB Q1H ANNA Rx#: [id number] Magnesium Sulfate-D5w Pmx 100 1 gm In Dextrose/Water 1 100ml.bag @ 100 mls/hr IVPB Q1H ANNA Rx#: [id number] cefTRIAXone 1 gm In 50 Sodium Chloride 0.9% 50 ml @ 100 mls/hr IVPB Q24HR ANNA Rx#:[id number] Oral 357 Output: Urine 110 Other: Voiding Method Bedside Commode Bedside Commode Bedside Commode Diaper Diaper # Voids 1 1 1 # Bowel Movements 1 1 - Exam - Constitutional General appearance: cooperative, mild distress - EENT Eyes: EOMI, poor dentition ENT: hard of hearing, normal oropharynx - Neck Neck: normal ROM - Respiratory Respiratory: bilateral: diminished, wheezing (expiratory) - Cardiovascular Rhythm: regular Heart sounds: normal: S1, S2 leg Peripheral Edema: bilateral: 1+ - Gastrointestinal General gastrointestinal: distended, normal bowel sounds, soft, tenderness - Integumentary Integumentary: pale - Neurologic non-focal - Musculoskeletal Musculoskeletal: generalized weakness - Psychiatric Psychiatric: A&O x's 3, appropriate affect - Labs CBC & Chem 7: 12/07/19 04:30 12/08/19 16:18 Labs: Abnormal Lab Results - Last 24 Hours (Table) 12/08/19 12/08/19 12/08/19 Range/Units 07:24 07:31 12:21 Sodium 132 L (137-145) mmol/L Potassium 2.6 L* (3.5-5.1) mmol/L BUN 4 L (9-20) mg/dL Creatinine 0.45 L (0.66-1.25) mg/dL Glucose 112 H (74-99) mg/dL POC Glucose (mg/dL) 131 H 148 H (75-99) mg/dL Calcium 7.1 L (8.4-10.2) mg/dL 12/08/19 12/08/19 Range/Units 16:18 17:17 Sodium (137-145) mmol/L Potassium 3.0 L (3.5-5.1) mmol/L BUN (9-20) mg/dL Creatinine (0.66-1.25) mg/dL Glucose (74-99) mg/dL POC Glucose (mg/dL) 159 H (75-99) mg/dL Calcium (8.4-10.2) mg/dL Microbiology - Last 24 Hours (Table) 12/06/19 16:52 Blood Culture - Preliminary Blood No Growth after 24 hours 12/06/19 16:01 Urine Culture - Final Urine,Voided Assessment and Plan (1) Hypokalemia Current Visit: Yes Status: Acute Code(s): E87.6 - HYPOKALEMIA SNOMED Code(s): 80995280 (2) Cancer of pancreas Current Visit: No Status: Chronic Priority: Medium Code(s): C25.9 - MALIGNANT NEOPLASM OF PANCREAS, UNSPECIFIED SNOMED Code(s): 792027281 Plan: Assessment and Recommendations: 1. Adenocarcinoma of the Pancreas: - Status Post 6 cycles of FOLFIRINOX, question of progression and due to COVID could not undergo surgical evaluation as original date therefore patient was started on Gemsar and Abraxane and is now status post cycle 3, day 15. - Goal of treatment was to obtain control of cancer, shrink and send for surgical resection. - Chest xray ?infectious versus underlying progression of cancer - Restaging CT scans of Chest abdomen and pelvis were reviewed. Question of further progression in pancreatic mass, will need to compare with most recent CT (I believe was performed through [facility]) to quantify actual changes. Lungs appear to have interstitial and fibrotic changes, consistent with inflammatory process. We will ask Pulmonary to evaluate and if no evidence of infectious colitis after stool studies resulted may benefit from addition of steroids. Will discuss further with pulmonary and Dr. Brock. - Chemotherapy on hold, will re-evaluate after treatment with antibiotics and pulmonary evaluation as concern for inflammatory changes maybe worsened by current chemotherapy (rare adverse event) 2. Intractable Diarrhea: Persistent - Stool studies - Questran added - Daily CMP to monitor liver, lytes, protein, and calcium. 3. Recurrent Falls Secondary to severe Weakness - PT/OT 4. Severe Hypokalemia: - Secondary to diarrhea and decreased PO intake Hypophosphatemia: - Consider supp with K-Phos as well - COntinue to monitor calcium and magnesium - Daily mag, phos recommended 5. Acute Hypoxic Respiratory Failure: Worsening - Requiring 6L(as of 12/07) of oxygen to maintain oxygen saturation greater than 90% - No oxygen at baseline - Chest Xray reveals abnormalities but clear differentiation is not given, therefore CT chest was performed and consistent with inflammatory changes. - Pulmonology consulted to further evaluate, defer the addition of steroids to pulm and after infectious/inflammatory etiology rule out in stool studies 6. Increased Temp/ leukocytosis/ Weakness: Afebrile. - Infectious Septic Work-up in progress:Negative to date - Blood Cultures/Urine - Negative to date - On broad spectrum antibiotics - Leukocytosis could also be reactive to recent Neulasta growth factor shot but given the combination of patients presentation infectious causes need to be further investigated. - COVID testing Negative - Stool Studies Pending 7. Normocytic Anemia; - Likely secondary to chemotherapy and decreased PO intake - Hemoglobin 7.1 on 12/06 and anemia work-up further ordered, orders not present, re-ordered for today - Daily CBC with Diff will be placed. Close monitoring with recent chemotherapy 8. Chronic Illness Myopathy: - Evaluation by PT/OT and treatment to increase overall performance once patient is more stable Physician Attestation: I have completed the full history and physical of this patient and I have developed the complete assessment and plan. Agree with above dictation by NIXON Yoo, dictated as a ascribe.
[2019-12-08] MEDS ORDERED: IPRATROPIUM-ALBUTEROL 3 ML NEB INHALATION PRN (20:38)
[2019-12-08] MEDS ORDERED: FUROSEMIDE 10 MG/ML 4 ML VIAL ONE (20:39)
[2019-12-08] MEDS ORDERED: FUROSEMIDE 10 MG/ML 2 ML VIAL IV STA (20:44)
[2019-12-08 20:54] LABS: Glucose,Whole Blood 120 mg/dL (75-99)
[2019-12-08 20:55] LABS: Anisocytosis Slight; HCT 24.5 % (39.0-53.0); HGB 7.7 gm/dL (13.0-17.5); Hypochromasia Moderate; MCH 28.9 pg (25.0-35.0); MCHC 31.5 g/dL (31.0-37.0); Mean Platelet Volume 12.6; Platelet Count 184 k/uL (150-450); Poikilocytosis Slight; RBC 2.67 m/uL (4.30-5.90); RDW 17.8 % (11.5-15.5); Reticulocyte % 1.4 % (0.5-2.0); WBC 29.3 k/uL (3.8-10.6)
[2019-12-08 20:58] LABS: MCV 91.8 fL (80.0-100.0)
[2019-12-08 21:43] LABS: Band Neutrophils % 10 %; Lymphocytes # (M) 0.59 k/uL (1.0-4.8); Monocytes # (M) 0.88 k/uL (0-1.0); Neutrophils % (M) 85 %; Nucleated Red Blood Cells 0 /100 WBC (0-0); Total Cells Counted 100
[2019-12-08 21:44] LABS: Crenated RBC Present; Poikilocytosis (M) Present; Polychromasia Present; Rouleaux Present
[2019-12-09 06:04] LABS: Glucose,Whole Blood 134 mg/dL (75-99)
[2019-12-09] MEDS: INSULIN DETEMIR (LEVEMIR) 100 UNIT/ML SYR SQ SCH (06:44)
[2019-12-09] MEDS: PANTOPRAZOLE 40 MG TABLET PO SCH (06:44)
[2019-12-09] MEDS: INSULIN ASPART (NovoLOG) 100 UNIT/ML VIAL SQ SCH ×3 (06:44→18:22)
[2019-12-09 06:53] LABS: ALT 33 U/L (4-49); AST 63 U/L (17-59); African American GFR (CKD) >90 (>60 ml/min/1.73 sqM); Albumin 2.1 g/dL (3.5-5.0); Alkaline Phosphatase 170 U/L (38-126); Anion Gap 5 mmol/L; Blood Urea Nitrogen 5 mg/dL (9-20); Carbon Dioxide 26 mmol/L (22-30); Chloride 99 mmol/L (98-107); Glucose 118 mg/dL (74-99); LDH 1397 U/L (313-618); Magnesium 1.9 mg/dL (1.6-2.3); Non-African American GFR(CKD) >90 (>60 ml/min/1.73 sqM); Potassium 3.2 mmol/L (3.5-5.1); Sodium 130 mmol/L (137-145); Total Bilirubin 0.8 mg/dL (0.2-1.3); Total Protein 4.4 g/dL (6.3-8.2)
[2019-12-09] MEDS: lisinopriL 5 MG TAB PO SCH (08:59)
[2019-12-09] MEDS: METOPROLOL SUCCINATE (ER) 25 MG TAB.ER.24H PO SCH (08:59)
[2019-12-09] MEDS: GABAPENTIN 100 MG CAP PO SCH ×2 (08:59→22:06)
[2019-12-09] MEDS: CHOLESTYRAMINE (WITH SUGAR) 4 GM PACKET PO SCH ×2 (08:59→17:58)
[2019-12-09] MEDS: ATORVASTATIN 80 MG TAB PO SCH (08:59)
[2019-12-09] MEDS: SERTRALINE 100 MG TAB PO SCH (08:59)
[2019-12-09] MEDS ORDERED: Potassium Replacement Protocol 1 EACH MISC MISCELLANE PRN (09:14)
[2019-12-09] MEDS: HYDROcodone/APAP 5-325MG 1 EACH TAB PO PRN (09:19)
[2019-12-09] MEDS: POTASSIUM CHLORIDE ER 20 MEQ TAB.ER PO SCH ×2 (09:19→11:21)
[2019-12-09] MEDS: MAGNESIUM SULFATE-D5W PMX 1 GM in DEXTROSE/WATER 1 100ML.BAG IVPB SCH ×2 (11:20→15:10)
[2019-12-09] MEDS: DEXAMETHASONE SOD PHOSPHATE 4 MG/ML 1 ML VIAL IV SCH ×2 (11:21→18:23)
[2019-12-09] MEDS: LEVOFLOXACIN 750 MG TAB PO SCH (11:22)
[2019-12-09 11:55] LABS: Glucose,Whole Blood 133 mg/dL (75-99)
--- NOTE | 2019-12-09 12:54 | CT ---
EXAMINATION TYPE: CT angio chest DATE OF EXAM: 12/09/2019 COMPARISON: CT 12/08/2019 HISTORY: 64-year-old male low pulse ox, difficulty breathing, SOB, PE TECHNIQUE: Contiguous axial scanning of the chest performed with IV Contrast, patient injected with 1 00 mL of Isovue 370. Coronal/sagittal MIP reconstructions performed. CT DLP: 320.1 mGycm Automated exposure control for dose reduction was used. FINDINGS: Heart normal size without pericardial effusion. No flattening of the interventricular septum reflux o f contrast into hepatic veins. Three-vessel coronary artery calcifications are present. Borderline ectasia aortic root at 3.5 cm. 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 Satisfactory opacification of the pulmonary artery system. Mild breathing motion artifacts. There is segmental and subsegmental branch pulmonary embolus to the basilar left lower lobe, axial image 96. A dditional segmental or subsegmental branch emboli to the basilar right lower lobe, axial image 103. Redemonstrated mildly enlarged right hilar and right bronchial lymph nodes measuring up to 1.2 cm. Right anterior chest wall injection port. The catheter tip is looped and heads up into the right inte rnal jugular vein. Diffuse ground glass and septal lines greatest in the upper and midlungs continues. Again, noted to toney cox from 10/05/2019. Small right greater than left pleural effusions persist. Small hiatal hernia. Pneumobilia. Calcified granulomas within the spleen. Suggestion of main pancreat ic duct dilatation. The known pancreatic mass is not included in this exam. Bones: No osseous destructive process. IMPRESSION: 1. EXAM POSITIVE FOR PULMONARY EMBOLI TO A COUPLE SEGMENTAL AND SUBSEGMENTAL BRANCHES OF THE BASILAR RIGHT AND LEFT LOWER LOBES. MILD OVERALL BURDEN. NO CT EVIDENCE FOR RIGHT HEART STRAIN. 2. 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 SOME CONSIDER ATIONS INCLUDE INTERSTITIAL PNEUMONITIS, DRUG REACTION, AND ATYPICAL PNEUMONIAS. FURTHER WORKUP RECOM MENDED. 3. MILDLY ENLARGED RIGHT HILAR AND BRONCHIAL LYMPH NODES LIKELY REACTIVE. TRACE EFFUSIONS PERSIST. 4. RIGHT ANTERIOR CHEST WALL INJECTION PORT CATHETER AGAIN SEEN TO HEAD UP INTO THE RIGHT INTERNAL JU GULAR VEIN. A Red level critical message alert has been initiated for James Bond MD via the [employer] System on 12/09/2019 12:52 PM. This message alert has been sent to James Bond MD via the preferences provided by the clinician for the receipt of Radiology Critical Findings. Message ID [id number].
[2019-12-09] MEDS ORDERED: POTASSIUM CHLORIDE ER 20 MEQ TAB.ER PO STA (14:26)
--- NOTE | 2019-12-09 14:42 | P.CNPUL ---
History of Present Illness Consult date: 12/09/19 Requesting physician: James Bond Reason for consult: dyspnea, other Chief complaint: Weakness, shortness of breath History of present illness: 64-year-old white male patient of Dr. Hayes, with past medical history of pancreatic cancer with obstructive jaundice status post, on bile duct stent pl acement, diagnosed in March 2019, with pathology positive for adenocarcinoma T2 N0 a diagnosis. Patient underwent 6 cycles of Folfirinox, and patient was referred to [facility] for evaluation of Whipple surgery, we'll reduce the coronaries pandemic his surgery was postponed and he was being treated with systemic chemotherapy. Patient was recently hospitalized from 10/05/2019 through 10/07/2019 for abdominal pain secondary to pancreatic cancer and pancreatitis, severe nonketotic hyperglycemia. Patient clinically improved, rehydrated, blood sugars controlled, his lipase and amylase were trending down, patient was discharged home in stable condition. On 12/06/2019 patient came b ack to the emergency department complaints of weakness and shortness of breath. He states he has not been able to walk related to increasing weakness, patient lives alone at home. His had multiple falls at home, he did strike his head on several occasions. He denied any pain complaints at this time, no hemoptysis, some mild cough, nonproductive, patient resumed his chemotherapy and his last treatment was last week. Patient has been having diarrhea without any evidence of bile or blood, he feels nauseated, but he has not been vomiting. His chest x-ray showed increasing reticulonodular prominence with a concern of developing interstitial edema and/or atypical acute infectious process, lymphangitic carcinomatosis was being considered. 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 Patient has been afebrile since admission, the T-max of 101F in the last 24 arabella rs. This yesterday his oxygen requirement has significantly increased, and patient is currently on 15 L per partial rebreather mask with a pulse ox of 92%, currently on antibiotics in the form of Rocephin and Levaquin, ID service is following, he has received some Lasix per primary care service. CT of the chest, abdomen and pelvis were completed yesterday showing extensive interstitial infiltrates in both lungs with diffuse honeycomb pattern there is more severe in the upper lobes, small bilateral pleural effusions no mediastinal adenopathy, biliary stent was noted, in good position, no dilated ducts, pancreatic mass measuring 4.3 cm and appears increased compared to old exam, no evidence of bowel obstruction. ID service is following, medical oncology is following, white count is trending up, and is up to 29.3 on today's labs, hemoglobin 7.7, sodium is 1:30, potassium is 3.2, BUN is 5, creatinine 0.48, LDH is 1397, CA 199 is 66. Patient appears very weak on today's exam, on partial rebreather with a pulse ox of 92-93%, no altered mentation, he is answering questions appropriately, we were asked to see the patient in regards to worsening hypoxic respiratory failure. Review of Systems All systems: negative Constitutional: Denies chills, Denies fever Eyes: denies blurred vision, denies pain Ears, nose, mouth and throat: Denies headache, Denies sore throat Cardiovascular: Denies chest pain, Denies shortness of breath Respiratory: Reports dyspnea, Reports respiratory infections, Denies cough Gastrointestinal: Denies abdominal pain, Denies diarrhea, Denies nausea, Denies vomiting Musculoskeletal: Denies myalgias Integumentary: Denies pruritus, Denies rash Neurological: Denies numbness, Denies weakness Psychiatric: Denies anxiety, Denies depression Endocrine: Denies fatigue, Denies weight change Past Medical History Past Medical History: Coronary Artery Disease (CAD), Cancer, COPD, CVA/TIA, GERD/Reflux, GI Bleed, Hyperlipidemia, Hypertension, Myocardial Infarction ([place]), Pneumonia Additional Past Medical History / Comment(s): 03/2019 diagnosed with pancreatic cancer/last chemo 2 weeks ago, [place]-age undetermined, CVA with R sided facial droop, lower GI bleed, elevated blood sugar but pt states it has not been determined if he is diabetic. Last Myocardial Infarction Date:: unkn History of Any Multi-Drug Resistant Organisms: None Reported Past Surgical History: Heart Catheterization With Stent Additional Past Surgical History / Comment(s): two stents placed in the RCA in August of 2016, ERCP with stent to CBD, colonoscopy with benign polypectomies. Past Anesthesia/Blood Transfusion Reactions: No Reported Reaction Date of Last Stent Placement:: 2017 Past Psychological History: Anxiety, Depression Smoking Status: Never smoker Past Alcohol Use History: Daily Past Drug Use History: None Reported - Past Family History Father Family Medical History: Coronary Artery Disease (CAD), CVA/TIA, Myocardial Infarction ([place]) Mother Family Medical History: Coronary Artery Disease (CAD), Diabetes Mellitus, Hypertension Medications and Allergies Home Medications Medication Instructions Recorded Confirmed Type Atorvastatin [Lipitor] 80 mg PO DAILY 03/31/19 12/06/19 History Sertraline [Zoloft] 100 mg PO DAILY 03/31/19 12/06/19 History Aspirin 325 mg PO DAILY 04/01/19 12/06/19 History Metoprolol Succinate (ER) [Toprol 25 mg PO DAILY 10/05/19 12/06/19 History XL] lisinopriL [Prinivil] 5 mg PO DAILY 10/05/19 12/06/19 History Insulin Glargine,Hum.rec.anlog 15 unit SQ DAILY #3 pen 10/07/19 12/06/19 Rx [Basaglar Kwikpen U-100] Gabapentin [Neurontin] 200 mg PO BID 12/06/19 12/06/19 History HYDROcodone/APAP 5-325MG [[facility] 1 tab PO QID PRN 12/06/19 12/06/19 History 5-325] Insulin Lispro [Admelog] See Protocol SQ AC-TID 12/06/19 12/06/19 History Pantoprazole Sodium [Protonix] 20 mg PO DAILY 12/06/19 12/06/19 History Allergies Allergy/AdvReac Type Severity Reaction Status Date / Time No Known Allergies Allergy Verified 12/06/19 17:18 Physical Exam Vitals: Vital Signs Temp Pulse Pulse Resp BP Pulse Ox 12/09/19 11:28 98 F 82 22 92/49 92 L 12/09/19 08:00 97.7 F 96 24 102/61 93 L 12/09/19 04:00 100 F H 97 24 89/53 96 12/09/19 00:00 100.4 F H 104 H 26 H 98/55 91 L 12/08/19 20:50 106 H 12/08/19 20:49 101.0 F H 100 36 H 102/55 93 L 12/08/19 20:45 24 86 L 12/08/19 20:41 104 H 08/12/20 20:00 100 36 H 12/08/19 16:00 16 12/08/19 15:45 97.1 F L 92 16 110/57 92 L Intake and Output 12/08/19 12/09/19 12/09/19 22:59 06:59 14:59 Intake Total 490 240 Output Total 10 750 Balance 480 -750 240 Intake: Intake, IV Titration 250 Amount Magnesium Sulfate-D5w Pmx 100 1 gm In Dextrose/Water 1 100ml.bag @ 100 mls/hr IVPB Q1H ANNA Rx#: [id number] Magnesium Sulfate-D5w Pmx 100 1 gm In Dextrose/Water 1 100ml.bag @ 100 mls/hr IVPB Q1H ANNA Rx#: [id number] cefTRIAXone 1 gm In 50 Sodium Chloride 0.9% 50 ml @ 100 mls/hr IVPB Q24HR ANNA Rx#:[id number] Oral 240 240 Output: Urine 10 750 Other: Voiding Method Bedside Commode Bedside Commode Bedside Commode Diaper Diaper Diaper Weight 70.2 kg GENERAL EXAM: Alert, very pleasant, 64-year-old white male, appears very weak, chronically ill, on the partial nonrebreather with a pulse ox of 93% comfortable in no apparent distress. HEAD: Normocephalic/atraumatic. EYES: Normal reaction of pupils, equal size. Conjunctiva pink, sclera white. NOSE: Clear with pink turbinates. THROAT: No erythema or exudates. NECK: No masses, no JVD, no thyroid enlargement, no adenopathy. CHEST: No chest wall deformity. Symmetrical expansion. LUNGS: Equal air entry with no crackles, wheeze, rhonchi or dullness. CVS: Regular rate and rhythm, normal S1 and S2, no gallops, no murmurs, no rubs ABDOMEN: Soft, nontender. No hepatosplenomegaly, normal bowel sounds, no guarding or rigidity. EXTREMITIES: No clubbing, no edema, no cyanosis, 2+ pulses and upper and lower extremities. MUSCULOSKELETAL: Muscle strength and tone normal. SPINE: No scoliosis or deformity SKIN: No rashes CENTRAL NERVOUS SYSTEM: Alert and oriented -3. No focal deficits, tone is normal in all 4 extremities. PSYCHIATRIC: Alert and oriented -3. Appropriate affect. Intact judgment and insight. Results - Laboratory Findings CBC and BMP: 12/08/19 07:24 12/09/19 06:21 PT/INR, D-dimer PT 13.9 sec (9.0-12.0) H 12/06/19 15:49 INR 1.4 (<1.2) H 12/06/19 15:49 Abnormal lab findings: Abnormal Labs 12/06/19 12/06/19 12/06/19 15:49 15:49 15:49 WBC 23.2 H RBC 2.81 L Hgb 8.2 L D Hct 24.0 L RDW 17.3 H Neutrophils # (Manual) 20.65 H Lymphocytes # (Manual) Monocytes # (Manual) 1.16 H Metamyelocytes # (Man) 0.46 H Nucleated RBCs PT 13.9 H INR 1.4 H Sodium 134 L Potassium 2.8 L Chloride 96 L BUN 8 L Creatinine 0.59 L Glucose 202 H POC Glucose (mg/dL) Plasma Lactic Acid Jhonny Calcium 8.0 L Phosphorus 1.8 L Magnesium AST Alkaline Phosphatase 207 H Lactate Dehydrogenase Total Protein 5.1 L Albumin 2.7 L CA 19-9 Antigen Urine Protein Urine WBC Urine Bacteria Hyaline Casts Urine Mucus Stool Lactoferrin 12/06/19 12/06/19 12/06/19 15:49 16:01 19:03 WBC RBC Hgb Hct RDW Neutrophils # (Manual) Lymphocytes # (Manual) Monocytes # (Manual) Metamyelocytes # (Man) Nucleated RBCs PT INR Sodium Potassium Chloride BUN Creatinine Glucose POC Glucose (mg/dL) Plasma Lactic Acid Jhonny 4.9 H* 3.0 H* Calcium Phosphorus Magnesium AST Alkaline Phosphatase Lactate Dehydrogenase Total Protein Albumin CA 19-9 Antigen Urine Protein 1+ H Urine WBC 14 H Urine Bacteria Rare H Hyaline Casts 48 H Urine Mucus Moderate H Stool Lactoferrin 12/06/19 12/07/19 12/07/19 21:32 02:08 04:30 WBC 22.3 H RBC 2.47 L Hgb 7.1 L Hct 21.3 L RDW 16.8 H Neutrophils # (Manual) 18.20 H Lymphocytes # (Manual) Monocytes # (Manual) 1.78 H Metamyelocytes # (Man) 0.22 H Nucleated RBCs 1 H PT INR Sodium Potassium Chloride BUN Creatinine Glucose POC Glucose (mg/dL) Plasma Lactic Acid Jhonny 4.1 H* 2.3 H* Calcium Phosphorus Magnesium AST Alkaline Phosphatase Lactate Dehydrogenase Total Protein Albumin CA 19-9 Antigen Urine Protein Urine WBC Urine Bacteria Hyaline Casts Urine Mucus Stool Lactoferrin 12/07/19 12/07/19 12/07/19 04:30 04:30 06:35 WBC RBC Hgb Hct RDW Neutrophils # (Manual) Lymphocytes # (Manual) Monocytes # (Manual) Metamyelocytes # (Man) Nucleated RBCs PT INR Sodium 132 L Potassium 2.2 L* Chloride BUN 6 L Creatinine 0.49 L Glucose 153 H POC Glucose (mg/dL) 159 H Plasma Lactic Acid Jhonny Calcium 7.4 L Phosphorus 1.2 L Magnesium 1.4 L AST Alkaline Phosphatase 164 H Lactate Dehydrogenase Total Protein 4.4 L Albumin 2.2 L CA 19-9 Antigen Urine Protein Urine WBC Urine Bacteria Hyaline Casts Urine Mucus Stool Lactoferrin 12/07/19 12/07/19 12/08/19 12:10 12:33 07:24 WBC RBC Hgb Hct RDW Neutrophils # (Manual) Lymphocytes # (Manual) Monocytes # (Manual) Metamyelocytes # (Man) Nucleated RBCs PT INR Sodium 132 L Potassium 2.3 L* 2.6 L* Chloride BUN 4 L Creatinine 0.45 L Glucose 112 H POC Glucose (mg/dL) 145 H Plasma Lactic Acid Jhonny Calcium 7.1 L Phosphorus Magnesium AST Alkaline Phosphatase Lactate Dehydrogenase Total Protein Albumin CA 19-9 Antigen Urine Protein Urine WBC Urine Bacteria Hyaline Casts Urine Mucus Stool Lactoferrin 12/08/19 12/08/19 12/08/19 07:24 07:31 12:21 WBC 29.3 H RBC 2.67 L Hgb 7.7 L Hct 24.5 L RDW 17.8 H Neutrophils # (Manual) 27.80 H Lymphocytes # (Manual) 0.59 L Monocytes # (Manual) Metamyelocytes # (Man) Nucleated RBCs PT INR Sodium Potassium Chloride BUN Creatinine Glucose POC Glucose (mg/dL) 131 H 148 H Plasma Lactic Acid Jhonny Calcium Phosphorus Magnesium AST Alkaline Phosphatase Lactate Dehydrogenase Total Protein Albumin CA 19-9 Antigen Urine Protein Urine WBC Urine Bacteria Hyaline Casts Urine Mucus Stool Lactoferrin 12/08/19 12/08/19 12/08/19 16:18 17:17 18:09 WBC RBC Hgb Hct RDW Neutrophils # (Manual) Lymphocytes # (Manual) Monocytes # (Manual) Metamyelocytes # (Man) Nucleated RBCs PT INR Sodium Potassium 3.0 L Chloride BUN Creatinine Glucose POC Glucose (mg/dL) 159 H Plasma Lactic Acid Jhonny Calcium Phosphorus Magnesium AST Alkaline Phosphatase Lactate Dehydrogenase Total Protein Albumin CA 19-9 Antigen Urine Protein Urine WBC Urine Bacteria Hyaline Casts Urine Mucus Stool Lactoferrin POSITIVE H 12/08/19 12/09/19 12/09/19 20:53 06:02 06:21 WBC RBC Hgb Hct RDW Neutrophils # (Manual) Lymphocytes # (Manual) Monocytes # (Manual) Metamyelocytes # (Man) Nucleated RBCs PT INR Sodium Potassium Chloride BUN Creatinine Glucose POC Glucose (mg/dL) 120 H 134 H Plasma Lactic Acid Jhonny Calcium Phosphorus Magnesium AST Alkaline Phosphatase Lactate Dehydrogenase Total Protein Albumin CA 19-9 Antigen 66.0 H Urine Protein Urine WBC Urine Bacteria Hyaline Casts Urine Mucus Stool Lactoferrin 12/09/19 12/09/19 06:21 11:54 WBC RBC Hgb Hct RDW Neutrophils # (Manual) Lymphocytes # (Manual) Monocytes # (Manual) Metamyelocytes # (Man) Nucleated RBCs PT INR Sodium 130 L Potassium 3.2 L Chloride BUN 5 L Creatinine 0.48 L Glucose 118 H POC Glucose (mg/dL) 133 H Plasma Lactic Acid Jhonny Calcium 7.0 L Phosphorus 2.0 L Magnesium AST 63 H Alkaline Phosphatase 170 H Lactate Dehydrogenase 1397 H Total Protein 4.4 L Albumin 2.1 L CA 19-9 Antigen Urine Protein Urine WBC Urine Bacteria Hyaline Casts Urine Mucus Stool Lactoferrin - Diagnostic Findings Chest x-ray: report reviewed, image reviewed CT scan - chest: report reviewed, image reviewed Assessment and Plan Plan: Assessment: #1. Acute hypoxic respiratory failure related to possibility of lymphangitic carcinomatosis, chemotherapy-induced pneumonitis, pulmonary infection, and acute pulmonary emboli #2. History of pancreatic cancer, with pathology positive for adenocarcinoma, undergoing systemic chemotherapy, awaiting Whipple at [facility] #3. Recent hospitalization in September 2019 for abdominal pain related to acute pancreatitis, acute abdominal pain related to pancreatitis and severe nonketotic hyperglycemia #4. Generalized weakness, medical debility, multiple falls at home #5. Diabetes mellitus type 2 #6. CAD post-PCI and stents #7. Hyperlipidemia #8. Depression #9. Hypokalemia possibly related to diarrhea #10. Hyponatremia, possibly hypovolemic Plan: Chest x-ray CTA chest reviewed, chest x-ray reviewed. Acute hypoxic respiratory failure is multifactorial and related to possibility of lymphangitic carcinomat osis, chemotherapy-induced pneumonitis, acute pulmonary emboli, and possibility of pulmonary infection is not excluded, continue with IV antibiotics, anticoagulation has been started in the form of Lovenox. We considered bronchoscopy with BAL, however patient is requiring high flow oxygen, and there is a possibility patient may end up on the ventilator support. We'll continue to medically manage the patient with antibiotics, will add Decadron, continue close monitoring, we may consider moving the patient to the intensive care unit if he continues to deteriorate. I performed a history & physical examination of the patient and discussed their management with my nurse practitioner, Ivy Encarnacion. I reviewed the nurse practitioner's note and agree with the documented findings and plan of care. Lung sounds are positive for diminished breath sounds. The findings and the impression was discussed with the patient. I attest to the documentation by the nurse practitioner. Time with Patient: Greater than 30
--- NOTE | 2019-12-09 15:17 | P.PN ---
Subjective Progress Note Date: 12/09/19 64-year-old was diagnosed with pancreatic cancer back in September [address] maria and has been on chemotherapy. Patient has been getting weaker every day had falling multiple time. Today patient had fall with closed head trauma and injury and had significant confusion with generalized weakness. His white blood cell was over 23,000, patient had significant anemia, lactic acid was significantly elevated. Patient was started on Zosyn, hydration and fluid resuscitation, but kept in bedrest O2 and admit patient to the hospital. Apparently patient has not been doing well since his diagnoses with pink at the cancer despite the chemotherapy patient is getting weaker and much worse day by day. Chest x-ray had? Off atypical acute infectious process with Lymphangitic carcinomatosis is not excluded with? Off fluid overload and infiltrate in the bases. 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 12/06: Patient has been seen by Dr. Holt with recommendations to continue Zosyn, obtain stool studies and sputum for culture. Patient has been seen by oncology and added Questran and Lomotil for diarrhea. CAT scan of the chest was ordered by oncology. Patient has been afebrile, heart rate 101, blood pressure 101/60, pulse ox 92% on 4 L nasal cannula. WBC 22.3, hemoglobin 7.1, platelet count 169. Sodium 132, potassium 2.3 and being replaced, BUN 6 and creatinine 0.49. Coated 19 testing is negative. Blood culture and urine culture in progress. 12/07: CAT scan of the chest abdomen and pelvis with contrast revealed small pleural effusions appear new. Diffuse honeycomb pattern in the lungs consistent with significant interstitial lung disease. This could be acute or chronic interstitial lung disease. Interstitial basilar pulmonary infiltrates are essentially new. Few bilateral bronchial lymph nodes probably due to inflammatory disease. Biliary stent in good position. No dilated ducts. Pancreatic mass measures 4.3 cm and appears increased 1 cm compared to old exam. No evidence of bowel obstruction. Normal appendix. Urine culture has been finalized with no growth. Blood culture showing no growth at 24 hours. Patient has been afebrile, heart rate 93, blood pressure 109/61, pulse ox 90% on 2 L nasal cannula. Repeat blood work reveals potassium of 2.6, sodium 132. BUN 4 and creatinine 0.54. Repeat magnesium 1.6. Patient will be replaced with 120 mEq of potassium and magnesium 2 g. Repeat blood work this evening and in the morning. 12/08: This morning, patient is on high flow nasal cannula 13 L continues to have difficulty breathing, temperature max 100.4, heart rate 97, respiratory rate 24. Blood pressure is on the low side 89/53. CT of the chest ordered came back positive for pulmonary embolism and patient started on Lovenox 1 mg/kg twice daily. Repeat potassium last evening was 3.0. This morning, potassium is 3.2 and will be replaced with 80 mEq, magnesium replaced again today. Sodium 130. Blood sugars running between 118-133. Total bilirubin 0.8, AST 63, ALT 33, alkaline phosphatase 170, LDH 1397, CA 199 elevated at 66. Albumin 2.1. Consult with pulmonary medicine for possibility of lymphangitic carcinomatosis, chemotherapy-induced pneumonitis as well as newly found acute pulmonary embolism possible pulmonary infection not excluded. Bronchoscopy will be considered. Review of systems CONSTITUTIONAL: Well-developed no acute respiratory distress. Denies fever, denies chills.. EYES: No icterus sclerae, no conjunctivitis. EARS, NOSE, MOUTH, THROAT, and FACE: No sore throat, lymphadenopathy, carotid bruits or deformity. Mild for head trauma specially on the left side with mild bruises. RESPIRATORY: Mild shortness of breath wheezes. CARDIOVASCULAR: Positive PND orthopnea and palpitation no angina. GASTROINTESTINAL: Positive nausea abdominal discomfort and distention no vomiting no bleeding. GENITOURINARY: Negative for Hematuria or UTI, no kidney stones. INTEGUMENT/BREAST: Negative for any muscular injury with mild osteoarthritis.. HEMATOLOGIC/LYMPHATIC: Negative for bleed or purpura. MUSCULOSKELTAL: Negative for Myalgia or arthralgia. NEURLOGICAL: No LOC, Sz or syncope, blurred vision dizziness or abnormality.. BEHAVIORAL/PSYCH: Negative. ENDOCRINE: Negative. Physical examination General Appearance: Alert, cooperative,, mild distress, mild bruise in the forehead area. Neck HEENT: Supple, no lymphadenopathy, no thyroid enlargement, no carotid bruits. Slight neck stiffness. Lungs: Decreased breath with congestion bilaterally. Chest Wall: Decrease expansion with deep inspiration no tenderness and no deformity was found on exam, no costochondral pain or discomfort. Heart: Regular rate and rhythm, S1, S2 normal, no murmur, rub or gallop. Back: Symmetric, no curvature, ROM normal, no CVA tenderness. Abdomen: Soft distended significant discomfort and epigastric area and right upper quadrant area no rebound or rigidity. Extremities: Extremities normal, atraumatic, no cyanosis positive edema. Pulses: 2+ and symmetric. Skin: Skin color, texture, tugor normal, no rashes or lesions. Neurologic: Alert oriented with slight confusion, cranial nerves II through XII intact, no motor deficit, positive normal balance and gait Assessment and plan 1 sepsis with diarrhea, possible pneumonia, presenting with metabolic encephalopathy. CAT scan of the chest has been ordered by oncology. Antibiotics changed to ceftriaxone per Dr. Holt. Cultures are pending. 2 multiple fall and trauma: No intracranial hemorrhage at this point CAT scan is be negative no cervical spine injury, we will advance activity with physical therapy gradually. 3 acute hypoxic respiratory failure secondary to pulmonary embolism, present on admission, possible lymphangitic carcinomatosis, chemotherapy-induced pneumonitis. Patient started on Lovenox 1 mg/kg twice daily, continue ceftriaxone and Levaquin per Dr. Holt. Pulmonary medicine has added Decadron 4 mg IV every 6 hours. Continue O2 therapy. 4 pancreatic cancer: Has been on chemotherapy seen oncology on regular basis continue current management we'll hold off on chemotherapy for now we will consult oncology. 5 Significant electrolyte imbalance: With severe hypokalemia: Continue replacement therapy along with correcting hypomagnesemia. Continue replacement. 6 nonketotic hyperglycemia: Continue patient on insulin continue Accu-Chek with sliding scales coverage. 7 severe anemia with hemoglobin is down to 8.2, no need for transfusion continue iron and multivitamins. 8 UTI: UA is not very clear this point but it's not negative continue current antibiotics awaiting for urine culture as well. 9 history of coronary disease: Has been stable with no recurrent chest pain or angina continue patient on metoprolol Lipitor and Prinivil. 10 type 2 diabetes: Has been on basically a 15 units subcutaneous daily along with Accu-Chek sliding scale coverage. 11 chronic neuropathy: Has been on gabapentin 200 mg twice a day. 12 hyperlipidemia: Remain on atorvastatin 80 mg daily. 13 chronic pain management: Has been on hydrocodone every 6 hours as needed. 14 chronic depression: On Zoloft 100 mg daily. 15 GI prophylaxis: Patient be on pantoprazole. 16 DVT prophylaxis: Heparin subcutaneous can be use. CODE STATUS: Full code. Discharge plan: Subacute rehab at [facility]. Impression and plan of care have been directed as dictated by the signing physician. Ramila Zapien nurse practitioner acting as scribe for signing physician. Objective - Vital Signs Vital signs: Vital Signs Temp 100 F H 12/09/19 04:00 Pulse 97 12/09/19 04:00 Resp 24 12/09/19 04:00 BP 89/53 12/09/19 04:00 Pulse Ox 96 12/09/19 04:00 Intake & Output 12/08/19 12/09/19 12/09/19 18:59 06:59 18:59 Intake Total 607 240 Output Total 110 750 Balance 497 -510 Weight 70.2 kg Intake: Intake, IV Titration 250 Amount Magnesium Sulfate-D5w Pmx 100 1 gm In Dextrose/Water 1 100ml.bag @ 100 mls/hr IVPB Q1H ANNA Rx#: [id number] Magnesium Sulfate-D5w Pmx 100 1 gm In Dextrose/Water 1 100ml.bag @ 100 mls/hr IVPB Q1H ANNA Rx#: [id number] cefTRIAXone 1 gm In 50 Sodium Chloride 0.9% 50 ml @ 100 mls/hr IVPB Q24HR ANNA Rx#:[id number] Oral 357 240 Output: Urine 110 750 Other: Voiding Method Bedside Commode Bedside Commode Diaper Diaper # Voids 1 # Bowel Movements 1 - Labs CBC & Chem 7: 12/08/19 07:24 12/09/19 06:21 Labs: Abnormal Lab Results - Last 24 Hours (Table) 12/08/19 12/08/19 12/08/19 Range/Units 07:24 12:21 16:18 WBC 29.3 H (3.8-10.6) k/uL RBC 2.67 L (4.30-5.90) m/uL Hgb 7.7 L (13.0-17.5) gm/dL Hct 24.5 L (39.0-53.0) % RDW 17.8 H (11.5-15.5) % Neutrophils # (Manual) 27.80 H (1.3-7.7) k/uL Lymphocytes # (Manual) 0.59 L (1.0-4.8) k/uL Sodium (137-145) mmol/L Potassium 3.0 L (3.5-5.1) mmol/L BUN (9-20) mg/dL Creatinine (0.66-1.25) mg/dL Glucose (74-99) mg/dL POC Glucose (mg/dL) 148 H (75-99) mg/dL Calcium (8.4-10.2) mg/dL Phosphorus (2.5-4.5) mg/dL AST (17-59) U/L Alkaline Phosphatase (38-126) U/L Lactate Dehydrogenase (313-618) U/L Total Protein (6.3-8.2) g/dL Albumin (3.5-5.0) g/dL Stool Lactoferrin (NEGATIVE) 12/08/19 12/08/19 12/08/19 Range/Units 17:17 18:09 20:53 WBC (3.8-10.6) k/uL RBC (4.30-5.90) m/uL Hgb (13.0-17.5) gm/dL Hct (39.0-53.0) % RDW (11.5-15.5) % Neutrophils # (Manual) (1.3-7.7) k/uL Lymphocytes # (Manual) (1.0-4.8) k/uL Sodium (137-145) mmol/L Potassium (3.5-5.1) mmol/L BUN (9-20) mg/dL Creatinine (0.66-1.25) mg/dL Glucose (74-99) mg/dL POC Glucose (mg/dL) 159 H 120 H (75-99) mg/dL Calcium (8.4-10.2) mg/dL Phosphorus (2.5-4.5) mg/dL AST (17-59) U/L Alkaline Phosphatase (38-126) U/L Lactate Dehydrogenase (313-618) U/L Total Protein (6.3-8.2) g/dL Albumin (3.5-5.0) g/dL Stool Lactoferrin POSITIVE H (NEGATIVE) 12/09/19 12/09/19 Range/Units 06:02 06:21 WBC (3.8-10.6) k/uL RBC (4.30-5.90) m/uL Hgb (13.0-17.5) gm/dL Hct (39.0-53.0) % RDW (11.5-15.5) % Neutrophils # (Manual) (1.3-7.7) k/uL Lymphocytes # (Manual) (1.0-4.8) k/uL Sodium 130 L (137-145) mmol/L Potassium 3.2 L (3.5-5.1) mmol/L BUN 5 L (9-20) mg/dL Creatinine 0.48 L (0.66-1.25) mg/dL Glucose 118 H (74-99) mg/dL POC Glucose (mg/dL) 134 H (75-99) mg/dL Calcium 7.0 L (8.4-10.2) mg/dL Phosphorus 2.0 L (2.5-4.5) mg/dL AST 63 H (17-59) U/L Alkaline Phosphatase 170 H (38-126) U/L Lactate Dehydrogenase 1397 H (313-618) U/L Total Protein 4.4 L (6.3-8.2) g/dL Albumin 2.1 L (3.5-5.0) g/dL Stool Lactoferrin (NEGATIVE) Microbiology - Last 24 Hours (Table) 12/08/19 18:09 Stool Culture - Preliminary Stool 12/06/19 16:52 Blood Culture - Preliminary Blood No Growth after 48 hours
[2019-12-09 15:52] LABS: Glucose,Whole Blood 194 mg/dL (75-99)
[2019-12-09] MEDS ORDERED: SODIUM CHLORIDE 0.9% 1,000 ML IV ONE ×2 (16:06→20:04)
[2019-12-09 16:22] LABS: Glucose,Whole Blood 194 mg/dL (75-99)
[2019-12-09] MEDS ORDERED: NOREPINEPHRIN 4 MG-0.9% NS PMX 4 MG/250 ML ML IV ONE (16:34)
[2019-12-09] MEDS ORDERED: HEPARIN SODIUM,PORCINE 5,000 UNIT/ML 1 ML VIAL IV PRN (16:37)
--- NOTE | 2019-12-09 17:07 | XR ---
EXAMINATION TYPE: XR chest 1V portable DATE OF EXAM: 12/09/2019 COMPARISON: 12/06/2019 HISTORY: Check tube placement TECHNIQUE: Single view. FINDINGS: There is moderate diffuse pulmonary interstitial edema. There is nasogastric tube in the stomach. The endotracheal tube is 3.5 cm from the [place]. There is right central venous catheter with the tip in the right jugular vein. Unchanged. IMPRESSION: There is increased pulmonary edema compared to recent exam. Normal heart size.
[2019-12-09 17:32] LABS: ABG Base Excess -2.4 mmol/L; ABG HCO3 24 mmol/L (21-25); ABG Oxygen Saturation 98.8 % (94-97); ABG PCO2 51 mmHg (35-45); ABG PH 7.29 (7.35-7.45); ABG PO2 233 mmHg (83-108); ABG TCO2 26 mmol/L (19-24); Allen Test Performed? Yes
[2019-12-09] MEDS ORDERED: HEPARIN SODIUM,PORCINE 10,000 UNIT/ML 1 ML VIAL IV ONE (17:32)
[2019-12-09 17:40] LABS: % Iron Saturation 6.72 (15.00-50.00); Iron 9 ug/dL (65-175); Total Iron Binding Capacity 134 ug/dL (228-460)
[2019-12-09] MEDS ORDERED: HEPARIN SODIUM,PORCINE 5,000 UNIT/ML 1 ML VIAL IV ONE (17:45)
[2019-12-09] MEDS: HEPARIN SOD,PORK IN 0.45% NACL 25,000 UNIT in 0.45% NACL 1 250ML.BAG IV SCH (17:45)
[2019-12-09 18:05] LABS: INR 1.9 (<1.2); Partial Thromboplastin Time 31.9 sec (22.0-30.0); Prothrombin Time 18.3 sec (9.0-12.0)
[2019-12-09 18:11] LABS: Anisocytosis Slight; HCT 26.1 % (39.0-53.0); HGB 8.3 gm/dL (13.0-17.5); Hypochromasia Slight; MCH 28.9 pg (25.0-35.0); MCHC 31.9 g/dL (31.0-37.0); MCV 90.5 fL (80.0-100.0); Mean Platelet Volume 9.3; Platelet Count 334 k/uL (150-450); Poikilocytosis Slight; RBC 2.89 m/uL (4.30-5.90); RDW 18.5 % (11.5-15.5)
[2019-12-09 18:13] LABS: WBC 73.6 k/uL (3.8-10.6)
[2019-12-09 18:31] LABS: Ferritin 2952.3 ng/mL (22.0-322.0)
[2019-12-09 18:40] LABS: African American GFR (CKD) >90 (>60 ml/min/1.73 sqM); Anion Gap 6 mmol/L; Blood Urea Nitrogen 7 mg/dL (9-20); Calcium 7.3 mg/dL (8.4-10.2); Carbon Dioxide 25 mmol/L (22-30); Chloride 101 mmol/L (98-107); Glucose 188 mg/dL (74-99); Non-African American GFR(CKD) >90 (>60 ml/min/1.73 sqM); Potassium 4.5 mmol/L (3.5-5.1); Sodium 132 mmol/L (137-145)
[2019-12-09 18:53] LABS: Band Neutrophils % 8 %; Lymphocytes # (M) 1.47 k/uL (1.0-4.8); Metamyelocytes # (M) 5.15 k/uL (0); Metamyelocytes % 7 %; Monocytes # (M) 1.47 k/uL (0-1.0); Myelocytes # (M) 1.47 k/uL (0); Myelocytes % 2 %; Neutrophils % (M) 80 %; Nucleated Red Blood Cells 0 /100 WBC (0-0); Total Cells Counted 200
[2019-12-09 18:54] LABS: Anisocytosis (M) Present; Poikilocytosis (M) Present
[2019-12-09 19:56] LABS: Appearance,Urine Clear (Clear); Bilirubin,Urine Negative (Negative); Blood,Urine Negative (Negative); Color,Urine Yellow; Glucose,Urine (UA) Negative (Negative); Ketones,Urine Negative (Negative); Leukocyte Esterase,Urine Negative (Negative); Nitrite,Urine Negative (Negative); Protein,Urine Trace (Negative); Urobilinogen,Urine <2.0 mg/dL (<2.0)
[2019-12-09] MEDS: NOREPINEPHRINE 4 MG in SODIUM CHLORIDE 0.9% 250 ML IV SCH (20:15)
[2019-12-09] MEDS: CHLORHEXIDINE GLUCONATE 15 ML CUP MUCOUS MEM SCH (20:24)
[2019-12-09] MEDS ORDERED: HEPARIN SODIUM,PORCINE 5,000 UNIT/ML 1 ML VIAL SQ SCH (21:00)
[2019-12-09] MEDS ORDERED: ENOXAPARIN 80 MG/0.8 ML SYRINGE SQ SCH (21:00)
[2019-12-09] MEDS: PIPERACILLIN-TAZOBACTAM 3.375 GM in SODIUM CHLORIDE 0.9% 100 ML IVPB SCH (22:06)
[2019-12-09] MEDS ORDERED: VANCOMYCIN IV PER PHARMACY 1 EACH MISC MISCELLANE PRN (22:09)
[2019-12-09] MEDS: VANCOMYCIN 1,250 MG in SODIUM CHLORIDE 0.9% 250 ML IVPB SCH (22:50)
--- NOTE | 2019-12-09 23:13 | P.PN ---
Subjective Progress Note Date: 12/09/19 Principal diagnosis: Recurrent Falls Late entry: Patient seen and examine this am Objective - Vital Signs Vital signs: Vital Signs Temp 98 F 12/09/19 11:28 Pulse 82 12/09/19 11:28 Resp 22 12/09/19 11:28 BP 92/49 12/09/19 11:28 Pulse Ox 92 L 12/09/19 11:28 Intake & Output 12/08/19 12/09/19 12/09/19 18:59 06:59 18:59 Intake Total 607 240 476 Output Total 110 750 Balance 497 -510 476 Weight 70.2 kg Intake: Intake, IV Titration 250 Amount Magnesium Sulfate-D5w Pmx 100 1 gm In Dextrose/Water 1 100ml.bag @ 100 mls/hr IVPB Q1H ANNA Rx#: [id number] Magnesium Sulfate-D5w Pmx 100 1 gm In Dextrose/Water 1 100ml.bag @ 100 mls/hr IVPB Q1H ANNA Rx#: [id number] cefTRIAXone 1 gm In 50 Sodium Chloride 0.9% 50 ml @ 100 mls/hr IVPB Q24HR ANNA Rx#:[id number] Oral 357 240 476 Output: Urine 110 750 Other: Voiding Method Bedside Commode Bedside Commode Bedside Commode Diaper Diaper Diaper # Voids 1 3 # Bowel Movements 1 - Exam - Constitutional General appearance: cooperative, mild-moderate distress - EENT Eyes: EOMI, poor dentition ENT: hard of hearing, normal oropharynx - Neck Neck: normal ROM - Respiratory Increased respiratory effort, Respiratory: bilateral: diminished, wheezing (expiratory) non-rebreather - Cardiovascular Rhythm: regular Heart sounds: normal: S1, S2 leg Peripheral Edema: bilateral: 1+ - Gastrointestinal General gastrointestinal: distended, normal bowel sounds, soft, tenderness - Integumentary Integumentary: pale - Neurologic non-focal - Musculoskeletal Musculoskeletal: generalized weakness - Psychiatric Psychiatric: A&O x's 3, lethargic, appropriate - Labs CBC & Chem 7: 12/09/19 17:35 12/09/19 17:35 Labs: Abnormal Lab Results - Last 24 Hours (Table) 12/08/19 12/08/19 12/08/19 Range/Units 07:24 16:18 17:17 WBC 29.3 H (3.8-10.6) k/uL RBC 2.67 L (4.30-5.90) m/uL Hgb 7.7 L (13.0-17.5) gm/dL Hct 24.5 L (39.0-53.0) % RDW 17.8 H (11.5-15.5) % Neutrophils # (Manual) 27.80 H (1.3-7.7) k/uL Lymphocytes # (Manual) 0.59 L (1.0-4.8) k/uL Sodium (137-145) mmol/L Potassium 3.0 L (3.5-5.1) mmol/L BUN (9-20) mg/dL Creatinine (0.66-1.25) mg/dL Glucose (74-99) mg/dL POC Glucose (mg/dL) 159 H (75-99) mg/dL Calcium (8.4-10.2) mg/dL Phosphorus (2.5-4.5) mg/dL AST (17-59) U/L Alkaline Phosphatase (38-126) U/L Lactate Dehydrogenase (313-618) U/L Total Protein (6.3-8.2) g/dL Albumin (3.5-5.0) g/dL CA 19-9 Antigen (0.0-34.9) U/mL Stool Lactoferrin (NEGATIVE) 12/08/19 12/08/19 12/09/19 Range/Units 18:09 20:53 06:02 WBC (3.8-10.6) k/uL RBC (4.30-5.90) m/uL Hgb (13.0-17.5) gm/dL Hct (39.0-53.0) % RDW (11.5-15.5) % Neutrophils # (Manual) (1.3-7.7) k/uL Lymphocytes # (Manual) (1.0-4.8) k/uL Sodium (137-145) mmol/L Potassium (3.5-5.1) mmol/L BUN (9-20) mg/dL Creatinine (0.66-1.25) mg/dL Glucose (74-99) mg/dL POC Glucose (mg/dL) 120 H 134 H (75-99) mg/dL Calcium (8.4-10.2) mg/dL Phosphorus (2.5-4.5) mg/dL AST (17-59) U/L Alkaline Phosphatase (38-126) U/L Lactate Dehydrogenase (313-618) U/L Total Protein (6.3-8.2) g/dL Albumin (3.5-5.0) g/dL CA 19-9 Antigen (0.0-34.9) U/mL Stool Lactoferrin POSITIVE H (NEGATIVE) 12/09/19 12/09/19 12/09/19 Range/Units 06:21 06:21 11:54 WBC (3.8-10.6) k/uL RBC (4.30-5.90) m/uL Hgb (13.0-17.5) gm/dL Hct (39.0-53.0) % RDW (11.5-15.5) % Neutrophils # (Manual) (1.3-7.7) k/uL Lymphocytes # (Manual) (1.0-4.8) k/uL Sodium 130 L (137-145) mmol/L Potassium 3.2 L (3.5-5.1) mmol/L BUN 5 L (9-20) mg/dL Creatinine 0.48 L (0.66-1.25) mg/dL Glucose 118 H (74-99) mg/dL POC Glucose (mg/dL) 133 H (75-99) mg/dL Calcium 7.0 L (8.4-10.2) mg/dL Phosphorus 2.0 L (2.5-4.5) mg/dL AST 63 H (17-59) U/L Alkaline Phosphatase 170 H (38-126) U/L Lactate Dehydrogenase 1397 H (313-618) U/L Total Protein 4.4 L (6.3-8.2) g/dL Albumin 2.1 L (3.5-5.0) g/dL CA 19-9 Antigen 66.0 H (0.0-34.9) U/mL Stool Lactoferrin (NEGATIVE) 12/09/19 12/09/19 Range/Units 15:50 16:20 WBC (3.8-10.6) k/uL RBC (4.30-5.90) m/uL Hgb (13.0-17.5) gm/dL Hct (39.0-53.0) % RDW (11.5-15.5) % Neutrophils # (Manual) (1.3-7.7) k/uL Lymphocytes # (Manual) (1.0-4.8) k/uL Sodium (137-145) mmol/L Potassium (3.5-5.1) mmol/L BUN (9-20) mg/dL Creatinine (0.66-1.25) mg/dL Glucose (74-99) mg/dL POC Glucose (mg/dL) 194 H 194 H (75-99) mg/dL Calcium (8.4-10.2) mg/dL Phosphorus (2.5-4.5) mg/dL AST (17-59) U/L Alkaline Phosphatase (38-126) U/L Lactate Dehydrogenase (313-618) U/L Total Protein (6.3-8.2) g/dL Albumin (3.5-5.0) g/dL CA 19-9 Antigen (0.0-34.9) U/mL Stool Lactoferrin (NEGATIVE) Microbiology - Last 24 Hours (Table) 12/08/19 18:09 Stool Culture - Preliminary Stool 12/06/19 16:52 Blood Culture - Preliminary Blood No Growth after 48 hours Assessment and Plan (1) Hypokalemia Current Visit: Yes Status: Acute Code(s): E87.6 - HYPOKALEMIA SNOMED Code(s): 92510468 (2) Cancer of pancreas Current Visit: No Status: Chronic Priority: Medium Code(s): C25.9 - MALIGNANT NEOPLASM OF PANCREAS, UNSPECIFIED SNOMED Code(s): 341080688 Plan: Assessment and Recommendations: 1. Adenocarcinoma of the Pancreas: - Status Post 6 cycles of FOLFIRINOX, question of progression and due to COVID could not undergo surgical evaluation as original date therefore patient was started on Gemsar and Abraxane and is now status post cycle 3, day 15. - Goal of treatment was to obtain control of cancer, shrink and send for surgical resection. - Chest xray ?infectious versus underlying progression of cancer - Restaging CT scans of Chest abdomen and pelvis were reviewed. Question of further progression in pancreatic mass, will need to compare with most recent CT (I believe was performed through [facility]) to quantify actual changes. Lungs appear to have interstitial and fibrotic changes, consistent with inflammatory process. We will ask Pulmonary to evaluate and if no evidence of infectious colitis after stool studies resulted may benefit from addition of steroids. Will discuss further with pulmonary and Dr. Brock. - Chemotherapy on hold, will re-evaluate after treatment with antibiotics and pulmonary evaluation as concern for inflammatory changes maybe worsened by current chemotherapy (rare adverse event) 2. Intractable Diarrhea: Persistent - Stool studies - Questran added - Daily CMP to monitor liver, lytes, protein, and calcium. 3. Recurrent Falls Secondary to severe Weakness - PT/OT 4. Severe Hypokalemia: - Secondary to diarrhea and decreased PO intake Hypophosphatemia: - Consider supp with K-Phos as well - COntinue to monitor calcium and magnesium - Daily mag, phos recommended 5. Acute Hypoxic Respiratory Failure: Worsening - Requiring 6L(as of 12/07) of oxygen to maintain oxygen saturation greater than 90% - No oxygen at baseline - Chest Xray reveals abnormalities but clear differentiation is not given, therefore CT chest was performed and consistent with inflammatory changes. - Pulmonology consulted to further evaluate, defer the addition of steroids to pulm and after infectious/inflammatory etiology rule out in stool studies 6. Increased Temp/ leukocytosis/ Weakness: Afebrile. - Infectious Septic Work-up in progress:Negative to date - Blood Cultures/Urine - Negative to date - On broad spectrum antibiotics - Leukocytosis could also be reactive to recent Neulasta growth factor shot but given the combination of patients presentation infectious causes need to be further investigated. - COVID testing Negative - Stool Studies neg c diff, Positive lactoferrin. 7. Normocytic Anemia; - Likely secondary to chemotherapy and decreased PO intake - Daily CBC with Diff will be placed. Close monitoring with recent chemotherapy 8. Chronic Illness Myopathy: - Evaluation by PT/OT and treatment to increase overall performance once patient is more stable Physician Attestation: I have completed the full history and physical of this patient and I have developed the complete assessment and plan. Agree with above dictation by NIXON Yoo, dictated as a ascribe.
--- NOTE | 2019-12-09 23:25 | PN ---
PROGRESS NOTE DATE OF SERVICE: 12/09/2019 REASON FOR FOLLOWUP: Pneumonia. INTERVAL HISTORY: Patient did have overall change in his clinical condition. This patient did have worsening respiratory status requiring subsequent transfer to the ICU and has to be intubated. The patient did spike a fever of 101 degrees Fahrenheit last night. The patient is hemodynamically stable not on pressor support. No significant purulent secretion at the time of admission was noticed or any diarrhea. PHYSICAL EXAMINATION: Blood pressure 112/59 with a pulse of 96, temperature is 97.6. He is 93% on 80% FiO2. General description is a middle-aged male intubated on the vent. RESPIRATORY SYSTEM: Unlabored breathing, decreased breath sounds at the bases. No wheeze. HEART: S1, S2. Regular rate and rhythm. ABDOMEN: Soft, no tenderness. LABS: Hemoglobin 8.3, white count 73.6. BUN of 7, creatinine 0.45. DIAGNOSTIC IMPRESSION AND PLAN: Patient with sepsis with concern for pneumonia. The patient also have a component of pulmonary embolism on a CT angiogram. Antibiotic will be ordered by addition of Zosyn. Sputum cultures will be followed and condition will be monitored closely and adjust antibiotic further with culture report. MMODL / IJN: [id number] /
[2019-12-10] MEDS: CISATRACURIUM 200 MG in SODIUM CHLORIDE 0.9% 180 ML IV SCH (00:36)
[2019-12-10] MEDS: DEXAMETHASONE SOD PHOSPHATE 4 MG/ML 1 ML VIAL IV SCH ×4 (00:49→17:59)
[2019-12-10] MEDS: INSULIN ASPART (NovoLOG) 100 UNIT/ML VIAL SQ SCH ×4 (01:54→17:59)
[2019-12-10 01:55] LABS: Glucose,Whole Blood 243 mg/dL (75-99)
[2019-12-10 04:46] LABS: Anisocytosis Slight; HCT 27.5 % (39.0-53.0); HGB 8.7 gm/dL (13.0-17.5); Hypochromasia Slight; MCH 28.7 pg (25.0-35.0); MCHC 31.6 g/dL (31.0-37.0); MCV 90.6 fL (80.0-100.0); Mean Platelet Volume 9.6; Platelet Count 453 k/uL (150-450); Poikilocytosis Slight; RBC 3.04 m/uL (4.30-5.90); RDW 19.1 % (11.5-15.5)
[2019-12-10] MEDS: PIPERACILLIN-TAZOBACTAM 3.375 GM in SODIUM CHLORIDE 0.9% 100 ML IVPB SCH ×3 (05:02→22:24)
[2019-12-10 05:05] LABS: ALT 35 U/L (4-49); AST 67 U/L (17-59); African American GFR (CKD) >90 (>60 ml/min/1.73 sqM); Albumin 2.5 g/dL (3.5-5.0); Alkaline Phosphatase 217 U/L (38-126); Anion Gap 9 mmol/L; Blood Urea Nitrogen 10 mg/dL (9-20); Calcium 7.6 mg/dL (8.4-10.2); Carbon Dioxide 22 mmol/L (22-30); Chloride 105 mmol/L (98-107); Glucose 239 mg/dL (74-99); Magnesium 2.6 mg/dL (1.6-2.3); Non-African American GFR(CKD) >90 (>60 ml/min/1.73 sqM); Potassium 4.7 mmol/L (3.5-5.1); Sodium 136 mmol/L (137-145); Total Bilirubin 0.8 mg/dL (0.2-1.3); Total Protein 5.1 g/dL (6.3-8.2)
[2019-12-10 05:35] LABS: Band Neutrophils % 2 %; Lymphocytes # (M) 4.08 k/uL (1.0-4.8); Metamyelocytes % 5 %; Myelocytes # (M) 6.12 k/uL (0); Myelocytes % 6 %; Neutrophils % (M) 83 %; Nucleated Red Blood Cells 1 /100 WBC (0-0); Total Cells Counted 200
[2019-12-10 05:36] LABS: RBC Fragments Present
[2019-12-10] MEDS: NOREPINEPHRINE 4 MG in SODIUM CHLORIDE 0.9% 250 ML IV SCH ×3 (05:54→16:02)
[2019-12-10] MEDS: VANCOMYCIN 1,250 MG in SODIUM CHLORIDE 0.9% 250 ML IVPB SCH ×3 (06:07→23:31)
[2019-12-10] MEDS: INSULIN DETEMIR (LEVEMIR) 100 UNIT/ML SYR SQ SCH (06:50)
[2019-12-10 08:11] LABS: ABG Base Excess -4.3 mmol/L; ABG HCO3 23 mmol/L (21-25); ABG Oxygen Saturation 93.2 % (94-97); ABG PCO2 49 mmHg (35-45); ABG PH 7.27 (7.35-7.45); ABG PO2 80 mmHg (83-108); ABG TCO2 24 mmol/L (19-24)
[2019-12-10 08:12] LABS: Allen Test Performed? no
--- NOTE | 2019-12-10 09:02 | XR ---
EXAMINATION TYPE: XR chest 1V portable DATE OF EXAM: 12/10/2019 CLINICAL HISTORY: Tube placement TECHNIQUE: Semiupright portable view of the chest obtained COMPARISON: 12/09/2019 chest radiograph FINDINGS: Endotracheal tube distal tip at the level of the clavicular heads. There is right-sided In fuse-a-Port with catheter coursing in the right internal jugular vein, with nonvisualization of the d istal tip, unchanged as visualized. Enteric tube with nonvisualization of distal tip, however side-po rt just below the level of the GE junction. There is mildly decreased pulmonary edema. Persistent chr onic interstitial lung markings, right greater than left. The cardiomediastinal silhouette is within normal limits for size. Pulmonary vasculature is normal. No pleural effusion or pneumothorax seen. Th e osseous structures are intact. IMPRESSION: Mildly decreased pulmonary edema versus 12/09/2019.
[2019-12-10] MEDS: lisinopriL 5 MG TAB PO SCH (09:43)
[2019-12-10] MEDS: METOPROLOL SUCCINATE (ER) 25 MG TAB.ER.24H PO SCH (09:44)
[2019-12-10] MEDS: CHOLESTYRAMINE (WITH SUGAR) 4 GM PACKET PO SCH ×2 (09:44→18:28)
[2019-12-10] MEDS: GABAPENTIN 100 MG CAP PO SCH ×2 (09:50→21:22)
[2019-12-10] MEDS: PANTOPRAZOLE 40 MG/10 ML VIAL IVP SCH (09:50)
[2019-12-10] MEDS: CHLORHEXIDINE GLUCONATE 15 ML CUP MUCOUS MEM SCH ×2 (09:50→21:20)
[2019-12-10] MEDS: ATORVASTATIN 80 MG TAB PO SCH (09:50)
[2019-12-10] MEDS: SERTRALINE 100 MG TAB PO SCH (11:05)
[2019-12-10 12:14] LABS: Glucose,Whole Blood 218 mg/dL (75-99)
--- NOTE | 2019-12-10 12:22 | P.PN ---
Subjective Progress Note Date: 12/10/19 64-year-old was diagnosed with pancreatic cancer back in September [address] maria and has been on chemotherapy. Patient has been getting weaker every day had falling multiple time. Today patient had fall with closed head trauma and injury and had significant confusion with generalized weakness. His white blood cell was over 23,000, patient had significant anemia, lactic acid was significantly elevated. Patient was started on Zosyn, hydration and fluid resuscitation, but kept in bedrest O2 and admit patient to the hospital. Apparently patient has not been doing well since his diagnoses with pink at the cancer despite the chemotherapy patient is getting weaker and much worse day by day. Chest x-ray had? Off atypical acute infectious process with Lymphangitic carcinomatosis is not excluded with? Off fluid overload and infiltrate in the bases. 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 12/06: Patient has been seen by Dr. Holt with recommendations to continue Zosyn, obtain stool studies and sputum for culture. Patient has been seen by oncology and added Questran and Lomotil for diarrhea. CAT scan of the chest was ordered by oncology. Patient has been afebrile, heart rate 101, blood pressure 101/60, pulse ox 92% on 4 L nasal cannula. WBC 22.3, hemoglobin 7.1, platelet count 169. Sodium 132, potassium 2.3 and being replaced, BUN 6 and creatinine 0.49. Coated 19 testing is negative. Blood culture and urine culture in progress. 12/07: CAT scan of the chest abdomen and pelvis with contrast revealed small pleural effusions appear new. Diffuse honeycomb pattern in the lungs consistent with significant interstitial lung disease. This could be acute or chronic interstitial lung disease. Interstitial basilar pulmonary infiltrates are essentially new. Few bilateral bronchial lymph nodes probably due to inflammatory disease. Biliary stent in good position. No dilated ducts. Pancreatic mass measures 4.3 cm and appears increased 1 cm compared to old exam. No evidence of bowel obstruction. Normal appendix. Urine culture has been finalized with no growth. Blood culture showing no growth at 24 hours. Patient has been afebrile, heart rate 93, blood pressure 109/61, pulse ox 90% on 2 L nasal cannula. Repeat blood work reveals potassium of 2.6, sodium 132. BUN 4 and creatinine 0.54. Repeat magnesium 1.6. Patient will be replaced with 120 mEq of potassium and magnesium 2 g. Repeat blood work this evening and in the morning. 12/08: This morning, patient is on high flow nasal cannula 13 L continues to have difficulty breathing, temperature max 100.4, heart rate 97, respiratory rate 24. Blood pressure is on the low side 89/53. CT of the chest ordered came back positive for pulmonary embolism and patient started on Lovenox 1 mg/kg twice daily. Repeat potassium last evening was 3.0. This morning, potassium is 3.2 and will be replaced with 80 mEq, magnesium replaced again today. Sodium 130. Blood sugars running between 118-133. Total bilirubin 0.8, AST 63, ALT 33, alkaline phosphatase 170, LDH 1397, CA 199 elevated at 66. Albumin 2.1. Consult with pulmonary medicine for possibility of lymphangitic carcinomatosis, chemotherapy-induced pneumonitis as well as newly found acute pulmonary embolism possible pulmonary infection not excluded. Bronchoscopy will be considered. 12/09: Patient continued to do poorly yesterday afternoon and was transferred into the intensive care unit and subsequently intubated and placed on mechanical ventilation, tidal volume 450, FiO2 50, PEEP 8. Patient has been afebrile, heart rate 73, blood pressure 104/52. Patient's temperature has been down to 95.9 and placed on Randall hugger. Pena catheter has been placed with adequate good urine output. He is currently on Nimbex, heparin drip, norepinephrine. He is continued on IV antibiotics with Zosyn and vancomycin. Patient is also on Levaquin. Chest x-ray this morning reveals mildly decreased pulmonary edema. Blood work last evening revealed a rising leukocytosis at 73.6 and this morning at 102. Hemoglobin 8.7, platelet count 453. Sodium 136, potassium 4.7, chloride 105, CO2 22, BUN 10 and creatinine 0.45. Blood sugars running between 133 and 243. Total bilirubin is 0.8, AST 67, ALT 35, alkaline phosphatase 217. Urinalysis clear with nitrate and leukoesterase negative. Sputum culture and stool culture in process. Blood culture no growth at 72 hours. Patient's is at bedside and current condition, plan and prognosis reviewed with her. Patient is currently a full code. Review of systems Unable to be obtained due to intubation Physical examination General Appearance: Alert, cooperative, mild bruise in the forehead area. Patient is seen in the intensive care unit. No acute distress noted. Neck HEENT: Supple, no lymphadenopathy, no thyroid enlargement, no carotid bruits. Oral ET and gastric tube in place. Lungs: Decreased breath with congestion bilaterally. Chest Wall: Decrease expansion with deep inspiration no tenderness and no deformity was found on exam, no costochondral pain or discomfort. Heart: Regular rate and rhythm, S1, S2 normal, no murmur, rub or gallop. Abdomen: Soft. Nontender. Pena catheter in place. Extremities: Extremities normal, atraumatic, no cyanosis positive edema. Pulses: 2+ and symmetric. Skin: Skin color, texture, tugor normal, no rashes or lesions. Neurologic: Patient is intubated on mechanical ventilation and on Nimbex. Assessment and plan 1 sepsis with diarrhea, possible pneumonia, presenting with metabolic encephalopathy. CAT scan of the chest has been ordered by oncology. Consult with Dr. Holt. Patient is on Questran. 2 multiple fall and trauma: No intracranial hemorrhage at this point CAT scan is be negative no cervical spine injury. 3 acute hypoxic respiratory failure secondary to pulmonary embolism, present on admission, possible lymphangitic carcinomatosis, chemotherapy-induced pneumonitis. Patient has required intubation mechanical ventilation. Continue heparin drip, DuoNeb treatments 4 times daily as needed, Decadron 4 mg IV every 6 hours, Levaquin, Zosyn and vancomycin. Consult with pulmonary medicine and infectious disease appreciated. Dr. Hurley is considering bronchoscopy. 4 pancreatic cancer: Has been on chemotherapy seen oncology on regular basis. Oncology consult appreciated. 5 Significant electrolyte imbalance: With severe hypokalemia: Continue replacement therapy along with correcting hypomagnesemia. Continue replacement. 6 nonketotic hyperglycemia. Continue Levemir 15 units daily and NovoLog scale every 6 hours. 7 severe anemia with hemoglobin is down to 8.2, no need for transfusion continue iron and multivitamins. 8 hypothermia and severe leukocytosis of unclear etiology. Continue current management. 9 septic shock requiring vasopressor. 10 pulmonary embolism. Continue heparin drip. 11 UTI ruled out. 12 history of coronary disease. Continue Lipitor, lisinopril and Toprol-XL. 13 type 2 diabetes, uncontrolled with hyperglycemia. Continue as above. 14 chronic neuropathy: Has been on gabapentin 200 mg twice a day. 15 hyperlipidemia: Remain on atorvastatin 80 mg daily. 16 chronic pain management: Has been on hydrocodone every 6 hours as needed. 17 recurrent depression: On Zoloft 100 mg daily. 18 GI prophylaxis: Pantoprazole. 19 DVT prophylaxis: Heparin gtt. CODE STATUS: Full code. Discharge plan: Subacute rehab at [facility] or [facility]. Impression and plan of care have been directed as dictated by the signing physician. Ramila Zapien nurse practitioner acting as scribe for signing physician. Objective - Vital Signs Vital signs: Vital Signs Temp 97.7 F 12/10/19 08:00 Pulse 73 12/10/19 08:00 Resp 24 12/10/19 08:00 BP 112/67 12/09/19 22:00 Pulse Ox 93 L 12/10/19 08:00 Intake & Output 12/09/19 12/10/19 12/10/19 18:59 06:59 18:59 Intake Total 9492.747 7406.515 50 Output Total 310 1225 80 Balance 8839.992 5605.515 -30 Weight 67.2 kg Intake: IV 6 2250 50 0.9 6 1550 50 Piperacillin-Tazobactam 3 200 .375 gm In Sodium Chloride 0.9% 100 ml @ 25 mls/hr IVPB Q8H [facility] Rx#: [id number] Vancomycin 1,250 mg In 500 Sodium Chloride 0.9% 250 ml @ 125 mls/hr IVPB Q8H [facility] Rx#:[id number] Intake, IV Titration 1007.441 627.515 Amount Cisatracurium 200 mg In 4.142 Sodium Chloride 0.9% 180 ml @ 1 MCG/KG/MIN 4.212 mls/hr IV .Q24H [facility] Rx#: [id number] Heparin Sod,Pork in 0.45% 86.58 NaCl 25,000 unit In 0.45 % NaCl 1 250ml.bag @ 18 UNITS/KG/HR 12.636 mls/hr IV .[id number] [facility] Rx#: [id number] Norepinephrine 4 mg In 284.669 Sodium Chloride 0.9% 250 ml @ 0.05 MCG/KG/MIN 13. 373 mls/hr IV .Q19H [facility] Rx#:[id number] Sodium Chloride 0.9% 1, 1000 000 ml @ 999 mls/hr IV . Q1H1M [facility] Rx#:[id number] propofoL 1,000 mg In 7.441 252.124 Empty Bag 1 bag @ Titrate IV .Q0M [facility] Rx#: [id number] Oral 476 Output: Urine 310 1225 80 Other: Voiding Method Indwelling Catheter Indwelling Catheter Indwelling Catheter # Voids 3 ABP, PAP, CO, CI - Last Documented Arterial Blood Pressure 104/52 - Labs CBC & Chem 7: 12/10/19 04:36 12/10/19 04:36 Labs: Abnormal Lab Results - Last 24 Hours (Table) 12/09/19 12/09/19 12/09/19 Range/Units 06:21 06:21 11:54 WBC (3.8-10.6) k/uL RBC (4.30-5.90) m/uL Hgb (13.0-17.5) gm/dL Hct (39.0-53.0) % RDW (11.5-15.5) % Plt Count (150-450) k/uL Neutrophils # (Manual) (1.3-7.7) k/uL Monocytes # (Manual) (0-1.0) k/uL Metamyelocytes # (Man) (0) k/uL Myelocytes # (Manual) (0) k/uL Nucleated RBCs (0-0) /100 WBC PT (9.0-12.0) sec INR (<1.2) APTT (22.0-30.0) sec ABG pH (7.35-7.45) ABG pCO2 (35-45) mmHg ABG pO2 (83-108) mmHg ABG Total CO2 (19-24) mmol/L ABG O2 Saturation (94-97) % Sodium (137-145) mmol/L BUN (9-20) mg/dL Creatinine (0.66-1.25) mg/dL Glucose (74-99) mg/dL POC Glucose (mg/dL) 133 H (75-99) mg/dL Calcium (8.4-10.2) mg/dL Magnesium (1.6-2.3) mg/dL Iron 9 L (65-175) ug/dL TIBC 134 L (228-460) ug/dL % Saturation 6.72 L (15.00-50.00) Ferritin 2952.3 H (22.0-322.0) ng/mL AST (17-59) U/L Alkaline Phosphatase (38-126) U/L Total Protein (6.3-8.2) g/dL Albumin (3.5-5.0) g/dL CA 19-9 Antigen 66.0 H (0.0-34.9) U/mL Vitamin B12 2625.0 H (200.0-944.0) pg/mL Ur Specific [place] (1.001-1.035) Urine Protein (Negative) 12/09/19 12/09/19 12/09/19 Range/Units 15:50 16:20 17:30 WBC (3.8-10.6) k/uL RBC (4.30-5.90) m/uL Hgb (13.0-17.5) gm/dL Hct (39.0-53.0) % RDW (11.5-15.5) % Plt Count (150-450) k/uL Neutrophils # (Manual) (1.3-7.7) k/uL Monocytes # (Manual) (0-1.0) k/uL Metamyelocytes # (Man) (0) k/uL Myelocytes # (Manual) (0) k/uL Nucleated RBCs (0-0) /100 WBC PT (9.0-12.0) sec INR (<1.2) APTT (22.0-30.0) sec ABG pH 7.29 L (7.35-7.45) ABG pCO2 51 H (35-45) mmHg ABG pO2 233 H (83-108) mmHg ABG Total CO2 26 H (19-24) mmol/L ABG O2 Saturation 98.8 H (94-97) % Sodium (137-145) mmol/L BUN (9-20) mg/dL Creatinine (0.66-1.25) mg/dL Glucose (74-99) mg/dL POC Glucose (mg/dL) 194 H 194 H (75-99) mg/dL Calcium (8.4-10.2) mg/dL Magnesium (1.6-2.3) mg/dL Iron (65-175) ug/dL TIBC (228-460) ug/dL % Saturation (15.00-50.00) Ferritin (22.0-322.0) ng/mL AST (17-59) U/L Alkaline Phosphatase (38-126) U/L Total Protein (6.3-8.2) g/dL Albumin (3.5-5.0) g/dL CA 19-9 Antigen (0.0-34.9) U/mL Vitamin B12 (200.0-944.0) pg/mL Ur Specific [place] (1.001-1.035) Urine Protein (Negative) 12/09/19 12/09/19 12/09/19 Range/Units 17:35 17:35 17:35 WBC 73.6 H* (3.8-10.6) k/uL RBC 2.89 L (4.30-5.90) m/uL Hgb 8.3 L (13.0-17.5) gm/dL Hct 26.1 L (39.0-53.0) % RDW 18.5 H (11.5-15.5) % Plt Count (150-450) k/uL Neutrophils # (Manual) 64.70 H (1.3-7.7) k/uL Monocytes # (Manual) 1.47 H (0-1.0) k/uL Metamyelocytes # (Man) 5.15 H (0) k/uL Myelocytes # (Manual) 1.47 H (0) k/uL Nucleated RBCs (0-0) /100 WBC PT 18.3 H (9.0-12.0) sec INR 1.9 H (<1.2) APTT 31.9 H (22.0-30.0) sec ABG pH (7.35-7.45) ABG pCO2 (35-45) mmHg ABG pO2 (83-108) mmHg ABG Total CO2 (19-24) mmol/L ABG O2 Saturation (94-97) % Sodium 132 L (137-145) mmol/L BUN 7 L (9-20) mg/dL Creatinine 0.45 L (0.66-1.25) mg/dL Glucose 188 H (74-99) mg/dL POC Glucose (mg/dL) (75-99) mg/dL Calcium 7.3 L (8.4-10.2) mg/dL Magnesium (1.6-2.3) mg/dL Iron (65-175) ug/dL TIBC (228-460) ug/dL % Saturation (15.00-50.00) Ferritin (22.0-322.0) ng/mL AST (17-59) U/L Alkaline Phosphatase (38-126) U/L Total Protein (6.3-8.2) g/dL Albumin (3.5-5.0) g/dL CA 19-9 Antigen (0.0-34.9) U/mL Vitamin B12 (200.0-944.0) pg/mL Ur Specific [place] (1.001-1.035) Urine Protein (Negative) 12/09/19 12/09/19 12/10/19 Range/Units 18:52 23:54 01:44 WBC (3.8-10.6) k/uL RBC (4.30-5.90) m/uL Hgb (13.0-17.5) gm/dL Hct (39.0-53.0) % RDW (11.5-15.5) % Plt Count (150-450) k/uL Neutrophils # (Manual) (1.3-7.7) k/uL Monocytes # (Manual) (0-1.0) k/uL Metamyelocytes # (Man) (0) k/uL Myelocytes # (Manual) (0) k/uL Nucleated RBCs (0-0) /100 WBC PT (9.0-12.0) sec INR (<1.2) APTT >200.0 H* (22.0-30.0) sec ABG pH (7.35-7.45) ABG pCO2 (35-45) mmHg ABG pO2 (83-108) mmHg ABG Total CO2 (19-24) mmol/L ABG O2 Saturation (94-97) % Sodium (137-145) mmol/L BUN (9-20) mg/dL Creatinine (0.66-1.25) mg/dL Glucose (74-99) mg/dL POC Glucose (mg/dL) 243 H (75-99) mg/dL Calcium (8.4-10.2) mg/dL Magnesium (1.6-2.3) mg/dL Iron (65-175) ug/dL TIBC (228-460) ug/dL % Saturation (15.00-50.00) Ferritin (22.0-322.0) ng/mL AST (17-59) U/L Alkaline Phosphatase (38-126) U/L Total Protein (6.3-8.2) g/dL Albumin (3.5-5.0) g/dL CA 19-9 Antigen (0.0-34.9) U/mL Vitamin B12 (200.0-944.0) pg/mL Ur Specific [place] 1.050 H (1.001-1.035) Urine Protein Trace H (Negative) 12/10/19 12/10/19 12/10/19 Range/Units 04:36 04:36 05:54 WBC 102.0 H* (3.8-10.6) k/uL RBC 3.04 L (4.30-5.90) m/uL Hgb 8.7 L (13.0-17.5) gm/dL Hct 27.5 L (39.0-53.0) % RDW 19.1 H (11.5-15.5) % Plt Count 453 H (150-450) k/uL Neutrophils # (Manual) 86.70 H (1.3-7.7) k/uL Monocytes # (Manual) (0-1.0) k/uL Metamyelocytes # (Man) 5.10 H (0) k/uL Myelocytes # (Manual) 6.12 H (0) k/uL Nucleated RBCs 1 H (0-0) /100 WBC PT (9.0-12.0) sec INR (<1.2) APTT 35.4 H (22.0-30.0) sec ABG pH (7.35-7.45) ABG pCO2 (35-45) mmHg ABG pO2 (83-108) mmHg ABG Total CO2 (19-24) mmol/L ABG O2 Saturation (94-97) % Sodium 136 L (137-145) mmol/L BUN (9-20) mg/dL Creatinine 0.45 L (0.66-1.25) mg/dL Glucose 239 H (74-99) mg/dL POC Glucose (mg/dL) (75-99) mg/dL Calcium 7.6 L (8.4-10.2) mg/dL Magnesium 2.6 H (1.6-2.3) mg/dL Iron (65-175) ug/dL TIBC (228-460) ug/dL % Saturation (15.00-50.00) Ferritin (22.0-322.0) ng/mL AST 67 H (17-59) U/L Alkaline Phosphatase 217 H (38-126) U/L Total Protein 5.1 L (6.3-8.2) g/dL Albumin 2.5 L (3.5-5.0) g/dL CA 19-9 Antigen (0.0-34.9) U/mL Vitamin B12 (200.0-944.0) pg/mL Ur Specific [place] (1.001-1.035) Urine Protein (Negative) 12/10/19 Range/Units 08:09 WBC (3.8-10.6) k/uL RBC (4.30-5.90) m/uL Hgb (13.0-17.5) gm/dL Hct (39.0-53.0) % RDW (11.5-15.5) % Plt Count (150-450) k/uL Neutrophils # (Manual) (1.3-7.7) k/uL Monocytes # (Manual) (0-1.0) k/uL Metamyelocytes # (Man) (0) k/uL Myelocytes # (Manual) (0) k/uL Nucleated RBCs (0-0) /100 WBC PT (9.0-12.0) sec INR (<1.2) APTT (22.0-30.0) sec ABG pH 7.27 L (7.35-7.45) ABG pCO2 49 H (35-45) mmHg ABG pO2 80 L (83-108) mmHg ABG Total CO2 (19-24) mmol/L ABG O2 Saturation 93.2 L (94-97) % Sodium (137-145) mmol/L BUN (9-20) mg/dL Creatinine (0.66-1.25) mg/dL Glucose (74-99) mg/dL POC Glucose (mg/dL) (75-99) mg/dL Calcium (8.4-10.2) mg/dL Magnesium (1.6-2.3) mg/dL Iron (65-175) ug/dL TIBC (228-460) ug/dL % Saturation (15.00-50.00) Ferritin (22.0-322.0) ng/mL AST (17-59) U/L Alkaline Phosphatase (38-126) U/L Total Protein (6.3-8.2) g/dL Albumin (3.5-5.0) g/dL CA 19-9 Antigen (0.0-34.9) U/mL Vitamin B12 (200.0-944.0) pg/mL Ur Specific [place] (1.001-1.035) Urine Protein (Negative) Microbiology - Last 24 Hours (Table) 12/09/19 17:43 Gram Stain - Preliminary Sputum Sputum Culture - Preliminary 12/06/19 16:52 Blood Culture - Preliminary Blood No Growth after 72 hours
[2019-12-10] MEDS: SODIUM CHLORIDE 0.9% 1,000 ML IV SCH (12:24)
[2019-12-10] MEDS: HEPARIN SOD,PORK IN 0.45% NACL 25,000 UNIT in 0.45% NACL 1 250ML.BAG IV SCH (12:32)
[2019-12-10] MEDS: LEVOFLOXACIN 750 MG TAB PO SCH (12:32)
--- NOTE | 2019-12-10 14:50 | P.PN ---
Subjective Progress Note Date: 12/10/19 Principal diagnosis: Acute hypoxic respiratory failure, possible lymphangitic carcinomatosis, or chemotherapy-induced pneumonitis, or pulmonary infection, along with acute pulmonary emboli. 64-year-old white male patient of Dr. Hayes, with past medical history of pancreatic cancer with obstructive jaundice status post, on bile duct stent placement, diagnosed in March 2019, with pathology positive for adenocarcinoma T2 N0 a diagnosis. Patient underwent 6 cycles of Folfirinox, and patient was referred to [facility] for evaluation of Whipple surgery, we'll reduce the coronaries pandemic his surgery was postponed and he was being treated with systemic chemotherapy. Patient was recently hospitalized from 10/05/2019 through 10/07/2019 for abdominal pain secondary to pancreatic cancer and pancreatitis, severe nonketotic hyperglycemia. Patient clinically improved, rehydrated, blood sugars controlled, his lipase and amylase were trending down, patient was discharged home in stable condition. On 12/06/2019 patient came back to the emergency department complaints of weakness and shortness of breath. He states he has not been able to walk related to increasing weakness, patient lives alone at home. His had multiple falls at home, he did strike his head on several occasions. He denied any pain complaints at this time, no hemoptysis, some mild cough, nonproductive, patient resumed his chemotherapy and his last treatment was last week. Patient has been having diarrhea without any evidence of bile or blood, he feels nauseated, but he has not been vomiting. His chest x-ray showed increasing reticulonodular prominence with a concern of developing interstitial edema and/or atypical acute infectious process, lymphangitic carcinomatosis was being considered. 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 Patient has been afebrile since admission, the T-max of 101F in the last 24 hours. This yesterday his oxygen requirement has significantly increased, and patient is currently on 15 L per partial rebreather mask with a pulse ox of 92%, currently on antibiotics in the form of Rocephin and Levaquin, ID service is following, he has received some Lasix per primary care service. CT of the chest, abdomen and pelvis were completed yesterday showing extensive interstitial infiltrates in both lungs with diffuse honeycomb pattern there is more severe in the upper lobes, small bilateral pleural effusions no mediastinal adenopathy, biliary stent was noted, in good position, no dilated ducts, pancreatic mass measuring 4.3 cm and appears increased compared to old exam, no evidence of bowel obstruction. ID service is following, medical oncology is following, white count is trending up, and is up to 29.3 on today's labs, hemoglobin 7.7, sodium is 1:30, potassium is 3.2, BUN is 5, creatinine 0.48, LDH is 1397, CA 199 is 66. Patient appears very weak on today's exam, on partial rebreather with a pulse ox of 92-93%, no altered mentation, he is answering questions appropriately, we were asked to see the patient in regards to worsening hypoxic respiratory failure. Patient was evaluated today on 12/10/19, I saw him yesterday on consultation, and shortly after the patient's condition deteriorated to the point that the patient required to be intubated and placed on mechanical ventilation. He is presently on tidal volume of 450 FiO2 is 50% PEEP of 8, assist control rate of 24. ABG showed a pO2 of 80 pCO2 of 49 pH of 7.27, hence his rate was increased to 28. Chest x-ray shows diffuse interstitial process, and the differential diagnoses includes mostly lymphangitic carcinomatosis, or medications induced pneumonitis, or possibly underlying infection which is felt to be less likely based on my bronchoscopic findings today. Patient did undergo bronchoscopy and lavage of the right upper lobe and right middle lobe. No evidence of endobronchial tumors or any purulent secretions noted in the airways. The lavage was noted to be very clear. Again this speaks in favor of either lymphangitic carcinomatosis, or medications induced pneumonitis. At any rate cultures were sent for different diagnostic studies, and it was also sent to cytology. Patient remains on heparin which I held only to be able to place a central line and able to bronchoscope the patient and lavage. His IV fluid now is at 50 ML per hour. Patient is on propofol at 65 mg/kg/m, and he is on Nimbex drip. Added fentanyl. Patient is on norepinephrine at 11 mcg/m. Labs showed significant leukemoid reaction with WBC count of 102 hemoglobin is 8.7, platelets are back to normal today at 453. Basic metabolic profile is normal. Objective - Vital Signs Vital signs: Vital Signs Temp 97.5 F L 12/10/19 12:00 Pulse 69 12/10/19 14:00 Resp 28 H 12/10/19 14:00 BP 112/67 12/09/19 22:00 Pulse Ox 96 12/10/19 14:00 Intake & Output 12/09/19 12/10/19 12/10/19 18:59 06:59 18:59 Intake Total 4227.851 1556.515 892.398 Output Total 310 1225 420 Balance 4059.815 2519.515 472.398 Weight 67.2 kg Intake: IV 6 2250 350 0.9 6 1550 350 Piperacillin-Tazobactam 3 200 .375 gm In Sodium Chloride 0.9% 100 ml @ 25 mls/hr IVPB Q8H ANNA Rx#: [id number] Vancomycin 1,250 mg In 500 Sodium Chloride 0.9% 250 ml @ 125 mls/hr IVPB Q8H ANNA Rx#:[id number] Intake, IV Titration 1007.441 627.515 542.398 Amount Cisatracurium 200 mg In 4.142 Sodium Chloride 0.9% 180 ml @ 1 MCG/KG/MIN 4.212 mls/hr IV .Q24H ANNA Rx#: [id number] Heparin Sod,Pork in 0.45% 86.58 76.869 NaCl 25,000 unit In 0.45 % NaCl 1 250ml.bag @ 18 UNITS/KG/HR 12.636 mls/hr IV .[id number] ANNA Rx#: [id number] Norepinephrine 4 mg In 284.669 365.529 Sodium Chloride 0.9% 250 ml @ 0.05 MCG/KG/MIN 13. 373 mls/hr IV .Q19H ANNA Rx#:[id number] Sodium Chloride 0.9% 1, 1000 000 ml @ 999 mls/hr IV . Q1H1M ONE Rx#:[id number] propofoL 1,000 mg In 7.441 252.124 100 Empty Bag 1 bag @ Titrate IV .Q0M ANNA Rx#: [id number] Oral 476 Output: Urine 310 1225 420 Other: Voiding Method Indwelling Catheter Indwelling Catheter Indwelling Catheter # Voids 3 ABP, PAP, CO, CI - Last Documented Arterial Blood Pressure 125/53 - Exam General: Revealed a 64-year-old white male on mechanical ventilation, sedated and paralyzed. Head: Minimal bruising noted in the right forehead area, otherwise negative. Endotracheal tube and orogastric tube are intact. HEENT: PERRLA, EOMI, no icterus. Lungs: Minimal fine crackles at the bases no rhonchi no wheezes. Chest Wall: Symmetrical chest expansion, no chest wall tenderness. Heart: Normal S1 and S2 no gallops, no murmur. Abdomen: Flat, soft, nontender, no megaly, no rebound, no guarding. Extremities: No clubbing edema or cyanosis. Pulses: 2+ and symmetric. Skin: Good skin turgor, no rashes Neurologic: Could not be assessed, patient is sedated and paralyzed - Labs CBC & Chem 7: 12/10/19 04:36 12/10/19 04:36 Labs: Abnormal Lab Results - Last 24 Hours (Table) 12/09/19 12/09/19 12/09/19 Range/Units 06:21 15:50 16:20 WBC (3.8-10.6) k/uL RBC (4.30-5.90) m/uL Hgb (13.0-17.5) gm/dL Hct (39.0-53.0) % RDW (11.5-15.5) % Plt Count (150-450) k/uL Neutrophils # (Manual) (1.3-7.7) k/uL Monocytes # (Manual) (0-1.0) k/uL Metamyelocytes # (Man) (0) k/uL Myelocytes # (Manual) (0) k/uL Nucleated RBCs (0-0) /100 WBC PT (9.0-12.0) sec INR (<1.2) APTT (22.0-30.0) sec ABG pH (7.35-7.45) ABG pCO2 (35-45) mmHg ABG pO2 (83-108) mmHg ABG Total CO2 (19-24) mmol/L ABG O2 Saturation (94-97) % Sodium (137-145) mmol/L BUN (9-20) mg/dL Creatinine (0.66-1.25) mg/dL Glucose (74-99) mg/dL POC Glucose (mg/dL) 194 H 194 H (75-99) mg/dL Calcium (8.4-10.2) mg/dL Magnesium (1.6-2.3) mg/dL Iron 9 L (65-175) ug/dL TIBC 134 L (228-460) ug/dL % Saturation 6.72 L (15.00-50.00) Ferritin 2952.3 H (22.0-322.0) ng/mL AST (17-59) U/L Alkaline Phosphatase (38-126) U/L Total Protein (6.3-8.2) g/dL Albumin (3.5-5.0) g/dL Vitamin B12 2625.0 H (200.0-944.0) pg/mL Ur Specific [place] (1.001-1.035) Urine Protein (Negative) 12/09/19 12/09/19 12/09/19 Range/Units 17:30 17:35 17:35 WBC 73.6 H* (3.8-10.6) k/uL RBC 2.89 L (4.30-5.90) m/uL Hgb 8.3 L (13.0-17.5) gm/dL Hct 26.1 L (39.0-53.0) % RDW 18.5 H (11.5-15.5) % Plt Count (150-450) k/uL Neutrophils # (Manual) 64.70 H (1.3-7.7) k/uL Monocytes # (Manual) 1.47 H (0-1.0) k/uL Metamyelocytes # (Man) 5.15 H (0) k/uL Myelocytes # (Manual) 1.47 H (0) k/uL Nucleated RBCs (0-0) /100 WBC PT (9.0-12.0) sec INR (<1.2) APTT (22.0-30.0) sec ABG pH 7.29 L (7.35-7.45) ABG pCO2 51 H (35-45) mmHg ABG pO2 233 H (83-108) mmHg ABG Total CO2 26 H (19-24) mmol/L ABG O2 Saturation 98.8 H (94-97) % Sodium 132 L (137-145) mmol/L BUN 7 L (9-20) mg/dL Creatinine 0.45 L (0.66-1.25) mg/dL Glucose 188 H (74-99) mg/dL POC Glucose (mg/dL) (75-99) mg/dL Calcium 7.3 L (8.4-10.2) mg/dL Magnesium (1.6-2.3) mg/dL Iron (65-175) ug/dL TIBC (228-460) ug/dL % Saturation (15.00-50.00) Ferritin (22.0-322.0) ng/mL AST (17-59) U/L Alkaline Phosphatase (38-126) U/L Total Protein (6.3-8.2) g/dL Albumin (3.5-5.0) g/dL Vitamin B12 (200.0-944.0) pg/mL Ur Specific [place] (1.001-1.035) Urine Protein (Negative) 12/09/19 12/09/19 12/09/19 Range/Units 17:35 18:52 23:54 WBC (3.8-10.6) k/uL RBC (4.30-5.90) m/uL Hgb (13.0-17.5) gm/dL Hct (39.0-53.0) % RDW (11.5-15.5) % Plt Count (150-450) k/uL Neutrophils # (Manual) (1.3-7.7) k/uL Monocytes # (Manual) (0-1.0) k/uL Metamyelocytes # (Man) (0) k/uL Myelocytes # (Manual) (0) k/uL Nucleated RBCs (0-0) /100 WBC PT 18.3 H (9.0-12.0) sec INR 1.9 H (<1.2) APTT 31.9 H >200.0 H* (22.0-30.0) sec ABG pH (7.35-7.45) ABG pCO2 (35-45) mmHg ABG pO2 (83-108) mmHg ABG Total CO2 (19-24) mmol/L ABG O2 Saturation (94-97) % Sodium (137-145) mmol/L BUN (9-20) mg/dL Creatinine (0.66-1.25) mg/dL Glucose (74-99) mg/dL POC Glucose (mg/dL) (75-99) mg/dL Calcium (8.4-10.2) mg/dL Magnesium (1.6-2.3) mg/dL Iron (65-175) ug/dL TIBC (228-460) ug/dL % Saturation (15.00-50.00) Ferritin (22.0-322.0) ng/mL AST (17-59) U/L Alkaline Phosphatase (38-126) U/L Total Protein (6.3-8.2) g/dL Albumin (3.5-5.0) g/dL Vitamin B12 (200.0-944.0) pg/mL Ur Specific [place] 1.050 H (1.001-1.035) Urine Protein Trace H (Negative) 12/10/19 12/10/19 12/10/19 Range/Units 01:44 04:36 04:36 WBC 102.0 H* (3.8-10.6) k/uL RBC 3.04 L (4.30-5.90) m/uL Hgb 8.7 L (13.0-17.5) gm/dL Hct 27.5 L (39.0-53.0) % RDW 19.1 H (11.5-15.5) % Plt Count 453 H (150-450) k/uL Neutrophils # (Manual) 86.70 H (1.3-7.7) k/uL Monocytes # (Manual) (0-1.0) k/uL Metamyelocytes # (Man) 5.10 H (0) k/uL Myelocytes # (Manual) 6.12 H (0) k/uL Nucleated RBCs 1 H (0-0) /100 WBC PT (9.0-12.0) sec INR (<1.2) APTT (22.0-30.0) sec ABG pH (7.35-7.45) ABG pCO2 (35-45) mmHg ABG pO2 (83-108) mmHg ABG Total CO2 (19-24) mmol/L ABG O2 Saturation (94-97) % Sodium 136 L (137-145) mmol/L BUN (9-20) mg/dL Creatinine 0.45 L (0.66-1.25) mg/dL Glucose 239 H (74-99) mg/dL POC Glucose (mg/dL) 243 H (75-99) mg/dL Calcium 7.6 L (8.4-10.2) mg/dL Magnesium 2.6 H (1.6-2.3) mg/dL Iron (65-175) ug/dL TIBC (228-460) ug/dL % Saturation (15.00-50.00) Ferritin (22.0-322.0) ng/mL AST 67 H (17-59) U/L Alkaline Phosphatase 217 H (38-126) U/L Total Protein 5.1 L (6.3-8.2) g/dL Albumin 2.5 L (3.5-5.0) g/dL Vitamin B12 (200.0-944.0) pg/mL Ur Specific [place] (1.001-1.035) Urine Protein (Negative) 12/10/19 12/10/19 12/10/19 Range/Units 05:54 08:09 12:13 WBC (3.8-10.6) k/uL RBC (4.30-5.90) m/uL Hgb (13.0-17.5) gm/dL Hct (39.0-53.0) % RDW (11.5-15.5) % Plt Count (150-450) k/uL Neutrophils # (Manual) (1.3-7.7) k/uL Monocytes # (Manual) (0-1.0) k/uL Metamyelocytes # (Man) (0) k/uL Myelocytes # (Manual) (0) k/uL Nucleated RBCs (0-0) /100 WBC PT (9.0-12.0) sec INR (<1.2) APTT 35.4 H (22.0-30.0) sec ABG pH 7.27 L (7.35-7.45) ABG pCO2 49 H (35-45) mmHg ABG pO2 80 L (83-108) mmHg ABG Total CO2 (19-24) mmol/L ABG O2 Saturation 93.2 L (94-97) % Sodium (137-145) mmol/L BUN (9-20) mg/dL Creatinine (0.66-1.25) mg/dL Glucose (74-99) mg/dL POC Glucose (mg/dL) 218 H (75-99) mg/dL Calcium (8.4-10.2) mg/dL Magnesium (1.6-2.3) mg/dL Iron (65-175) ug/dL TIBC (228-460) ug/dL % Saturation (15.00-50.00) Ferritin (22.0-322.0) ng/mL AST (17-59) U/L Alkaline Phosphatase (38-126) U/L Total Protein (6.3-8.2) g/dL Albumin (3.5-5.0) g/dL Vitamin B12 (200.0-944.0) pg/mL Ur Specific [place] (1.001-1.035) Urine Protein (Negative) Microbiology - Last 24 Hours (Table) 12/09/19 17:43 Gram Stain - Preliminary Sputum Sputum Culture - Preliminary 12/06/19 16:52 Blood Culture - Preliminary Blood No Growth after 72 hours Assessment and Plan Assessment: Impression: Acute hypoxic respiratory failure, multifactorial, 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 Thromboembolic disease with pulmonary embolism as noted on CT angiogram of the chest which is another contributing factor to his acute hypoxic respiratory failure. And the patient remains on heparin. Suspect metastatic pancreatic cancer. Sepsis, possible septic shock, requiring pressors, exact source is not clear, could be GI in nature. Patient had recent symptoms of colitis. And diarrhea. Acute pulmonary embolism. History of underlying coronary artery disease. Type 2 diabetes. Chronic diabetic neuropathy. History of depression. Profound medical debility. Plan: Continue ventilatory support. Continue nutritional support. Continue pressors and hemodynamic support. Continue heparin. Continue steroids. Continue broad-spectrum antibiotics. Continue sedation. Continue GI prophylaxis. Await labs from bronchoscopy and BAL of right upper lobe and right middle lobe. Overall picture is poor, prognosis is extremely guarded. We'll continue to follow. Patient is critically ill, critical care time is 40 minutes, not including time spent on procedures. Time with Patient: Greater than 30
[2019-12-10] MEDS: fentaNYL (PF) 1,000 MCG in SODIUM CHLORIDE 0.9% 80 ML IV SCH (15:53)
[2019-12-10 16:29] LABS: Appearance,BF Hazy; Color,BF Colorless; Nucleated Cells, Body Fluid 29 /uL; RBC, Body Fluid 12 /uL
[2019-12-10 16:34] LABS: Mononuclear WBC,Body Fluid 70 %; Polynuclear WBC,Body Fluid 30 %; Total Cells Counted,Body Fluid 100
--- NOTE | 2019-12-10 17:21 | PN ---
PROGRESS NOTE DATE OF SERVICE: 12/10/2019 REASON FOR FOLLOWUP: Pneumonia. INTERVAL HISTORY: The patient is currently afebrile. Patient is hemodynamically stable. The patient remains to be intubated on the vent and status post bronchoscopy. The patient had no significant purulent secretion per the RN and no diarrhea has been reported. PHYSICAL EXAMINATION: Blood pressure 120/51 with a pulse of 71, temperature 97.5. He is 96% on 50% FiO2. General description is a middle-aged male, lying in bed in no distress. RESPIRATORY SYSTEM: Unlabored breathing, some coarse breath sounds bilaterally, no wheeze. HEART: S1, S2. Regular rate and rhythm. ABDOMEN: Soft, no tenderness. LABS: Hemoglobin 8.7, white count of 102, BUN of 20, creatinine 0.45. Sputum cultures currently pending, blood culture so far negative. DIAGNOSTIC IMPRESSION AND PLAN: Patient with acute respiratory failure which is likely multifactorial. This patient did have underlying pancreatic C and did have bilateral PE, plus-minus a component of pneumonia. The patient is currently covered with Zosyn and Levaquin to continue while waiting for the culture to finalize and monitor clinical course closely. MMODL / IJN: [id number] /
--- NOTE | 2019-12-10 17:36 | OP ---
OPERATIVE REPORT OPERATION: Bronchoscopy and bronchoalveolar lavage of the right upper lobe and right middle lobe. PREOPERATIVE DIAGNOSIS: Acute hypoxic respiratory failure and interstitial infiltrates bilaterally. Differential diagnosis includes infection, lymphangitic carcinomatosis with metastatic pancreatic cancer, and acute lung injury secondary to chemotherapy. POSTOPERATIVE DIAGNOSIS: Acute hypoxic respiratory failure and interstitial infiltrates bilaterally. Differential diagnosis includes infection, lymphangitic carcinomatosis with metastatic pancreatic cancer, and acute lung injury secondary to chemotherapy. ANESTHESIA USED: The patient was already on mechanical ventilation, he was already on Nimbex and propofol. PROCEDURE: The patient was placed in the supine position. We monitored his O2 saturation continuously. Blood pressure was continuously monitored via arterial line and cardiac rhythm was continuously monitored. An adapter was applied to the endotracheal tube and the patient was placed on high FiO2 100%. The bronchoscope was inserted through the endotracheal tube down to the area of the distal trachea. Thorough examination was done of [place], right upper lobe, right middle lobe, right lower lobe, left upper lobe, lingula and left lower lobe. There was no evidence of any purulent secretions noted in the airways. There was no evidence of any endobronchial tumors. Then, a bronchoalveolar lavage was performed of the right upper lobe and right middle lobe. The fluid was sent for different diagnostic studies including cytology. The procedure was well tolerated and no evidence of any immediate complications. MMODL / IJN: [id number] /
--- NOTE | 2019-12-10 17:36 | OP ---
OPERATIVE REPORT OPERATION: Placement of a right femoral triple-lumen catheter. PREOPERATIVE DIAGNOSIS: Acute hypoxic respiratory failure. POSTOPERATIVE DIAGNOSIS: Acute hypoxic respiratory failure. ANESTHESIA USED: 2 mL of 1% lidocaine. PROCEDURE: The patient was placed in a supine position. The right groin was prepared in a sterile fashion and drapes were applied. The area was locally anesthetized and the right femoral vein was easily cannulated, a guidewire was placed, and the area around the guidewire was dilated using a dilator. Then a triple-lumen catheter was inserted over the guidewire and the guidewire was removed. Good blood flow noted in the three different ports. The line was secured using 3.0 silk sutures. No evidence of any immediate complications. MMODL / IJN: [id number] /
[2019-12-10 17:50] LABS: Glucose,Whole Blood 230 mg/dL (75-99)
[2019-12-10 18:32] VITALS: BP 109/73
[2019-12-10 23:56] LABS: Glucose,Whole Blood 244 mg/dL (75-99)
[2019-12-11] MEDS: INSULIN ASPART (NovoLOG) 100 UNIT/ML VIAL SQ SCH ×8 (00:02→23:54)
[2019-12-11] MEDS: DEXAMETHASONE SOD PHOSPHATE 4 MG/ML 1 ML VIAL IV SCH ×5 (00:03→23:56)
[2019-12-11] MEDS: CISATRACURIUM 200 MG in SODIUM CHLORIDE 0.9% 180 ML IV SCH ×2 (00:29→23:55)
[2019-12-11] MEDS: HEPARIN SOD,PORK IN 0.45% NACL 25,000 UNIT in 0.45% NACL 1 250ML.BAG IV SCH (00:46)
[2019-12-11] MEDS: NOREPINEPHRINE 4 MG in SODIUM CHLORIDE 0.9% 250 ML IV SCH ×2 (02:00→11:58)
[2019-12-11 05:21] LABS: Anisocytosis Slight; HCT 24.4 % (39.0-53.0); HGB 7.5 gm/dL (13.0-17.5); Hypochromasia Moderate; MCH 28.2 pg (25.0-35.0); MCHC 30.8 g/dL (31.0-37.0); MCV 91.6 fL (80.0-100.0); Macrocytosis Slight; Mean Platelet Volume 8.7; Platelet Count 449 k/uL (150-450); Poikilocytosis Slight; RBC 2.66 m/uL (4.30-5.90); RDW 19.6 % (11.5-15.5)
[2019-12-11 05:30] LABS: African American GFR (CKD) >90 (>60 ml/min/1.73 sqM); Anion Gap 2 mmol/L; Blood Urea Nitrogen 12 mg/dL (9-20); Calcium 7.3 mg/dL (8.4-10.2); Carbon Dioxide 25 mmol/L (22-30); Chloride 110 mmol/L (98-107); Glucose 196 mg/dL (74-99); Non-African American GFR(CKD) >90 (>60 ml/min/1.73 sqM); Potassium 4.4 mmol/L (3.5-5.1); Sodium 137 mmol/L (137-145)
[2019-12-11] MEDS ORDERED: VANCOMYCIN TROUGH DUE 1 EACH MISC MISCELLANE ONE (06:00)
[2019-12-11 06:03] LABS: Glucose,Whole Blood 219 mg/dL (75-99)
[2019-12-11 06:05] LABS: Band Neutrophils % 20 %; Lymphocytes # (M) 0.71 k/uL (1.0-4.8); Metamyelocytes # (M) 6.43 k/uL (0); Metamyelocytes % 9 %; Monocytes # (M) 0.71 k/uL (0-1.0); Myelocytes # (M) 1.43 k/uL (0); Myelocytes % 2 %; Neutrophils % (M) 68 %; Nucleated Red Blood Cells 1 /100 WBC (0-0); Total Cells Counted 200; WBC 71.4 k/uL (3.8-10.6)
[2019-12-11 06:06] LABS: Polychromasia Present
[2019-12-11 06:07] LABS: Large Platelets Present
[2019-12-11] MEDS: PIPERACILLIN-TAZOBACTAM 3.375 GM in SODIUM CHLORIDE 0.9% 100 ML IVPB SCH ×3 (06:07→21:19)
[2019-12-11] MEDS: INSULIN DETEMIR (LEVEMIR) 100 UNIT/ML SYR SQ SCH (06:41)
[2019-12-11] MEDS: VANCOMYCIN 1,000 MG in SODIUM CHLORIDE 0.9% 250 ML IVPB SCH ×2 (07:02→14:39)
[2019-12-11 07:07] LABS: ABG Base Excess -1.6 mmol/L; ABG HCO3 24 mmol/L (21-25); ABG Oxygen Saturation 97.3 % (94-97); ABG PCO2 43 mmHg (35-45); ABG PH 7.35 (7.35-7.45); ABG PO2 100 mmHg (83-108); ABG TCO2 25 mmol/L (19-24); Allen Test Performed? Yes
--- NOTE | 2019-12-11 07:37 | XR ---
EXAMINATION TYPE: XR chest 1V portable DATE OF EXAM: 12/11/2019 CLINICAL HISTORY: Difficulty breathing progress study. TECHNIQUE: Single AP portable semiupright view of the chest is obtained. COMPARISON: Chest x-ray from one day earlier and older studies. CTA chest 2 days ago. FINDINGS: Stable endotracheal and orogastric tubes. Stable right internal jugular Mediport catheter ascending the neck outside of field of view. Background chronic emphysematous and pulmonary fibrotic change bilaterally with improving bilateral i nterstitial edema. No new focal airspace opacity, pleural effusion, or pneumothorax seen. Cardiac renata houette size is stable and within normal limits. Osseous structures are intact. IMPRESSION: Improving interstitial edema on background chronic emphysematous and pulmonary fibrotic c hanges.
[2019-12-11] MEDS: METOPROLOL SUCCINATE (ER) 25 MG TAB.ER.24H PO SCH (08:26)
[2019-12-11] MEDS: lisinopriL 5 MG TAB PO SCH (08:26)
[2019-12-11] MEDS: ATORVASTATIN 80 MG TAB PO SCH (08:50)
[2019-12-11] MEDS: PANTOPRAZOLE 40 MG/10 ML VIAL IVP SCH (08:50)
[2019-12-11] MEDS: CHLORHEXIDINE GLUCONATE 15 ML CUP MUCOUS MEM SCH ×2 (08:50→20:14)
[2019-12-11] MEDS: CHOLESTYRAMINE (WITH SUGAR) 4 GM PACKET PO SCH ×2 (08:50→17:53)
[2019-12-11] MEDS: SERTRALINE 100 MG TAB PO SCH (08:50)
[2019-12-11] MEDS: GABAPENTIN 100 MG CAP PO SCH ×2 (08:50→20:14)
[2019-12-11] MEDS: SODIUM CHLORIDE 0.9% 1,000 ML IV SCH (08:52)
--- NOTE | 2019-12-11 11:01 | P.PN ---
Subjective Progress Note Date: 12/11/19 64-year-old was diagnosed with pancreatic cancer back in September [address] maria and has been on chemotherapy. Patient has been getting weaker every day had falling multiple time. Today patient had fall with closed head trauma and injury and had significant confusion with generalized weakness. His white blood cell was over 23,000, patient had significant anemia, lactic acid was significantly elevated. Patient was started on Zosyn, hydration and fluid resuscitation, but kept in bedrest O2 and admit patient to the hospital. Apparently patient has not been doing well since his diagnoses with pink at the cancer despite the chemotherapy patient is getting weaker and much worse day by day. Chest x-ray had? Off atypical acute infectious process with Lymphangitic carcinomatosis is not excluded with? Off fluid overload and infiltrate in the bases. 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 12/06: Patient has been seen by Dr. Holt with recommendations to continue Zosyn, obtain stool studies and sputum for culture. Patient has been seen by oncology and added Questran and Lomotil for diarrhea. CAT scan of the chest was ordered by oncology. Patient has been afebrile, heart rate 101, blood pressure 101/60, pulse ox 92% on 4 L nasal cannula. WBC 22.3, hemoglobin 7.1, platelet count 169. Sodium 132, potassium 2.3 and being replaced, BUN 6 and creatinine 0.49. Coated 19 testing is negative. Blood culture and urine culture in progress. 12/07: CAT scan of the chest abdomen and pelvis with contrast revealed small pleural effusions appear new. Diffuse honeycomb pattern in the lungs consistent with significant interstitial lung disease. This could be acute or chronic interstitial lung disease. Interstitial basilar pulmonary infiltrates are essentially new. Few bilateral bronchial lymph nodes probably due to inflammatory disease. Biliary stent in good position. No dilated ducts. Pancreatic mass measures 4.3 cm and appears increased 1 cm compared to old exam. No evidence of bowel obstruction. Normal appendix. Urine culture has been finalized with no growth. Blood culture showing no growth at 24 hours. Patient has been afebrile, heart rate 93, blood pressure 109/61, pulse ox 90% on 2 L nasal cannula. Repeat blood work reveals potassium of 2.6, sodium 132. BUN 4 and creatinine 0.54. Repeat magnesium 1.6. Patient will be replaced with 120 mEq of potassium and magnesium 2 g. Repeat blood work this evening and in the morning. 12/08: This morning, patient is on high flow nasal cannula 13 L continues to have difficulty breathing, temperature max 100.4, heart rate 97, respiratory rate 24. Blood pressure is on the low side 89/53. CT of the chest ordered came back positive for pulmonary embolism and patient started on Lovenox 1 mg/kg twice daily. Repeat potassium last evening was 3.0. This morning, potassium is 3.2 and will be replaced with 80 mEq, magnesium replaced again today. Sodium 130. Blood sugars running between 118-133. Total bilirubin 0.8, AST 63, ALT 33, alkaline phosphatase 170, LDH 1397, CA 199 elevated at 66. Albumin 2.1. Consult with pulmonary medicine for possibility of lymphangitic carcinomatosis, chemotherapy-induced pneumonitis as well as newly found acute pulmonary embolism possible pulmonary infection not excluded. Bronchoscopy will be considered. 12/09: Patient continued to do poorly yesterday afternoon and was transferred into the intensive care unit and subsequently intubated and placed on mechanical ventilation, tidal volume 450, FiO2 50, PEEP 8. Patient has been afebrile, heart rate 73, blood pressure 104/52. Patient's temperature has been down to 95.9 and placed on Randall hugger. Pena catheter has been placed with adequate good urine output. He is currently on Nimbex, heparin drip, norepinephrine. He is continued on IV antibiotics with Zosyn and vancomycin. Patient is also on Levaquin. Chest x-ray this morning reveals mildly decreased pulmonary edema. Blood work last evening revealed a rising leukocytosis at 73.6 and this morning at 102. Hemoglobin 8.7, platelet count 453. Sodium 136, potassium 4.7, chloride 105, CO2 22, BUN 10 and creatinine 0.45. Blood sugars running between 133 and 243. Total bilirubin is 0.8, AST 67, ALT 35, alkaline phosphatase 217. Urinalysis clear with nitrate and leukoesterase negative. Sputum culture and stool culture in process. Blood culture no growth at 72 hours. Patient's is at bedside and current condition, plan and prognosis reviewed with her. Patient is currently a full code. 12/10: Patient remains intubated and on mechanical ventilation. He is currently on Levothroid with decreased dose, fentanyl and Nimbex. She is on heparin drip for PE. Patient's temperature drops once he is off the Randall hugger and this is currently in place. Repeat chest x-ray this morning reveals improving inte rstitial edema on background chronic emphysematous and pulmonic fibrotic changes. Patient is currently on Zosyn, Levaquin and vancomycin. Patient underwent bronchoscopy and BAL of the right upper lobe and right middle lobe, pathology and cultures pending. Temperature is currently 97.5 with Randall hugger, heart rate 92, respiratory rate 28, blood pressure 101/48. Repeat blood work reveals WBC 71.4, hemoglobin 7.5, platelet count at 449. Sodium 137, potassium 4.4, chloride 110, CO2 25, BUN 12 and creatinine 0.43. Blood sugars running 196-244. Schedule NovoLog added. Urine output adequate. Review of systems Unable to be obtained due to intubation Physical examination General Appearance: Alert, cooperative, mild bruise in the forehead area. Patient is seen in the intensive care unit. No acute distress noted. Randall hu gger in place. Neck HEENT: Supple, no lymphadenopathy, no thyroid enlargement, no carotid bruits. Oral ET and gastric tube in place. Lungs: Decreased breath with congestion bilaterally. Chest Wall: Decrease expansion with deep inspiration no tenderness and no deformity was found on exam, no costochondral pain or discomfort. Heart: Regular rate and rhythm, S1, S2 normal, no murmur, rub or gallop. Abdomen: Soft. Nontender. Pena catheter in place. Extremities: Extremities normal, atraumatic, no cyanosis positive edema. Pulses: 2+ and symmetric. Skin: Skin color, texture, tugor normal, no rashes or lesions. Neurologic: Patient is intubated on mechanical ventilation and on Nimbex. Assessment and plan 1 sepsis with diarrhea, possible pneumonia, presenting with metabolic encephalopathy. CAT scan of the chest has been ordered by oncology. Consult with Dr. Holt. Continue Zosyn, Levaquin, vancomycin. 2 multiple fall and trauma: No intracranial hemorrhage at this point CAT scan is be negative no cervical spine injury. 3 acute hypoxic respiratory failure secondary to pulmonary embolism, present on admission, possible lymphangitic carcinomatosis, chemotherapy-induced pneumonitis. Patient has required intubation mechanical ventilation. Continue heparin drip, DuoNeb treatments 4 times daily as needed, Decadron 4 mg IV every 6 hours, Levaquin, Zosyn and vancomycin. Consult with pulmonary medicine and infectious disease appreciated. Patient is status post bronchoscopy. Await cultures and pathology. 4 pancreatic cancer: Has been on chemotherapy seen oncology on regular basis. Oncology consult appreciated. 5 Significant electrolyte imbalance: With severe hypokalemia: Continue replacement therapy along with correcting hypomagnesemia. Continue replacement. 6 nonketotic hyperglycemia. Continue Levemir 15 units daily and NovoLog scale every 6 hours. 7 severe anemia with hemoglobin is down to 8.2, no need for transfusion continue iron and multivitamins. 8 hypothermia and severe leukocytosis of unclear etiology. Continue current management. 9 septic shock requiring vasopressor. 10 pulmonary embolism. Continue heparin drip. 11 UTI ruled out. 12 history of coronary disease. Continue Lipitor, lisinopril and Toprol-XL. 13 type 2 diabetes, uncontrolled with hyperglycemia. Continue as above. 14 chronic neuropathy: Has been on gabapentin 200 mg twice a day. 15 hyperlipidemia: Remain on atorvastatin 80 mg daily. 16 chronic pain management: Has been on hydrocodone every 6 hours as needed. 17 recurrent depression: On Zoloft 100 mg daily. 18 GI prophylaxis: Pantoprazole. 19 DVT prophylaxis: Heparin gtt. CODE STATUS: Full code. Discharge plan: Subacute rehab at [facility] or [facility]. Impression and plan of care have been directed as dictated by the signing physician. Ramila Zapien nurse practitioner acting as scribe for signing physician. Objective - Vital Signs Vital signs: Vital Signs Temp 97.5 F L 12/11/19 04:00 Pulse 88 12/11/19 08:30 Resp 28 H 12/11/19 08:30 BP 109/73 12/11/19 07:45 Pulse Ox 96 12/11/19 08:30 Intake & Output 12/10/19 12/11/19 12/11/19 18:59 06:59 18:59 Intake Total 9522.884 5909.491 494.399 Output Total 845 585 80 Balance 909.675 672.491 414.399 Weight 72 kg Intake: IV 900 600 350 0.9 550 600 100 Piperacillin-Tazobactam 3 100 .375 gm In Sodium Chloride 0.9% 100 ml @ 25 mls/hr IVPB Q8H ANNA Rx#: [id number] Vancomycin 1,250 mg In 250 250 Sodium Chloride 0.9% 250 ml @ 125 mls/hr IVPB Q8H ANNA Rx#:[id number] Intake, IV Titration 854.675 657.491 144.399 Amount Cisatracurium 200 mg In 192.91 Sodium Chloride 0.9% 180 ml @ 1 MCG/KG/MIN 4.212 mls/hr IV .Q24H ANNA Rx#: [id number] Heparin Sod,Pork in 0.45% 76.869 126.986 NaCl 25,000 unit In 0.45 % NaCl 1 250ml.bag @ 18 UNITS/KG/HR 12.636 mls/hr IV .[id number] ANNA Rx#: [id number] Norepinephrine 4 mg In 577.806 237.595 44.399 Sodium Chloride 0.9% 250 ml @ 0.05 MCG/KG/MIN 13. 373 mls/hr IV .Q19H ANNA Rx#:[id number] propofoL 1,000 mg In 200 100 100 Empty Bag 1 bag @ Titrate IV .Q0M ANNA Rx#: [id number] Output: Urine 845 585 80 Other: Voiding Method Indwelling Catheter Indwelling Catheter Indwelling Catheter ABP, PAP, CO, CI - Last Documented Arterial Blood Pressure 100/48 - Labs CBC & Chem 7: 12/11/19 05:05 12/11/19 05:05 Labs: Abnormal Lab Results - Last 24 Hours (Table) 12/10/19 12/10/19 12/10/19 Range/Units 12:13 17:49 22:30 WBC (3.8-10.6) k/uL RBC (4.30-5.90) m/uL Hgb (13.0-17.5) gm/dL Hct (39.0-53.0) % MCHC (31.0-37.0) g/dL RDW (11.5-15.5) % Neutrophils # (Manual) (1.3-7.7) k/uL Lymphocytes # (Manual) (1.0-4.8) k/uL Metamyelocytes # (Man) (0) k/uL Myelocytes # (Manual) (0) k/uL Nucleated RBCs (0-0) /100 WBC APTT 92.1 H (22.0-30.0) sec ABG Total CO2 (19-24) mmol/L ABG O2 Saturation (94-97) % Chloride (98-107) mmol/L Creatinine (0.66-1.25) mg/dL Glucose (74-99) mg/dL POC Glucose (mg/dL) 218 H 230 H (75-99) mg/dL Calcium (8.4-10.2) mg/dL 12/10/19 12/11/19 12/11/19 Range/Units 23:55 05:05 05:05 WBC 71.4 H* (3.8-10.6) k/uL RBC 2.66 L (4.30-5.90) m/uL Hgb 7.5 L (13.0-17.5) gm/dL Hct 24.4 L (39.0-53.0) % MCHC 30.8 L (31.0-37.0) g/dL RDW 19.6 H (11.5-15.5) % Neutrophils # (Manual) 62.80 H (1.3-7.7) k/uL Lymphocytes # (Manual) 0.71 L (1.0-4.8) k/uL Metamyelocytes # (Man) 6.43 H (0) k/uL Myelocytes # (Manual) 1.43 H (0) k/uL Nucleated RBCs 1 H (0-0) /100 WBC APTT 66.8 H (22.0-30.0) sec ABG Total CO2 (19-24) mmol/L ABG O2 Saturation (94-97) % Chloride (98-107) mmol/L Creatinine (0.66-1.25) mg/dL Glucose (74-99) mg/dL POC Glucose (mg/dL) 244 H (75-99) mg/dL Calcium (8.4-10.2) mg/dL 12/11/19 12/11/19 12/11/19 Range/Units 05:05 06:02 07:05 WBC (3.8-10.6) k/uL RBC (4.30-5.90) m/uL Hgb (13.0-17.5) gm/dL Hct (39.0-53.0) % MCHC (31.0-37.0) g/dL RDW (11.5-15.5) % Neutrophils # (Manual) (1.3-7.7) k/uL Lymphocytes # (Manual) (1.0-4.8) k/uL Metamyelocytes # (Man) (0) k/uL Myelocytes # (Manual) (0) k/uL Nucleated RBCs (0-0) /100 WBC APTT (22.0-30.0) sec ABG Total CO2 25 H (19-24) mmol/L ABG O2 Saturation 97.3 H (94-97) % Chloride 110 H (98-107) mmol/L Creatinine 0.43 L (0.66-1.25) mg/dL Glucose 196 H (74-99) mg/dL POC Glucose (mg/dL) 219 H (75-99) mg/dL Calcium 7.3 L (8.4-10.2) mg/dL Microbiology - Last 24 Hours (Table) 12/10/19 11:55 Gram Stain - Preliminary Bronchial Washings - Random Bronchial Washings Culture - Preliminary 12/10/19 11:55 Fungal Culture - Preliminary Bronchial Washings - Random 12/10/19 11:55 Acid Fast Bacilli Culture - Preliminary Bronchial Washings - Random 12/09/19 17:35 Blood Culture - Preliminary Blood No Growth after 24 hours 12/06/19 16:52 Blood Culture - Preliminary Blood No Growth after 96 hours 12/08/19 18:09 Stool Culture - Preliminary Stool 12/09/19 17:43 Gram Stain - Preliminary Sputum Sputum Culture - Preliminary
[2019-12-11 11:34] LABS: Glucose,Whole Blood 183 mg/dL (75-99)
[2019-12-11] MEDS: LEVOFLOXACIN 750 MG TAB PO SCH (11:52)
--- NOTE | 2019-12-11 13:21 | P.PN ---
Subjective Progress Note Date: 12/11/19 Principal diagnosis: Acute hypoxic respiratory failure, possible lymphangitic carcinomatosis, or chemotherapy-induced pneumonitis, or pulmonary infection, along with acute pulmonary emboli. 64-year-old white male patient of Dr. Hayes, with past medical history of pancreatic cancer with obstructive jaundice status post, on bile duct stent placement, diagnosed in March 2019, with pathology positive for adenocarcinoma T2 N0 a diagnosis. Patient underwent 6 cycles of Folfirinox, and patient was referred to [facility] for evaluation of Whipple surgery, we'll reduce the coronaries pandemic his surgery was postponed and he was being treated with systemic chemotherapy. Patient was recently hospitalized from 10/05/2019 through 10/07/2019 for abdominal pain secondary to pancreatic cancer and pancreatitis, severe nonketotic hyperglycemia. Patient clinically improved, rehydrated, blood sugars controlled, his lipase and amylase were trending down, patient was discharged home in stable condition. On 12/06/2019 patient came back to the emergency department complaints of weakness and shortness of breath. He states he has not been able to walk related to increasing weakness, patient lives alone at home. His had multiple falls at home, he did strike his head on several occasions. He denied any pain complaints at this time, no hemoptysis, some mild cough, nonproductive, patient resumed his chemotherapy and his last treatment was last week. Patient has been having diarrhea without any evidence of bile or blood, he feels nauseated, but he has not been vomiting. His chest x-ray showed increasing reticulonodular prominence with a concern of developing interstitial edema and/or atypical acute infectious process, lymphangitic carcinomatosis was being considered. 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 Patient has been afebrile since admission, the T-max of 101F in the last 24 hours. This yesterday his oxygen requirement has significantly increased, and patient is currently on 15 L per partial rebreather mask with a pulse ox of 92%, currently on antibiotics in the form of Rocephin and Levaquin, ID service is following, he has received some Lasix per primary care service. CT of the chest, abdomen and pelvis were completed yesterday showing extensive interstitial infiltrates in both lungs with diffuse honeycomb pattern there is more severe in the upper lobes, small bilateral pleural effusions no mediastinal adenopathy, biliary stent was noted, in good position, no dilated ducts, pancreatic mass measuring 4.3 cm and appears increased compared to old exam, no evidence of bowel obstruction. ID service is following, medical oncology is following, white count is trending up, and is up to 29.3 on today's labs, hemoglobin 7.7, sodium is 1:30, potassium is 3.2, BUN is 5, creatinine 0.48, LDH is 1397, CA 199 is 66. Patient appears very weak on today's exam, on partial rebreather with a pulse ox of 92-93%, no altered mentation, he is answering questions appropriately, we were asked to see the patient in regards to worsening hypoxic respiratory failure. Patient was evaluated today on 12/10/19, I saw him yesterday on consultation, and shortly after the patient's condition deteriorated to the point that the patient required to be intubated and placed on mechanical ventilation. He is presently on tidal volume of 450 FiO2 is 50% PEEP of 8, assist control rate of 24. ABG showed a pO2 of 80 pCO2 of 49 pH of 7.27, hence his rate was increased to 28. Chest x-ray shows diffuse interstitial process, and the differential diagnoses includes mostly lymphangitic carcinomatosis, or medications induced pneumonitis, or possibly underlying infection which is felt to be less likely based on my bronchoscopic findings today. Patient did undergo bronchoscopy and lavage of the right upper lobe and right middle lobe. No evidence of endobronchial tumors or any purulent secretions noted in the airways. The lavage was noted to be very clear. Again this speaks in favor of either lymphangitic carcinomatosis, or medications induced pneumonitis. At any rate cultures were sent for different diagnostic studies, and it was also sent to cytology. Patient remains on heparin which I held only to be able to place a central line and able to bronchoscope the patient and lavage. His IV fluid now is at 50 ML per hour. Patient is on propofol at 65 mg/kg/m, and he is on Nimbex drip. Added fentanyl. Patient is on norepinephrine at 11 mcg/m. Labs showed significant leukemoid reaction with WBC count of 102 hemoglobin is 8.7, platelets are back to normal today at 453. Basic metabolic profile is normal. Patient was reevaluated today on 12/11/19, remains in the ICU, intubated, and mechanically ventilated. Patient is on assist control rate of 28 tidal volume is 450 FiO2 is 50% and PEEP is at 8. ABG showed a pO2 of 99 pCO2 of 43 pH of 7.35, hence I kept him on the same ventilator settings. His chest x-ray is surprisingly showing some improvement. Patient continues to have intermittent episodes of hypothermia, recommended a serum cortisol level on the patient. Patient remains on Decadron, remains on vancomycin and Zosyn. He is now on Nimbex which I will discontinue propofol at 65 mcg/kg/m, fentanyl at 0.5 mcg/kg/h he is on a heparin drip for his underlying pulmonary embolism, and he is on norepinephrine at 0.04 mcg/kg/m. Patient is sedated and paralyzed, however noticing that his chest x-ray is showing improvement, that is encouraging, I will go ahead and discontinue Nimbex and hopefully be able to assess mental status today and he is definitely not ready for any weaning trials. Will definitely initiate enteral feeding. Objective - Vital Signs Vital signs: Vital Signs Temp 98.7 F 12/11/19 12:00 Pulse 81 12/11/19 13:00 Resp 28 H 12/11/19 13:00 BP 109/73 12/11/19 07:45 Pulse Ox 97 12/11/19 13:00 Intake & Output 12/10/19 12/11/19 12/11/19 18:59 06:59 18:59 Intake Total 5794.725 4093.491 886.203 Output Total 845 585 265 Balance 909.675 672.491 621.203 Weight 72 kg Intake: IV 900 600 600 0.9 550 600 350 Piperacillin-Tazobactam 3 100 .375 gm In Sodium Chloride 0.9% 100 ml @ 25 mls/hr IVPB Q8H ANNA Rx#: [id number] Vancomycin 1,250 mg In 250 250 Sodium Chloride 0.9% 250 ml @ 125 mls/hr IVPB Q8H ANNA Rx#:[id number] Intake, IV Titration 854.675 657.491 286.203 Amount Cisatracurium 200 mg In 192.91 103.826 Sodium Chloride 0.9% 180 ml @ 1 MCG/KG/MIN 4.212 mls/hr IV .Q24H ANNA Rx#: [id number] Heparin Sod,Pork in 0.45% 76.869 126.986 NaCl 25,000 unit In 0.45 % NaCl 1 250ml.bag @ 18 UNITS/KG/HR 12.636 mls/hr IV .[id number] ANNA Rx#: [id number] Norepinephrine 4 mg In 577.806 237.595 82.377 Sodium Chloride 0.9% 250 ml @ 0.05 MCG/KG/MIN 13. 373 mls/hr IV .Q19H ANNA Rx#:[id number] propofoL 1,000 mg In 200 100 100 Empty Bag 1 bag @ Titrate IV .Q0M ANNA Rx#: [id number] Output: Urine 845 585 265 Other: Voiding Method Indwelling Catheter Indwelling Catheter Indwelling Catheter ABP, PAP, CO, CI - Last Documented Arterial Blood Pressure 100/46 - Exam General: Revealed a 64-year-old white male on mechanical ventilation, sedated and paralyzed. Head: Minimal bruising noted in the right forehead area, otherwise negative. Endotracheal tube and orogastric tube are intact. HEENT: PERRLA, EOMI, no icterus. Lungs: Minimal fine crackles at the bases no rhonchi no wheezes. Chest Wall: Symmetrical chest expansion, no chest wall tenderness. Heart: Normal S1 and S2 no gallops, no murmur. Abdomen: Flat, soft, nontender, no megaly, no rebound, no guarding. Extremities: No clubbing edema or cyanosis. Pulses: 2+ and symmetric. Skin: Good skin turgor, no rashes Neurologic: Could not be assessed, patient is sedated and paralyzed - Labs CBC & Chem 7: 12/11/19 05:05 12/11/19 05:05 Labs: Abnormal Lab Results - Last 24 Hours (Table) 12/10/19 12/10/19 12/10/19 Range/Units 17:49 22:30 23:55 WBC (3.8-10.6) k/uL RBC (4.30-5.90) m/uL Hgb (13.0-17.5) gm/dL Hct (39.0-53.0) % MCHC (31.0-37.0) g/dL RDW (11.5-15.5) % Neutrophils # (Manual) (1.3-7.7) k/uL Lymphocytes # (Manual) (1.0-4.8) k/uL Metamyelocytes # (Man) (0) k/uL Myelocytes # (Manual) (0) k/uL Nucleated RBCs (0-0) /100 WBC APTT 92.1 H (22.0-30.0) sec ABG Total CO2 (19-24) mmol/L ABG O2 Saturation (94-97) % Chloride (98-107) mmol/L Creatinine (0.66-1.25) mg/dL Glucose (74-99) mg/dL POC Glucose (mg/dL) 230 H 244 H (75-99) mg/dL Calcium (8.4-10.2) mg/dL 12/11/19 12/11/19 12/11/19 Range/Units 05:05 05:05 05:05 WBC 71.4 H* (3.8-10.6) k/uL RBC 2.66 L (4.30-5.90) m/uL Hgb 7.5 L (13.0-17.5) gm/dL Hct 24.4 L (39.0-53.0) % MCHC 30.8 L (31.0-37.0) g/dL RDW 19.6 H (11.5-15.5) % Neutrophils # (Manual) 62.80 H (1.3-7.7) k/uL Lymphocytes # (Manual) 0.71 L (1.0-4.8) k/uL Metamyelocytes # (Man) 6.43 H (0) k/uL Myelocytes # (Manual) 1.43 H (0) k/uL Nucleated RBCs 1 H (0-0) /100 WBC APTT 66.8 H (22.0-30.0) sec ABG Total CO2 (19-24) mmol/L ABG O2 Saturation (94-97) % Chloride 110 H (98-107) mmol/L Creatinine 0.43 L (0.66-1.25) mg/dL Glucose 196 H (74-99) mg/dL POC Glucose (mg/dL) (75-99) mg/dL Calcium 7.3 L (8.4-10.2) mg/dL 12/11/19 12/11/19 12/11/19 Range/Units 06:02 07:05 11:33 WBC (3.8-10.6) k/uL RBC (4.30-5.90) m/uL Hgb (13.0-17.5) gm/dL Hct (39.0-53.0) % MCHC (31.0-37.0) g/dL RDW (11.5-15.5) % Neutrophils # (Manual) (1.3-7.7) k/uL Lymphocytes # (Manual) (1.0-4.8) k/uL Metamyelocytes # (Man) (0) k/uL Myelocytes # (Manual) (0) k/uL Nucleated RBCs (0-0) /100 WBC APTT (22.0-30.0) sec ABG Total CO2 25 H (19-24) mmol/L ABG O2 Saturation 97.3 H (94-97) % Chloride (98-107) mmol/L Creatinine (0.66-1.25) mg/dL Glucose (74-99) mg/dL POC Glucose (mg/dL) 219 H 183 H (75-99) mg/dL Calcium (8.4-10.2) mg/dL 12/11/19 Range/Units 11:56 WBC (3.8-10.6) k/uL RBC (4.30-5.90) m/uL Hgb (13.0-17.5) gm/dL Hct (39.0-53.0) % MCHC (31.0-37.0) g/dL RDW (11.5-15.5) % Neutrophils # (Manual) (1.3-7.7) k/uL Lymphocytes # (Manual) (1.0-4.8) k/uL Metamyelocytes # (Man) (0) k/uL Myelocytes # (Manual) (0) k/uL Nucleated RBCs (0-0) /100 WBC APTT 45.2 H (22.0-30.0) sec ABG Total CO2 (19-24) mmol/L ABG O2 Saturation (94-97) % Chloride (98-107) mmol/L Creatinine (0.66-1.25) mg/dL Glucose (74-99) mg/dL POC Glucose (mg/dL) (75-99) mg/dL Calcium (8.4-10.2) mg/dL Microbiology - Last 24 Hours (Table) 12/09/19 17:43 Gram Stain - Preliminary Sputum Sputum Culture - Preliminary 12/10/19 11:55 Gram Stain - Preliminary Bronchial Washings - Random Bronchial Washings Culture - Preliminary 12/10/19 11:55 Fungal Culture - Preliminary Bronchial Washings - Random 12/10/19 11:55 Acid Fast Bacilli Culture - Preliminary Bronchial Washings - Random 12/09/19 17:35 Blood Culture - Preliminary Blood No Growth after 24 hours 12/06/19 16:52 Blood Culture - Preliminary Blood No Growth after 96 hours 12/08/19 18:09 Stool Culture - Preliminary Stool Assessment and Plan Assessment: Impression: Acute hypoxic respiratory failure, multifactorial, suspect chemotherapy-induced pneumonitis, doubt infectious pneumonia. Doubt lymphangitic carcinomatosis since the chest x-ray is showing improvement. Thromboembolic disease with pulmonary embolism as noted on CT angiogram of the chest which is another contributing factor to his acute hypoxic respiratory failure. And the patient remains on heparin. Suspect metastatic pancreatic cancer. Sepsis, possible septic shock, requiring pressors, exact source is not clear, could be GI in nature. Patient had recent symptoms of colitis. And diarrhea. Bronchoscopy findings did not show any evidence of purulent secretions in the airways. Acute pulmonary embolism. History of underlying coronary artery disease. Type 2 diabetes. Chronic diabetic neuropathy. History of depression. Profound medical debility. Plan: Continue ventilatory support. Continue nutritional support. Continue pressors and hemodynamic support. Continue heparin. Continue steroids. Presently on Decadron. I believe this is most likely helping the most specially the patient did have drug induced pneumonitis. Continue broad-spectrum antibiotics. Continue sedation. Discontinue Nimbex/paralysis Continue GI prophylaxis. Await labs from bronchoscopy and BAL of right upper lobe and right middle lobe. Patient remains critically ill, critical care time is 35 minutes. Time with Patient: Greater than 30
[2019-12-11] MEDS: fentaNYL (PF) 1,000 MCG in SODIUM CHLORIDE 0.9% 80 ML IV SCH (13:36)
--- NOTE | 2019-12-11 14:07 | P.PN ---
Subjective Progress Note Date: 12/11/19 The patient remains on the vent. Status is improving and extubation is expected within the next 24 hours or so. No obvious bleeding. No fevers. Objective - Vital Signs Vital signs: Vital Signs Temp 98.7 F 12/11/19 12:00 Pulse 81 12/11/19 13:00 Resp 28 H 12/11/19 13:00 BP 109/73 12/11/19 07:45 Pulse Ox 97 12/11/19 13:00 Intake & Output 12/10/19 12/11/19 12/11/19 18:59 06:59 18:59 Intake Total 1637.553 6669.491 961.452 Output Total 845 585 265 Balance 909.675 672.491 696.452 Weight 72 kg Intake: IV 900 600 600 0.9 550 600 350 Piperacillin-Tazobactam 3 100 .375 gm In Sodium Chloride 0.9% 100 ml @ 25 mls/hr IVPB Q8H ANNA Rx#: [id number] Vancomycin 1,250 mg In 250 250 Sodium Chloride 0.9% 250 ml @ 125 mls/hr IVPB Q8H ANNA Rx#:[id number] Intake, IV Titration 854.675 657.491 361.452 Amount Cisatracurium 200 mg In 192.91 106.107 Sodium Chloride 0.9% 180 ml @ 1 MCG/KG/MIN 4.212 mls/hr IV .Q24H ANNA Rx#: [id number] Heparin Sod,Pork in 0.45% 76.869 126.986 NaCl 25,000 unit In 0.45 % NaCl 1 250ml.bag @ 18 UNITS/KG/HR 12.636 mls/hr IV .[id number] ANNA Rx#: [id number] Norepinephrine 4 mg In 577.806 237.595 82.377 Sodium Chloride 0.9% 250 ml @ 0.05 MCG/KG/MIN 13. 373 mls/hr IV .Q19H ANNA Rx#:[id number] fentaNYL (PF) 1,000 mcg 72.968 In Sodium Chloride 0.9% 80 ml @ Per Protocol IV . Q0M ANNA Rx#:[id number] propofoL 1,000 mg In 200 100 100 Empty Bag 1 bag @ Titrate IV .Q0M ANNA Rx#: [id number] Output: Urine 845 585 265 Other: Voiding Method Indwelling Catheter Indwelling Catheter Indwelling Catheter ABP, PAP, CO, CI - Last Documented Arterial Blood Pressure 100/46 - Constitutional General appearance: Present: no acute distress - EENT ENT: Present: normal oropharynx - Respiratory Respiratory: bilateral: CTA - Cardiovascular Rhythm: regular Heart sounds: normal: S1, S2 - Gastrointestinal General gastrointestinal: Present: normal bowel sounds, soft - Integumentary Integumentary: Present: normal - Neurologic Neurologic Comment(s): Sedated, on vent - Musculoskeletal Musculoskeletal: Present: generalized weakness - Labs CBC & Chem 7: 12/11/19 05:05 12/11/19 05:05 Labs: Abnormal Lab Results - Last 24 Hours (Table) 12/10/19 12/10/19 12/10/19 Range/Units 17:49 22:30 23:55 WBC (3.8-10.6) k/uL RBC (4.30-5.90) m/uL Hgb (13.0-17.5) gm/dL Hct (39.0-53.0) % MCHC (31.0-37.0) g/dL RDW (11.5-15.5) % Neutrophils # (Manual) (1.3-7.7) k/uL Lymphocytes # (Manual) (1.0-4.8) k/uL Metamyelocytes # (Man) (0) k/uL Myelocytes # (Manual) (0) k/uL Nucleated RBCs (0-0) /100 WBC APTT 92.1 H (22.0-30.0) sec ABG Total CO2 (19-24) mmol/L ABG O2 Saturation (94-97) % Chloride (98-107) mmol/L Creatinine (0.66-1.25) mg/dL Glucose (74-99) mg/dL POC Glucose (mg/dL) 230 H 244 H (75-99) mg/dL Calcium (8.4-10.2) mg/dL 12/11/19 12/11/19 12/11/19 Range/Units 05:05 05:05 05:05 WBC 71.4 H* (3.8-10.6) k/uL RBC 2.66 L (4.30-5.90) m/uL Hgb 7.5 L (13.0-17.5) gm/dL Hct 24.4 L (39.0-53.0) % MCHC 30.8 L (31.0-37.0) g/dL RDW 19.6 H (11.5-15.5) % Neutrophils # (Manual) 62.80 H (1.3-7.7) k/uL Lymphocytes # (Manual) 0.71 L (1.0-4.8) k/uL Metamyelocytes # (Man) 6.43 H (0) k/uL Myelocytes # (Manual) 1.43 H (0) k/uL Nucleated RBCs 1 H (0-0) /100 WBC APTT 66.8 H (22.0-30.0) sec ABG Total CO2 (19-24) mmol/L ABG O2 Saturation (94-97) % Chloride 110 H (98-107) mmol/L Creatinine 0.43 L (0.66-1.25) mg/dL Glucose 196 H (74-99) mg/dL POC Glucose (mg/dL) (75-99) mg/dL Calcium 7.3 L (8.4-10.2) mg/dL 12/11/19 12/11/19 12/11/19 Range/Units 06:02 07:05 11:33 WBC (3.8-10.6) k/uL RBC (4.30-5.90) m/uL Hgb (13.0-17.5) gm/dL Hct (39.0-53.0) % MCHC (31.0-37.0) g/dL RDW (11.5-15.5) % Neutrophils # (Manual) (1.3-7.7) k/uL Lymphocytes # (Manual) (1.0-4.8) k/uL Metamyelocytes # (Man) (0) k/uL Myelocytes # (Manual) (0) k/uL Nucleated RBCs (0-0) /100 WBC APTT (22.0-30.0) sec ABG Total CO2 25 H (19-24) mmol/L ABG O2 Saturation 97.3 H (94-97) % Chloride (98-107) mmol/L Creatinine (0.66-1.25) mg/dL Glucose (74-99) mg/dL POC Glucose (mg/dL) 219 H 183 H (75-99) mg/dL Calcium (8.4-10.2) mg/dL 12/11/19 Range/Units 11:56 WBC (3.8-10.6) k/uL RBC (4.30-5.90) m/uL Hgb (13.0-17.5) gm/dL Hct (39.0-53.0) % MCHC (31.0-37.0) g/dL RDW (11.5-15.5) % Neutrophils # (Manual) (1.3-7.7) k/uL Lymphocytes # (Manual) (1.0-4.8) k/uL Metamyelocytes # (Man) (0) k/uL Myelocytes # (Manual) (0) k/uL Nucleated RBCs (0-0) /100 WBC APTT 45.2 H (22.0-30.0) sec ABG Total CO2 (19-24) mmol/L ABG O2 Saturation (94-97) % Chloride (98-107) mmol/L Creatinine (0.66-1.25) mg/dL Glucose (74-99) mg/dL POC Glucose (mg/dL) (75-99) mg/dL Calcium (8.4-10.2) mg/dL Microbiology - Last 24 Hours (Table) 12/09/19 17:43 Gram Stain - Preliminary Sputum Sputum Culture - Preliminary 12/10/19 11:55 Gram Stain - Preliminary Bronchial Washings - Random Bronchial Washings Culture - Preliminary 12/10/19 11:55 Fungal Culture - Preliminary Bronchial Washings - Random 12/10/19 11:55 Acid Fast Bacilli Culture - Preliminary Bronchial Washings - Random 12/09/19 17:35 Blood Culture - Preliminary Blood No Growth after 24 hours 12/06/19 16:52 Blood Culture - Preliminary Blood No Growth after 96 hours 12/08/19 18:09 Stool Culture - Preliminary Stool Assessment and Plan (1) Acute respiratory failure Narrative/Plan: The patient has bilateral interstitial infiltrates, as well as evidence of pulmonary embolus. He is currently on antibiotics, and on anticoagulation. the case was discussed with id. they feel that the acute compromise leading to inflammation was more likely due to the pe. the patient is improving and extuba tion as expected in the next 24 hours or so. defer to primary medicine and id for continued management Current Visit: Yes Status: Acute Code(s): J96.00 - ACUTE RESPIRATORY FAILURE, UNSP W HYPOXIA OR HYPERCAPNIA SNOMED Code(s): 77517883 (2) Interstitial pneumonitis Narrative/Plan: The patient has bilateral interstitial pneumonitis. Etiologies include drug reaction versus infectious. He did have a bronchoscopy yesterday with no evidence of significant inflammation or purulence. Case discussed with ID. At this time drug-induced interstitial pneumonitis due to idiosyncratic reaction to gemcitabine appears to be more likely than infection though the latter is not totally ruled out. The patient is on steroids in addition to antibiotics. Current Visit: Yes Status: Acute Code(s): J84.89 - OTHER SPECIFIED INTERSTITIAL PULMONARY DISEASES SNOMED Code(s): 74122455 (3) Pulmonary embolism Narrative/Plan: On anticoagulation Current Visit: Yes Status: Acute Code(s): I26.99 - OTHER PULMONARY EMBOLISM WITHOUT ACUTE COR PULMONALE SNOMED Code(s): 94313069 (4) Cancer of pancreas Narrative/Plan: The patient has localized disease with no evidence of metastasis. He was planned for resection after initial neoadjuvant chemotherapy. Unfortunately th ere appeared to be some local progression due to which his chemotherapy regimen was changed. - Chemotherapy is currently on hold until acute condition resolves. If drug- induced pneumonitis does appear to be the likely cause for his respiratory compromise, then it would preclude continuation of his current regimen. In that case treatment options for chemotherapy would be very limited. This will be discussed with the patient when he recovers. Current Visit: No Status: Chronic Priority: Medium Code(s): C25.9 - MALIGNANT NEOPLASM OF PANCREAS, UNSPECIFIED SNOMED Code(s): 671769352
[2019-12-11 17:36] LABS: Glucose,Whole Blood 108 mg/dL (75-99)
--- NOTE | 2019-12-11 22:46 | PN ---
PROGRESS NOTE DATE OF SERVICE: 12/11/2019. REASON FOR FOLLOWUP: Possible pneumonia. INTERVAL HISTORY: Patient is currently afebrile. The patient is hemodynamically stable, not on pressor support. FiO2 is currently stable. No significant purulent secretions through the ET or any diarrhea reported by nursing staff. On examination, blood pressure 128/55 with a pulse of 68, temperature 98.7. He is 98% on 50% FiO2. General description is a middle-aged male intubated on the vent. Respiratory system: Unlabored breathing, decreased breath sounds in the bases. No wheeze. Heart S1, S2. Regular rate and rhythm. Abdomen soft, no tenderness. LABS: Hemoglobin 11.5, white count 21.4, BUN of 12, creatinine 0.43. Bronch cultures have been pending so far. Blood culture negative. DIAGNOSTIC IMPRESSION AND PLAN: Patient with acute respiratory failure which is likely multifactorial with interstitial infiltrate, could be related to his pneumonia less likely but not entirely excluded. Patient is status post bronchoscopy. Cultures pending. Keep Zosyn and Levaquin to decrease risk of nephrotoxicity. Vancomycin will be discontinued as clinical suspicion is low for a MRSA pneumonia and we will monitor clinical course closely. MMODL / IJN: [id number] /
[2019-12-11 23:50] LABS: Glucose,Whole Blood 107 mg/dL (75-99)
[2019-12-12 04:59] LABS: Anisocytosis Moderate; HCT 22.5 % (39.0-53.0); HGB 7.2 gm/dL (13.0-17.5); Hypochromasia Moderate; MCH 29.9 pg (25.0-35.0); MCV 93.3 fL (80.0-100.0); Macrocytosis Slight; Mean Platelet Volume 9.5; Platelet Count 413 k/uL (150-450); Poikilocytosis Slight; RBC 2.41 m/uL (4.30-5.90); RDW 20.1 % (11.5-15.5)
[2019-12-12 05:22] LABS: African American GFR (CKD) >90 (>60 ml/min/1.73 sqM); Anion Gap 2 mmol/L; Blood Urea Nitrogen 14 mg/dL (9-20); Calcium 7.4 mg/dL (8.4-10.2); Carbon Dioxide 25 mmol/L (22-30); Chloride 113 mmol/L (98-107); Glucose 127 mg/dL (74-99); Non-African American GFR(CKD) >90 (>60 ml/min/1.73 sqM); Potassium 4.4 mmol/L (3.5-5.1); Sodium 140 mmol/L (137-145)
[2019-12-12 05:39] LABS: Band Neutrophils % 8 %; Large Platelets Present; Lymphocytes # (M) 1.29 k/uL (1.0-4.8); Metamyelocytes # (M) 3.88 k/uL (0); Metamyelocytes % 9 %; Monocytes # (M) 2.16 k/uL (0-1.0); Myelocytes # (M) 5.17 k/uL (0); Myelocytes % 12 %; Neutrophils % (M) 63 %; Nucleated Red Blood Cells 3 /100 WBC (0-0); Polychromasia Present; RBC Fragments Present; Total Cells Counted 200; WBC 43.1 k/uL (3.8-10.6)
[2019-12-12] MEDS: HEPARIN SOD,PORK IN 0.45% NACL 25,000 UNIT in 0.45% NACL 1 250ML.BAG IV SCH ×2 (05:42→11:23)
[2019-12-12 05:58] LABS: Glucose,Whole Blood 142 mg/dL (75-99)
[2019-12-12] MEDS: SODIUM CHLORIDE 0.9% 1,000 ML IV SCH (06:01)
[2019-12-12] MEDS: INSULIN ASPART (NovoLOG) 100 UNIT/ML VIAL SQ SCH ×6 (06:01→17:18)
[2019-12-12] MEDS: DEXAMETHASONE SOD PHOSPHATE 4 MG/ML 1 ML VIAL IV SCH (06:03)
[2019-12-12] MEDS: PIPERACILLIN-TAZOBACTAM 3.375 GM in SODIUM CHLORIDE 0.9% 100 ML IVPB SCH ×3 (06:07→21:18)
[2019-12-12] MEDS: INSULIN DETEMIR (LEVEMIR) 100 UNIT/ML SYR SQ SCH (06:32)
[2019-12-12 06:43] LABS: Glucose,Whole Blood 145 mg/dL (75-99)
--- NOTE | 2019-12-12 07:28 | XR ---
EXAMINATION TYPE: XR chest 1V portable DATE OF EXAM: 12/12/2019 Comparison: 12/11/2019 Clinical History: 64-year-old male Tube placement Findings: Right anterior chest wall injection port. The catheter tip ascends up within the internal jugular vei n beyond the field of view. ET tube satisfactory. NG tube satisfactory. Heart upper limits of normal in size. Continued diffuse interstitial opacity. Continued possible trace effusions. Impression: 1. Stable right-sided Port-A-Cath with catheter extending up beyond the field of view within the inte rnal jugular vein. 2. Continued mild diffuse interstitial infiltrate. 3. Continued trace effusions.
[2019-12-12 07:50] LABS: ABG Base Excess 0.5 mmol/L; ABG HCO3 25 mmol/L (21-25); ABG Oxygen Saturation 98.1 % (94-97); ABG PCO2 40 mmHg (35-45); ABG PH 7.41 (7.35-7.45); ABG PO2 122 mmHg (83-108); ABG TCO2 27 mmol/L (19-24)
[2019-12-12 07:51] LABS: Allen Test Performed? no
[2019-12-12] MEDS: SERTRALINE 100 MG TAB PO SCH (08:16)
[2019-12-12] MEDS: CHOLESTYRAMINE (WITH SUGAR) 4 GM PACKET PO SCH ×2 (08:16→17:10)
[2019-12-12] MEDS: GABAPENTIN 100 MG CAP PO SCH ×2 (08:16→20:12)
[2019-12-12] MEDS: CHLORHEXIDINE GLUCONATE 15 ML CUP MUCOUS MEM SCH ×2 (08:16→20:12)
[2019-12-12] MEDS: ATORVASTATIN 80 MG TAB PO SCH (08:17)
[2019-12-12] MEDS: PANTOPRAZOLE 40 MG/10 ML VIAL IVP SCH (08:17)
[2019-12-12] MEDS: lisinopriL 5 MG TAB PO SCH (08:18)
[2019-12-12] MEDS: METOPROLOL SUCCINATE (ER) 25 MG TAB.ER.24H PO SCH (08:18)
--- NOTE | 2019-12-12 10:30 | P.PN ---
Subjective Progress Note Date: 12/12/19 64-year-old was diagnosed with pancreatic cancer back in September [address] maria and has been on chemotherapy. Patient has been getting weaker every day had falling multiple time. Today patient had fall with closed head trauma and injury and had significant confusion with generalized weakness. His white blood cell was over 23,000, patient had significant anemia, lactic acid was significantly elevated. Patient was started on Zosyn, hydration and fluid resuscitation, but kept in bedrest O2 and admit patient to the hospital. Apparently patient has not been doing well since his diagnoses with pink at the cancer despite the chemotherapy patient is getting weaker and much worse day by day. Chest x-ray had? Off atypical acute infectious process with Lymphangitic carcinomatosis is not excluded with? Off fluid overload and infiltrate in the bases. 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 12/06: Patient has been seen by Dr. Holt with recommendations to continue Zosyn, obtain stool studies and sputum for culture. Patient has been seen by oncology and added Questran and Lomotil for diarrhea. CAT scan of the chest was ordered by oncology. Patient has been afebrile, heart rate 101, blood pressure 101/60, pulse ox 92% on 4 L nasal cannula. WBC 22.3, hemoglobin 7.1, platelet count 169. Sodium 132, potassium 2.3 and being replaced, BUN 6 and creatinine 0.49. Coated 19 testing is negative. Blood culture and urine culture in progress. 12/07: CAT scan of the chest abdomen and pelvis with contrast revealed small pleural effusions appear new. Diffuse honeycomb pattern in the lungs consistent with significant interstitial lung disease. This could be acute or chronic interstitial lung disease. Interstitial basilar pulmonary infiltrates are essentially new. Few bilateral bronchial lymph nodes probably due to inflammatory disease. Biliary stent in good position. No dilated ducts. Pancreatic mass measures 4.3 cm and appears increased 1 cm compared to old exam. No evidence of bowel obstruction. Normal appendix. Urine culture has been finalized with no growth. Blood culture showing no growth at 24 hours. Patient has been afebrile, heart rate 93, blood pressure 109/61, pulse ox 90% on 2 L nasal cannula. Repeat blood work reveals potassium of 2.6, sodium 132. BUN 4 and creatinine 0.54. Repeat magnesium 1.6. Patient will be replaced with 120 mEq of potassium and magnesium 2 g. Repeat blood work this evening and in the morning. 12/08: This morning, patient is on high flow nasal cannula 13 L continues to have difficulty breathing, temperature max 100.4, heart rate 97, respiratory rate 24. Blood pressure is on the low side 89/53. CT of the chest ordered came back positive for pulmonary embolism and patient started on Lovenox 1 mg/kg twice daily. Repeat potassium last evening was 3.0. This morning, potassium is 3.2 and will be replaced with 80 mEq, magnesium replaced again today. Sodium 130. Blood sugars running between 118-133. Total bilirubin 0.8, AST 63, ALT 33, alkaline phosphatase 170, LDH 1397, CA 199 elevated at 66. Albumin 2.1. Consult with pulmonary medicine for possibility of lymphangitic carcinomatosis, chemotherapy-induced pneumonitis as well as newly found acute pulmonary embolism possible pulmonary infection not excluded. Bronchoscopy will be considered. 12/09: Patient continued to do poorly yesterday afternoon and was transferred into the intensive care unit and subsequently intubated and placed on mechanical ventilation, tidal volume 450, FiO2 50, PEEP 8. Patient has been afebrile, heart rate 73, blood pressure 104/52. Patient's temperature has been down to 95.9 and placed on Randall hugger. Pena catheter has been placed with adequate good urine output. He is currently on Nimbex, heparin drip, norepinephrine. He is continued on IV antibiotics with Zosyn and vancomycin. Patient is also on Levaquin. Chest x-ray this morning reveals mildly decreased pulmonary edema. Blood work last evening revealed a rising leukocytosis at 73.6 and this morning at 102. Hemoglobin 8.7, platelet count 453. Sodium 136, potassium 4.7, chloride 105, CO2 22, BUN 10 and creatinine 0.45. Blood sugars running between 133 and 243. Total bilirubin is 0.8, AST 67, ALT 35, alkaline phosphatase 217. Urinalysis clear with nitrate and leukoesterase negative. Sputum culture and stool culture in process. Blood culture no growth at 72 hours. Patient's is at bedside and current condition, plan and prognosis reviewed with her. Patient is currently a full code. 12/10: Patient remains intubated and on mechanical ventilation. He is currently on Levothroid with decreased dose, fentanyl and Nimbex. She is on heparin drip for PE. Patient's temperature drops once he is off the Randall hugger and this is currently in place. Repeat chest x-ray this morning reveals improving inte rstitial edema on background chronic emphysematous and pulmonic fibrotic changes. Patient is currently on Zosyn, Levaquin and vancomycin. Patient underwent bronchoscopy and BAL of the right upper lobe and right middle lobe, pathology and cultures pending. Temperature is currently 97.5 with Randall hugger, heart rate 92, respiratory rate 28, blood pressure 101/48. Repeat blood work reveals WBC 71.4, hemoglobin 7.5, platelet count at 449. Sodium 137, potassium 4.4, chloride 110, CO2 25, BUN 12 and creatinine 0.43. Blood sugars running 196-244. Schedule NovoLog added. Urine output adequate. 12/11: Patient remains intubated and on mechanical ventilation. He is currently on fentanyl drip, heparin drip, Nimbex and norepinephrine. Tube feedings are in place. He is requiring Randall hugger. Patient has been afebrile, heart rate 64, blood pressure 128/55, respiratory rate 28. WBC 43.1, hemoglobin 7.2, platelet count 413. Sodium 140, potassium 4.4, chloride 113, CO2 25, BUN 14 and creati nine 0.46. Blood sugars running between 107 and 145. Review of systems Unable to be obtained due to intubation Physical examination General Appearance: Alert, cooperative, mild bruise in the forehead area. Patient resting in the ICU bed. No acute distress noted. Randall hugger in place. Neck HEENT: Supple, no lymphadenopathy, no thyroid enlargement, no carotid bruits. Oral ET and gastric tube in place. Lungs: Decreased breath with congestion bilaterally. Chest Wall: Decrease expansion with deep inspiration no tenderness and no deformity was found on exam, no costochondral pain or discomfort. Heart: Regular rate and rhythm, S1, S2 normal, no murmur, rub or gallop. Abdomen: Soft. Nontender. Pena catheter in place. Extremities: Extremities normal, atraumatic, no cyanosis positive edema. Pulses: 2+ and symmetric. Skin: Skin color, texture, tugor normal, no rashes or lesions. Neurologic: Patient is intubated on mechanical ventilation and on Nimbex. Assessment and plan 1 sepsis with diarrhea, possible pneumonia, presenting with metabolic encephalopathy. CAT scan of the chest has been ordered by oncology. Consult with Dr. Holt. Continue Zosyn, Levaquin, vancomycin. 2 multiple fall and trauma: No intracranial hemorrhage at this point CAT scan is be negative no cervical spine injury. 3 acute hypoxic respiratory failure secondary to pulmonary embolism, present on admission, possible lymphangitic carcinomatosis, chemotherapy-induced pneumonitis. Patient has required intubation mechanical ventilation. Continue heparin drip, DuoNeb treatments 4 times daily as needed, Decadron 4 mg IV every 6 hours, Levaquin, Zosyn and vancomycin. Consult with pulmonary medicine and infectious disease appreciated. Patient is status post bronchoscopy. Await cultures and pathology reports. 4 pancreatic cancer: Has been on chemotherapy seen oncology on regular basis. Oncology consult appreciated. 5 Significant electrolyte imbalance: With severe hypokalemia: Continue rep lacement therapy along with correcting hypomagnesemia. Continue replacement. 6 nonketotic hyperglycemia. Continue Levemir 15 units daily and NovoLog scale every 6 hours. 7 severe anemia with hemoglobin is down to 8.2, no need for transfusion continue iron and multivitamins. 8 hypothermia and severe leukocytosis secondary to sepsis. Continue current management. 9 septic shock requiring vasopressor. 10 pulmonary embolism. Continue heparin drip. 11 UTI ruled out. 12 history of coronary disease. Continue Lipitor, lisinopril and Toprol-XL. 13 type 2 diabetes, uncontrolled with hyperglycemia. Continue as above. 14 chronic neuropathy: Has been on gabapentin 200 mg twice a day. 15 hyperlipidemia: Remain on atorvastatin 80 mg daily. 16 chronic pain management: Has been on hydrocodone every 6 hours as needed. 17 recurrent depression: On Zoloft 100 mg daily. 18 GI prophylaxis: Pantoprazole. 19 DVT prophylaxis: Heparin gtt. CODE STATUS: Full code. Discharge plan: Subacute rehab at [facility] or [facility]. Impression and plan of care have been directed as dictated by the signing physician. Ramila Zapien nurse practitioner acting as scribe for signing physician. Objective - Vital Signs Vital signs: Vital Signs Temp 98.5 F 12/12/19 08:00 Pulse 57 L 12/12/19 08:15 Resp 28 H 12/12/19 08:15 BP 109/73 12/11/19 07:45 Pulse Ox 98 12/12/19 08:15 Intake & Output 12/11/19 12/12/19 12/12/19 18:59 06:59 18:59 Intake Total 4427.194 9403.976 144.009 Output Total 415 575 60 Balance 1350.217 862.976 84.009 Weight 72 kg 67.9 kg Intake: IV 1200 800 50 0.9 600 600 50 Piperacillin-Tazobactam 3 100 200 .375 gm In Sodium Chloride 0.9% 100 ml @ 25 mls/hr IVPB Q8H ANNA Rx#: [id number] Vancomycin 1,250 mg In 500 Sodium Chloride 0.9% 250 ml @ 125 mls/hr IVPB Q8H ANNA Rx#:[id number] Intake, IV Titration 545.217 377.976 39.009 Amount Cisatracurium 200 mg In 106.107 Sodium Chloride 0.9% 180 ml @ 1 MCG/KG/MIN 4.212 mls/hr IV .Q24H ANNA Rx#: [id number] Norepinephrine 4 mg In 148.526 140.196 8.826 Sodium Chloride 0.9% 250 ml @ 0.05 MCG/KG/MIN 13. 373 mls/hr IV .Q19H ANNA Rx#:[id number] fentaNYL (PF) 1,000 mcg 72.968 In Sodium Chloride 0.9% 80 ml @ Per Protocol IV . Q0M ANNA Rx#:[id number] propofoL 1,000 mg In 217.616 237.780 30.183 Empty Bag 1 bag @ Titrate IV .Q0M ANNA Rx#: [id number] Tube Feeding 20 200 25 Other 60 30 Output: Urine 415 575 60 Other: Voiding Method Indwelling Catheter Indwelling Catheter Indwelling Catheter ABP, PAP, CO, CI - Last Documented Arterial Blood Pressure 105/46 - Labs CBC & Chem 7: 12/12/19 04:51 12/12/19 04:51 Labs: Abnormal Lab Results - Last 24 Hours (Table) 12/11/19 12/11/19 12/11/19 Range/Units 11:33 11:56 17:35 WBC (3.8-10.6) k/uL RBC (4.30-5.90) m/uL Hgb (13.0-17.5) gm/dL Hct (39.0-53.0) % RDW (11.5-15.5) % Neutrophils # (Manual) (1.3-7.7) k/uL Monocytes # (Manual) (0-1.0) k/uL Metamyelocytes # (Man) (0) k/uL Myelocytes # (Manual) (0) k/uL Nucleated RBCs (0-0) /100 WBC APTT 45.2 H (22.0-30.0) sec ABG pO2 (83-108) mmHg ABG Total CO2 (19-24) mmol/L ABG O2 Saturation (94-97) % Chloride (98-107) mmol/L Creatinine (0.66-1.25) mg/dL Glucose (74-99) mg/dL POC Glucose (mg/dL) 183 H 108 H (75-99) mg/dL Calcium (8.4-10.2) mg/dL 12/11/19 12/12/19 12/12/19 Range/Units 23:48 04:51 04:51 WBC 43.1 H (3.8-10.6) k/uL RBC 2.41 L (4.30-5.90) m/uL Hgb 7.2 L (13.0-17.5) gm/dL Hct 22.5 L (39.0-53.0) % RDW 20.1 H (11.5-15.5) % Neutrophils # (Manual) 30.60 H (1.3-7.7) k/uL Monocytes # (Manual) 2.16 H (0-1.0) k/uL Metamyelocytes # (Man) 3.88 H (0) k/uL Myelocytes # (Manual) 5.17 H (0) k/uL Nucleated RBCs 3 H (0-0) /100 WBC APTT (22.0-30.0) sec ABG pO2 (83-108) mmHg ABG Total CO2 (19-24) mmol/L ABG O2 Saturation (94-97) % Chloride 113 H (98-107) mmol/L Creatinine 0.46 L (0.66-1.25) mg/dL Glucose 127 H (74-99) mg/dL POC Glucose (mg/dL) 107 H (75-99) mg/dL Calcium 7.4 L (8.4-10.2) mg/dL 12/12/19 12/12/19 12/12/19 Range/Units 04:51 05:57 06:32 WBC (3.8-10.6) k/uL RBC (4.30-5.90) m/uL Hgb (13.0-17.5) gm/dL Hct (39.0-53.0) % RDW (11.5-15.5) % Neutrophils # (Manual) (1.3-7.7) k/uL Monocytes # (Manual) (0-1.0) k/uL Metamyelocytes # (Man) (0) k/uL Myelocytes # (Manual) (0) k/uL Nucleated RBCs (0-0) /100 WBC APTT 53.6 H (22.0-30.0) sec ABG pO2 (83-108) mmHg ABG Total CO2 (19-24) mmol/L ABG O2 Saturation (94-97) % Chloride (98-107) mmol/L Creatinine (0.66-1.25) mg/dL Glucose (74-99) mg/dL POC Glucose (mg/dL) 142 H 145 H (75-99) mg/dL Calcium (8.4-10.2) mg/dL 12/12/19 Range/Units 07:48 WBC (3.8-10.6) k/uL RBC (4.30-5.90) m/uL Hgb (13.0-17.5) gm/dL Hct (39.0-53.0) % RDW (11.5-15.5) % Neutrophils # (Manual) (1.3-7.7) k/uL Monocytes # (Manual) (0-1.0) k/uL Metamyelocytes # (Man) (0) k/uL Myelocytes # (Manual) (0) k/uL Nucleated RBCs (0-0) /100 WBC APTT (22.0-30.0) sec ABG pO2 122 H (83-108) mmHg ABG Total CO2 27 H (19-24) mmol/L ABG O2 Saturation 98.1 H (94-97) % Chloride (98-107) mmol/L Creatinine (0.66-1.25) mg/dL Glucose (74-99) mg/dL POC Glucose (mg/dL) (75-99) mg/dL Calcium (8.4-10.2) mg/dL Microbiology - Last 24 Hours (Table) 12/09/19 17:43 Gram Stain - Final Sputum Sputum Culture - Final 12/09/19 17:35 Blood Culture - Preliminary Blood No Growth after 48 hours 12/10/19 11:55 Acid Fast Bacilli Smear - Final Bronchial Washings - Random Acid Fast Bacilli Culture - Preliminary 12/06/19 16:52 Blood Culture - Preliminary Blood No Growth after 120 hours 12/08/19 18:09 Stool Culture - Final Stool 12/10/19 11:55 Gram Stain - Preliminary Bronchial Washings - Random Bronchial Washings Culture - Preliminary
[2019-12-12] MEDS: HYDROCORTISONE SUCCINATE 100 MG/2 ML VIAL IV SCH ×2 (10:57→17:03)
[2019-12-12 11:11] LABS: Glucose,Whole Blood 176 mg/dL (75-99)
--- NOTE | 2019-12-12 12:12 | P.PN ---
Subjective Progress Note Date: 12/12/19 Principal diagnosis: Acute hypoxic respiratory failure, possible lymphangitic carcinomatosis, or chemotherapy-induced pneumonitis, or pulmonary infection, along with acute pulmonary emboli. 64-year-old white male patient of Dr. Hayse, with past medical history of pancreatic cancer with obstructive jaundice status post, on bile duct stent placement, diagnosed in March 2019, with pathology positive for adenocarcinoma T2 N0 a diagnosis. Patient underwent 6 cycles of Folfirinox, and patient was referred to [facility] for evaluation of Whipple surgery, we'll reduce the coronaries pandemic his surgery was postponed and he was being treated with systemic chemotherapy. Patient was recently hospitalized from 10/05/2019 through 10/07/2019 for abdominal pain secondary to pancreatic cancer and pancreatitis, severe nonketotic hyperglycemia. Patient clinically improved, rehydrated, blood sugars controlled, his lipase and amylase were trending down, patient was discharged home in stable condition. On 12/06/2019 patient came back to the emergency department complaints of weakness and shortness of breath. He states he has not been able to walk related to increasing weakness, patient lives alone at home. His had multiple falls at home, he did strike his head on several occasions. He denied any pain complaints at this time, no hemoptysis, some mild cough, nonproductive, patient resumed his chemotherapy and his last treatment was last week. Patient has been having diarrhea without any evidence of bile or blood, he feels nauseated, but he has not been vomiting. His chest x-ray showed increasing reticulonodular prominence with a concern of developing interstitial edema and/or atypical acute infectious process, lymphangitic carcinomatosis was being considered. 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 Patient has been afebrile since admission, the T-max of 101F in the last 24 hours. This yesterday his oxygen requirement has significantly increased, and patient is currently on 15 L per partial rebreather mask with a pulse ox of 92%, currently on antibiotics in the form of Rocephin and Levaquin, ID service is following, he has received some Lasix per primary care service. CT of the chest, abdomen and pelvis were completed yesterday showing extensive interstitial infiltrates in both lungs with diffuse honeycomb pattern there is more severe in the upper lobes, small bilateral pleural effusions no mediastinal adenopathy, biliary stent was noted, in good position, no dilated ducts, pancreatic mass measuring 4.3 cm and appears increased compared to old exam, no evidence of bowel obstruction. ID service is following, medical oncology is following, white count is trending up, and is up to 29.3 on today's labs, hemoglobin 7.7, sodium is 1:30, potassium is 3.2, BUN is 5, creatinine 0.48, LDH is 1397, CA 199 is 66. Patient appears very weak on today's exam, on partial rebreather with a pulse ox of 92-93%, no altered mentation, he is answering questions appropriately, we were asked to see the patient in regards to worsening hypoxic respiratory failure. Patient was evaluated today on 12/10/19, I saw him yesterday on consultation, and shortly after the patient's condition deteriorated to the point that the patient required to be intubated and placed on mechanical ventilation. He is presently on tidal volume of 450 FiO2 is 50% PEEP of 8, assist control rate of 24. ABG showed a pO2 of 80 pCO2 of 49 pH of 7.27, hence his rate was increased to 28. Chest x-ray shows diffuse interstitial process, and the differential diagnoses includes mostly lymphangitic carcinomatosis, or medications induced pneumonitis, or possibly underlying infection which is felt to be less likely based on my bronchoscopic findings today. Patient did undergo bronchoscopy and lavage of the right upper lobe and right middle lobe. No evidence of endobronchial tumors or any purulent secretions noted in the airways. The lavage was noted to be very clear. Again this speaks in favor of either lymphangitic carcinomatosis, or medications induced pneumonitis. At any rate cultures were sent for different diagnostic studies, and it was also sent to cytology. Patient remains on heparin which I held only to be able to place a central line and able to bronchoscope the patient and lavage. His IV fluid now is at 50 ML per hour. Patient is on propofol at 65 mg/kg/m, and he is on Nimbex drip. Added fentanyl. Patient is on norepinephrine at 11 mcg/m. Labs showed significant leukemoid reaction with WBC count of 102 hemoglobin is 8.7, platelets are back to normal today at 453. Basic metabolic profile is normal. Patient was reevaluated today on 12/11/19, remains in the ICU, intubated, and mechanically ventilated. Patient is on assist control rate of 28 tidal volume is 450 FiO2 is 50% and PEEP is at 8. ABG showed a pO2 of 99 pCO2 of 43 pH of 7.35, hence I kept him on the same ventilator settings. His chest x-ray is surprisingly showing some improvement. Patient continues to have intermittent episodes of hypothermia, recommended a serum cortisol level on the patient. Patient remains on Decadron, remains on vancomycin and Zosyn. He is now on Nimbex which I will discontinue propofol at 65 mcg/kg/m, fentanyl at 0.5 mcg/kg/h he is on a heparin drip for his underlying pulmonary embolism, and he is on norepinephrine at 0.04 mcg/kg/m. Patient is sedated and paralyzed, however noticing that his chest x-ray is showing improvement, that is encouraging, I will go ahead and discontinue Nimbex and hopefully be able to assess mental status today and he is definitely not ready for any weaning trials. Will definitely initiate enteral feeding. Reevaluated today on 12/12/19, remains in the ICU, intubated and mechanically ventilated. Patient is on assist control rate of 28 tidal volume 450 FiO2 50% PEEP 8 and after reviewing his ABG I cut down his PEEP to 5 and his FiO2 down to 45%. Patient is a on propofol which I have discontinued, and he is also on fentanyl which I plan to hold and assess mental status. He is not requiring any pressors, he is off norepinephrine, however his cortisol level is noted to be low, and I changed his Decadron to Solu-Cortef 100 mg IV push every 8 hours. Chest x-ray showed improvement in his interstitial infiltrates. I believe we missed likely are dealing with drug induced interstitial pneumonitis, related to his chemotherapeutic agents. His ABG today is also improved with a pO2 of 122 pCO2 of 40 pH of 7.41. Basic metabolic profile is normal, renal profile is normal. PTT is therapeutic at 53. WBC count is coming down to 43.1 hemoglobin is 7.2 platelets are normal Objective - Vital Signs Vital signs: Vital Signs Temp 98.5 F 12/12/19 08:00 Pulse 91 12/12/19 11:00 Resp 22 12/12/19 11:00 BP 109/73 12/11/19 07:45 Pulse Ox 100 12/12/19 11:00 Intake & Output 12/11/19 12/12/19 12/12/19 18:59 06:59 18:59 Intake Total 1905.744 5462.976 646.343 Output Total 415 575 210 Balance 1350.217 862.976 436.343 Weight 72 kg 67.9 kg Intake: IV 1200 800 200 0.9 600 600 200 Piperacillin-Tazobactam 3 100 200 .375 gm In Sodium Chloride 0.9% 100 ml @ 25 mls/hr IVPB Q8H ANNA Rx#: [id number] Vancomycin 1,250 mg In 500 Sodium Chloride 0.9% 250 ml @ 125 mls/hr IVPB Q8H ANNA Rx#:[id number] Intake, IV Titration 545.217 377.976 316.343 Amount Cisatracurium 200 mg In 106.107 Sodium Chloride 0.9% 180 ml @ 1 MCG/KG/MIN 4.212 mls/hr IV .Q24H ANNA Rx#: [id number] Heparin Sod,Pork in 0.45% 209.313 NaCl 25,000 unit In 0.45 % NaCl 1 250ml.bag @ 18 UNITS/KG/HR 12.636 mls/hr IV .[id number] ANNA Rx#: [id number] Norepinephrine 4 mg In 148.526 140.196 8.826 Sodium Chloride 0.9% 250 ml @ 0.05 MCG/KG/MIN 13. 373 mls/hr IV .Q19H ANNA Rx#:[id number] fentaNYL (PF) 1,000 mcg 72.968 66.528 In Sodium Chloride 0.9% 80 ml @ Per Protocol IV . Q0M ANNA Rx#:[id number] propofoL 1,000 mg In 217.616 237.780 31.676 Empty Bag 1 bag @ Titrate IV .Q0M ANNA Rx#: [id number] Tube Feeding 20 200 100 Other 60 30 Output: Urine 415 575 210 Other: Voiding Method Indwelling Catheter Indwelling Catheter Indwelling Catheter ABP, PAP, CO, CI - Last Documented Arterial Blood Pressure 124/75 - Exam General: Revealed a 64-year-old white male on mechanical ventilation, sedated on fentanyl which I have discontinued Head: Minimal bruising noted in the right forehead area, otherwise negative. Endotracheal tube and orogastric tube are intact. HEENT: PERRLA, EOMI, no icterus. Lungs: Diminished breath sounds at the bases no crackles or rhonchi or wheezes. Chest Wall: Symmetrical chest expansion, no chest wall tenderness. Heart: Normal S1 and S2 no gallops, no murmur. Abdomen: Flat, soft, nontender, no megaly, no rebound, no guarding. Extremities: No clubbing edema or cyanosis. Pulses: 2+ and symmetric. Skin: Good skin turgor, no rashes Neurologic: Could not be assessed, patient is sedated however fentanyl will be discontinued this morning and mental status assessment will be made. - Labs CBC & Chem 7: 12/12/19 04:51 12/12/19 04:51 Labs: Abnormal Lab Results - Last 24 Hours (Table) 12/11/19 12/11/19 12/11/19 Range/Units 11:56 17:35 23:48 WBC (3.8-10.6) k/uL RBC (4.30-5.90) m/uL Hgb (13.0-17.5) gm/dL Hct (39.0-53.0) % RDW (11.5-15.5) % Neutrophils # (Manual) (1.3-7.7) k/uL Monocytes # (Manual) (0-1.0) k/uL Metamyelocytes # (Man) (0) k/uL Myelocytes # (Manual) (0) k/uL Nucleated RBCs (0-0) /100 WBC APTT 45.2 H (22.0-30.0) sec ABG pO2 (83-108) mmHg ABG Total CO2 (19-24) mmol/L ABG O2 Saturation (94-97) % Chloride (98-107) mmol/L Creatinine (0.66-1.25) mg/dL Glucose (74-99) mg/dL POC Glucose (mg/dL) 108 H 107 H (75-99) mg/dL Calcium (8.4-10.2) mg/dL 12/12/19 12/12/19 12/12/19 Range/Units 04:51 04:51 04:51 WBC 43.1 H (3.8-10.6) k/uL RBC 2.41 L (4.30-5.90) m/uL Hgb 7.2 L (13.0-17.5) gm/dL Hct 22.5 L (39.0-53.0) % RDW 20.1 H (11.5-15.5) % Neutrophils # (Manual) 30.60 H (1.3-7.7) k/uL Monocytes # (Manual) 2.16 H (0-1.0) k/uL Metamyelocytes # (Man) 3.88 H (0) k/uL Myelocytes # (Manual) 5.17 H (0) k/uL Nucleated RBCs 3 H (0-0) /100 WBC APTT 53.6 H (22.0-30.0) sec ABG pO2 (83-108) mmHg ABG Total CO2 (19-24) mmol/L ABG O2 Saturation (94-97) % Chloride 113 H (98-107) mmol/L Creatinine 0.46 L (0.66-1.25) mg/dL Glucose 127 H (74-99) mg/dL POC Glucose (mg/dL) (75-99) mg/dL Calcium 7.4 L (8.4-10.2) mg/dL 12/12/19 12/12/19 12/12/19 Range/Units 05:57 06:32 07:48 WBC (3.8-10.6) k/uL RBC (4.30-5.90) m/uL Hgb (13.0-17.5) gm/dL Hct (39.0-53.0) % RDW (11.5-15.5) % Neutrophils # (Manual) (1.3-7.7) k/uL Monocytes # (Manual) (0-1.0) k/uL Metamyelocytes # (Man) (0) k/uL Myelocytes # (Manual) (0) k/uL Nucleated RBCs (0-0) /100 WBC APTT (22.0-30.0) sec ABG pO2 122 H (83-108) mmHg ABG Total CO2 27 H (19-24) mmol/L ABG O2 Saturation 98.1 H (94-97) % Chloride (98-107) mmol/L Creatinine (0.66-1.25) mg/dL Glucose (74-99) mg/dL POC Glucose (mg/dL) 142 H 145 H (75-99) mg/dL Calcium (8.4-10.2) mg/dL 12/12/19 Range/Units 11:00 WBC (3.8-10.6) k/uL RBC (4.30-5.90) m/uL Hgb (13.0-17.5) gm/dL Hct (39.0-53.0) % RDW (11.5-15.5) % Neutrophils # (Manual) (1.3-7.7) k/uL Monocytes # (Manual) (0-1.0) k/uL Metamyelocytes # (Man) (0) k/uL Myelocytes # (Manual) (0) k/uL Nucleated RBCs (0-0) /100 WBC APTT (22.0-30.0) sec ABG pO2 (83-108) mmHg ABG Total CO2 (19-24) mmol/L ABG O2 Saturation (94-97) % Chloride (98-107) mmol/L Creatinine (0.66-1.25) mg/dL Glucose (74-99) mg/dL POC Glucose (mg/dL) 176 H (75-99) mg/dL Calcium (8.4-10.2) mg/dL Microbiology - Last 24 Hours (Table) 12/09/19 17:43 Gram Stain - Final Sputum Sputum Culture - Final 12/09/19 17:35 Blood Culture - Preliminary Blood No Growth after 48 hours 12/10/19 11:55 Acid Fast Bacilli Smear - Final Bronchial Washings - Random Acid Fast Bacilli Culture - Preliminary 12/06/19 16:52 Blood Culture - Preliminary Blood No Growth after 120 hours 12/08/19 18:09 Stool Culture - Final Stool Assessment and Plan Assessment: Impression: Acute hypoxic respiratory failure, multifactorial, suspect chemotherapy-induced pneumonitis, doubt infectious pneumonia. Doubt lymphangitic carcinomatosis si nce the chest x-ray is showing improvement. Thromboembolic disease with pulmonary embolism as noted on CT angiogram of the chest which is another contributing factor to his acute hypoxic respiratory failure. And the patient remains on heparin. Suspect metastatic pancreatic cancer. Sepsis, possible septic shock, requiring pressors, exact source is not clear, could be GI in nature. Patient had recent symptoms of colitis. And diarrhea. Bronchoscopy findings did not show any evidence of purulent secretions in the airways. All cultures have been negative so far. Including blood cultures, uri ne cultures, and bronchoalveolar lavage cultures. Acute pulmonary embolism. History of underlying coronary artery disease. Type 2 diabetes. Chronic diabetic neuropathy. History of depression. Profound medical debility. Relevant and a insufficiency with a relatively low cortisol level, and hypothermia which could be related to hypoadrenalism. Hence I recommended stress doses of hydrocortisone/Solu-Cortef 100 mg IV push every 8 hours. Plan: Continue ventilatory support. Hold fentanyl and assess mental status today. Continue nutritional support. Solu-Cortef 100 mg IV push every 8 hours. Hemodynamics plunkett, patient is off levo fed today. Continue heparin. For his small pulmonary embolism and I believe it is related to his underlying pancreatic cancer with hypercoagulable state related to holt creatic malignancy. Continue Solu-Cortef also for presumptive drug-induced pneumonitis. Continue broad-spectrum antibiotics. Daily sedation holidays and mental status assessment. Continue GI prophylaxis. Patient remains critically ill, critical care time is 33 minutes. Time with Patient: Greater than 30
[2019-12-12] MEDS: LEVOFLOXACIN 750 MG TAB PO SCH (12:19)
[2019-12-12] MEDS: NOREPINEPHRINE 4 MG in SODIUM CHLORIDE 0.9% 250 ML IV SCH ×2 (20:30→22:41)
--- NOTE | 2019-12-12 22:46 | PN ---
PROGRESS NOTE DATE OF SERVICE: 12/12/2019 REASON FOR FOLLOWUP: Pneumonia. INTERVAL HISTORY: The patient is currently afebrile. The patient is hemodynamically stable. FiO2 is currently set at 45%. No significant purulent secretion through the ET or any diarrhea reported by nursing staff. PHYSICAL EXAMINATION: Blood pressure is 123/50 with a pulse of 66, temperature 97.9. He is 98% on 45% FiO2. General description is a middle-aged male intubated on the vent. RESPIRATORY SYSTEM: Unlabored breathing, decreased breath sounds at the bases. No wheeze. HEART: S1, S2. Regular rate and rhythm. ABDOMEN: Soft, no tenderness. LABS: White count down to 43.1. BUN of 14, creatinine 0.46. Bronchoscopy culture so far pending. DIAGNOSTIC IMPRESSION AND PLAN: Patient with acute respiratory failure which is likely multifactorial. This patient did have diffuse interstitial infiltrate with concern for possible chemo related underlying pneumonia less likely not entirely excluded. The patient is currently covered on Zosyn, Levaquin to continue and monitor his clinical course closely. MMODL / IJN: [id number] /
[2019-12-13] MEDS: INSULIN ASPART (NovoLOG) 100 UNIT/ML VIAL SQ SCH ×4 (00:06→05:57)
[2019-12-13] MEDS: HYDROCORTISONE SUCCINATE 100 MG/2 ML VIAL IV SCH ×2 (00:07→09:31)
[2019-12-13] MEDS: SODIUM CHLORIDE 0.9% 1,000 ML IV SCH (00:07)
[2019-12-13] MEDS: CISATRACURIUM 200 MG in SODIUM CHLORIDE 0.9% 180 ML IV SCH (01:23)
[2019-12-13 01:33] VITALS: TEMP 99
[2019-12-13 05:04] LABS: Anisocytosis Moderate; HCT 22.5 % (39.0-53.0); HGB 7.3 gm/dL (13.0-17.5); Hypochromasia Moderate; MCH 30.1 pg (25.0-35.0); MCHC 32.4 g/dL (31.0-37.0); MCV 92.9 fL (80.0-100.0); Macrocytosis Slight; Mean Platelet Volume 8.4; Platelet Count 509 k/uL (150-450); Poikilocytosis Slight; RBC 2.42 m/uL (4.30-5.90); RDW 21.3 % (11.5-15.5); WBC 47.5 k/uL (3.8-10.6)
[2019-12-13 05:22] LABS: African American GFR (CKD) >90 (>60 ml/min/1.73 sqM); Anion Gap 1 mmol/L; Blood Urea Nitrogen 20 mg/dL (9-20); Calcium 7.4 mg/dL (8.4-10.2); Carbon Dioxide 26 mmol/L (22-30); Chloride 114 mmol/L (98-107); Glucose 175 mg/dL (74-99); Non-African American GFR(CKD) >90 (>60 ml/min/1.73 sqM); Sodium 141 mmol/L (137-145)
[2019-12-13 05:39] LABS: ABG Base Excess 0.4 mmol/L; ABG HCO3 25 mmol/L (21-25); ABG Oxygen Saturation 95.3 % (94-97); ABG PCO2 40 mmHg (35-45); ABG PH 7.41 (7.35-7.45); ABG PO2 80 mmHg (83-108); ABG TCO2 26 mmol/L (19-24); Allen Test Performed? Yes
[2019-12-13] MEDS: PIPERACILLIN-TAZOBACTAM 3.375 GM in SODIUM CHLORIDE 0.9% 100 ML IVPB SCH (05:48)
[2019-12-13 05:56] LABS: Glucose,Whole Blood 222 mg/dL (75-99)
[2019-12-13 05:56] LABS: Glucose,Whole Blood 190 mg/dL (75-99)
[2019-12-13 05:56] LABS: Glucose,Whole Blood 189 mg/dL (75-99)
[2019-12-13] MEDS: INSULIN DETEMIR (LEVEMIR) 100 UNIT/ML SYR SQ SCH (06:55)
--- NOTE | 2019-12-13 08:06 | XR ---
EXAMINATION TYPE: XR chest 1V portable DATE OF EXAM: 12/13/2019 COMPARISON: December 12, 2019 HISTORY: SOB, Follow Up FINDINGS: Indwelling tubes and catheters are unchanged. Stable nonspecific interstitial pattern. Suspect small left-sided effusion. Stable appearance of the cardio-mediastinal structures at this time. IMPRESSION: 1. Stable portable chest. Clinical correlation and follow up until resolution is recommended.
--- NOTE | 2019-12-13 09:27 | P.PN ---
Subjective Progress Note Date: 12/10/19 Principal diagnosis: Recurrent Falls Patient is now intubated and in the care of ICU. WBC significant increase. Since intubated unsure if able to brinch for possible etiology, awaiting repeat sputum and blood cultures. Risk verse benefit with addition of antifungal? Defer to ID/ Pulm. Objective - Vital Signs Vital signs: Vital Signs Temp 97.7 F 12/10/19 08:00 Pulse 73 12/10/19 09:00 Resp 24 12/10/19 09:00 BP 112/67 12/09/19 22:00 Pulse Ox 93 L 12/10/19 09:00 Intake & Output 12/09/19 12/10/19 12/10/19 18:59 06:59 18:59 Intake Total 5470.604 9754.515 176.869 Output Total 310 1225 140 Balance 0420.411 2562.515 36.869 Weight 67.2 kg Intake: IV 6 2250 100 0.9 6 1550 100 Piperacillin-Tazobactam 3 200 .375 gm In Sodium Chloride 0.9% 100 ml @ 25 mls/hr IVPB Q8H ANNA Rx#: [id number] Vancomycin 1,250 mg In 500 Sodium Chloride 0.9% 250 ml @ 125 mls/hr IVPB Q8H ANNA Rx#:[id number] Intake, IV Titration 1007.441 627.515 76.869 Amount Cisatracurium 200 mg In 4.142 Sodium Chloride 0.9% 180 ml @ 1 MCG/KG/MIN 4.212 mls/hr IV .Q24H ANNA Rx#: [id number] Heparin Sod,Pork in 0.45% 86.58 76.869 NaCl 25,000 unit In 0.45 % NaCl 1 250ml.bag @ 18 UNITS/KG/HR 12.636 mls/hr IV .[id number] ANNA Rx#: [id number] Norepinephrine 4 mg In 284.669 Sodium Chloride 0.9% 250 ml @ 0.05 MCG/KG/MIN 13. 373 mls/hr IV .Q19H ANNA Rx#:[id number] Sodium Chloride 0.9% 1, 1000 000 ml @ 999 mls/hr IV . Q1H1M ONE Rx#:[id number] propofoL 1,000 mg In 7.441 252.124 Empty Bag 1 bag @ Titrate IV .Q0M [facility] Rx#: [id number] Oral 476 Output: Urine 310 1225 140 Other: Voiding Method Indwelling Catheter Indwelling Catheter Indwelling Catheter # Voids 3 ABP, PAP, CO, CI - Last Documented Arterial Blood Pressure 109/54 - Exam - Constitutional Intubated on ventilator - EENT ENT: ET tube - Neck Neck: no palpable adenopathy - Respiratory Increased respiratory effort, Respiratory: bilateral: diminished, wheezing (expiratory) ventilator - Cardiovascular Irregular Peripheral Edema: bilateral: 1+ - Gastrointestinal General gastrointestinal: distended, normal bowel sounds, soft, tenderness - Integumentary Integumentary: pale - Neurologic Unable to Access - Musculoskeletal unable to assess - Psychiatric Psychiatric: unable to assess - Labs CBC & Chem 7: 12/10/19 04:36 12/10/19 04:36 Labs: Abnormal Lab Results - Last 24 Hours (Table) 12/09/19 12/09/19 12/09/19 Range/Units 06:21 06:21 11:54 WBC (3.8-10.6) k/uL RBC (4.30-5.90) m/uL Hgb (13.0-17.5) gm/dL Hct (39.0-53.0) % RDW (11.5-15.5) % Plt Count (150-450) k/uL Neutrophils # (Manual) (1.3-7.7) k/uL Monocytes # (Manual) (0-1.0) k/uL Metamyelocytes # (Man) (0) k/uL Myelocytes # (Manual) (0) k/uL Nucleated RBCs (0-0) /100 WBC PT (9.0-12.0) sec INR (<1.2) APTT (22.0-30.0) sec ABG pH (7.35-7.45) ABG pCO2 (35-45) mmHg ABG pO2 (83-108) mmHg ABG Total CO2 (19-24) mmol/L ABG O2 Saturation (94-97) % Sodium (137-145) mmol/L BUN (9-20) mg/dL Creatinine (0.66-1.25) mg/dL Glucose (74-99) mg/dL POC Glucose (mg/dL) 133 H (75-99) mg/dL Calcium (8.4-10.2) mg/dL Magnesium (1.6-2.3) mg/dL Iron 9 L (65-175) ug/dL TIBC 134 L (228-460) ug/dL % Saturation 6.72 L (15.00-50.00) Ferritin 2952.3 H (22.0-322.0) ng/mL AST (17-59) U/L Alkaline Phosphatase (38-126) U/L Total Protein (6.3-8.2) g/dL Albumin (3.5-5.0) g/dL CA 19-9 Antigen 66.0 H (0.0-34.9) U/mL Vitamin B12 2625.0 H (200.0-944.0) pg/mL Ur Specific [place] (1.001-1.035) Urine Protein (Negative) 12/09/19 12/09/19 12/09/19 Range/Units 15:50 16:20 17:30 WBC (3.8-10.6) k/uL RBC (4.30-5.90) m/uL Hgb (13.0-17.5) gm/dL Hct (39.0-53.0) % RDW (11.5-15.5) % Plt Count (150-450) k/uL Neutrophils # (Manual) (1.3-7.7) k/uL Monocytes # (Manual) (0-1.0) k/uL Metamyelocytes # (Man) (0) k/uL Myelocytes # (Manual) (0) k/uL Nucleated RBCs (0-0) /100 WBC PT (9.0-12.0) sec INR (<1.2) APTT (22.0-30.0) sec ABG pH 7.29 L (7.35-7.45) ABG pCO2 51 H (35-45) mmHg ABG pO2 233 H (83-108) mmHg ABG Total CO2 26 H (19-24) mmol/L ABG O2 Saturation 98.8 H (94-97) % Sodium (137-145) mmol/L BUN (9-20) mg/dL Creatinine (0.66-1.25) mg/dL Glucose (74-99) mg/dL POC Glucose (mg/dL) 194 H 194 H (75-99) mg/dL Calcium (8.4-10.2) mg/dL Magnesium (1.6-2.3) mg/dL Iron (65-175) ug/dL TIBC (228-460) ug/dL % Saturation (15.00-50.00) Ferritin (22.0-322.0) ng/mL AST (17-59) U/L Alkaline Phosphatase (38-126) U/L Total Protein (6.3-8.2) g/dL Albumin (3.5-5.0) g/dL CA 19-9 Antigen (0.0-34.9) U/mL Vitamin B12 (200.0-944.0) pg/mL Ur Specific [place] (1.001-1.035) Urine Protein (Negative) 12/09/19 12/09/19 12/09/19 Range/Units 17:35 17:35 17:35 WBC 73.6 H* (3.8-10.6) k/uL RBC 2.89 L (4.30-5.90) m/uL Hgb 8.3 L (13.0-17.5) gm/dL Hct 26.1 L (39.0-53.0) % RDW 18.5 H (11.5-15.5) % Plt Count (150-450) k/uL Neutrophils # (Manual) 64.70 H (1.3-7.7) k/uL Monocytes # (Manual) 1.47 H (0-1.0) k/uL Metamyelocytes # (Man) 5.15 H (0) k/uL Myelocytes # (Manual) 1.47 H (0) k/uL Nucleated RBCs (0-0) /100 WBC PT 18.3 H (9.0-12.0) sec INR 1.9 H (<1.2) APTT 31.9 H (22.0-30.0) sec ABG pH (7.35-7.45) ABG pCO2 (35-45) mmHg ABG pO2 (83-108) mmHg ABG Total CO2 (19-24) mmol/L ABG O2 Saturation (94-97) % Sodium 132 L (137-145) mmol/L BUN 7 L (9-20) mg/dL Creatinine 0.45 L (0.66-1.25) mg/dL Glucose 188 H (74-99) mg/dL POC Glucose (mg/dL) (75-99) mg/dL Calcium 7.3 L (8.4-10.2) mg/dL Magnesium (1.6-2.3) mg/dL Iron (65-175) ug/dL TIBC (228-460) ug/dL % Saturation (15.00-50.00) Ferritin (22.0-322.0) ng/mL AST (17-59) U/L Alkaline Phosphatase (38-126) U/L Total Protein (6.3-8.2) g/dL Albumin (3.5-5.0) g/dL CA 19-9 Antigen (0.0-34.9) U/mL Vitamin B12 (200.0-944.0) pg/mL Ur Specific [place] (1.001-1.035) Urine Protein (Negative) 12/09/19 12/09/19 12/10/19 Range/Units 18:52 23:54 01:44 WBC (3.8-10.6) k/uL RBC (4.30-5.90) m/uL Hgb (13.0-17.5) gm/dL Hct (39.0-53.0) % RDW (11.5-15.5) % Plt Count (150-450) k/uL Neutrophils # (Manual) (1.3-7.7) k/uL Monocytes # (Manual) (0-1.0) k/uL Metamyelocytes # (Man) (0) k/uL Myelocytes # (Manual) (0) k/uL Nucleated RBCs (0-0) /100 WBC PT (9.0-12.0) sec INR (<1.2) APTT >200.0 H* (22.0-30.0) sec ABG pH (7.35-7.45) ABG pCO2 (35-45) mmHg ABG pO2 (83-108) mmHg ABG Total CO2 (19-24) mmol/L ABG O2 Saturation (94-97) % Sodium (137-145) mmol/L BUN (9-20) mg/dL Creatinine (0.66-1.25) mg/dL Glucose (74-99) mg/dL POC Glucose (mg/dL) 243 H (75-99) mg/dL Calcium (8.4-10.2) mg/dL Magnesium (1.6-2.3) mg/dL Iron (65-175) ug/dL TIBC (228-460) ug/dL % Saturation (15.00-50.00) Ferritin (22.0-322.0) ng/mL AST (17-59) U/L Alkaline Phosphatase (38-126) U/L Total Protein (6.3-8.2) g/dL Albumin (3.5-5.0) g/dL CA 19-9 Antigen (0.0-34.9) U/mL Vitamin B12 (200.0-944.0) pg/mL Ur Specific [place] 1.050 H (1.001-1.035) Urine Protein Trace H (Negative) 12/10/19 12/10/19 12/10/19 Range/Units 04:36 04:36 05:54 WBC 102.0 H* (3.8-10.6) k/uL RBC 3.04 L (4.30-5.90) m/uL Hgb 8.7 L (13.0-17.5) gm/dL Hct 27.5 L (39.0-53.0) % RDW 19.1 H (11.5-15.5) % Plt Count 453 H (150-450) k/uL Neutrophils # (Manual) 86.70 H (1.3-7.7) k/uL Monocytes # (Manual) (0-1.0) k/uL Metamyelocytes # (Man) 5.10 H (0) k/uL Myelocytes # (Manual) 6.12 H (0) k/uL Nucleated RBCs 1 H (0-0) /100 WBC PT (9.0-12.0) sec INR (<1.2) APTT 35.4 H (22.0-30.0) sec ABG pH (7.35-7.45) ABG pCO2 (35-45) mmHg ABG pO2 (83-108) mmHg ABG Total CO2 (19-24) mmol/L ABG O2 Saturation (94-97) % Sodium 136 L (137-145) mmol/L BUN (9-20) mg/dL Creatinine 0.45 L (0.66-1.25) mg/dL Glucose 239 H (74-99) mg/dL POC Glucose (mg/dL) (75-99) mg/dL Calcium 7.6 L (8.4-10.2) mg/dL Magnesium 2.6 H (1.6-2.3) mg/dL Iron (65-175) ug/dL TIBC (228-460) ug/dL % Saturation (15.00-50.00) Ferritin (22.0-322.0) ng/mL AST 67 H (17-59) U/L Alkaline Phosphatase 217 H (38-126) U/L Total Protein 5.1 L (6.3-8.2) g/dL Albumin 2.5 L (3.5-5.0) g/dL CA 19-9 Antigen (0.0-34.9) U/mL Vitamin B12 (200.0-944.0) pg/mL Ur Specific [place] (1.001-1.035) Urine Protein (Negative) 12/10/19 Range/Units 08:09 WBC (3.8-10.6) k/uL RBC (4.30-5.90) m/uL Hgb (13.0-17.5) gm/dL Hct (39.0-53.0) % RDW (11.5-15.5) % Plt Count (150-450) k/uL Neutrophils # (Manual) (1.3-7.7) k/uL Monocytes # (Manual) (0-1.0) k/uL Metamyelocytes # (Man) (0) k/uL Myelocytes # (Manual) (0) k/uL Nucleated RBCs (0-0) /100 WBC PT (9.0-12.0) sec INR (<1.2) APTT (22.0-30.0) sec ABG pH 7.27 L (7.35-7.45) ABG pCO2 49 H (35-45) mmHg ABG pO2 80 L (83-108) mmHg ABG Total CO2 (19-24) mmol/L ABG O2 Saturation 93.2 L (94-97) % Sodium (137-145) mmol/L BUN (9-20) mg/dL Creatinine (0.66-1.25) mg/dL Glucose (74-99) mg/dL POC Glucose (mg/dL) (75-99) mg/dL Calcium (8.4-10.2) mg/dL Magnesium (1.6-2.3) mg/dL Iron (65-175) ug/dL TIBC (228-460) ug/dL % Saturation (15.00-50.00) Ferritin (22.0-322.0) ng/mL AST (17-59) U/L Alkaline Phosphatase (38-126) U/L Total Protein (6.3-8.2) g/dL Albumin (3.5-5.0) g/dL CA 19-9 Antigen (0.0-34.9) U/mL Vitamin B12 (200.0-944.0) pg/mL Ur Specific [place] (1.001-1.035) Urine Protein (Negative) Microbiology - Last 24 Hours (Table) 12/09/19 17:43 Gram Stain - Preliminary Sputum Sputum Culture - Preliminary 12/06/19 16:52 Blood Culture - Preliminary Blood No Growth after 72 hours Assessment and Plan (1) Hypokalemia Current Visit: Yes Status: Acute Code(s): E87.6 - HYPOKALEMIA SNOMED Code(s): 23887208 (2) Cancer of pancreas Current Visit: No Status: Chronic Priority: Medium Code(s): C25.9 - MALIGNANT NEOPLASM OF PANCREAS, UNSPECIFIED SNOMED Code(s): 106253917 Plan: Assessment and Recommendations: Recommendations: Acute Hypoxic Respiratory Failure: Worsening - Now on ventilator in ICU - Pulmonology consulted to further evaluate, defer the addition of steroids to pulm and after infectious/inflammatory etiology rule out in stool studies Increased Temp/ leukocytosis/ Weakness: Progressing - Leukocytosis increased - Infectious Septic Work-up in progress:Negative to date - Blood Cultures/Urine - Negative to date - On broad spectrum antibiotics - Leukocytosis could also be reactive to recent Neulasta growth factor shot but given the combination of patients presentation infectious causes need to be further investigated. - COVID testing Negative - Stool Studies neg c diff, Positive lactoferrin. - Consider the addition of antifungal. Normocytic Anemia - Likely secondary to chemotherapy and decreased PO intake - Daily CBC with Diff will be placed. Close monitoring with recent chemotherapy Adenocarcinoma of the Pancreas: - Status Post 6 cycles of FOLFIRINOX, question of progression and due to COVID could not undergo surgical evaluation as original date therefore patient was started on Gemsar and Abraxane and is now status post cycle 3, day 15. - Goal of treatment was to obtain control of cancer, shrink and send for surgical resection. - Chest xray ?infectious versus underlying progression of cancer - Restaging CT scans of Chest abdomen and pelvis were reviewed. Question of fur ther progression in pancreatic mass, will need to compare with most recent CT (I believe was performed through [facility]) to quantify actual changes. Lungs appear to have interstitial and fibrotic changes, consistent with inflammatory process. We will ask Pulmonary to evaluate and if no evidence of infectious colitis after stool studies resulted may benefit from addition of steroids. Will discuss further with pulmonary and Dr. Brock. - Chemotherapy on hold, will re-evaluate after treatment with antibiotics and pulmonary evaluation as concern for inflammatory changes maybe worsened by current chemotherapy (rare adverse event) - Ca 19-9 is improved which does reveal response to treatment, although with current condition unable to continue on treatment at this time. Ca 19-9 -=66 Intractable Diarrhea: Persistent - Stool studies - Questran added although currently oon Ventilator support - Daily CMP to monitor liver, lytes, protein, and calcium. Severe Hypokalemia:Improving - Secondary to diarrhea and decreased PO intake Hypophosphatemia: - Consider supp with K-Phos as well - COntinue to monitor calcium and magnesium - Daily mag, phos recommended Chronic Illness Myopathy: - Evaluation by PT/OT and treatment to increase overall performance once patient is more stable Recurrent Falls Secondary to severe Weakness - PT/OT once patient is extubated and showing improvement Physician Attestation: I have completed the full history and physical of this patient and I have developed the complete assessment and plan. Agree with above dictation by NIXON Yoo, dictated as a ascribe.
[2019-12-13] MEDS: ATORVASTATIN 80 MG TAB PO SCH (09:31)
[2019-12-13] MEDS: CHLORHEXIDINE GLUCONATE 15 ML CUP MUCOUS MEM SCH (09:31)
[2019-12-13] MEDS: GABAPENTIN 100 MG CAP PO SCH (09:32)
[2019-12-13] MEDS: SERTRALINE 100 MG TAB PO SCH (09:32)
[2019-12-13] MEDS: PANTOPRAZOLE 40 MG/10 ML VIAL IVP SCH (09:32)
[2019-12-13] MEDS: CHOLESTYRAMINE (WITH SUGAR) 4 GM PACKET PO SCH (09:33)
[2019-12-13] MEDS ORDERED: LORazepam 2 MG/ML INJ IV PRN (09:40)
[2019-12-13] MEDS ORDERED: ATROPINE OPHTH SOLN 1% 5ML BTL SUBLINGUAL PRN (09:40)
[2019-12-13] MEDS ORDERED: MORPHINE SULFATE 4 MG/ML SYRINGE IV PRN (09:40)
[2019-12-13] MEDS ORDERED: MORPHINE SULFATE 4 MG/ML SYRINGE IVP ONE (09:40)
[2019-12-13] MEDS ORDERED: SCOPOLAMINE 1.5MG/72HR PATCH TRANSDERM SCH (09:45)
[2019-12-13] MEDS ORDERED: MORPHINE SULFATE (100 MG/2 ML) 100 MG in SODIUM CHLORIDE 0.9% 100 ML IV SCH (09:45)
[2019-12-13 09:52] VITALS: BMI 26.3
[2019-12-13 11:14] VITALS: PULSE 96; RESP 28
--- NOTE | 2019-12-13 12:46 | PN ---
PROGRESS NOTE PULMONARY/CRITICAL CARE PROGRESS NOTE: DATE OF SERVICE: 12/13/2019 Critical care time 33 minutes. This is a 64-year-old male who was admitted on December 05. He came in initially with sepsis and electrolyte disturbance. He has a history of advanced pancreatic cancer. He was intubated on December 08 for respiratory failure. Respiratory failure is unclear but may be related to the chemotherapy induced pneumonitis versus infectious process such as bacterial or viral pneumonia. In addition, his chest x-ray and CT scan suggests interstitial process and so lymphangitic carcinomatosis was also thought to be a possibility. In addition, the patient may have a pulmonary embolism as well. Anyway, the patient remains on the mechanical ventilator. His overall prognosis is poor. His only family member is a cousin by the name of Cristo Park. He is on the volume assist-control modality rate of 28, tidal volume 450, FiO2 45%, PEEP of 5. Blood gases show pO2 of 79, pCO2 of 39, and pH 7.40. He remains on propofol at 65 mcg/kg/minute, heparin via weight based protocol, norepinephrine at about 1 mcg/minute, saline at 25 mL an hour and Vital high-protein at 45 with a goal of 45 cc an hour. We had an opportunity to speak to the cousin, Cristo Park. He suggested that Mr. Espino would likely not want to be on life support given his diagnosis. He did make the patient a do not resuscitate and further thought the patient should be on comfort measures. I told him that he would need to come in and see the patient. He is going to come in with his . Afterwards and after they visit, we can discuss further comfort measures only. I also asked whether or not Mr. Espino was a uatsdin man and whether or not he would want to have a clergy or somebody like that come in to see him. Apparently, according to the cousin, Mr. Park, that was not the case. The patient previously was diagnosed with adenocarcinoma of the pancreas. He underwent 6 cycles of chemotherapy and was referred to [facility] for a Whipple procedure. Because of the viral pandemic, the procedure was postponed. More recently he was hospitalized for 3 days between October 04 and October 06 for abdominal pain secondary to pancreatic cancer and acute pancreatitis. PHYSICAL EXAMINATION: VITAL SIGNS: Current vital signs are reviewed. Temperature is 99 degrees, heart rate is 96, respiratory rate 28, blood pressure 137/54, saturation 96%. Appears in no acute distress. HEENT: Examination is grossly unremarkable. He has an orally placed endotracheal tube and NG tube. NECK: Supple. Full range of motion. No adenopathy. Neck veins are flat. CARDIOVASCULAR: Examination reveals regular rhythm and rate. Heart rate 96. Heart sounds are distant. LUNGS: Reveal diffuse coarse rhonchi. There are some crackles bilaterally. ABDOMEN: Soft. No bowel sounds are noted. EXTREMITIES: Intact. Mild edema. SKIN: Without rash. NEUROLOGIC: Examination is difficult to assess given his current level of sedation. Again, vent settings were AC volume assist-control rate of 20, tidal volume 450, FiO2 45%, PEEP of 5. Drips include propofol at 65 mcg/kg/minute, heparin via weight based protocol, norepinephrine at 1 mcg/minute, saline at 25 mL an hour and Vital high-protein at 45 which is goal. LABORATORY DATA: Microbiology including blood, urine, stool, and bronchial washings thus far all negative. IMAGING: A chest x-ray shows it to be stable. There is a small left-sided effusion. Diffuse interstitial pattern. CURRENT MEDICATIONS: Include Tylenol, atropine eye drops, Ativan, morphine, Narcan, potassium replacement, scopolamine patch, and saline. ASSESSMENT: 1. Acute hypoxemic respiratory failure, multifactorial, in part related to possible bacterial pneumonia, versus chemotherapy induced pneumonitis, with possible lymphangitic carcinomatosis, and underlying pulmonary embolism. The patient was intubated and mechanically ventilated on December 08. 2. Possible metastatic pancreatic cancer, with recent chemotherapy. 3. Sepsis with septic shock, of unclear etiology. 4. Recent episode of colitis. 5. Status post bronchoscopy with bronchioalveolar lavage, cultures currently pending or negative. 6. Acute pulmonary embolism. 7. History of underlying coronary artery disease. 8. Type 2 diabetes. 9. Diabetic neuropathy. 10.History of depression. 11.General medical debility. 12.Adrenal insufficiency suspected. PLAN: Currently, the patient is doing very poorly. We did have a chance to speak to Mr. Park, his cousin. Mr. Park wanted the patient to be DNR and further was going to come in and talk to us about comfort measures. He states that Mr. Espino would not want to be on life support given his underlying diagnosis of advanced pancreatic cancer. We will wait for him to come into the hospital. Additional recommendations and suggestions are forthcoming. We will implement comfort measures once he confirms, after he arrives at the hospital. Additional recommendations and suggestions forthcoming. Critical care time 33 minutes. RENÉL / EVEN: [id number] /
--- NOTE | 2019-12-13 14:00 | P.PN ---
Subjective Progress Note Date: 12/13/19 64-year-old was diagnosed with pancreatic cancer back in September [address] maria and has been on chemotherapy. Patient has been getting weaker every day had falling multiple time. Today patient had fall with closed head trauma and injury and had significant confusion with generalized weakness. His white blood cell was over 23,000, patient had significant anemia, lactic acid was significantly elevated. Patient was started on Zosyn, hydration and fluid resuscitation, but kept in bedrest O2 and admit patient to the hospital. Apparently patient has not been doing well since his diagnoses with pink at the cancer despite the chemotherapy patient is getting weaker and much worse day by day. Chest x-ray had? Off atypical acute infectious process with Lymphangitic carcinomatosis is not excluded with? Off fluid overload and infiltrate in the bases. 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 12/06: Patient has been seen by Dr. Holt with recommendations to continue Zosyn, obtain stool studies and sputum for culture. Patient has been seen by oncology and added Questran and Lomotil for diarrhea. CAT scan of the chest was ordered by oncology. Patient has been afebrile, heart rate 101, blood pressure 101/60, pulse ox 92% on 4 L nasal cannula. WBC 22.3, hemoglobin 7.1, platelet count 169. Sodium 132, potassium 2.3 and being replaced, BUN 6 and creatinine 0.49. Coated 19 testing is negative. Blood culture and urine culture in progress. 12/07: CAT scan of the chest abdomen and pelvis with contrast revealed small pleural effusions appear new. Diffuse honeycomb pattern in the lungs consistent with significant interstitial lung disease. This could be acute or chronic interstitial lung disease. Interstitial basilar pulmonary infiltrates are essentially new. Few bilateral bronchial lymph nodes probably due to inflammatory disease. Biliary stent in good position. No dilated ducts. Pancreatic mass measures 4.3 cm and appears increased 1 cm compared to old exam. No evidence of bowel obstruction. Normal appendix. Urine culture has been finalized with no growth. Blood culture showing no growth at 24 hours. Patient has been afebrile, heart rate 93, blood pressure 109/61, pulse ox 90% on 2 L nasal cannula. Repeat blood work reveals potassium of 2.6, sodium 132. BUN 4 and creatinine 0.54. Repeat magnesium 1.6. Patient will be replaced with 120 mEq of potassium and magnesium 2 g. Repeat blood work this evening and in the morning. 12/08: This morning, patient is on high flow nasal cannula 13 L continues to have difficulty breathing, temperature max 100.4, heart rate 97, respiratory rate 24. Blood pressure is on the low side 89/53. CT of the chest ordered came back positive for pulmonary embolism and patient started on Lovenox 1 mg/kg twice daily. Repeat potassium last evening was 3.0. This morning, potassium is 3.2 and will be replaced with 80 mEq, magnesium replaced again today. Sodium 130. Blood sugars running between 118-133. Total bilirubin 0.8, AST 63, ALT 33, alkaline phosphatase 170, LDH 1397, CA 199 elevated at 66. Albumin 2.1. Consult with pulmonary medicine for possibility of lymphangitic carcinomatosis, chemotherapy-induced pneumonitis as well as newly found acute pulmonary embolism possible pulmonary infection not excluded. Bronchoscopy will be considered. 12/09: Patient continued to do poorly yesterday afternoon and was transferred into the intensive care unit and subsequently intubated and placed on mechanical ventilation, tidal volume 450, FiO2 50, PEEP 8. Patient has been afebrile, heart rate 73, blood pressure 104/52. Patient's temperature has been down to 95.9 and placed on Randall hugger. Pena catheter has been placed with adequate good urine output. He is currently on Nimbex, heparin drip, norepinephrine. He is continued on IV antibiotics with Zosyn and vancomycin. Patient is also on Levaquin. Chest x-ray this morning reveals mildly decreased pulmonary edema. Blood work last evening revealed a rising leukocytosis at 73.6 and this morning at 102. Hemoglobin 8.7, platelet count 453. Sodium 136, potassium 4.7, chloride 105, CO2 22, BUN 10 and creatinine 0.45. Blood sugars running between 133 and 243. Total bilirubin is 0.8, AST 67, ALT 35, alkaline phosphatase 217. Urinalysis clear with nitrate and leukoesterase negative. Sputum culture and stool culture in process. Blood culture no growth at 72 hours. Patient's is at bedside and current condition, plan and prognosis reviewed with her. Patient is currently a full code. 12/10: Patient remains intubated and on mechanical ventilation. He is currently on Levothroid with decreased dose, fentanyl and Nimbex. She is on heparin drip for PE. Patient's temperature drops once he is off the Randall hugger and this is currently in place. Repeat chest x-ray this morning reveals improving inte rstitial edema on background chronic emphysematous and pulmonic fibrotic changes. Patient is currently on Zosyn, Levaquin and vancomycin. Patient underwent bronchoscopy and BAL of the right upper lobe and right middle lobe, pathology and cultures pending. Temperature is currently 97.5 with Randall hugger, heart rate 92, respiratory rate 28, blood pressure 101/48. Repeat blood work reveals WBC 71.4, hemoglobin 7.5, platelet count at 449. Sodium 137, potassium 4.4, chloride 110, CO2 25, BUN 12 and creatinine 0.43. Blood sugars running 196-244. Schedule NovoLog added. Urine output adequate. 12/11: Patient remains intubated and on mechanical ventilation. He is currently on fentanyl drip, heparin drip, Nimbex and norepinephrine. Tube feedings are in place. He is requiring Randall hugger. Patient has been afebrile, heart rate 64, blood pressure 128/55, respiratory rate 28. WBC 43.1, hemoglobin 7.2, platelet count 413. Sodium 140, potassium 4.4, chloride 113, CO2 25, BUN 14 and creati nine 0.46. Blood sugars running between 107 and 145. 12/12: Patient remains intubated and on mechanical ventilation with tidal volume 450, FiO2 45 and PEEP of 5. He is currently on norepinephrine, heparin drip and propofol. Patient will be transitioned to comfort care and likely her in hospice. Review of systems Unable to be obtained due to intubation Physical examination General Appearance: Alert, cooperative, mild bruise in the forehead area. Patient resting in the ICU bed. No acute distress noted. Randall hugger in place. Neck HEENT: Supple, no lymphadenopathy, no thyroid enlargement, no carotid bruits. Oral ET and gastric tube in place. Lungs: Decreased breath with congestion bilaterally. Chest Wall: Decrease expansion with deep inspiration no tenderness and no deformity was found on exam, no costochondral pain or discomfort. Heart: Regular rate and rhythm, S1, S2 normal, no murmur, rub or gallop. Abdomen: Soft. Nontender. Pena catheter in place. Extremities: Extremities normal, atraumatic, no cyanosis positive edema. Pulses: 2+ and symmetric. Skin: Skin color, texture, tugor normal, no rashes or lesions. Neurologic: Patient is intubated on mechanical ventilation and on Nimbex. Assessment and plan 1 sepsis with diarrhea, possible pneumonia, presenting with metabolic encephalopathy. 2 multiple fall and trauma. 3 acute hypoxic respiratory failure secondary to pulmonary embolism, present on admission, possible lymphangitic carcinomatosis, chemotherapy-induced pneumonitis. 4 pancreatic cancer. 5 Significant electrolyte imbalance: With severe hypokalemia, hypomagnesemia. 6 nonketotic hyperglycemia. 7 severe anemia secondary to chronic illness. 8 hypothermia and severe leukocytosis secondary to sepsis. . 9 septic shock. 10 pulmonary embolism. . 11 UTI ruled out. 12 history of coronary disease. 13 type 2 diabetes, uncontrolled with hyperglycemia. 14 chronic neuropathy. 15 hyperlipidemia. 16 chronic pain management. 17 recurrent depression. Patient will be transitioned to comfort care and [facility] hospice consult for [facility] hospice care. All aggressive treatment will be discontinued. Impression and plan of care have been directed as dictated by the signing physician. Ramila Zapien nurse practitioner acting as scribe for signing physician. Objective - Vital Signs Vital signs: Vital Signs Temp 99.0 F 12/13/19 04:15 Pulse 80 12/13/19 07:00 Resp 27 H 12/13/19 07:00 BP 109/73 12/11/19 07:45 Pulse Ox 96 12/13/19 07:00 Intake & Output 12/12/19 12/13/19 12/13/19 18:59 06:59 18:59 Intake Total 0863.620 3286.992 98 Output Total 550 485 35 Balance 107.677 4174.992 63 Weight 76.2 kg Intake: IV 650 633 53 0.9 550 600 50 Piperacillin-Tazobactam 3 100 .375 gm In Sodium Chloride 0.9% 100 ml @ 25 mls/hr IVPB Q8H [facility] Rx#: [id number] Pressure 33 3 Intake, IV Titration 422.233 426.992 Amount Heparin Sod,Pork in 0.45% 209.313 128.466 NaCl 25,000 unit In 0.45 % NaCl 1 250ml.bag @ 18 UNITS/KG/HR 12.636 mls/hr IV .[id number] [facility] Rx#: [id number] Norepinephrine 4 mg In 45.288 52.064 Sodium Chloride 0.9% 250 ml @ 0.05 MCG/KG/MIN 13. 373 mls/hr IV .Q19H [facility] Rx#:[id number] fentaNYL (PF) 1,000 mcg 66.528 In Sodium Chloride 0.9% 80 ml @ Per Protocol IV . Q0M [facility] Rx#:[id number] propofoL 1,000 mg In 101.104 246.462 Empty Bag 1 bag @ Titrate IV .Q0M [facility] Rx#: [id number] Tube Feeding 380 590 45 Other 90 95 Output: Urine 550 485 35 Other: Voiding Method Indwelling Catheter Indwelling Catheter ABP, PAP, CO, CI - Last Documented Arterial Blood Pressure 116/48 - Labs CBC & Chem 7: 12/13/19 04:54 12/13/19 04:54 Labs: Abnormal Lab Results - Last 24 Hours (Table) 12/12/19 12/12/19 12/13/19 Range/Units 11:00 17:17 00:01 WBC (3.8-10.6) k/uL RBC (4.30-5.90) m/uL Hgb (13.0-17.5) gm/dL Hct (39.0-53.0) % RDW (11.5-15.5) % Plt Count (150-450) k/uL APTT (22.0-30.0) sec ABG pO2 (83-108) mmHg ABG Total CO2 (19-24) mmol/L Chloride (98-107) mmol/L Creatinine (0.66-1.25) mg/dL Glucose (74-99) mg/dL POC Glucose (mg/dL) 176 H 190 H 189 H (75-99) mg/dL Calcium (8.4-10.2) mg/dL 12/13/19 12/13/19 12/13/19 Range/Units 04:54 04:54 04:54 WBC 47.5 H (3.8-10.6) k/uL RBC 2.42 L (4.30-5.90) m/uL Hgb 7.3 L (13.0-17.5) gm/dL Hct 22.5 L (39.0-53.0) % RDW 21.3 H (11.5-15.5) % Plt Count 509 H (150-450) k/uL APTT 40.8 H (22.0-30.0) sec ABG pO2 (83-108) mmHg ABG Total CO2 (19-24) mmol/L Chloride 114 H (98-107) mmol/L Creatinine 0.48 L (0.66-1.25) mg/dL Glucose 175 H (74-99) mg/dL POC Glucose (mg/dL) (75-99) mg/dL Calcium 7.4 L (8.4-10.2) mg/dL 12/13/19 12/13/19 Range/Units 05:33 05:55 WBC (3.8-10.6) k/uL RBC (4.30-5.90) m/uL Hgb (13.0-17.5) gm/dL Hct (39.0-53.0) % RDW (11.5-15.5) % Plt Count (150-450) k/uL APTT (22.0-30.0) sec ABG pO2 80 L (83-108) mmHg ABG Total CO2 26 H (19-24) mmol/L Chloride (98-107) mmol/L Creatinine (0.66-1.25) mg/dL Glucose (74-99) mg/dL POC Glucose (mg/dL) 222 H (75-99) mg/dL Calcium (8.4-10.2) mg/dL Microbiology - Last 24 Hours (Table) 12/09/19 17:35 Blood Culture - Preliminary Blood No Growth after 72 hours 12/06/19 16:52 Blood Culture - Final Blood No Growth after 144 hours 12/10/19 11:55 Gram Stain - Preliminary Bronchial Washings - Random Bronchial Washings Culture - Preliminary 12/09/19 17:43 Gram Stain - Final Sputum Sputum Culture - Final
--- NOTE | 2019-12-13 20:03 | P.PN ---
Subjective Progress Note Date: 12/13/19 Principal diagnosis: Recurrent Falls Remains intubated in care of ICU, he is now a No Code. Objective - Vital Signs Vital signs: Vital Signs Temp 99.0 F 12/13/19 09:00 Pulse 77 12/13/19 09:00 Resp 27 H 12/13/19 09:00 BP 109/73 12/11/19 07:45 Pulse Ox 97 12/13/19 09:00 Intake & Output 12/12/19 12/13/19 12/13/19 18:59 06:59 18:59 Intake Total 4056.412 5793.992 251.579 Output Total 550 485 135 Balance 105.816 1848.992 116.579 Weight 76.2 kg Intake: IV 650 633 109 0.9 550 600 100 Piperacillin-Tazobactam 3 100 .375 gm In Sodium Chloride 0.9% 100 ml @ 25 mls/hr IVPB Q8H [facility] Rx#: [id number] Pressure 33 9 Intake, IV Titration 422.233 526.992 7.579 Amount Heparin Sod,Pork in 0.45% 209.313 128.466 NaCl 25,000 unit In 0.45 % NaCl 1 250ml.bag @ 18 UNITS/KG/HR 12.636 mls/hr IV .[id number] [facility] Rx#: [id number] Norepinephrine 4 mg In 45.288 52.064 7.579 Sodium Chloride 0.9% 250 ml @ 0.05 MCG/KG/MIN 13. 373 mls/hr IV .Q19H [facility] Rx#:[id number] fentaNYL (PF) 1,000 mcg 66.528 In Sodium Chloride 0.9% 80 ml @ Per Protocol IV . Q0M [facility] Rx#:[id number] propofoL 1,000 mg In 101.104 346.462 Empty Bag 1 bag @ Titrate IV .Q0M [facility] Rx#: [id number] Tube Feeding 380 590 135 Other 90 95 Output: Urine 550 485 135 Other: Voiding Method Indwelling Catheter Indwelling Catheter Indwelling Catheter ABP, PAP, CO, CI - Last Documented Arterial Blood Pressure 120/50 - Exam - Constitutional Intubated on ventilator - EENT ENT: ET tube - Neck Neck: no palpable adenopathy - Respiratory Increased respiratory effort, Respiratory: bilateral: diminished, wheezing (expiratory) ventilator - Cardiovascular Irregular Peripheral Edema: bilateral: 1+ - Gastrointestinal General gastrointestinal: distended, normal bowel sounds, soft, tenderness - Integumentary Integumentary: pale - Neurologic Unable to Access - Musculoskeletal unable to assess - Psychiatric Psychiatric: unable to assess - Labs CBC & Chem 7: 12/13/19 04:54 12/13/19 04:54 Labs: Abnormal Lab Results - Last 24 Hours (Table) 12/12/19 12/12/19 12/13/19 Range/Units 11:00 17:17 00:01 WBC (3.8-10.6) k/uL RBC (4.30-5.90) m/uL Hgb (13.0-17.5) gm/dL Hct (39.0-53.0) % RDW (11.5-15.5) % Plt Count (150-450) k/uL APTT (22.0-30.0) sec ABG pO2 (83-108) mmHg ABG Total CO2 (19-24) mmol/L Chloride (98-107) mmol/L Creatinine (0.66-1.25) mg/dL Glucose (74-99) mg/dL POC Glucose (mg/dL) 176 H 190 H 189 H (75-99) mg/dL Calcium (8.4-10.2) mg/dL 12/13/19 12/13/19 12/13/19 Range/Units 04:54 04:54 04:54 WBC 47.5 H (3.8-10.6) k/uL RBC 2.42 L (4.30-5.90) m/uL Hgb 7.3 L (13.0-17.5) gm/dL Hct 22.5 L (39.0-53.0) % RDW 21.3 H (11.5-15.5) % Plt Count 509 H (150-450) k/uL APTT 40.8 H (22.0-30.0) sec ABG pO2 (83-108) mmHg ABG Total CO2 (19-24) mmol/L Chloride 114 H (98-107) mmol/L Creatinine 0.48 L (0.66-1.25) mg/dL Glucose 175 H (74-99) mg/dL POC Glucose (mg/dL) (75-99) mg/dL Calcium 7.4 L (8.4-10.2) mg/dL 12/13/19 12/13/19 Range/Units 05:33 05:55 WBC (3.8-10.6) k/uL RBC (4.30-5.90) m/uL Hgb (13.0-17.5) gm/dL Hct (39.0-53.0) % RDW (11.5-15.5) % Plt Count (150-450) k/uL APTT (22.0-30.0) sec ABG pO2 80 L (83-108) mmHg ABG Total CO2 26 H (19-24) mmol/L Chloride (98-107) mmol/L Creatinine (0.66-1.25) mg/dL Glucose (74-99) mg/dL POC Glucose (mg/dL) 222 H (75-99) mg/dL Calcium (8.4-10.2) mg/dL Microbiology - Last 24 Hours (Table) 12/08/19 18:09 Stool Culture - Final Stool 12/10/19 11:55 Gram Stain - Final Bronchial Washings - Random Bronchial Washings Culture - Final 12/09/19 17:35 Blood Culture - Preliminary Blood No Growth after 72 hours 12/06/19 16:52 Blood Culture - Final Blood No Growth after 144 hours 12/09/19 17:43 Gram Stain - Final Sputum Sputum Culture - Final Assessment and Plan (1) Hypokalemia Status: Acute Code(s): E87.6 - HYPOKALEMIA SNOMED Code(s): 32068763 (2) Cancer of pancreas Status: Chronic Priority: Medium Code(s): C25.9 - MALIGNANT NEOPLASM OF PANCREAS, UNSPECIFIED SNOMED Code(s): 578395452 Plan: Assessment and Recommendations: Recommendations: Acute Hypoxic Respiratory Failure: Worsening -ventilator in ICU - Not improved - Intubated in the care of ICU/Pulmonolgy - Status Post Bronchoscopy with negative cultures this far. - Multifactoral with Acute Pulm embolism, pneumonitis, possible infectious etiology as well. Adenocarcinoma of the Pancreas: - Status Post 6 cycles of FOLFIRINOX, question of progression and due to COVID could not undergo surgical evaluation as original date therefore patient was started on Gemsar and Abraxane and is now status post cycle 3, day 15. - Goal of treatment was to obtain control of cancer, shrink and send for surgical resection. - Unfortunately patient has had complication requiring hospitalization and care of ICU, and not able to receive further treatment above. - With complications of overall condition patient's family have decided on comfort measures, this is reasonable given his likely progression and inability to receive further treatment. Emotional support given to family
--- NOTE | 2019-12-14 07:21 | P.DS ---
Providers Date of admission: 12/06/19 17:23 Expected date of discharge: 12/13/19 Attending physician: James Bond Consults: 12/06/19 17:22 Consult Physician Routine Consulting Provider: Miley Holt Consult Reason/Comments: sepsis Do you want consulting provider notified?: Yes 12/06/19 22:18 Consult Physician Routine Consulting Provider: Carl Brock Consult Reason/Comments: Pancreatic CA Do you want consulting provider notified?: Yes 12/08/19 20:09 Consult Physician Routine Consulting Provider: Efrain Willett Consult Reason/Comments: Inflammatory changes and acute hypoxic respiratory failure Do you want consulting provider notified?: Yes, Notify in am Primary care physician: [facility] Course: 64-year-old was diagnosed with pancreatic cancer back in September [address] maria and has been on chemotherapy. Patient has been getting weaker every day had falling multiple time. Today patient had fall with closed head trauma and injury and had significant confusion with generalized weakness. His white blood cell was over 23,000, patient had significant anemia, lactic acid was significantly elevated. Patient was started on Zosyn, hydration and fluid resuscitation, but kept in bedrest O2 and admit patient to the hospital. Apparently patient has not been doing well since his diagnoses with pink at the cancer despite the chemotherapy patient is getting weaker and much worse day by day. Chest x-ray had? Off atypical acute infectious process with Lymphangitic carcinomatosis is not excluded with? Off fluid overload and infiltrate in the bases. 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 12/06: Patient has been seen by Dr. Holt with recommendations to continue Zosyn, obtain stool studies and sputum for culture. Patient has been seen by oncology and added Questran and Lomotil for diarrhea. CAT scan of the chest was ordered by oncology. Patient has been afebrile, heart rate 101, blood pressure 101/60, pulse ox 92% on 4 L nasal cannula. WBC 22.3, hemoglobin 7.1, platelet count 169. Sodium 132, potassium 2.3 and being replaced, BUN 6 and creatinine 0.49. Coated 19 testing is negative. Blood culture and urine culture in progress. 12/07: CAT scan of the chest abdomen and pelvis with contrast revealed small pleural effusions appear new. Diffuse honeycomb pattern in the lungs consistent with significant interstitial lung disease. This could be acute or chronic interstitial lung disease. Interstitial basilar pulmonary infiltrates are essentially new. Few bilateral bronchial lymph nodes probably due to inflammatory disease. Biliary stent in good position. No dilated ducts. Pancreatic mass measures 4.3 cm and appears increased 1 cm compared to old exam. No evidence of bowel obstruction. Normal appendix. Urine culture has been finalized with no growth. Blood culture showing no growth at 24 hours. Patient has been afebrile, heart rate 93, blood pressure 109/61, pulse ox 90% on 2 L nasal cannula. Repeat blood work reveals potassium of 2.6, sodium 132. BUN 4 and creatinine 0.54. Repeat magnesium 1.6. Patient will be replaced with 120 mEq of potassium and magnesium 2 g. Repeat blood work this evening and in the morning. 12/08: This morning, patient is on high flow nasal cannula 13 L continues to have difficulty breathing, temperature max 100.4, heart rate 97, respiratory rate 24. Blood pressure is on the low side 89/53. CT of the chest ordered came back positive for pulmonary embolism and patient started on Lovenox 1 mg/kg twice daily. Repeat potassium last evening was 3.0. This morning, potassium is 3.2 and will be replaced with 80 mEq, magnesium replaced again today. Sodium 130. Blood sugars running between 118-133. Total bilirubin 0.8, AST 63, ALT 33, alkaline phosphatase 170, LDH 1397, CA 199 elevated at 66. Albumin 2.1. Consult with pulmonary medicine for possibility of lymphangitic carcinomatosis, chemotherapy-induced pneumonitis as well as newly found acute pulmonary embolism possible pulmonary infection not excluded. Bronchoscopy will be considered. 12/09: Patient continued to do poorly yesterday afternoon and was transferred into the intensive care unit and subsequently intubated and placed on mechanical ventilation, tidal volume 450, FiO2 50, PEEP 8. Patient has been afebrile, heart rate 73, blood pressure 104/52. Patient's temperature has been down to 95.9 and placed on Randall hugger. Pena catheter has been placed with adequate good urine output. He is currently on Nimbex, heparin drip, norepinephrine. He is continued on IV antibiotics with Zosyn and vancomycin. Patient is also on Levaquin. Chest x-ray this morning reveals mildly decreased pulmonary edema. Blood work last evening revealed a rising leukocytosis at 73.6 and this morning at 102. Hemoglobin 8.7, platelet count 453. Sodium 136, potassium 4.7, chloride 105, CO2 22, BUN 10 and creatinine 0.45. Blood sugars running between 133 and 243. Total bilirubin is 0.8, AST 67, ALT 35, alkaline phosphatase 217. Urinalysis clear with nitrate and leukoesterase negative. Sputum culture and stool culture in process. Blood culture no growth at 72 hours. Patient's is at bedside and current condition, plan and prognosis reviewed with her. Patient is currently a full code. 12/10: Patient remains intubated and on mechanical ventilation. He is currently on Levothroid with decreased dose, fentanyl and Nimbex. She is on heparin drip for PE. Patient's temperature drops once he is off the Randall hugger and this is currently in place. Repeat chest x-ray this morning reveals improving interstitial edema on background chronic emphysematous and pulmonic fibrotic changes. Patient is currently on Zosyn, Levaquin and vancomycin. Patient un derwent bronchoscopy and BAL of the right upper lobe and right middle lobe, pathology and cultures pending. Temperature is currently 97.5 with Randall hugger, heart rate 92, respiratory rate 28, blood pressure 101/48. Repeat blood work reveals WBC 71.4, hemoglobin 7.5, platelet count at 449. Sodium 137, potassium 4.4, chloride 110, CO2 25, BUN 12 and creatinine 0.43. Blood sugars running 196-244. Schedule NovoLog added. Urine output adequate. 12/11: Patient remains intubated and on mechanical ventilation. He is currently on fentanyl drip, heparin drip, Nimbex and norepinephrine. Tube feedings are in place. He is requiring Randall hugger. Patient has been afebrile, heart rate 64, blood pressure 128/55, respiratory rate 28. WBC 43.1, hemoglobin 7.2, platelet count 413. Sodium 140, potassium 4.4, chloride 113, CO2 25, BUN 14 and creatinine 0.46. Blood sugars running between 107 and 145. 12/12: Patient remains intubated and on mechanical ventilation with tidal volume 450, FiO2 45 and PEEP of 5. He is currently on norepinephrine, heparin drip and propofol. Patient will be transitioned to comfort care and likely her in hospice. Patient on 12/12. Please see nursing documentation for details. Assessment and plan 1 sepsis with diarrhea, possible pneumonia, presenting with metabolic encephalopathy. 2 multiple fall and trauma. 3 acute hypoxic respiratory failure secondary to pulmonary embolism, present on admission, possible lymphangitic carcinomatosis, chemotherapy-induced pneumonitis. 4 pancreatic cancer. 5 Significant electrolyte imbalance: With severe hypokalemia, hypomagnesemia. 6 nonketotic hyperglycemia. 7 severe anemia secondary to chronic illness. 8 hypothermia and severe leukocytosis secondary to sepsis. . 9 septic shock. 10 pulmonary embolism. . 11 UTI ruled out. 12 history of coronary disease. 13 type 2 diabetes, uncontrolled with hyperglycemia. 14 chronic neuropathy. 15 hyperlipidemia. 16 chronic pain management. 17 recurrent depression. Impression and plan of care have been directed as dictated by the signing physician. Ramila Zapien nurse practitioner acting as scribe for signing physician. Patient Condition at Discharge: Critical Plan - Discharge Summary Discharge Rx Participant: Yes New Discharge Prescriptions: No Action Sertraline [Zoloft] 100 mg PO DAILY Atorvastatin [Lipitor] 80 mg PO DAILY Aspirin 325 mg PO DAILY Metoprolol Succinate (ER) [Toprol XL] 25 mg PO DAILY lisinopriL [Prinivil] 5 mg PO DAILY Insulin Glargine,Hum.rec.anlog [Basaglar Kwikpen U-100] 15 unit SQ DAILY #3 pen HYDROcodone/APAP 5-325MG [[place] 5-325] 1 tab PO QID PRN PRN Reason: Pain Insulin Lispro [Admelog] See Protocol SQ AC-TID Gabapentin [Neurontin] 200 mg PO BID Pantoprazole Sodium [Protonix] 20 mg PO DAILY Discharge Medication List Atorvastatin [Lipitor] 80 mg PO DAILY 03/31/19 [History] Sertraline [Zoloft] 100 mg PO DAILY 03/31/19 [History] Aspirin 325 mg PO DAILY 04/01/19 [History] Metoprolol Succinate (ER) [Toprol XL] 25 mg PO DAILY 10/05/19 [History] lisinopriL [Prinivil] 5 mg PO DAILY 10/05/19 [History] Insulin Glargine,Hum.rec.anlog [Basaglar Kwikpen U-100] 15 unit SQ DAILY #3 pen 10/07/19 [Rx] Gabapentin [Neurontin] 200 mg PO BID 12/06/19 [History] HYDROcodone/APAP 5-325MG [[place] 5-325] 1 tab PO QID PRN 12/06/19 [History] Insulin Lispro [Admelog] See Protocol SQ AC-TID 12/06/19 [History] Pantoprazole Sodium [Protonix] 20 mg PO DAILY 12/06/19 [History] Follow up Appointment(s)/Referral(s): Evens Hayes MD [Primary Care Provider] - 1-2 days Activity/Diet/Wound Care/Special Instructions: [facility] pt will need a COVID within 72hrs of dc Discharge Disposition: DISCH TO HOSPICE MED FACILTY - Preliminary Cause of Preliminary Cause of : sepsis with diarrhea, possible pneumonia
== END 2019-12-13 13:39 | disposition hospice, inpatient (51) | DRG 871 ==
LOC: EC 14:48 → 3SCARD 17:23 → 2SICU 12-09 16:26
PROVIDERS: ADMIT Internal Medicine Geriatric Medicine; ATTEND Internal Medicine Geriatric Medicine
PROC: 0B9D8ZX Drainage of Right Middle Lung Lobe, Via Natural or Artificial Opening Endoscopic, Diagnostic (ICD-10-PCS; principal; 2019-12-10)
PROC: 0B9C8ZX Drainage of Right Upper Lung Lobe, Via Natural or Artificial Opening Endoscopic, Diagnostic (ICD-10-PCS; principal; 2019-12-10)
PROC: 5A1945Z Respiratory Ventilation, 24-96 Consecutive Hours (ICD-10-PCS; 2019-12-10)
PROC: 0BH17EZ Insertion of Endotracheal Airway into Trachea, Via Natural or Artificial Opening (ICD-10-PCS; 2019-12-10)
PROC: 06HT33Z Insertion of Infusion Device into Right Foot Vein, Percutaneous Approach (ICD-10-PCS; 2019-12-10)
PROC: 3E0G76Z Introduction of Nutritional Substance into Upper GI, Via Natural or Artificial Opening (ICD-10-PCS; 2019-12-10)
PROC: 3E033XZ Introduction of Vasopressor into Peripheral Vein, Percutaneous Approach (ICD-10-PCS; 2019-12-10)
DX: A41.9 Sepsis, unspecified organism (principal); I26.99 Other pulmonary embolism without acute cor pulmonale; J96.01 Acute respiratory failure with hypoxia; K83.1 Obstruction of bile duct; K85.90 Acute pancreatitis without necrosis or infection, unspecified; R65.21 Severe sepsis with septic shock; C25.0 Malignant neoplasm of head of pancreas; C77.2 Secondary and unspecified malignant neoplasm of intra-abdominal lymph nodes; E27.40 Unspecified adrenocortical insufficiency; E87.1 Hypo-osmolality and hyponatremia; E87.2 Acidosis; F33.9 Major depressive disorder, recurrent, unspecified; J44.0 Chronic obstructive pulmonary disease with (acute) lower respiratory infection; G72.81 Critical illness myopathy; D72.823 Leukemoid reaction; D63.8 Anemia in other chronic diseases classified elsewhere; J70.4 Drug-induced interstitial lung disorders, unspecified; Z66 Do not resuscitate; T45.1X5A Adverse effect of antineoplastic and immunosuppressive drugs, initial encounter; T68.XXXA Hypothermia, initial encounter; E11.40 Type 2 diabetes mellitus with diabetic neuropathy, unspecified; E11.65 Type 2 diabetes mellitus with hyperglycemia; Z51.5 Encounter for palliative care; Z20.828 Contact with and (suspected) exposure to other viral communicable diseases; S09.90XA Unspecified injury of head, initial encounter; D64.81 Anemia due to antineoplastic chemotherapy; E78.5 Hyperlipidemia, unspecified; E83.42 Hypomagnesemia; E87.6 Hypokalemia; E87.70 Fluid overload, unspecified; F41.9 Anxiety disorder, unspecified; I10 Essential (primary) hypertension; I25.10 Atherosclerotic heart disease of native coronary artery without angina pectoris; I25.2 Old myocardial infarction; R29.6 Repeated falls; R19.7 Diarrhea, unspecified; Z92.21 Personal history of antineoplastic chemotherapy; Z60.2 Problems related to living alone; I69.392 Facial weakness following cerebral infarction; Z86.010 Personal history of colon polyps; Z87.19 Personal history of other diseases of the digestive system; K21.9 Gastro-esophageal reflux disease without esophagitis; Z87.01 Personal history of pneumonia (recurrent); Z82.49 Family history of ischemic heart disease and other diseases of the circulatory system; Z83.3 Family history of diabetes mellitus; Z82.3 Family history of stroke; Z79.82 Long term (current) use of aspirin; Z79.899 Other long term (current) drug therapy; Z85.46 Personal history of malignant neoplasm of prostate; Z91.81 History of falling; Z95.5 Presence of coronary angioplasty implant and graft
CPT/HCPCS: 31624; 36415; 70450; 71045; 71046; 71260; 71275; 72125; 74177; 80048; 80053; 80202; 81001; 81003; 82272; 82330; 82533; 82607; 82728; 82805; 83540; 83550; 83605; 83615; 83630; 83690; 83735; 83921; 84100; 84132; 84484; 85025; 85027; 85045; 85610; 85730; 86301; 86850; 86900; 86901; 87040; 87045; 87046; 87070; 87086; 87102; 87116; 87205; 87206; 87252; 87324; 87449; 87496; 87498; 87502; 87529; 87634; 87798; 88108; 88305; 89050; 93005; 94002; 94003; 94640; 96365; 96366; 96367; 96368; 96375; 99291

== ENCOUNTER 2019-12-13 12:22 | Inpatient (IN) | payer MEDICAID ==
[2019-12-13] MEDS ORDERED: ACETAMINOPHEN SUPPOSITORY 650 MG SUPP RECTAL PRN (12:45)
[2019-12-13] MEDS ORDERED: ATROPINE OPHTH SOLN 1% 5ML BTL SUBLINGUAL PRN (12:45)
[2019-12-13] MEDS ORDERED: MORPHINE SULFATE (100 MG/2 ML) 100 MG in SODIUM CHLORIDE 0.9% 100 ML IV SCH (12:45)
[2019-12-13] MEDS ORDERED: MORPHINE SULFATE 4 MG/ML SYRINGE IV PRN (12:45)
[2019-12-13] MEDS ORDERED: SCOPOLAMINE 1.5MG/72HR PATCH TRANSDERM PRN (12:45)
[2019-12-13] MEDS ORDERED: LORazepam 2 MG/ML INJ IV PRN (12:45)
[2019-12-13 21:06] VITALS: PULSE 25; RESP 0
== END 2019-12-13 23:12 | disposition expired | DRG 951 ==
LOC: 2SICU 13:40
PROVIDERS: ADMIT Internal Medicine Geriatric Medicine; ATTEND Internal Medicine Geriatric Medicine
DX: Z51.5 Encounter for palliative care (principal); A41.9 Sepsis, unspecified organism; J18.9 Pneumonia, unspecified organism; G93.41 Metabolic encephalopathy; J96.01 Acute respiratory failure with hypoxia; C25.9 Malignant neoplasm of pancreas, unspecified; J44.0 Chronic obstructive pulmonary disease with (acute) lower respiratory infection; F41.9 Anxiety disorder, unspecified; F32.9 Major depressive disorder, single episode, unspecified; D64.9 Anemia, unspecified; R19.7 Diarrhea, unspecified; R29.6 Repeated falls; Z91.81 History of falling; S09.90XA Unspecified injury of head, initial encounter; I25.2 Old myocardial infarction; E11.40 Type 2 diabetes mellitus with diabetic neuropathy, unspecified; E11.65 Type 2 diabetes mellitus with hyperglycemia; G89.29 Other chronic pain; I25.10 Atherosclerotic heart disease of native coronary artery without angina pectoris; Z95.5 Presence of coronary angioplasty implant and graft; I69.392 Facial weakness following cerebral infarction; K21.9 Gastro-esophageal reflux disease without esophagitis; Z87.19 Personal history of other diseases of the digestive system; E78.5 Hyperlipidemia, unspecified; I10 Essential (primary) hypertension; E87.6 Hypokalemia; E83.42 Hypomagnesemia; T68.XXXA Hypothermia, initial encounter; Z86.711 Personal history of pulmonary embolism; Z92.21 Personal history of antineoplastic chemotherapy